=== PATIENT | female | born 1970 | race Caucasian/White ===

== ENCOUNTER 2021-09-11 01:28 | Inpatient (IN) | payer BC, SELFPAY ==
[2021-09-11] VITALS (13 sets, daily range): BP systolic 81–155; BP diastolic 52–118; PULSE 92–118; RESP 15–92; TEMP 36.7–37.7; O2SAT 90–98; BMI 16.1
--- NOTE | ~2021-09-11 | XR_ITS ---
EXAMINATION: XR chest 1V portable DATE: 09/21/2021 05:50 INDICATION: Respiratory failure TECHNIQUE: frontal view of the chest was obtained. COMPARISON: Chest radiograph and CT dated 09/20/21 FINDINGS: Endotracheal tube tip is 0.9 cm above the alisha. Nasogastric tube tip in proximal side port in the b declan of the stomach. Left upper extremity peripherally inserted central venous catheter (PICC) tip at the caudal superior vena cava. Slight interval improvement in the diffuse interstitial and groundglass and patchy more dense airspac e opacities seen throughout both lungs. Remain slightly more prominent in the left upper and lower ministerio ng zones. No pleural effusion or pneumothorax. The cardiomediastinal silhouette is normal. IMPRESSION: 1. Interval improvement in now left-sided predominant and minimal right-sided opacities which could r epresent improving pneumonia and/or pulmonary edema. 2. Underlying emphysema, better appreciated on prior CT. Reviewed, dictated and finalized at location A. IMPRESSION: 1. Interval improvement in now left-sided predominant and minimal right-sided o pacities which could represent improving pneumonia and/or pulmonary edema. 2. Underlying emphysema, better appreciated on prior CT.
--- NOTE | ~2021-09-11 | XR_ITS ---
EXAMINATION: XR chest 1V portable DATE: 09/13/2021 05:54 INDICATION: Respiratory failure. TECHNIQUE: A single frontal view of the chest was obtained. COMPARISON: Chest single view 09/12/2021, CT abdomen and pelvis 09/10/2021 FINDINGS: There are heterogeneous airspace opacities throughout the lungs bilaterally with relative s paring of the lung apices. No pleural effusion or pneumothorax. The heart size is normal. The endotra cheal tube tip is 3.5 cm above the alisha. The nasogastric tube tip is in the stomach. IMPRESSION: 1. Diffuse lung disease with improvement at the lung apices, consistent with pulmonary edema versus p neumonia. Reviewed, dictated and finalized at location A. IMPRESSION: 1. Diffuse lung disease with improvement at the lung apices, consistent with pu lmonary edema versus pneumonia.
--- NOTE | ~2021-09-11 | XR_ITS ---
EXAMINATION: XR chest 1V portable DATE: 09/25/2021 06:07 INDICATION: Pneumonia. Intubated. Respiratory failure. TECHNIQUE: frontal view of the chest was obtained. COMPARISON: Chest radiograph dated 09/24/21 FINDINGS: Nasogastric tube extends below the left hemidiaphragm with distal tip collimated off the study. Left upper extremity peripherally inserted central venous catheter (PICC) tip at the caudal superior chandler a cava. Mild streaky bibasilar atelectasis. No other airspace opacities, pulmonary edema, pleural effusion or pneumothorax. The cardiomediastinal silhouette is normal. Visualized bones and soft tissues are unre markable. IMPRESSION: 1. Mild bibasilar atelectasis. Reviewed, dictated and finalized at location A.
--- NOTE | ~2021-09-11 | XR_ITS ---
XR abdomen/kub 1V DATE: 09/16/2021 08:08 INDICATION: Ileus TECHNIQUE: Portable supine AP view on 09/16/2021 at 0746 hours COMPARISON: 09/12/2021 water-soluble upper gastrointestinal series 09/11/2021 KUB FINDINGS: Nasogastric tube in gastric fundus, the proximal side-port the proximal 8 cm distal to the diaphragmatic hiatus. Repeat contrast material is noted in the left colon. No bowel obstruction is evident. The psoas shado ws are intact. No visceromegaly is identified. Bilateral lower lung infiltrates are noted. IMPRESSION: Nonspecific abdomen Bilateral lower lung infiltrates NG tube in gastric fundus Reviewed, dictated and finalized at Location A. Reviewed, dictated and finalized at location A.
--- NOTE | ~2021-09-11 | CT_ITS ---
EXAMINATION: CTA chest PE abdomen pel DATE: 09/20/2021 14:03 INDICATION: Fever. Encephalopathy. TECHNIQUE: Computed tomography angiography (CTA) of the chest was performed with 100 mL Omnipaque-350 intravenous contrast timed to evaluate the pulmonary arteries. Coronal maximum intensity projection 3D-reconstructions were created by the technologist. Computed tomography (CT) of the abdomen and pelv is was performed with intravenous contrast. Automated exposure control and iterative reconstruction t echnique were employed. The dose-length product was 594.29 mGy-cm. COMPARISON: CT abdomen and pelvis 09/10/2021 FINDINGS: CTA chest: There is mild emphysema. There are patchy groundglass opacities in all lobes. There are pa tchy airspace opacities in the lower lobes and left upper lobe. There are small pleural effusions. Th e heart size is normal. No pericardial effusion. There is no pulmonary embolus. The endotracheal tube tip is in expected position in the trachea. A left upper extremity peripherally inserted central chandler ous catheter (PICC) is seen with tip at the superior cavoatrial junction. CT abdomen and pelvis: The nasogastric tube tip is in the stomach. The liver is normal. The gallbladd er is absent. The spleen, pancreas, adrenal glands, and kidneys are normal. There is a large volume o f liquid stool in colon. The appendix is normal. There are no dilated loops of bowel. There is a Fole y catheter in expected position. There are no pathologically enlarged lymph nodes. There is no free i ntraperitoneal fluid. IMPRESSION: 1. No pulmonary embolus. 2. Diffuse lung disease, new from 09/10/2021, consistent with pneumonia without or with superimposed p ulmonary edema. 3. Mild emphysema. 4. Small pleural effusions. Reviewed, dictated and finalized at location A. IMPRESSION: 1. No pulmonary embolus. 2. Diffuse lung disease, new from 09/10/2021, consistent with pneumonia without or with superimposed pulmonary edema. 3. Mild emphysema. 4. Small pleural effusions.
--- NOTE | ~2021-09-11 | US_ITS ---
EXAMINATION: US renal BI DATE: 09/11/2021 11:50 INDICATION: Acute renal insufficiency TECHNIQUE: Multiple ultrasound grayscale images of the kidneys were obtained. COMPARISON: None. FINDINGS: The right kidney measures 11.4 x 4.6 x 5.6 cm. The suboptimally visualized left kidney measures 9.1 x 4.6 x 4.6 cm. The kidneys demonstrate normal echogenicity. There is no hydronephrosis in either kidn ey. No stones identified. A Solorzano catheter is seen within the partially decompressed bladder which l imits evaluation. IMPRESSION: 1. Normal kidneys without hydronephrosis. Reviewed, dictated and finalized at location B.
--- NOTE | ~2021-09-11 | XR_ITS ---
EXAMINATION: XR UGI water soluble w sbs DATE: 09/12/2021 14:31 INDICATION: Dilated stomach and duodenum. TECHNIQUE: Water-soluble contrast was injected into the nasogastric tube. Fluoroscopy of the stomach and small bowel was performed. Fluoroscopy exposure time was 0.1 minutes. Radiographs of the abdomen were obtained. The total number of images was 14. COMPARISON: CT abdomen and pelvis 09/10/2021 FINDINGS: UPPER GASTROINTESTINAL SERIES: The nasogastric tube tip is in the stomach. The stomach demonstrates a normal folding pattern. The du odenum is normal. No obstruction. Specifically, there is no SMA syndrome. SMALL BOWEL SERIES: The small bowel shows a normal folding pattern. Transit time to the colon was 30 minutes. IMPRESSION: 1. Normal upper gastrointestinal series and small bowel series. Reviewed, dictated and finalized at location A.
--- NOTE | ~2021-09-11 | XR_ITS ---
XR chest 1V portable DATE: 09/15/2021 08:14 INDICATION: Respiratory failure TECHNIQUE: Portable AP chest on 09/15/2021 at 0803 hours COMPARISON: 09/14/2021 portable AP chest at 0514 hours FINDINGS: Persistent severe diffuse patchy consolidating infiltrates throughout both lungs, increased mildly in severity since 09/14/2021. Heart size appears within normal range. No pneumothorax. No apparent pleural effusion. ET tube in satisfactory position 2.3 cm above alisha. G-tube in gastric fundus. Left upper extremity PIC catheter tip overlying the lower aspect of superior vena cava. IMPRESSION: Severe bilateral pulmonary infiltrates, increased in severity since 09/14/2021 Reviewed, dictated and finalized at location A.
--- NOTE | ~2021-09-11 | XR_ITS ---
XR chest 1V portable 09/22/2021 05:50 Indication: Pneumonia. Respiratory failure. Procedure: AP portable chest Comparison: Comparison to multiple prior studies sequentially, with oldest reviewed study dated 09/19. Findings: Endotracheal tube tip 1.6 cm above the alisha. NG tube in the stomach. PICC line tip in the SVC. Hazy diffuse bilateral airspace disease. Left apical pleural thickening/scarring. No pneumothor ax identified. Impression: 1: Hazy diffuse bilateral airspace disease which may represent edema or pneumonia. Reviewed, dictated and finalized at location A. Impression: 1: Hazy diffuse bilateral airspace disease which may represent edema or pneumon ia.
--- NOTE | ~2021-09-11 | XR_ITS ---
EXAMINATION: XR chest PICC line DATE: 09/13/2021 10:31 INDICATION: PICC line placement TECHNIQUE: frontal view of the chest was obtained. COMPARISON: Chest radiograph dated 09/13/2021 FINDINGS: Left upper extremity peripherally inserted central venous catheter (PICC) tip at the superior cavoat rial junction. Endotracheal tube tip 2.7 cm above the alisha. Nasogastric tube extends below the lef t hemidiaphragm with distal tip collimated off the study. No significant change in diffuse patchy groundglass opacities throughout the bilateral mid and lower lung zones. More dense retrocardiac consolidation at the left lower lung zone. No pneumothorax or def initive pleural effusion. The cardiomediastinal silhouette is normal. IMPRESSION: 1. Left upper extremity PICC line tip at the superior cavoatrial junction. 2. Diffuse bilateral lung disease relatively sparing the apices consistent with pulmonary edema or pn eumonia. Reviewed, dictated and finalized at location B. IMPRESSION: 1. Left upper extremity PICC line tip at the superior cavoatrial junction. 2. Diffuse bilateral lung disease relatively sparing the apices consistent with pulmonary edema or pneumonia.
--- NOTE | ~2021-09-11 | XR_ITS ---
XR chest ET placement 09/12/2021 21:07 Indication: Respiratory distress Procedure: AP portable chest Comparison: 09/12/2021 Findings: Endotracheal tube tip 4.5 cm above the alisha. NG tube in the stomach. Stable bilateral air space disease without significant change. No pneumothorax. Impression: 1: Stable diffuse bilateral airspace disease which may represent edema or pneumonia. Reviewed, dictated and finalized at location A. Impression: 1: Stable diffuse bilateral airspace disease which may represent edema or pneum onia.
--- NOTE | ~2021-09-11 | XR_ITS ---
EXAMINATION: XR chest 1V portable DATE: 09/17/2021 05:42 INDICATION: Respiratory failure TECHNIQUE: frontal view of the chest was obtained. COMPARISON: Chest radiograph dated 09/16/21 FINDINGS: Endotracheal tube tip 1.9 cm above the alisha. Nasogastric tube tip in proximal side port in the body of the stomach. Left upper extremity peripherally inserted central venous catheter (PICC) tip at th e caudal superior vena cava. Slight interval improvement in diffuse bilateral interstitial and patchy groundglass opacities throug hout both lungs relatively sparing the apices. No pleural effusion or pneumothorax. Visualized bones and soft tissues are unremarkable. IMPRESSION: 1. Slight decrease in the diffuse bilateral interstitial and airspace opacities which could represent improvement of pulmonary edema and/or pneumonia. Reviewed, dictated and finalized at location A.
--- NOTE | ~2021-09-11 | CT_ITS ---
EXAMINATION: CT brain wo con DATE: 09/20/2021 14:03 INDICATION: Encephalopathy. TECHNIQUE: Computed tomography (CT) of the head was performed without intravenous contrast. The mA wa s adjusted according to patient size. Iterative reconstruction technique was employed. The dose-lengt h product was 529.67 mGy-cm. COMPARISON: Head CT 09/10/2021 FINDINGS: There is chronic encephalomalacia in right frontal lobe and anterior body of corpus callosu m. There is no intracranial hemorrhage, acute infarction, or abnormal intracranial mass lesion. There is ex vacuo dilatation of the lateral ventricles. There is mild mucosal thickening in the ethmoid si nuses. There is a right mastoid effusion. The orbits are normal. 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 IMPRESSION: 1. 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 Reviewed, dictated and finalized at location A. IMPRESSION: 1. Chronic encephalomalacia in right frontal lobe and anterior body of corpus c allosum.
--- NOTE | ~2021-09-11 | XR_ITS ---
EXAMINATION: XR chest 1V portable DATE: 09/24/2021 05:41 INDICATION: Pneumonia. Respiratory failure. TECHNIQUE: frontal view of the chest was obtained. COMPARISON: Chest radiograph dated 09/23/2021 FINDINGS: Nasogastric tube extends below the left hemidiaphragm with distal tip collimated off the study. Left upper extremity peripherally inserted central venous catheter (PICC) tip near the superior cavoatria l junction. Interval improvement in the bilateral increased interstitial pattern, still subtly present in the lef t midlung zone. No focal airspace opacities, pleural effusion or pneumothorax. Cardiomediastinal silh ouette is normal. IMPRESSION: 1. Decrease in now minimal interstitial opacities in the left midlung zone which could represent impr oving pulmonary edema or pneumonia. Reviewed, dictated and finalized at location A. IMPRESSION: 1. Decrease in now minimal interstitial opacities in the left midlung zone whic h could represent improving pulmonary edema or pneumonia.
--- NOTE | ~2021-09-11 | XR_ITS ---
XR chest 1V portable 09/23/2021 05:29 Indication: Pneumonia. Shortness of breath. Procedure: AP portable chest Comparison: Comparison to multiple prior studies sequentially, with oldest reviewed study dated 09/19. Findings: Central venous catheter tip in SVC. NG tube in the stomach. Heart size normal. Diffuse bila teral interstitial infiltrates which may represent edema or pneumonia. No significant effusion or pne umothorax. Impression: 1: Interval development of diffuse interstitial infiltrates which may represent edema or pneumonia. Reviewed, dictated and finalized at location A. Impression: 1: Interval development of diffuse interstitial infiltrates which may represent edema or pneumonia.
--- NOTE | ~2021-09-11 | US_ITS ---
EXAMINATION:US venous doppler LE BI INDICATION:Fever. TECHNIQUE: Multiple grayscale, color flow and Doppler images of the right and left lower extremity de ep venous systems were obtained and reviewed. COMPARISON:No prior studies for comparison. FINDINGS: The common femoral, superficial femoral and popliteal veins demonstrate normal respiratory variation, augmentation and compressibility. Color flow is also seen within the posterior tibial, pe roneal, greater saphenous and profunda veins. IMPRESSION: 1: No lower extremity deep venous thrombosis. Reviewed, dictated and finalized at location A.
--- NOTE | ~2021-09-11 | XR_ITS ---
EXAMINATION: XR abdomen NG/feed tube insert Exam Date/Time: 09/23/2021 14:40 CDT HISTORY: ng insertion Comparison: X-ray abdomen 09/16/2021. CTPA 09/20/2021. RESULT: Lines, tubes, and devices: Left upper extremity PICC terminating at the cavoatrial junction. NG tube traverses the images terminating out of the [id number].. Lungs and pleura: Ill-defined focal consolidative opacities and coarse reticular opacities, improvin g since the prior study.. Cardiothymic silhouette: Stable. Other: No acute osseous or upper abdominal finding. IMPRESSION: Improving pulmonary opacities. Reviewed, dictated and finalized at location K.
--- NOTE | ~2021-09-11 | XR_ITS ---
XR chest 1V portable DATE: 09/16/2021 05:30 INDICATION: Respiratory failure TECHNIQUE: Portable AP chest on 09/16/2021 at 0519 hours COMPARISON: 09/15/2021 portable AP chest at 0803 hours FINDINGS: ET tube in satisfactory position 3 x 3 cm above alisha. NG tube in gastric fundus. Left upp er extremity PIC catheter tip overlies superior vena cava. Extensive diffuse bilateral pulmonary infiltrates are again noted with little interval change since . IMPRESSION: No significant change of extensive bilateral pulmonary infiltrates since 09/15/2021 Reviewed, dictated and finalized at location A.
--- NOTE | ~2021-09-11 | XR_ITS ---
EXAMINATION: XR abdomen NG/feed tube insert DATE: 09/11/2021 11:32 INDICATION: Nasogastric tube placement TECHNIQUE: A supine view of the abdomen and lower chest was obtained for evaluation of feeding tube placement. COMPARISON: None. FINDINGS: Nasogastric tube tip in proximal side port in the body of the relatively decompressed stomach. Some g as is seen within the colon the upper abdomen. No dilated loops of gas-filled bowel. Streaky atelecta sis in the bilateral lung bases and more patchy airspace opacities in the left midlung zone which cou ld represent additional atelectasis or pneumonia. IMPRESSION: 1. Nasogastric tube in the stomach. 2. Mild patchy airspace opacity left midlung zone which could represent atelectasis or pneumonia. Reviewed, dictated and finalized at location B. IMPRESSION: 1. Nasogastric tube in the stomach. 2. Mild patchy airspace opacity left midlung zone which could represent atelect asis or pneumonia.
--- NOTE | ~2021-09-11 | XR_ITS ---
MODIFIED ESOPHAGRAM HISTORY: Recent prolonged intubation. TECHNIQUE: Modified barium esophagram was performed by speech pathologist under radiologist fluorosco pic guidance. This was recorded on tape. The exam was reviewed on 09/26/2021 13:26 CDT. The DAP for this procedure was 0.439 Gycm2. Fluoroscopy time is 0.7 minutes. FINDINGS: Lateral projection of the cervical spine demonstrates normal alignment. NG tube is presen t. Oral stage within normal limits. During pharyngeal stage there is reduced laryngeal elevation, lar yngeal adduction, tongue base retraction, pharyngeal squeeze with residue in the vallecula, paraform sinus. There is laryngeal penetration with silent aspiration.. IMPRESSION: 1: Pharyngeal dysphagia with multiple episodes of laryngeal penetration with silent aspiration. 2: Please refer to speech pathologist report for additional detail. Reviewed, dictated and finalized at location A. IMPRESSION: 1: Pharyngeal dysphagia with multiple episodes of laryngeal penetration with si lent aspiration. 2: Please refer to speech pathologist report for additional detail.
--- NOTE | ~2021-09-11 | XR_ITS ---
EXAMINATION: XR chest PICC line DATE: 09/19/2021 07:47 INDICATION: Power flush to adjust PICC line position TECHNIQUE: frontal view of the chest was obtained. COMPARISON: Chest radiograph dated 09/19/2021 at 5:22 AM FINDINGS: Left upper extremity peripherally inserted central venous catheter (PICC) tip has been repositioned, now in expected position near the Endotracheal tube tip 2.0 cm above the alisha. Nasogastric tube tip in the body of the stomach. No significant change in airspace opacities throughout both lungs. No pleural effusion or pneumothora x. The cardiomediastinal silhouette is normal. IMPRESSION: 1. Left PICC line tip has been repositioned now in expected position near the superior cavoatrial evelyn ction. 2. Persistent scattered bilateral lung disease which could represent pulmonary edema or pneumonia. Reviewed, dictated and finalized at location A. IMPRESSION: 1. Left PICC line tip has been repositioned now in expected position near the s uperior cavoatrial junction. 2. Persistent scattered bilateral lung disease which could represent pulmonary edema or pneumonia.
--- NOTE | ~2021-09-11 | XR_ITS ---
EXAMINATION: XR chest 1V portable DATE: 09/26/2021 05:31 INDICATION: Pneumonia. Respiratory failure. TECHNIQUE: frontal view of the chest was obtained. COMPARISON: Chest radiograph dated 09/25/2021 FINDINGS: Mild right apical pleural-parenchymal scarring and mild linear discoid atelectasis at the right lung base. No other airspace opacities, pulmonary edema, pleural effusion or pneumothorax. The cardiomedia stinal silhouette is normal. Nasogastric tube tip extends into the stomach with distal tip collimated beyond the inferior margin of the [id number]. Left upper extremity peripherally inserted central venous catheter (PICC) tip at the caudal superior vena cava. Visualized bones and soft tissues are unremarkable. IMPRESSION: 1. Mild right apical pleural-parenchymal scarring and mild discoid atelectasis at the right lung base . Reviewed, dictated and finalized at location A. IMPRESSION: 1. Mild right apical pleural-parenchymal scarring and mild discoid atelectasis at the right lung base.
--- NOTE | ~2021-09-11 | XR_ITS ---
EXAMINATION: XR chest 1V portable DATE: 09/19/2021 06:06 INDICATION: respiratory failure TECHNIQUE: frontal view of the chest was obtained. COMPARISON: Chest radiograph dated 09/18/2021 FINDINGS: Endotracheal tube tip 1.5 cm above the alisha. There is a gastric tube tip in the stomach. Left upper extremity peripherally inserted central venous catheter (PICC) tip has changed position now extendin g cephalad in the right brachiocephalic vein. Persistent interstitial and airspace opacities throughout both lungs with slight worsening at the med ial left lung base. No pneumothorax or evident pleural effusion on the left costophrenic angle is exc luded from the [id number] and cannot exclude a persistent very small left pleural effusion. No pne umothorax. The cardiomediastinal silhouette is normal. IMPRESSION: 1. Left PICC line now extends cephalad with tip in the right brachiocephalic vein. Considering attemp t at repositioning with rapid saline flush. 2. Persistent scattered bilateral lung disease which could represent pulmonary edema and/or pneumonia with some worsening aeration at the medial left lung base which could represent some focal progressi on of disease or atelectasis. Reviewed, dictated and finalized at location A. IMPRESSION: 1. Left PICC line now extends cephalad with tip in the right brachiocephalic ve in. Considering attempt at repositioning with rapid saline flush. 2. Persistent scattered bilateral lung disease which could represent pulmonary edema and/or pneumonia with some worsening aeration at the medial left lung bas e which could represent some focal progression of disease or atelectasis.
--- NOTE | ~2021-09-11 | XR_ITS ---
EXAMINATION: XR chest 1V portable DATE: 09/20/2021 05:59 INDICATION: Respiratory failure TECHNIQUE: frontal view of the chest was obtained. COMPARISON: Chest radiograph dated 09/19/2021 FINDINGS: Endotracheal tube tip 1.2 cm above the alisha. Nasogastric tube tip in proximal side port in the body of the stomach. Left upper extremity peripherally inserted central venous catheter (PICC) tip at th e inferior cavoatrial junction. Airspace opacities throughout both lungs with improvement in the bilateral lower lung zones. No pleur al effusion or pneumothorax. The cardiomediastinal silhouette is normal. IMPRESSION: 1. Scattered airspace opacities throughout both lungs which could represent pulmonary edema or pneumo [place] with some improvement in the lower lung zones. Reviewed, dictated and finalized at location A. IMPRESSION: 1. Scattered airspace opacities throughout both lungs which could represent pul monary edema or pneumonia with some improvement in the lower lung zones.
--- NOTE | ~2021-09-11 | XR_ITS ---
MODIFIED ESOPHAGRAM HISTORY: Recent intubation. Silent aspiration. TECHNIQUE: Modified barium esophagram was performed on 09/23/2021. I administered fluoroscopy and perf ormed the exam with speech pathologist. Patient was seated for lateral fluoroscopic imaging for matias stion of thin liquids, pudding, solids and quantified amounts, followed by thin liquids in uncontroll ed amounts. This was recorded on tape. A single fluoroscopic spot image was also recorded. The DAP fo r this procedure was 1.208 Gycm2. The amount of fluoroscopy time used during this procedure was 2.1 m inutes. FINDINGS: Oral stage: Reduced labial seal/retention. Pharyngeal stage: Prominent pharyngeal dysphagia with laryngeal penetration and silent aspiration. Cervical/esophageal stage: Adequate function. IMPRESSION: Significant pharyngeal dysphagia with laryngeal penetration and silent aspiration without effective clearance with prompted cough. Please correlate with speech pathologist findings and spec [facility] feeding recommendations. Reviewed, dictated and finalized at location A. IMPRESSION: Significant pharyngeal dysphagia with laryngeal penetration and john ent aspiration without effective clearance with prompted cough. Please correla te with speech pathologist findings and specific feeding recommendations.
--- NOTE | ~2021-09-11 | XR_ITS ---
EXAMINATION: XR chest 1V portable DATE: 09/14/2021 05:29 INDICATION: Respiratory failure. TECHNIQUE: A single frontal view of the chest was obtained. COMPARISON: Chest single view 09/13/2021 FINDINGS: There are interstitial and airspace opacities throughout the lungs bilaterally with relativ e sparing of the lung apices. No pleural effusion or pneumothorax. The heart size is normal. The endo tracheal tube tip is 2.4 cm above the alisha. The nasogastric tube tip is in the stomach. A left uppe r extremity peripherally inserted central venous catheter (PICC) is seen with tip at the superior cav oatrial junction. IMPRESSION: 1. Stable diffuse lung disease, consistent with pulmonary edema versus pneumonia. Reviewed, dictated and finalized at location A. IMPRESSION: 1. Stable diffuse lung disease, consistent with pulmonary edema versus pneumoni a.
--- NOTE | ~2021-09-11 | XR_ITS ---
XR chest 1V portable 09/12/2021 18:53 Indication: Respiratory distress Procedure: AP portable chest Comparison: No prior studies for comparison. Findings: NG tube in the stomach. Diffuse bilateral airspace disease which may represent pneumonia or edema. No pleural effusion or pneumothorax. Heart size normal. Impression: 1: Diffuse bilateral airspace disease which may represent pneumonia or edema. Reviewed, dictated and finalized at location A. Impression: 1: Diffuse bilateral airspace disease which may represent pneumonia or edema.
--- NOTE | ~2021-09-11 | XR_ITS ---
EXAMINATION: XR chest 1V portable DATE: 09/18/2021 05:50 INDICATION: Respiratory failure TECHNIQUE: frontal view of the chest was obtained. COMPARISON: Chest radiograph dated 09/17/2021 and 09/15/2021 FINDINGS: Endotracheal tube tip 2.2 cm above the alisha. A gastric tube tip in proximal side port in the body o f the stomach. Left upper extremity peripherally inserted central venous catheter (PICC) tip at the caudal superior vena cava. Gradual improvement since 09/15/2021 diffuse bilateral airspace and interstitial opacities. No pneumot horax. Very small left pleural effusion with blunting at the costophrenic angle. No pneumothorax. The cardiomediastinal silhouette is normal. IMPRESSION: 1. Gradual improvement since 01/16/2022 and diffuse bilateral lung disease which could represent pulm onary edema and/or pneumonia. 2. Very small left pleural effusion. Reviewed, dictated and finalized at location A. IMPRESSION: 1. Gradual improvement since 01/16/2022 and diffuse bilateral lung disease whic h could represent pulmonary edema and/or pneumonia. 2. Very small left pleural effusion.
--- NOTE | 2021-09-11 01:18 | PM.IMHP ---
H&P: HPI History of Present Illness Date/Time: 09/11/21 01:18 Chief Complaint: Nausea with vomiting Narrative: 51-year-old female from outside facility with past medical history significant for possible polysubstance abuse, drug screen positive for methadone and tricyclics, concern for meth use and alcohol abuse per chart from outside facility is presenting with a one-week history of nausea and vomiting and inability to keep p.o. intake down. History taken from paper chart from outside facility as patient is confused and there is no family at bedside. Home med list does include albuterol, folic acid and thiamine, gabapentin, Otis, propanolol and Spiriva. This medication list indicates that the patient does have alcohol abuse as well as COPD and possibly migraines? Of note, patient did have laparoscopic cholecystectomy in June of 2021. The outlying facility, patient was found to have a metabolic acidosis thought to be secondary to GI losses and poor p.o. intake. CT abdomen and pelvis was done and showed moderate fluid distention of the stomach and proximal duodenum with some concern for SMA syndrome, evaluation by fluoroscopic upper GI study be more helpful. The report also mentioned status post cholecystectomy with no evidence of complications, mild hepatic steatosis, moderate wall thickening of the distal esophagus increased from past images possibly secondary to reflux esophagitis. In the ER, patient was found to have an abnormal ABG showing a pH of 6.96, CO2 of 27.8, O2 of 45 and bicarb of 6.2. ICU physician Dr. Salgado recommended starting bicarb drip. ABG was rechecked after administration and pH is now 7.22 with a bicarb of 5.6. On CMP, patient was noted to be hyponatremic with a sodium of 126, creatinine 7.7, BUN 79. Hypokalemia noted with a potassium of 2.8. CBC showed a white count of 24.7, hemoglobin 13.6, platelets of 365 and a predominance of neutrophils. Urinalysis was essentially unremarkable. Troponin was negative. Ethanol level is negative. PT INR and PTT were essentially unremarkable. Review of Systems Review of Systems: ROS unobtainable: Yes unobtainable due to mental status PMFSH Family History Family History Mother Thyroid disease Diabetes mellitus Father Heart disease Father Diabetes mellitus Social History Social History Smoking packs per day: 0.5 Smoking cigarettes per day: 10.0 Smoking status: Current every day smoker Tobacco type: cigarettes Alcohol intake: unknown Substance use: unknown Spiritual care concerns: No Meds Home Medications and Allergies Home Medications Medication Instructions Recorded Confirmed Type albuterol sulfate 90 mcg/actuation 2 inh inhalation Q6H PRN Shortness 09/11/21 09/11/21 History aerosol inhaler Of Breath Or Wheezing gabapentin 300 mg capsule 300 mg PO TID 09/11/21 09/11/21 History pantoprazole 40 mg tablet,delayed 40 mg PO DAILY 09/11/21 09/11/21 History release propranolol 40 mg tablet 40 mg PO TID 09/11/21 09/11/21 History Allergies Allergy/AdvReac Type Severity Reaction Status Date / Time Unable to Assess Allergy Verified 09/11/21 02:43 Exam Narrative: General: Agitated in bed, appears to be hallucinating picking at things, non combative, cachectic looking female HEENT: Atraumatic, normocephalic, mucous membranes moist CV: Regular rate and rhythm, S1, S2 Lungs: Clear to auscultation bilaterally, no rales or crackles noted, no wheezes, good air entry Abdomen: Soft, nontender, nondistended Extremities: Normal to inspection Skin: No rashes noted, no lesions or wounds seen Psych: Euthymic, normal affect Assessment and Plan Assessment and plan (1) Metabolic acidosis: Code(s): E87.2 - Acidosis Status: Acute Assessment and Plan: Pre renal azotemia secondary to GI losses and dramat
--- NOTE | 2021-09-11 01:52 | ADMGEN ---
This patient, Elissa Mazariegos, was admitted to Intensive Care Unit-9. Patient/family oriented to hospital policies and general routines including ID bracelet, bed and alarms, visiting hours, pain management, procedures, bathroom and other care routines, personal items, smoking policy, room service/diet, and visiting hours. Information on how to activate the Rapid Response Team has been discussed. Patient/Family are encouraged to report perceived risks to care and to ask questions if they do not understand what they are told or what they should do.
[2021-09-11 02:09] LABS: Alveolar/Arterial O2 Gradient 21.2 mmHg; Base Excess ABG -19.7 mEq/l (+/-2.0); Carboxyhemoglobin 0.3 % THb (0-2.0); Fractional Inspired Oxygen 21 %; HCO3 ABG 5.6 mEq/l (22.0-26.0); Methemoglobin ABG 0.3 %THb (0-1.5); Oxygen Content ABG 16.7 %vol (16.0-22.0); Oxygen Saturation ABG 97.4 % (95.0-100.0); Oxyhemoglobin 96.5 % THb (90.0-100.0); PO2 ABG 111.8 mmHg (80.0-100.0); PO2 FiO2 Ratio Arterial Blood 5.32 %; Reduced Hemoglobin 2.9 %THb (0-5.0); Total Hemoglobin 12.2 g/dL (12.0-18.0)
[2021-09-11 02:12] LABS: Device ROOM AIR; Modified Allen's Test Pass; Site Drawn RIGHT RADIAL
--- NOTE | 2021-09-11 02:26 | PC.NURSE ---
Patient confused at this time, alert to self only. Patient is attempting to eat pulse ox cord stating to leave her alone.
[2021-09-11 04:40] LABS: Basophils Percent Auto 0.1 % (0.2-1.2); Hemoglobin 11.5 g/dL (12.0-15.0); Immature Granulocyte Absolute 0.08 K/mm3 (0.00-0.031); Immature Granulocyte Percent A 0.5 % (0-0.5); Lymphocytes Absolute Auto 1.07 K/mm3 (0.9-3.2); Lymphocytes Percent Auto 6.9 % (18.3-44.2); Mean Corpuscular HGB Conc 37.1 g/dl (32-36); Mean Corpuscular Hemoglobin 36.5 pg (26-34); Mean Corpuscular Volume 98.4 fl (80-100); Mean Platelet Volume 9.6 fl (7.4-10.4); Monocytes Percent Auto 6.7 % (2.6-8.5); Neutrophils Absolute Auto 13.3 K/mm3 (1.3-6.7); Neutrophils Percent Auto 85.8 % (45.5-73.1); Platelet Count Result 277 k/mm3 (150-375); Red Blood Count 3.15 M/mm3 (4.2-5.4); Red Cell Distribution Width 14.8 % (11.5-14.5); White Blood Count 15.5 K/mm3 (4.5-10.0)
[2021-09-11 04:59] LABS: Alanine Aminotransferase 6 U/L (6-35); Albumin Level 2.7 g/dL (3.5-5.1); Alkaline Phosphatase 119 U/L (38-126); Aspartate Amino Transferase 15 U/L (14-36); Bilirubin,Total 0.5 mg/dL (0.2-1.3); Blood Urea Nitrogen 79 mg/dL (7-17); Calcium 7.7 mg/dL (8.4-10.2); Carbon Dioxide < 5 mmol/L (22-30); Chloride 106 mmol/L (98-107); Estimated CRCL calculation 7 ml/min; Estimated Glomerular Filt Rate 7; Glucose 52 mg/dL (65-110); Magnesium 2.2 mg/dL (1.6-2.3); Potassium 2.2 mmol/L (3.4-5.0); Sodium 138 mmol/L (137-145)
[2021-09-11] MEDS: DEXTROSE 50% 25 GM/50 ML SYRINGE IV PUSH (05:10)
[2021-09-11] MEDS: POTASSIUM CHLORIDE INJ 40 MEQ in SODIUM CHLORIDE 0.9% IV 500 ML 130 MEQ IVPB ×3 (05:44→20:53)
[2021-09-11] MEDS: SODIUM BICARBONATE 8.4% 150 MEQ in DEXTROSE 5% 1,000 ML 950 ML 100 MEQ IV CONT ×2 (05:50→16:21)
[2021-09-11 05:52] LABS: Glucose Point of Care 189 mg/dl (65-105)
--- NOTE | 2021-09-11 08:28 | WPDCNINT ---
Assessment and Plan Assessment and plan (1) Acute kidney injury: Code(s): N17.9 - Acute kidney failure, unspecified Status: Acute Assessment and Plan: patient presented with creatinine of 7. This could be prerenal versus renal CT scan did not could show any hydronephrosis patient reported nausea vomiting abdominal pain and poor p.o. intake over last week or so she was given IV fluid bolus IV fluids with bicarb in continued check CK urine creatinine and sodium check renal ultrasound consult nephrology monitor urine output electrolytes and creatinine (2) Metabolic acidosis: Code(s): E87.2 - Acidosis Status: Acute Assessment and Plan: she is on IV fluids with bicarb I will add bicarb to feeding tube (3) Encephalopathy: Code(s): G93.40 - Encephalopathy, unspecified Status: Acute Assessment and Plan: patient's exam is nonfocal and appears to be toxic metabolic encephalopathy. Her urine drug screen was positive methadone and tricyclics she is also on Neurontin and [place] she is awake and follows commands with all 4 extremities but is confused check ammonia and TSH treat metabolic derangements head CT was done at outside hospital which apparently was unremarkable. Will request images to to be added to our PACS system if does not improve then will consider further imaging including MRI (4) Alcohol abuse: Code(s): F10.10 - Alcohol abuse, uncomplicated Status: Acute Assessment and Plan: details unknown at this time continue thiamine and folic acid monitor for signs of withdrawal (5) Esophagitis: Code(s): K20.90 - Esophagitis, unspecified without bleeding Status: Acute Assessment and Plan: start PPI (6) Hypoglycemia: Code(s): E16.2 - Hypoglycemia, unspecified Status: Acute Assessment and Plan: currently on IV fluids with dextrose Q 4 hour monitoring ordered (7) Electrolyte abnormality: Code(s): E87.8 - Other disorders of electrolyte and fluid balance, not elsewhere classified Status: Acute Assessment and Plan: potassium and calcium replacement ordered monitor and treat accordingly (8) COPD (chronic obstructive pulmonary disease): Code(s): J44.9 - Chronic obstructive pulmonary disease, unspecified Status: Acute (9) Nausea & vomiting: Code(s): R11.2 - Nausea with vomiting, unspecified Status: Acute Assessment and Plan: patient presented with nausea vomiting abdominal pain CT scan of the abdomen pelvis done in the outside hospital reviewed and suggest possible to now obstruction consult GI place NG tube to low intermittent suction lipase was only marginally elevated LFTs were unremarkable up slightly elevated alk-phos (10) SIRS (systemic inflammatory response syndrome): Code(s): R65.10 - Systemic inflammatory response syndrome (SIRS) of non-infectious origin without acute organ dysfunction Status: Acute Assessment and Plan: chest x-ray and UA was negative. CT also did not show any evidence of infection. Although patient had elevated WBC count. Cultures were done in the ER patient was not started on antibiotics will hold antibiotics at this time and monitor she is afebrile. her WBC is improving Additional Plan DVT prophylaxis - SCDs Stress ulcer prophylaxis - PPI Nutrition - insert NG tube Code Status - Full Code Total Critical Care Time - 45 minutes Due to a high probability of clinically significant, life threatening deterioration, the patient required my highest level of preparedness to intervene emergently and I personally spent this critical care time directly and personally managing the patient. This critical care time included obtaining a history; examining the patient; pulse oximetry; ordering and review of studies; arranging urgent treatment with development of a management plan; evaluat
[2021-09-11 08:33] LABS: Iron 101 ug/dL (37-170)
[2021-09-11 08:43] LABS: Percent Iron Saturation 67 % (20-50)
[2021-09-11 08:44] LABS: Ammonia < 9 umol/L (9-30)
[2021-09-11] MEDS: SODIUM BICARBONATE TAB 650 MG TABLET FEED TUBE ×3 (08:44→16:59)
[2021-09-11] MEDS: THIAMINE HCL 200 MG/2 ML VIAL 100 MG IV PUSH (08:44)
[2021-09-11] MEDS: FOLIC ACID 1 MG/0.2 ML INJ IV PUSH (08:44)
[2021-09-11] MEDS: PANTOPRAZOLE SODIUM IV 40 MG VIAL IV PUSH (08:45)
[2021-09-11 08:54] LABS: Creatine Kinase 56 U/L (30-135)
[2021-09-11 08:55] LABS: Folic Acid 5.2 ng/mL (2.76->20)
[2021-09-11 08:57] LABS: Glucose Point of Care 99 mg/dl (65-105)
[2021-09-11] MEDS: POTASSIUM CHLORIDE 20 MEQ PACKET (FOR LIQUID) 40 MEQ FEED TUBE ×2 (09:00→18:55)
--- NOTE | 2021-09-11 10:00 | P.CONNP_ITS ---
Assessment and Plan Assessment and plan (1) Acute kidney injury: Code(s): N17.9 - Acute kidney failure, unspecified Status: Acute Assessment and Plan: * unclear what baseline creatinine is but assume it was normal * etiology not clear but suspect prerenal factors (nausea/vomiting/poor oral intake) and perhaps relative hypotension playing a role * follow-up on urine electrolytes and CPK * renal ultrasound pending * follow repeat labs and UOP (2) Metabolic acidosis: Code(s): E87.2 - Acidosis Status: Acute Assessment and Plan: * presumably due to renal failure * on bicarb IVFs and oral bicarbonate (via feeding tube) (3) Electrolyte abnormality: Code(s): E87.8 - Other disorders of electrolyte and fluid balance, not elsewhere classified Status: Acute Assessment and Plan: * suspect due to GI loss and poor oral intake and possibly total body store depletion * replacement as needed * bicarb IVFs may be contribue to further hypokalemia and hypocalcemia * follow trend of K+ and Ca++ (4) Altered mental status: Code(s): R41.82 - Altered mental status, unspecified Status: Acute Assessment and Plan: * likely toxic metabolic encephalopathy * suspect multifactorial: * urine drug screen was positive methadone and tricyclics * also on gabapentin and [place] * alcohol abuse(?) * follow-up on ammonia and TSH * head CT at OSH negative * consider further imaging if mentation does not improve with supportive therapy (5) Nausea & vomiting: Code(s): R11.2 - Nausea with vomiting, unspecified Status: Acute Assessment and Plan: * as noted on presentation to OSH * CT of A/P suggest obstruction * NG tube in place * GI consulted * follow clinical exam (6) Alcohol abuse: Code(s): F10.10 - Alcohol abuse, uncomplicated Status: Acute Assessment and Plan: * details/specifics are unknown at this time * on thiamine and folic acid * follow for signs of withdrawal Will continue to follow. History of Present Illness Reason for Consult Consult date: 09/11/21 Reason for consult: acute renal failure Chief Complaint Chief complaint: acute renal failure, metabolic acidosis History of Present Illness Narrative: All the information I have obtained is from review of the electronic medical record as well as the accompanying paper chart and discussion with the physician/nurses involved in her care as the patient is unable to provide any meaningful history as to the events that led to her presentation and subsequent admission to the hospital. The patient is a 51-year-old female with a past medical history as outlined below who was transferred from an outside hospital emergency room for further evaluation and treatment of her acute kidney injury/ acute renal f ailure, altered mental status, and metabolic acidosis. The patient apparently presented to the outside hospital emergency room with a 1 week history of nausea and vomiting and inability to keep anything down orally. There was some concern for possible alcohol abuse on presentation to the outside hospital as well. Routine blood test demonstrated acute kidney injury with a creatinine of 7.0 in association with a severe metabolic acidosis with a CO2 level less than 5. Her ABG showed a pH of 6.96 and a serum bicarb of 6.2. Further electrolyte abnormalities were noted on her chemistry with a sodium of 126, hypokalemia with a p
--- NOTE | 2021-09-11 10:00 | PM.CNNEP ---
Assessment and Plan Assessment and plan (1) Acute kidney injury: Code(s): N17.9 - Acute kidney failure, unspecified Status: Acute Assessment and Plan: unclear what baseline creatinine is but assume it was normal etiology not clear but suspect prerenal factors (nausea/vomiting/poor oral intake) and perhaps relative hypotension playing a role follow-up on urine electrolytes and CPK renal ultrasound pending follow repeat labs and UOP (2) Metabolic acidosis: Code(s): E87.2 - Acidosis Status: Acute Assessment and Plan: presumably due to renal failure on bicarb IVFs and oral bicarbonate (via feeding tube) (3) Electrolyte abnormality: Code(s): E87.8 - Other disorders of electrolyte and fluid balance, not elsewhere classified Status: Acute Assessment and Plan: suspect due to GI loss and poor oral intake and possibly total body store depletion replacement as needed bicarb IVFs may be contribue to further hypokalemia and hypocalcemia follow trend of K+ and Ca++ (4) Altered mental status: Code(s): R41.82 - Altered mental status, unspecified Status: Acute Assessment and Plan: likely toxic metabolic encephalopathy suspect multifactorial: urine drug screen was positive methadone and tricyclics also on gabapentin and [place] alcohol abuse(?) follow-up on ammonia and TSH head CT at OSH negative consider further imaging if mentation does not improve with supportive therapy (5) Nausea & vomiting: Code(s): R11.2 - Nausea with vomiting, unspecified Status: Acute Assessment and Plan: as noted on presentation to OSH CT of A/P suggest obstruction NG tube in place GI consulted follow clinical exam (6) Alcohol abuse: Code(s): F10.10 - Alcohol abuse, uncomplicated Status: Acute Assessment and Plan: details/specifics are unknown at this time on thiamine and folic acid follow for signs of withdrawal Will continue to follow. History of Present Illness Reason for Consult Consult date: 09/11/21 Reason for consult: acute renal failure Chief Complaint Chief complaint: acute renal failure, metabolic acidosis History of Present Illness Narrative: All the information I have obtained is from review of the electronic medical record as well as the accompanying paper chart and discussion with the physician/nurses involved in her care as the patient is unable to provide any meaningful history as to the events that led to her presentation and subsequent admission to the hospital. The patient is a 51-year-old female with a past medical history as outlined below who was transferred from an outside hospital emergency room for further evaluation and treatment of her acute kidney injury/ acute renal failure, altered mental status, and metabolic acidosis. The patient apparently presented to the outside hospital emergency room with a 1 week history of nausea and vomiting and inability to keep anything down orally. There was some concern for possible alcohol abuse on presentation to the outside hospital as well. Routine blood test demonstrated acute kidney injury with a creatinine of 7.0 in association with a severe metabolic acidosis with a CO2 level less than 5. Her ABG showed a pH of 6.96 and a serum bicarb of 6.2. Further electrolyte abnormalities were noted on her chemistry with a sodium of 126, hypokalemia with a potassium of 2.8, and a CBC with a significantly elevated white blood cell count of 24.7 with Sineff Juni preponderance of neutrophils. Her urinalysis was unremarkable as well. However, she did undergo a CT scan of her abdomen pelvis which demonstrated moderate fluid distention of the stomach and proximal duodenum with a concern for possible obstruction. Her urine drug screen was positive for methamphetamines and tricyclic antidepressants. She was started on aggressive IV fluid resuscitation
[2021-09-11] MEDS: LIDOCAINE HCL 2% GEL UROJET 10 ML PKG MUCOUS MEM (11:42)
[2021-09-11 12:22] LABS: Creatinine Urine 48.6 mg/dL
--- NOTE | 2021-09-11 13:40 | WPDGICN ---
Assessment and Plan Assessment and plan (1) Abnormal CT scan: Code(s): R93.89 - Abnormal findings on diagnostic imaging of other specified body structures Status: Acute Assessment and Plan: Patient has an abnormal CT scan suggesting dilated stomach and proximal duodenum. On my review this appears to be more distal than what I would expect the endoscope to reach. Would suggest initial NG tube decompression followed by small-bowel Gastrografin study to assess for narrowing or obstruction. Potentially this could be SMA syndrome but other etiologies cannot be excluded. Patient has a history of apparent laparoscopic cholecystectomy within the last several months raising the question of could this be a complication of this surgery. We will follow with you in the interim period On physical exam patient has had no bowel sounds. No recent bowel movements suggesting she may have underlying ileus. No evidence of free air on recent x-ray exam is. She will need continue to be monitored closely. (2) Altered mental status: Code(s): R41.82 - Altered mental status, unspecified Status: Acute Assessment and Plan: Patient currently encephalopathic unable to give any useful history. It is uncertain what her baseline is. This could be related to her metabolic derangement and renal insufficiency. She has certainly has metabolic acidosis of present. Continue supportive care for. (3) SIRS (systemic inflammatory response syndrome): Code(s): R65.10 - Systemic inflammatory response syndrome (SIRS) of non-infectious origin without acute organ dysfunction Status: Acute Assessment and Plan: Evidence of inflammation with leukocytosis elevated ferritin tooth suggest significant inflammatory response of present period (4) Alcohol abuse: Code(s): F10.10 - Alcohol abuse, uncomplicated Status: Acute Assessment and Plan: patient with a history of polysubstance abuse knees B watch for signs of withdrawal. (5) COPD (chronic obstructive pulmonary disease): Code(s): J44.9 - Chronic obstructive pulmonary disease, unspecified Status: Acute (6) Encephalopathy: Code(s): G93.40 - Encephalopathy, unspecified Status: Acute GI Consult Note Consult date/time: 09/11/21 13:40 Reason for consult: abnormal CT scan with dilated stomach HPI: Elissa Mazariegos is a 51 year old female I am asked to see at the request of the [employer] service. Patient initially presented to [facility]. Patient presented with confusion and altered mental status. She was found to have acute kidney injury with renal failure and metabolic derangement. Patient is unable to give any useful history. History is obtained from the chart and talking with the physician and nursing staff. Patient has a past history of possible poly substance abuse in the past. Has been positive for several drugs. Apparently had a one-week history of nausea vomiting and poor oral intake prior to presentation. Upon presenting to refer the [facility] patient had a CT scan performed which revealed dilatation of the stomach and proximal duodenum. She also had dilated colon. Radiologist at that institution suggested possible SMA syndrome additionally there was a question of thickening of the distal esophagus suggesting esophagitis. patient's recent past history is significant that she is reported to have had laparoscopic cholecystectomy within the last several months raising the question of possible association of this with her current dilated loops of small bowel and stomach. Old records not immediately available for review. [facility] Past Medical History Medical History (Updated 09/11/21 @ 13:45 by Cristobal Darden MD) Alcohol abuse COPD (chronic obstructive pulmonary disease) Family History Family History Mother Thyroid disease Alice
[2021-09-11 14:05] LABS: Glucose Point of Care 91 mg/dl (65-105)
--- NOTE | 2021-09-11 17:01 | PM.IMPN ---
Progress Note: A&P Assessment and Plan (1) Acute kidney injury: Code(s): N17.9 - Acute kidney failure, unspecified Status: Acute Assessment and Plan: Patient presented with a creatinine of 7. Etiology is unclear. Probably pre renal related to her nausea and vomiting. She has a severe metabolic acidosis probably related to the acute kidney injury. She has been started IV fluids. Bicarb has been added to fluids. CT scan noted NG tube was placed. She is NPO. Total CK is 56. Good urine output with 900 mL just measured from her Solorzano bag. Nephrology consulted. Renal ultrasound here was read as normal. Continue IV fluids with bicarb. Continue to monitor renal function and electrolytes. Continue monitor urine output. (2) Metabolic acidosis: Code(s): E87.2 - Acidosis Status: Acute Assessment and Plan: Patient with severe metabolic acidosis with serum bicarb less than 6.2 is and pH 6.96. Probably related to acute kidney injury made worse by her history of alcoholism. Her nausea and vomiting with probable ketosis contributing to this as well. She was started IV bicarb. Continue IV hydration. NPO status. Continue to monitor. (3) Encephalopathy: Code(s): G93.40 - Encephalopathy, unspecified Status: Acute Assessment and Plan: Patient presents with altered mental status. CT of the brain at the outside hospital was apparently unremarkable. Her exam is more typical of toxic metabolic encephalopathy. Urine drug screen was positive for methadone and tricyclics. It is unclear if patient actually takes methadone normally. She may be altered because of alcohol withdrawal B12, folate and ammonia levels all within normal limits. Check TSH. Correct underlying electrolyte abnormalities. Follow clinically. Further imaging if she does not improve as expected. (4) Alcohol abuse: Code(s): F10.10 - Alcohol abuse, uncomplicated Status: Acute Assessment and Plan: Patient presumably has a history of alcohol abuse. She has been started on thiamine and folate. Continue to monitor. Watch for signs or symptoms of withdrawal. (5) Esophagitis: Code(s): K20.90 - Esophagitis, unspecified without bleeding Status: Acute Assessment and Plan: Patient had a laparoscopic cholecystectomy in June 2021. CT of the abdomen pelvis at the outside facility showed moderate fluid distention of the stomach and proximal duodenum with concern for SMA syndrome. NG tube was placed to suction. She was started on Protonix. Obstructive series shows no dilated loops of bowel. She does have streaky atelectasis in the bilateral lung bases. GI has been consulted. Continue Protonix. (6) Hypoglycemia: Code(s): E16.2 - Hypoglycemia, unspecified Status: Acute Assessment and Plan: Glucose dropped to 52 felt related to the acidosis and other medical problems. This was treated appropriately. IV fluids containing dextrose. Continue to monitor closely. Hypoglycemia protocol started. (7) Electrolyte abnormality: Code(s): E87.8 - Other disorders of electrolyte and fluid balance, not elsewhere classified Status: Acute Assessment and Plan: Potassium was 2.2 on presentation. Magnesium was also 2.2. Calcium low at 7.7 but albumin is 2.7 so calcium was normal when corrected. Continue monitor electrolytes and replace as necessary. (8) COPD (chronic obstructive pulmonary disease): Code(s): J44.9 - Chronic obstructive pulmonary disease, unspecified Status: Acute Assessment and Plan: No wheezing. She remains on room air. Continue to monitor. (9) Nausea & vomiting: Code(s): R11.2 - Nausea with vomiting, unspecified Status: Acute Assessment and Plan: Patient presents to the outside facility with nausea, vomiting abdominal pain. CT scan findings as mentioned above. She may have mild ileus r
[2021-09-11 17:02] LABS: Glucose Point of Care 105 mg/dl (65-105)
[2021-09-11 18:10] LABS: Anion Gap 16 mmol/L (8-16); Blood Urea Nitrogen 66 mg/dL (7-17); Calcium 6.4 mg/dL (8.4-10.2); Carbon Dioxide 9 mmol/L (22-30); Chloride 119 mmol/L (98-107); Estimated CRCL calculation 12 ml/min; Estimated Glomerular Filt Rate 13; Glucose 86 mg/dL (65-110); Potassium 2.3 mmol/L (3.4-5.0); Sodium 144 mmol/L (137-145)
[2021-09-11] MEDS: CALCIUM GLUC 2,000 MG/NS 100ML 2,000 MG/100 ML BAG 100 MG IVPB (20:53)
[2021-09-11 21:29] LABS: Glucose Point of Care 126 mg/dl (65-105)
[2021-09-12] VITALS (32 sets, daily range): BP systolic 84–137; BP diastolic 61–109; PULSE 113–163; RESP 18–51; TEMP 37.1–37.7; O2SAT 90–100
[2021-09-12 00:42] LABS: Glucose Point of Care 119 mg/dl (65-105)
[2021-09-12 04:14] LABS: Hematocrit 26.3 % (37.0-47.0); Hemoglobin 10.2 g/dL (12.0-15.0); Mean Corpuscular Hemoglobin 36.2 pg (26-34); Mean Corpuscular Volume 93.3 fl (80-100); Platelet Count Result 253 k/mm3 (150-375); Red Blood Count 2.82 M/mm3 (4.2-5.4); Red Cell Distribution Width 13.3 % (11.5-14.5); White Blood Count 16.2 K/mm3 (4.5-10.0)
[2021-09-12 04:17] LABS: Mean Corpuscular HGB Conc 38.8 g/dl (32-36)
[2021-09-12 04:25] LABS: Alanine Aminotransferase 11 U/L (6-35); Albumin Level 2.6 g/dL (3.5-5.1); Alkaline Phosphatase 96 U/L (38-126); Anion Gap 12 mmol/L (8-16); Aspartate Amino Transferase 28 U/L (14-36); Bilirubin,Total 0.6 mg/dL (0.2-1.3); Blood Urea Nitrogen 64 mg/dL (7-17); Calcium 7.8 mg/dL (8.4-10.2); Carbon Dioxide 19 mmol/L (22-30); Chloride 116 mmol/L (98-107); Estimated CRCL calculation 15 ml/min; Estimated Glomerular Filt Rate 17; Glucose 113 mg/dL (65-110); Magnesium 1.6 mg/dL (1.6-2.3); Phosphorus 1.4 mg/dL (2.5-4.5); Potassium 2.4 mmol/L (3.4-5.0); Sodium 147 mmol/L (137-145)
[2021-09-12 04:26] LABS: Lipase 93 U/L (23-300)
[2021-09-12] MEDS: SODIUM BICARBONATE 8.4% 150 MEQ in DEXTROSE 5% 1,000 ML 950 ML 100 MEQ IV CONT (04:32)
[2021-09-12 05:30] LABS: Glucose Point of Care 136 mg/dl (65-105)
[2021-09-12] MEDS: POTASSIUM CHLORIDE INJ 40 MEQ in SODIUM CHLORIDE 0.9% IV 500 ML 130 MEQ IVPB (05:30)
[2021-09-12 05:33] LABS: Thyroid Stimulating Hormone Reflex 0.714 uIU/mL (0.465-4.68)
[2021-09-12] MEDS: MAGNESIUM SULF 2 GM/WATER 50ML 2 GM/50 ML BAG IVPB (06:49)
[2021-09-12 07:27] LABS: Glucose Point of Care 101 mg/dl (65-105)
--- NOTE | 2021-09-12 07:31 | WPDGIPROGNO ---
Progress Note: A&P Assessment and Plan (1) Abnormal CT scan: Code(s): R93.89 - Abnormal findings on diagnostic imaging of other specified body structures Status: Acute Assessment and Plan: Dilated stomach and duodenum identified on initial CT scan. Clinically patient improving with NG tube decompression. Abdomen much softer today with bowel sounds present. Plan to proceed with Gastrografin small bowel series to exclude obstruction. Continue PPI therapy for now. Delay removal of NG tube until patient is more alert. Continue NG decompression until results of upper GI results available. (2) Altered mental status: Code(s): R41.82 - Altered mental status, unspecified Status: Acute Assessment and Plan: Patient remains confused with encephalopathy. Likely related to metabolic derangement other etiologies not excluded. She does have a history of substance abuse. (3) SIRS (systemic inflammatory response syndrome): Code(s): R65.10 - Systemic inflammatory response syndrome (SIRS) of non-infectious origin without acute organ dysfunction Status: Acute Assessment and Plan: Significant leukocytosis remains this morning. Evidence for inflammation. Elevated ferritin noted on presentation. (4) Alcohol abuse: Code(s): F10.10 - Alcohol abuse, uncomplicated Status: Acute Assessment and Plan: Patient has a history of substance abuse including alcohol use. Continue to watch for signs of withdrawal. (5) Acute kidney injury: Code(s): N17.9 - Acute kidney failure, unspecified Status: Acute Assessment and Plan: Patient's creatinine has decreased with IV rehydration suggesting azotemia secondary to volume depletion and nausea vomiting. Continue to monitor renal function at this point. (6) Encephalopathy: Code(s): G93.40 - Encephalopathy, unspecified Status: Acute Subjective Date/time seen: 09/12/21 07:31 Patient awake this morning. Still not oriented. Denies any significant abdominal pain. Review of Systems Review of Systems: Review of systems noncontributory. ROS unobtainable: Yes unobtainable due to mental status Exam Narrative: Physical exam reveals patient to be with stable vital signs. Lying in bed. NG tube with trace blood in return. HEENT exam reveals no icterus. Lungs are clear. Heart without murmur. Abdomen is much softer. Bowel sounds are present today. No localized tenderness. Objective Data Vital Signs Vital Signs: Vital Signs - 24 hr 09/11/21 08:00 09/11/21 08:00 09/11/21 08:00 Temperature 98.6 F Pulse Rate 93 93 92 Respiratory Rate 92 H 20 Blood Pressure Pulse Oximetry 96 96 Oxygen Delivery Room Air Oxygen Flow Rate 09/11/21 10:00 09/11/21 10:00 09/11/21 12:00 Temperature 99.1 F Pulse Rate 100 100 101 H Respiratory Rate 18 Blood Pressure 155/118 H Pulse Oximetry 96 Oxygen Delivery Oxygen Flow Rate 09/11/21 12:00 09/11/21 12:00 09/11/21 14:00 Temperature 99.1 F Pulse Rate 101 H 101 H 103 H Respiratory Rate 18 18 Blood Pressure 95/52 L Pulse Oximetry 96 96 Oxygen Delivery Room Air Oxygen Flow Rate 09/11/21 14:00 09/11/21 16:00 09/11/21 16:00 Temperature 99.4 F Pulse Rate 103 H 103 H 103 H Respiratory Rate 18 19 Blood Pressure 101/85 Pulse Oximetry 98 98 Oxygen Delivery Room Air Oxygen Flow Rate 09/11/21 16:00 09/11/21 18:00 09/11/21 18:00 Temperature 99.7 F H 99.8 F H Pulse Rate 103 H 108 H 108 H Respiratory Rate 19 24 H Blood Pressure 81/66 L 113/97 H Pulse Oximetry 98 96 Oxygen Delivery Oxygen Flow Rate 09/11/21 20:00 09/11/21 22:00 09/11/21 20:00 Temperature 99.8 F H 99.7 F H Pulse Rate 118 H 113 H Respiratory Rate 30 H 26 H Blood Pressure 105/91 H 115/98 H Pulse Oximetry 92 95 90 Oxygen Delivery Nasal Cannula Oxygen Flow Rate 2 09/12/21 00:00 09/12/21 02:00 09/12/21 00:
--- NOTE | 2021-09-12 08:44 | WPDINTPN ---
Progress Note: A&P Assessment and Plan (1) Acute kidney injury: Code(s): N17.9 - Acute kidney failure, unspecified Status: Acute Assessment and Plan: patient presented with creatinine of 7. This could be prerenal versus renal CT scan and renal ultrasound did not could show any hydronephrosis patient reported nausea vomiting abdominal pain and poor p.o. intake over last week or so she was given IV fluid bolus and Will is on IV fluids with bicarb which will be continued. Will decrease concentration of sodium bicarb due to patient's hypernatremia normal CK nephrology is following creatinine has improved to 3 today. She has good urine output monitor urine output electrolytes and creatinine (2) Metabolic acidosis: Code(s): E87.2 - Acidosis Status: Acute Assessment and Plan: acidosis improving and she is on she is on IV fluids with bicarb and by feeding tube continue (3) Encephalopathy: Code(s): G93.40 - Encephalopathy, unspecified Status: Acute Assessment and Plan: patient's exam is nonfocal and appears to be toxic metabolic encephalopathy. Her urine drug screen was positive methadone and tricyclics she is also on Neurontin and [place] at home she is lot more awake and responsive. She follows commands with all 4 extremities and answers questions but is but is confused normal ammonia and TSH treat metabolic derangements head CT was done at outside hospital which apparently was unremarkable. if does not improve and once patient is little bit more stable, I willl consider further imaging including MRI (4) Alcohol abuse: Code(s): F10.10 - Alcohol abuse, uncomplicated Status: Acute Assessment and Plan: details unknown at this time. Patient's denies any alcohol intake recently but she does have history of heavy alcohol intake in the past continue thiamine and folic acid monitor for signs of withdrawal (5) Esophagitis: Code(s): K20.90 - Esophagitis, unspecified without bleeding Status: Acute Assessment and Plan: continue PPI (6) Hypoglycemia: Code(s): E16.2 - Hypoglycemia, unspecified Status: Acute Assessment and Plan: currently on IV fluids with dextrose Q 4 hour monitoring ordered will start tube feeding depending on the upper GI series results (7) Electrolyte abnormality: Code(s): E87.8 - Other disorders of electrolyte and fluid balance, not elsewhere classified Status: Acute Assessment and Plan: potassium, phosphate and calcium replacement ordered. Will recheck levels later in the day monitor and treat accordingly (8) COPD (chronic obstructive pulmonary disease): Code(s): J44.9 - Chronic obstructive pulmonary disease, unspecified Status: Acute Assessment and Plan: bronchodilator (9) Nausea & vomiting: Code(s): R11.2 - Nausea with vomiting, unspecified Status: Acute Assessment and Plan: patient presented with nausea vomiting abdominal pain CT scan of the abdomen pelvis done in the outside hospital reviewed and suggest possible small-bowel obstruction I reviewed the CT scan images with the [facility]. consult GI and and will consult General surgery Gastrografin upper GI study has been ordered by Gastroenterology NG tube was placed with significant difficulty and will be kept at to low intermittent suction lipase was only marginally elevated on presentation LFTs were unremarkable up slightly elevated alk-phos (10) SIRS (systemic inflammatory response syndrome): Code(s): R65.10 - Systemic inflammatory response syndrome (SIRS) of non-infectious origin without acute organ dysfunction Status: Acute Assessment and Plan: chest x-ray and UA was negative. CT also did not show any evidence of infection and no evidence of colitis. Although patient had elevated WBC count. Cultures
[2021-09-12] MEDS: SODIUM BICARBONATE TAB 650 MG TABLET FEED TUBE ×2 (09:10→12:16)
[2021-09-12] MEDS: PANTOPRAZOLE SODIUM IV 40 MG VIAL IV PUSH (09:11)
[2021-09-12] MEDS: POTASSIUM CHLORIDE 20 MEQ PACKET (FOR LIQUID) 40 MEQ FEED TUBE ×2 (09:11→23:40)
[2021-09-12] MEDS: THIAMINE HCL 200 MG/2 ML VIAL 100 MG IV PUSH (09:11)
[2021-09-12] MEDS: FOLIC ACID 1 MG/0.2 ML INJ IV PUSH (09:17)
[2021-09-12] MEDS: POTASSIUM PHOS,M-BASIC-D-BASIC 40 MMOL in SODIUM CHLORIDE 0.9% IV 250 ML 43.89 MMOL IVPB (09:17)
[2021-09-12] MEDS: SODIUM BICARBONATE 8.4% 100 MEQ in DEXTROSE 5% 1,000 ML 1,000 ML IV CONT (09:17)
--- NOTE | 2021-09-12 09:25 | PM.IMPN ---
Progress Note: A&P Assessment and Plan (1) Acute kidney injury: Code(s): N17.9 - Acute kidney failure, unspecified Status: Acute Assessment and Plan: Patient presented with a creatinine of 7. Etiology is unclear. Probably pre renal related to her nausea and vomiting. She has a severe metabolic acidosis probably related to the acute kidney injury. She was started IV fluids with Bicarb. CT scan noted. Renal ultrasound here was read as normal. NG tube was placed. She is NPO. Total CK is 56. Good urine output with 1650mL yesterday (1750mL thus far today). Nephrology consulted. Cr down to 3.0. Metabolic acidosis better. Continue to monitor renal function and electrolytes. Continue monitor urine output. Continue IV fluids. (2) Metabolic acidosis: Code(s): E87.2 - Acidosis Status: Acute Assessment and Plan: Patient with severe metabolic acidosis with serum bicarb less than 5 is and pH 6.96. Probably related to acute kidney injury made worse by her history of alcoholism. Her nausea and vomiting with probable ketosis contributing to this as well. She was started IV fluids with bicarb. Serum bicarb better at 19. Continue IV hydration. NPO status. Continue to monitor. (3) Encephalopathy: Code(s): G93.40 - Encephalopathy, unspecified Status: Acute Assessment and Plan: Patient presents with altered mental status. CT of the brain at the outside hospital was apparently unremarkable. Urine drug screen was positive for methadone and tricyclics. It is unclear if patient actually takes methadone normally. She may be altered because of alcohol withdrawal. TSH, B12, folate and ammonia levels all within normal limits. Correct underlying electrolyte abnormalities. Follow clinically. Further imaging if she does not improve as expected. (4) Alcohol abuse: Code(s): F10.10 - Alcohol abuse, uncomplicated Status: Acute Assessment and Plan: Patient presumably has a history of alcohol abuse. She has been started on thiamine and folate. More agitated this morning. Continue to monitor for now. Hold off on anxiolytics at this time. Watch for signs or symptoms of withdrawal. (5) Abnormal CT scan: Code(s): R93.89 - Abnormal findings on diagnostic imaging of other specified body structures Status: Acute Assessment and Plan: Patient had a laparoscopic cholecystectomy in June 2021. CT of the abdomen pelvis at the outside facility showed moderate fluid distention of the stomach and proximal duodenum with concern for SMA syndrome. NG tube was placed to suction. She was started on Protonix. Obstructive series shows no dilated loops of bowel. She does have streaky atelectasis in the bilateral lung bases. GI has been consulted. Continue Protonix. UGI ordered. (6) Hypoglycemia: Code(s): E16.2 - Hypoglycemia, unspecified Status: Acute Assessment and Plan: Glucose dropped to 52 felt related to the acidosis and other medical problems. This was treated appropriately. IV fluids containing dextrose. Glucose remaining stable. Hypoglycemia protocol available as needed. Continue to monitor closely. (7) Electrolyte abnormality: Code(s): E87.8 - Other disorders of electrolyte and fluid balance, not elsewhere classified Status: Acute Assessment and Plan: Potassium 2.4 today with magnesium 1.6 and phosphorus 1.4. Calcium 7.8 that is normal when corrected for an albumin of 2.6. Replacement ordered. Continue monitor electrolytes and replace as necessary. (8) Nausea & vomiting: Code(s): R11.2 - Nausea with vomiting, unspecified Status: Acute Assessment and Plan: Patient presents to the outside facility with nausea, vomiting and abdominal pain. CT scan findings as mentioned above. She may have mild ileus related to viral etiology. Concern for SMA syndrome. NG tube has been placed. Obstructive s
[2021-09-12] MEDS: ENOXAPARIN 30 MG/0.3 ML SYRINGE SUB-Q (09:27)
[2021-09-12] MEDS: CALCIUM GLUC 2,000 MG/NS 100ML 2,000 MG/100 ML BAG 100 MG IVPB (09:54)
--- NOTE | 2021-09-12 10:31 | PCFNICU ---
ICU Rounding Note: Pt current nutrition is NPO. Nutrition recommendation: No nutritional intervention at this time Last recorded weight is 55.2 kg - up from 46.8kg Bowel Motility: no BM recorded at this time Labs Reviewed: Hgb:10.2, HCT:26.3, NA:147, BUN:64, Cr:3.0, glu:119 Meds Noted: lovenox, thiamin, folic acid, protonix, novolog Skin: WNL Additional Notes: pt remains NPO at this time. Upper GI series today. No nutrition intervention at this time. Following daily in ICU rounds. Will monitor every 3 days.
--- NOTE | 2021-09-12 11:11 | PM.CNGS ---
Assessment and Plan Assessment and plan (1) Duodenal obstruction: Code(s): K31.5 - Obstruction of duodenum Status: Acute Assessment and Plan: Patient with more than 6 month history of nausea, vomiting, and weight loss. CT [facility] and shows distention of the stomach and proximal duodenum, consistent with a duodenal obstruction. SMA syndrome is certainly a possibility. We agree with getting the Gastrografin upper GI/SBS now to further evaluate. If this is evident on the upper GI, then we would need to initiate TPN for nutritional support before surgery and could plan accordingly to proceed with a gastrojejunostomy. Continue NG tube decompression, NPO status, and IV fluids. Will await upper GI results. Thank you for allowing us to see the patient in consultation and we will continue to follow along with you. (2) Metabolic acidosis: Code(s): E87.2 - Acidosis Status: Acute Assessment and Plan: Severe metabolic acidosis with pH of 6.9 at the [facility] facility. Serum bicarb was <5 and is improving. Currently receiving IV fluids with bicarb. Continue to monitor. (3) Encephalopathy: Code(s): G93.40 - Encephalopathy, unspecified Status: Acute Assessment and Plan: Presented with altered mental status, CT brain negative. Still confused and agitated. Continue to monitor electrolytes/labs. She also has a history of alcohol abuse, which makes it possible that alcohol withdrawal could play a role in her mental status. (4) SIRS (systemic inflammatory response syndrome): Code(s): R65.10 - Systemic inflammatory response syndrome (SIRS) of non-infectious origin without acute organ dysfunction Status: Acute Assessment and Plan: Tachycardic in the ER with leukocytosis. WBC 24,700 initially and trending down. Source unclear. UA and urine culture negative. Blood cultures were collected at [facility] facility. Currently on IV Zosyn. No obvious source of infection. (5) COPD (chronic obstructive pulmonary disease): Code(s): J44.9 - Chronic obstructive pulmonary disease, unspecified Status: Acute (6) Alcohol abuse: Code(s): F10.10 - Alcohol abuse, uncomplicated Status: Acute (7) Electrolyte abnormality: Code(s): E87.8 - Other disorders of electrolyte and fluid balance, not elsewhere classified Status: Acute Assessment and Plan: KCL given orally and IV last night and this morning. Replace as needed, monitor labs. (8) Acute kidney injury: Code(s): N17.9 - Acute kidney failure, unspecified Status: Acute Assessment and Plan: Improving, creatinine was 7.7 initially and now down to 3.0. Continue IV fluids and monitor labs. (9) Malnourished: Code(s): E46 - Unspecified protein-calorie malnutrition Status: Acute Assessment and Plan: Would need to consider TPN for nutrition prior to proceeding with surgery if needed. Plan I have discussed the patient's case and plan of care with Dr. Keenan. History of Present Illness Consult details Consult date: 09/12/21 Reason for consult: other (Small bowel obstruction with posssible SMA syndrome) Requesting physician: Calixto Salgado MD Narrative: This is a 51-year-old female with a history of COPD, tobacco abuse, alcohol abuse, and possible drug abuse, who was a direct transfer from [facility]. She is confused and no family is at the bedside, therefore her history is obtained from review of her electronic medical records, paper chart, and staff. Her significant other reports her having a history of nausea, vomiting, and failure to thrive for over 6 months. They initially thought this was her gallbladder and she had a laparoscopic cholecystectomy in [facility] in late June. Her symptoms have not improved and according to her chart, her weight has dropped about 23% since her weight in June in their records. Her eveline
[2021-09-12 12:00] LABS: Glucose Point of Care 127 mg/dl (65-105)
--- NOTE | 2021-09-12 12:21 | P.PNNP_ITS ---
Progress Note: A&P Assessment and Plan (1) Acute kidney injury: Code(s): N17.9 - Acute kidney failure, unspecified Status: Acute Assessment and Plan: * unclear what baseline creatinine is but assume it was normal * etiology not clear but suspect prerenal factors (nausea/vomiting/poor oral intake) and perhaps relative hypotension playing a role * creatinine improving with current interventions * evaluation to date: * renal ultrasound normal * urine electrolytes pending * CPK pending * follow repeat labs and UOP (2) Metabolic acidosis: Code(s): E87.2 - Acidosis Status: Acute Assessment and Plan: * presumably due to renal failure * on bicarb IVFs and oral bicarbonate (via feeding tube) * follow trend of CO2 levels (3) Electrolyte abnormality: Code(s): E87.8 - Other disorders of electrolyte and fluid balance, not elsewhere classified Status: Acute Assessment and Plan: * suspect due to GI loss and poor oral intake and possibly total body store depletion * replacement as needed * bicarb IVFs may be contribute to further hypokalemia and hypocalcemia * follow trend of K+ and Ca++ (4) Altered mental status: Code(s): R41.82 - Altered mental status, unspecified Status: Acute Assessment and Plan: * likely toxic metabolic encephalopathy * suspect multifactorial: * urine drug screen was positive methadone and tricyclics * also on gabapentin and [place] * alcohol abuse(?) * follow-up on ammonia and TSH * head CT at OSH negative * consider further imaging if mentation does not improve with supportive therapy (5) Nausea & vomiting: Code(s): R11.2 - Nausea with vomiting, unspecified Status: Acute Assessment and Plan: * as noted on presentation to OSH * CT of A/P suggest obstruction * NG tube in place * GI following and seen by Surgery * follow clinical exam and supportive therapy (6) Alcohol abuse: Code(s): F10.10 - Alcohol abuse, uncomplicated Status: Acute Assessment and Plan: * details/specifics are unknown at this time * on thiamine and folic acid * follow for signs of withdrawal Will continue to follow. Subjective Date/time seen: 09/12/21 12:21 Fluctuating mentation limits assessment but she is a bit more awake today compared to when I saw her yesterday; required restraints overnight due to pulling at lines and trying to get out of bed; low grade fevers overnight as well; good urine output in the last 24 hours; no acute distress noted; seen by Surgery regarding concerns for abdominal obstruction. Exam Narrative: General: female in NAD but confused Heart: normal S1 and S2; no rub Lungs: clear to auscultation Abdomen: soft, mild TTP, nondistended, positive bowel sounds Extremities: no cyanosis or clubbing; no edema Skin: warm and dry Objective Data Vital Signs Vital Signs: Vital Signs Temp Pulse Resp BP Pulse Ox O2 Del Method O2 Flow Rate 09/12/21 12:00 136 H 09/12/21 10:00 130 H 09/12/21 12:00 90 Nasal Cannula 8 09/12/21 12:00 37.6 C 136 H 31 H 122/89 90 09/12/21 08:00 90 Nasal Cannula 5 09/12/21 10:00 37.3 C 131 H 28 H 84/72 L 90 09/12/21 08:00 37.6 C H
--- NOTE | 2021-09-12 12:21 | PM.PNNEP ---
Progress Note: A&P Assessment and Plan (1) Acute kidney injury: Code(s): N17.9 - Acute kidney failure, unspecified Status: Acute Assessment and Plan: unclear what baseline creatinine is but assume it was normal etiology not clear but suspect prerenal factors (nausea/vomiting/poor oral intake) and perhaps relative hypotension playing a role creatinine improving with current interventions evaluation to date: renal ultrasound normal urine electrolytes pending CPK pending follow repeat labs and UOP (2) Metabolic acidosis: Code(s): E87.2 - Acidosis Status: Acute Assessment and Plan: presumably due to renal failure on bicarb IVFs and oral bicarbonate (via feeding tube) follow trend of CO2 levels (3) Electrolyte abnormality: Code(s): E87.8 - Other disorders of electrolyte and fluid balance, not elsewhere classified Status: Acute Assessment and Plan: suspect due to GI loss and poor oral intake and possibly total body store depletion replacement as needed bicarb IVFs may be contribute to further hypokalemia and hypocalcemia follow trend of K+ and Ca++ (4) Altered mental status: Code(s): R41.82 - Altered mental status, unspecified Status: Acute Assessment and Plan: likely toxic metabolic encephalopathy suspect multifactorial: urine drug screen was positive methadone and tricyclics also on gabapentin and [place] alcohol abuse(?) follow-up on ammonia and TSH head CT at OSH negative consider further imaging if mentation does not improve with supportive therapy (5) Nausea & vomiting: Code(s): R11.2 - Nausea with vomiting, unspecified Status: Acute Assessment and Plan: as noted on presentation to OSH CT of A/P suggest obstruction NG tube in place GI following and seen by Surgery follow clinical exam and supportive therapy (6) Alcohol abuse: Code(s): F10.10 - Alcohol abuse, uncomplicated Status: Acute Assessment and Plan: details/specifics are unknown at this time on thiamine and folic acid follow for signs of withdrawal Will continue to follow. Subjective Date/time seen: 09/12/21 12:21 Fluctuating mentation limits assessment but she is a bit more awake today compared to when I saw her yesterday; required restraints overnight due to pulling at lines and trying to get out of bed; low grade fevers overnight as well; good urine output in the last 24 hours; no acute distress noted; seen by Surgery regarding concerns for abdominal obstruction. Exam Narrative: General: female in NAD but confused Heart: normal S1 and S2; no rub Lungs: clear to auscultation Abdomen: soft, mild TTP, nondistended, positive bowel sounds Extremities: no cyanosis or clubbing; no edema Skin: warm and dry Objective Data Vital Signs Vital Signs: Vital Signs Temp Pulse Resp BP Pulse Ox O2 Del Method O2 Flow Rate 09/12/21 12:00 136 H 09/12/21 10:00 130 H 09/12/21 12:00 90 Nasal Cannula 8 09/12/21 12:00 37.6 C 136 H 31 H 122/89 90 09/12/21 08:00 90 Nasal Cannula 5 09/12/21 10:00 37.3 C 131 H 28 H 84/72 L 90 09/12/21 08:00 37.6 C H 127 H 31 H 137/102 H 95 09/12/21 06:00 37.6 C H 121 H 23 H 112/61 94 09/12/21 04:00 92 Nasal Cannula 2 09/12/21 04:00 37.7 C H 118 H 20 134/80 94 09/12/21 00:00 92 Nasal Cannula 2 09/12/21 02:00 37.7 C H 124 H 28 H 114/80 92 09/12/21 00:00 37.7 C H 114 H 30 H 111/87 94 09/11/21 20:00 90 Nasal Cannula 2 09/11/21 22:00 37.6 C H 113 H 26 H 115/98 H 95 09/11/21 20:00 37.7 C H 118 H 30 H 105/91 H 92 09/11/21 18:00 37.7 C H 108 H 24 H 113/97 H 96 09/11/21 18:00 108 H Intake/Output Intake/Output: Intake & Output 09/09/21 09/10/21 09/11/21 09/12/21 23:59 23:59 23:59 23:59 Intake Total 1600 1920 Outp
[2021-09-12] MEDS: dexmedeTOMIDine 400 MCG/100 ML 400 MCG/100 ML BAG IV CONT (15:39)
[2021-09-12 16:08] LABS: Glucose Point of Care 130 mg/dl (65-105)
[2021-09-12 16:57] LABS: Anion Gap 14 mmol/L (8-16); Blood Urea Nitrogen 52 mg/dL (7-17); Calcium 8.3 mg/dL (8.4-10.2); Carbon Dioxide 21 mmol/L (22-30); Chloride 125 mmol/L (98-107); Estimated CRCL calculation 24 ml/min; Estimated Glomerular Filt Rate 23; Glucose 129 mg/dL (65-110); Magnesium 2.3 mg/dL (1.6-2.3); Phosphorus 4.9 mg/dL (2.5-4.5); Potassium 2.8 mmol/L (3.4-5.0); Sodium 160 mmol/L (137-145)
[2021-09-12] MEDS: DEXTROSE 5% IN WATER 500 ML 999 ML IV CONT (17:35)
[2021-09-12] MEDS: DEXTROSE 5% 1,000 ML 1,000 ML 100 ML IV CONT (17:36)
[2021-09-12] MEDS: POTASSIUM CHLORIDE 20 MEQ PACKET (FOR LIQUID) 40 MEQ PO (18:08)
[2021-09-12] MEDS: POTASSIUM CHLORIDE INJ 40 MEQ in DEXTROSE 5% IN WATER 500 ML 130 ML IV CONT (18:10)
[2021-09-12 18:47] LABS: Alveolar/Arterial O2 Gradient 350.5 mmHg; Base Excess ABG -1.9 mEq/l (+/-2.0); Fractional Inspired Oxygen 60 %; HCO3 ABG 21.3 mEq/l (22.0-26.0); PCO2 ABG 32.3 mmHg (35.0-45.0); Total Hemoglobin 10.8 g/dL (12.0-18.0); pH ABG 7.438 (7.350-7.450)
[2021-09-12 18:49] LABS: Modified Allen's Test Pass; Oxygen Saturation ABG 79.8 % (95.0-100.0); Oxyhemoglobin 77.7 % THb (90.0-100.0); PO2 ABG 41.8 mmHg (80.0-100.0); Site Drawn LEFT RADIAL
[2021-09-12 18:50] LABS: Device NASAL CANNULA
[2021-09-12] MEDS: LORazepam INJ (*CRX) 2 MG/ML VIAL 1 MG IV PUSH (18:52)
[2021-09-12] MEDS: FUROSEMIDE INJ 100 MG/10 ML VIAL 80 MG IV PUSH (19:20)
--- NOTE | 2021-09-12 19:44 | PC.NURSE ---
Spoke with Dr. Rich regarding Current ABGs and patient status. 80mg Lasix IV just given. Start breathing treatments at this time.
[2021-09-12] MEDS: ALBUTEROL SULFATE NEB 2.5 MG/3 ML INH 5 MG INHALATION (20:07)
[2021-09-12] MEDS: IPRATROPIUM BR 0.02% INH SOLN 0.5 MG/2.5 ML VIAL INHALATION (20:07)
[2021-09-12] MEDS: RAPID SEQUENCE INTUBATION KIT 1 EACH (20:45)
[2021-09-12] MEDS: MIDAZOLAM 100MG/NS 100ML(*CRX) 100 MG/100 ML BAG IV CONT (21:07)
[2021-09-12] MEDS: FENTANYL 2,500MCG/NS250ML(*CRX 2,500 MCG/250 ML BAG 7.5 MCG IV CONT (21:08)
[2021-09-12 21:14] LABS: Glucose Point of Care 221 mg/dl (65-105)
--- NOTE | 2021-09-12 21:30 | WPDPROCEDUR ---
Procedures Intubation Intubation Date: 09/12/21 Intubation Time: 20:50 Sedative: etomidate Mg given: 15 Paralytic: rocuronium Mg given: 60 Laryngoscope: fiber optic video scope Assist device used: fiber optic device ET tube size: 7.5 Tube secured depth (cm): 23 Tube secured location: lips Tube placement confirmation: visualized tube passing through cords, equal breath sounds bilaterally, no breath sounds over epigastrium and confirmation by capnometry Patient tolerated procedure: well Intubation complications: none
[2021-09-12] MEDS: MINERAL OIL/WHITE PETROLATUM OINTMENT 1 APPLIC EACH EYE (21:37)
[2021-09-12] MEDS: INSULIN ASPART (*BKC) 100 UNITS/ML SUB-Q (21:37)
[2021-09-12 22:19] LABS: Alveolar/Arterial O2 Gradient 339.5 mmHg; Base Excess ABG -4.4 mEq/l (+/-2.0); Carboxyhemoglobin 0.3 % THb (0-2.0); Fractional Inspired Oxygen 100 %; HCO3 ABG 21.2 mEq/l (22.0-26.0); Methemoglobin ABG 0.3 %THb (0-1.5); Oxygen Content ABG 18.7 %vol (16.0-22.0); Oxygen Saturation ABG 99.7 % (95.0-100.0); Oxyhemoglobin 98.2 % THb (90.0-100.0); PCO2 ABG 40.6 mmHg (35.0-45.0); PO2 ABG 332.9 mmHg (80.0-100.0); PO2 FiO2 Ratio Arterial Blood 3.33 %; Reduced Hemoglobin 1.2 %THb (0-5.0); Total Hemoglobin 12.9 g/dL (12.0-18.0); pH ABG 7.335 (7.350-7.450)
[2021-09-12 22:20] LABS: Arterial Blood Gas PEEP 5 cmH2O; Arterial Blood Gas Vent Mode CMV; Arterial Blood Gas Ventilator rate 18 /MIN; Device VENTILATOR; Modified Allen's Test Pass; Site Drawn LEFT RADIAL
[2021-09-12 22:21] LABS: Arterial Blood Gas Tidal Volume 400 ml
[2021-09-12 23:26] LABS: Anion Gap 12 mmol/L (8-16); Blood Urea Nitrogen 43 mg/dL (7-17); Calcium 7.8 mg/dL (8.4-10.2); Carbon Dioxide 21 mmol/L (22-30); Chloride 122 mmol/L (98-107); Estimated CRCL calculation 27 ml/min; Estimated Glomerular Filt Rate 26; Glucose 185 mg/dL (65-110); Potassium 2.4 mmol/L (3.4-5.0); Sodium 155 mmol/L (137-145)
--- NOTE | 2021-09-12 23:31 | PC.NURSE ---
Labs were not resulted at 2228 on 09/12/21, a redraw was needed. Labs resulted and released to myself at 2325 on 09/12/21. Dr. Salgado notified of current Labs. Orders received.
[2021-09-12 23:43] LABS: NT Pro B Type Natriuretic Pept 10400 pg/mL (5-100)
[2021-09-13] VITALS (59 sets, daily range): BP systolic 82–142; BP diastolic 49–112; PULSE 92–137; RESP 17–33; TEMP 36.4–37.7; O2SAT 91–100; BMI 21.4
--- NOTE | 2021-09-13 | ECHO_ITS ---
Patient Info Name: Elissa Mazariegos Age: 51 years : 1970 Gender: Female Ht: 67 in Wt: 136 lbs BSA: 1.71 m2 HR: 131 bpm BP: 109 / 49 mmHg Heart Rhythm: Sinus Rhythm, Tachycardia Exam Date: 09/13/2021 10:51 AM Exam Location: [facility] Pulmonary Patient Status: Inpatient Admit Date: 09/11/2021 Staff Ordering Physician: Calixto Salgado MD Podiatrist Orthopedic: J Luis Garza RDCS, RT Attending Provider: Meghan Valdovinos DO Exam Type: CA echo doppler color flow Study Info Indications I50.9 - Heart failure, unspecified Complete two-dimensional, color flow and Doppler transthoracic echocardiogram is performed. Summary 1. Complete two-dimensional, color flow and Doppler transthoracic echocardiogram is performed. 2. Left ventricular chamber dimension is normal. 3. Left ventricular systolic function is hyperdynamic, estimated at >70%. 4. There is no increased left ventricular wall thickness. 5. The left ventricular diastolic function is normal. 6. There is no aortic valve stenosis. 7. There is no mitral valve regurgitation. 8. There is mild tricuspid valve regurgitation. 9. Mild pulmonary hypertension, estimated pulmonary arterial systolic pressure is 37 mmHg. Left Ventricle Left ventricular chamber dimension is normal. Left ventricular systolic function is hyperdynamic, estimated at >70%. There is no increased left ventricular wall thickness. The left ventricular diastolic function is normal. Right Ventricle Right ventricular chamber dimension is normal. Right ventricular systolic function is normal. Left Atria Left atrial chamber dimension is normal. Right Atria Right atrial chamber dimension is normal. Aortic Valve The aortic valve is not well visualized. There is no aortic valve stenosis. There is no aortic valve regurgitation. Pulmonic Valve The pulmonic valve is not well visualized. There is trace pulmonic regurgitation. Mitral Valve The mitral valve has normal leaflets. There is no mitral valve regurgitation. Tricuspid Valve The tricuspid valve leaflets are normal. There is mild tricuspid valve regurgitation. Mild pulmonary hypertension, estimated pulmonary arterial systolic pressure is 37 mmHg. Pericardium/Pleural The pericardium appears normal. There is no pericardial effusion. Inferior Vena Cava Normal inferior vena cava with >50% collapse upon inspiration consistent with normal right atrial pressure, 5 mmHg. Aorta The aortic root size at the sinus of Valsalva is normal. Left Ventricular Outflow Tract Name Value Normal LVOT 2D LVOT Diameter 1.9 cm LVOT Doppler LVOT Peak Gradient 6 mmHg LVOT Mean Gradient 2 mmHg LVOT VTI 19 cm LVOT VTI/AV VTI Ratio 1.0 LVOT Stroke Volume 55 ml LVOT CO 6.8 l/min LVOT CI 4.0 l/min/m2 Mitral Valve Name Value
[2021-09-13 00:13] LABS: Glucose Point of Care 152 mg/dl (65-105)
[2021-09-13] MEDS: POTASSIUM CHLORIDE INJ 40 MEQ in DEXTROSE 5% IN WATER 500 ML 130 MEQ IVPB (00:20)
[2021-09-13 00:59] LABS: Phosphorus 4.4 mg/dL (2.5-4.5)
[2021-09-13] MEDS: ALBUTEROL SULFATE NEB 2.5 MG/3 ML INH 5 MG INHALATION ×4 (02:31→20:18)
[2021-09-13] MEDS: IPRATROPIUM BR 0.02% INH SOLN 0.5 MG/2.5 ML VIAL INHALATION ×4 (02:31→20:18)
[2021-09-13] MEDS: DEXTROSE 5% 1,000 ML 1,000 ML 100 ML IV CONT (03:18)
[2021-09-13] MEDS: POTASSIUM CHLORIDE 20 MEQ PACKET (FOR LIQUID) 40 MEQ FEED TUBE ×3 (03:39→23:23)
[2021-09-13 05:07] LABS: Alveolar/Arterial O2 Gradient 166.4 mmHg; Arterial Blood Gas PEEP 5 cmH2O; Arterial Blood Gas Tidal Volume 400 ml; Arterial Blood Gas Vent Mode CMV; Arterial Blood Gas Ventilator rate 18 /MIN; Base Excess ABG -3.8 mEq/l (+/-2.0); Carboxyhemoglobin 0.8 % THb (0-2.0); Device VENTILATOR; Fractional Inspired Oxygen 40 %; HCO3 ABG 19.7 mEq/l (22.0-26.0); Methemoglobin ABG 0.3 %THb (0-1.5); Modified Allen's Test Pass; Oxygen Content ABG 20.8 %vol (16.0-22.0); Oxygen Saturation ABG 96.3 % (95.0-100.0); Oxyhemoglobin 94.8 % THb (90.0-100.0); PCO2 ABG 31.9 mmHg (35.0-45.0); PO2 ABG 82.1 mmHg (80.0-100.0); PO2 FiO2 Ratio Arterial Blood 2.05 %; Reduced Hemoglobin 4.1 %THb (0-5.0); Site Drawn LEFT RADIAL; Total Hemoglobin 15.6 g/dL (12.0-18.0); pH ABG 7.409 (7.350-7.450)
[2021-09-13 05:45] LABS: Alanine Aminotransferase 10 U/L (6-35); Albumin Level 2.4 g/dL (3.5-5.1); Alkaline Phosphatase 109 U/L (38-126); Anion Gap 6 mmol/L (8-16); Aspartate Amino Transferase 28 U/L (14-36); Bilirubin,Total 0.5 mg/dL (0.2-1.3); Blood Urea Nitrogen 37 mg/dL (7-17); Carbon Dioxide 24 mmol/L (22-30); Chloride 120 mmol/L (98-107); Estimated CRCL calculation 33 ml/min; Estimated Glomerular Filt Rate 34; Glucose 165 mg/dL (65-110); Magnesium 1.6 mg/dL (1.6-2.3); Phosphorus 3.3 mg/dL (2.5-4.5); Potassium 3.2 mmol/L (3.4-5.0); Sodium 150 mmol/L (137-145)
[2021-09-13 05:49] LABS: Hematocrit 27.6 % (37.0-47.0); Hemoglobin 10.2 g/dL (12.0-15.0); Mean Corpuscular Hemoglobin 35.8 pg (26-34); Mean Corpuscular Volume 96.8 fl (80-100); Mean Platelet Volume 10.9 fl (7.4-10.4); Platelet Count Result 224 k/mm3 (150-375); Red Blood Count 2.85 M/mm3 (4.2-5.4); Red Cell Distribution Width 13.8 % (11.5-14.5); White Blood Count 22.8 K/mm3 (4.5-10.0)
[2021-09-13] MEDS: MAGNESIUM SULF 2 GM/WATER 50ML 2 GM/50 ML BAG IVPB (06:40)
--- NOTE | 2021-09-13 07:29 | WPDINTPN ---
Progress Note: A&P Assessment and Plan (1) Acute respiratory failure: Code(s): J96.00 - Acute respiratory failure, unspecified whether with hypoxia or hypercapnia Status: Acute Assessment and Plan: 09/12 Through the day patient had increased oxygen requirement and became more hypoxic. Chest x-ray obtained and showed diffuse bilateral airspace disease. Patient had been on IV fluids until then for acute renal failure although her urine output had been adequate ABG was checked and reviewed BNP came back [id number] Patient was intubated yesterday evening and placed on invasive mechanical ventilation Patient was given a dose of Lasix Possible etiologies are congestive heart failure and pulmonary edema, ARDS, aspiration pneumonia Continue Zosyn ABG reviewed Chest x-ray reviewed today and shows improvement Vent settings reviewed (2) Sepsis: Code(s): A41.9 - Sepsis, unspecified organism Status: Acute Assessment and Plan: Chest x-ray and UA were negative. CT abdomen also did not show any evidence of infection and no evidence of colitis. Although patient had elevated WBC count. Cultures were done in the ER and are pending till now. Initially patient was not started on antibiotics in the ER or at admission 09/11 KUB showed airspace opacity in left lung which could be an aspiration pneumonia and she did had low-grade fever Patient was started on empiric Zosyn which will be continued (3) Electrolyte abnormality: Code(s): E87.8 - Other disorders of electrolyte and fluid balance, not elsewhere classified Status: Acute Assessment and Plan: Patient has had several severe metabolic and electrolyte abnormalities since presentation Hypokalemia-she has been requiring potassium replacement since admission. Most recent potassium is 3.2 I ordered another 40 mEq per tube and 20 mEq IV Calcium is 7.0 and replacement has been ordered Phosphate level has improved and is in normal range now after replacement yesterday Magnesium replacement has been ordered Yesterday morning patient's sodium level was elevated at 147. I changed the IV fluids and decrease the bicarbonate concentration to 100 mEq to provide hypotonic fluid to the patient. Despite that the repeat BMP around 4:00 p.m. showed sodium had acutely risen to 160. I am not 100% sure with the exact etiology of that sharp rise as patient was on very small amount of sodium bicarbonate per tube. Her GI NG output was also minimal. I entertained nephrogenic DI but her urine output was also not very high to explain. She did had diarrhea post upper GI series which could lead to free water losses. Due to acute increase I gave patient D5 water bolus and started on D5 water. Per tube Sodium bicarbonate was discontinued. Although sodium was improving on next check, I continued D5 water as I had to give Lasix to the patient for overall volume overload respiratory failure. This morning has decreased to 150. Although it is higher than normal I will try to stabilize that at this level and not further further correct at this time. She is off D5 water now and I will decrease free water flushes to 100 mL Q6H hours BMP monitoring Patient has been started on tube feeds which will be advanced today to goal (4) Acute kidney injury: Code(s): N17.9 - Acute kidney failure, unspecified Status: Acute Assessment and Plan: Patient presented with creatinine of 7. This could be prerenal versus renal CT scan and renal ultrasound did not could show any hydronephrosis Patient reported nausea vomiting abdominal pain and poor p.o. intake over last week or so She was given IV fluid bolus and and was started on on IV fluids with bicarb Normal CK Nephrology is following 09/12 she was given a dose of Lasix due to pulmonary edema Creatinine has improved to 1.6 today. She has good urine output Hold further IV fluids at this time Monitor urine output electrolytes and creatinine (5)
[2021-09-13] MEDS: ALBUMIN HUMAN 5% 25 GM/500 ML BTL IV CONT (08:16)
[2021-09-13] MEDS: CALCIUM GLUC 2,000 MG/NS 100ML 2,000 MG/100 ML BAG 100 MG IVPB (08:17)
[2021-09-13] MEDS: ENOXAPARIN 30 MG/0.3 ML SYRINGE SUB-Q (08:20)
[2021-09-13] MEDS: MINERAL OIL/WHITE PETROLATUM OINTMENT 1 APPLIC EACH EYE ×2 (08:20→20:14)
[2021-09-13] MEDS: THIAMINE HCL 200 MG/2 ML VIAL 100 MG IV PUSH (08:20)
[2021-09-13] MEDS: PANTOPRAZOLE SODIUM IV 40 MG VIAL IV PUSH (08:22)
[2021-09-13] MEDS: FOLIC ACID 1 MG/0.2 ML INJ IV PUSH (08:35)
[2021-09-13] MEDS: SODIUM CHLORIDE 0.9% IV 500 ML IV CONT (08:36)
[2021-09-13 08:42] LABS: Glucose Point of Care 138 mg/dl (65-105)
[2021-09-13] MEDS: NOREPINEPHRINE 8 MG/D5W 250 ML 8 MG/250 ML BAG 9.38 MG IV CONT (08:48)
[2021-09-13] MEDS: LIDOCAINE HCL 1% PF INJ 5 ML VIAL INFILTRATE (09:30)
[2021-09-13] MEDS: MIDAZOLAM HCL (*CRX) 2 MG/2 ML VIAL 4 MG (09:37)
--- NOTE | 2021-09-13 09:40 | WPDGIPROGNO ---
Progress Note: A&P Assessment and Plan (1) Acute respiratory failure: Code(s): J96.00 - Acute respiratory failure, unspecified whether with hypoxia or hypercapnia Status: Acute Assessment and Plan: Patient now with respiratory failure. Potentially had aspiration pneumonia. Because of this continued NG tube placement is advised. This suction can be discontinued however has no obstruction on recent small-bowel series. NG tube may be required from medication. (2) Abnormal CT scan: Code(s): R93.89 - Abnormal findings on diagnostic imaging of other specified body structures Status: Acute Assessment and Plan: CT scan on presentation showed dilated stomach and duodenum. Small bowel series reveals no obstruction. This may have been spurious etiology remains undetermined but appears resolved at present. No additional GI recommendations at present. NG tube suction could be discontinued use NG tube for medications if necessary. (3) Altered mental status: Code(s): R41.82 - Altered mental status, unspecified Status: Acute (4) SIRS (systemic inflammatory response syndrome): Code(s): R65.10 - Systemic inflammatory response syndrome (SIRS) of non-infectious origin without acute organ dysfunction Status: Acute (5) Alcohol abuse: Code(s): F10.10 - Alcohol abuse, uncomplicated Status: Acute Assessment and Plan: Patient with history of substance abuse history of significant alcohol intake. Continued alcohol avoidance strongly encouraged. (6) COPD (chronic obstructive pulmonary disease): Code(s): J44.9 - Chronic obstructive pulmonary disease, unspecified Status: Acute Subjective Date/time seen: 09/13/21 09:40 Patient intubated overnight. For respiratory failure. May have had aspiration. Unable to give any history today. Review of Systems Review of Systems: ROS unobtainable: Yes unobtainable due to endotracheal tube Exam Narrative: Physical exam reveals abdomen to be soft and flat. Bowel sounds are present. Passing stools. Remains on ventilator. NG tube in place at present. Objective Data Vital Signs Vital Signs: Vital Signs - 24 hr 09/12/21 10:00 09/12/21 12:00 09/12/21 12:00 Temperature 99.1 F 99.6 F Pulse Rate 131 H 136 H Respiratory Rate 28 H 31 H Blood Pressure 84/72 L 122/89 Pulse Oximetry 90 90 90 Oxygen Delivery Nasal Cannula Oxygen Flow Rate 8 Fraction of Inspired Oxygen 09/12/21 10:00 09/12/21 12:00 09/12/21 15:39 Temperature Pulse Rate 130 H 136 H 136 H Respiratory Rate 34 H Blood Pressure Pulse Oximetry Oxygen Delivery Oxygen Flow Rate Fraction of Inspired Oxygen 09/12/21 15:50 09/12/21 14:00 09/12/21 14:00 Temperature 99.8 F H Pulse Rate 163 H 132 H 132 H Respiratory Rate 30 H 24 H Blood Pressure 131/73 Pulse Oximetry 92 Oxygen Delivery Oxygen Flow Rate Fraction of Inspired Oxygen 09/12/21 16:00 09/12/21 16:00 09/12/21 16:00 Temperature 99.8 F H Pulse Rate 126 H 129 H Respiratory Rate 29 H Blood Pressure 111/66 Pulse Oximetry 90 94 Oxygen Delivery Nasal Cannula Oxygen Flow Rate 8 Fraction of Inspired Oxygen 09/12/21 18:04 09/12/21 18:15 09/12/21 18:00 Temperature Pulse Rate 131 H 133 H 131 H Respiratory Rate 32 H 36 H Blood Pressure Pulse Oximetry Oxygen Delivery Oxygen Flow Rate Fraction of Inspired Oxygen 09/12/21 18:00 09/12/21 19:00 09/12/21 19:54 Temperature 99.0 F Pulse Rate 130 H 120 H 126 H Respiratory Rate 30 H 37 H 40 H Blood Pressure 137/109 H Pulse Oximetry 90 95 Oxygen Delivery Non-Rebreather Mask Oxygen Flow Rate 15 Fraction of Inspired Oxygen 09/12/21 20:00 09/12/21 20:08 09/12/21 20:09 Temperature 99.2 F Pulse Rate 125 H 120 H Respiratory Rate 42 H 45 H Blood Pressure 108/67 Pulse Oximetry 97 100 Oxygen Delivery Non-Rebreather Mask
[2021-09-13 11:47] LABS: Anion Gap 5 mmol/L (8-16); Blood Urea Nitrogen 27 mg/dL (7-17); Calcium 7.4 mg/dL (8.4-10.2); Carbon Dioxide 22 mmol/L (22-30); Chloride 120 mmol/L (98-107); Estimated CRCL calculation 46 ml/min; Estimated Glomerular Filt Rate 44; Glucose 154 mg/dL (65-110); Potassium 4.1 mmol/L (3.4-5.0); Sodium 147 mmol/L (137-145)
[2021-09-13] MEDS: MORPHINE SULFATE (*CRX) 2 MG/ML INJ IV PUSH (11:58)
[2021-09-13 12:13] LABS: Glucose Point of Care 107 mg/dl (65-105)
[2021-09-13] MEDS: ALBUMIN HUMAN 25% 25 GM/100 ML 100 ML IVPB ×3 (12:25→23:26)
[2021-09-13 12:26] LABS: Toxigenic C. Diff NEGATIVE (NEGATIVE)
--- NOTE | 2021-09-13 12:33 | PCFNICU ---
ICU Rounding Note: Pt current nutrition is Nepro at 45 ml/hr . Last recorded weight is 59.3 kg, up from 48.8 kg on admit. Bowel Motility:FMS Labs Reviewed:Glu 165, BUN 37, Cr 1.6,Na 150, Alb 2.4,Hct 27.6,Hgb 10.2 Meds Noted:Fentanyl, Versed, Bicarb, Levophed, Thiamine, Folic Acid, Atrovent, Protonix, Zosyn. Skin: WNL Additional Notes: Patient Intubated on 09/12. Tube feedings of Nepro started, currently at 20 ml/hr over 22 hours, goal rate at 45 ml/hr providing 1782 kcals/80 gms protein/720 ml water. Meeting 100% of kcal/protein needs. Free water flush 100 ml q 4 hours. Agree with diet orders. Following daily in ICU rounds. Will monitor every Friday and Friday.
--- NOTE | 2021-09-13 12:43 | PM.IMPN ---
Progress Note: A&P Assessment and Plan (1) Acute respiratory failure: Code(s): J96.00 - Acute respiratory failure, unspecified whether with hypoxia or hypercapnia Status: Acute Assessment and Plan: Patient developed acute respiratory failure. X-ray showing diffuse disease consider pulmonary edema versus pneumonia. Consider pulmonary edema given the IV fluids that she received and her renal function may not have been able to process the fluids appropriately. Renal function better. Consider Lasix. Appreciate rotary adjuster input. (2) Sepsis: Code(s): A41.9 - Sepsis, unspecified organism Status: Acute Assessment and Plan: Chest x-ray was clear but abdominal x-ray today shows bibasilar airspace disease. UA was negative. White count was 25K. She had cultures collected at the outside hospital Zosyn started. Consider pneumonia. (3) Electrolyte abnormality: Code(s): E87.8 - Other disorders of electrolyte and fluid balance, not elsewhere classified Status: Acute Assessment and Plan: Na 150 with potassium 3.2. Phos and Mag level normal but Mag replaced since level not >2.0 and she has hypokalemia. TSH normal. Will check cortisol. Fluids adjusted. Sodium trending downward. (4) Acute kidney injury: Code(s): N17.9 - Acute kidney failure, unspecified Status: Acute Assessment and Plan: Patient presented with a creatinine of 7 with severe metabolic acidosis. Probably pre renal related to her nausea and vomiting. Started on IV fluids with Bicarb. Renal ultrasound here was read as normal. NG tube was placed. She was NPO. Total CK is 56. Good urine output with 2900mL yesterday (2700mL thus far today). Nephrology consulted. Cr down to 1.6 and Metabolic acidosis resolved. Fluids adjusted. Continue to monitor renal function and electrolytes. (5) Metabolic acidosis: Code(s): E87.2 - Acidosis Status: Acute Assessment and Plan: Patient with severe metabolic acidosis with serum bicarb less than 5 is and pH 6.96. Probably related to acute kidney injury made worse by her history of alcoholism. Her nausea and vomiting with probable ketosis contributing to this as well. She was started IV fluids with bicarb. Serum bicarb normal now. Fluids adjusted. Continue to monitor (6) Encephalopathy: Code(s): G93.40 - Encephalopathy, unspecified Status: Acute Assessment and Plan: Patient presents with altered mental status. CT of the brain at the outside hospital was apparently unremarkable. Urine drug screen was positive for methadone and tricyclics. It is unclear if patient actually takes methadone normally. She may be altered because of alcohol withdrawal. TSH, B12, folate and ammonia levels all within normal limits. Patient intubated and sedated now. (7) Alcohol abuse: Code(s): F10.10 - Alcohol abuse, uncomplicated Status: Acute Assessment and Plan: Patient presumably has a history of alcohol abuse. She was started on thiamine and folate. Continue to monitor for now. (8) Abnormal CT scan: Code(s): R93.89 - Abnormal findings on diagnostic imaging of other specified body structures Status: Acute Assessment and Plan: Patient had a laparoscopic cholecystectomy in June 2021. CT of the abdomen pelvis at the outside facility showed moderate fluid distention of the stomach and proximal duodenum with concern for SMA syndrome. NG tube was placed to suction. She was started on Protonix. Obstructive series shows no dilated loops of bowel. Upper GI small bowel series showing no acute findings. She probably had mild ileus that has resolved. (9) Hypoglycemia: Code(s): E16.2 - Hypoglycemia, unspecified Status: Acute Assessment and Plan: Glucose dropped to 52 felt related to the acidosis and other medical problems. This was treated appropriately. Hypoglycemia pro
[2021-09-13] MEDS: SODIUM CHLORIDE 0.9% IV 1,000 ML 999 ML IV CONT (13:05)
--- NOTE | 2021-09-13 13:18 | P.PNNP_ITS ---
Progress Note: A&P Assessment and Plan (1) Acute kidney injury: Code(s): N17.9 - Acute kidney failure, unspecified Status: Acute Assessment and Plan: * unclear what baseline creatinine is but assume it was normal * etiology not clear but suspect prerenal factors (nausea/vomiting/poor oral intake) and perhaps relative hypotension playing a role * creatinine improving with current interventions * evaluation to date: * renal ultrasound normal * urine electrolytes not done (only urine creatinine was collected) * CPK normal * follow repeat labs and UOP (2) Acute respiratory failure: Code(s): J96.00 - Acute respiratory failure, unspecified whether with hypoxia or hypercapnia Status: Acute Assessment and Plan: * on mechanical ventilation * suspect secondary to CHF/pulmonary edema versus possible aspiration pneumonia * follow culture data * on antibiotics * ventilator weaning as tolerated (3) Metabolic acidosis: Code(s): E87.2 - Acidosis Status: Acute Assessment and Plan: * resolving * presumably due to renal failure * was on bicarb IVFs and oral bicarbonate (via feeding tube) * follow trend of CO2 levels (4) Electrolyte abnormality: Code(s): E87.8 - Other disorders of electrolyte and fluid balance, not elsewhere classified Status: Acute Assessment and Plan: * low K+ and Ca++ noted along with elevated sodium * suspect due to GI loss and poor oral intake and possibly total body store depletion along with free water deficit * replacement as needed * bicarb IVFs may be contribute to further hypokalemia and hypocalcemia * free water administration as tolerated * follow trend of K+, Ca++, and sodium (5) Altered mental status: Code(s): R41.82 - Altered mental status, unspecified Status: Acute Assessment and Plan: * likely toxic metabolic encephalopathy * suspect multifactorial: * urine drug screen was positive methadone and tricyclics * also on gabapentin and [place] * alcohol abuse(?) * ammonia and TSH okay * head CT at OSH negative * consider further imaging if mentation does not improve with supportive therapy (6) Nausea & vomiting: Code(s): R11.2 - Nausea with vomiting, unspecified Status: Acute Assessment and Plan: * as noted on presentation to OSH * CT of A/P suggest obstruction * NG tube in place * GI following and seen by Surgery * plan TPN for nutritional support * continue supportive therapy (7) Alcohol abuse: Code(s): F10.10 - Alcohol abuse, uncomplicated Status: Acute Assessment and Plan: * details/specifics are unknown at this time * on thiamine and folic acid * follow for signs of withdrawal Will continue to follow. Subjective Date/time seen: 09/13/21 13:18 Events in the last 24 hours noted -- adjustments in IVFs and electrolytes noted; ongoing agitation and confusion associated with worsening hypoxia and increasing oxygen requirements eventually led to intubation and mechanical ventilation; IV diuretics given for volume overload; now on low dose levophed as well. Exam Narrative: General: female in NAD but intubated/sedated Heart: normal S1 and S2; no rub Lungs: coarse breath souds Abdomen: soft, , nondistended, positive bowel sounds Extremities: no cyanosis or clubbing; no edema Skin: warm and intact
--- NOTE | 2021-09-13 13:18 | PM.PNNEP ---
Progress Note: A&P Assessment and Plan (1) Acute kidney injury: Code(s): N17.9 - Acute kidney failure, unspecified Status: Acute Assessment and Plan: unclear what baseline creatinine is but assume it was normal etiology not clear but suspect prerenal factors (nausea/vomiting/poor oral intake) and perhaps relative hypotension playing a role creatinine improving with current interventions evaluation to date: renal ultrasound normal urine electrolytes not done (only urine creatinine was collected) CPK normal follow repeat labs and UOP (2) Acute respiratory failure: Code(s): J96.00 - Acute respiratory failure, unspecified whether with hypoxia or hypercapnia Status: Acute Assessment and Plan: on mechanical ventilation suspect secondary to CHF/pulmonary edema versus possible aspiration pneumonia follow culture data on antibiotics ventilator weaning as tolerated (3) Metabolic acidosis: Code(s): E87.2 - Acidosis Status: Acute Assessment and Plan: resolving presumably due to renal failure was on bicarb IVFs and oral bicarbonate (via feeding tube) follow trend of CO2 levels (4) Electrolyte abnormality: Code(s): E87.8 - Other disorders of electrolyte and fluid balance, not elsewhere classified Status: Acute Assessment and Plan: low K+ and Ca++ noted along with elevated sodium suspect due to GI loss and poor oral intake and possibly total body store depletion along with free water deficit replacement as needed bicarb IVFs may be contribute to further hypokalemia and hypocalcemia free water administration as tolerated follow trend of K+, Ca++, and sodium (5) Altered mental status: Code(s): R41.82 - Altered mental status, unspecified Status: Acute Assessment and Plan: likely toxic metabolic encephalopathy suspect multifactorial: urine drug screen was positive methadone and tricyclics also on gabapentin and [place] alcohol abuse(?) ammonia and TSH okay head CT at OSH negative consider further imaging if mentation does not improve with supportive therapy (6) Nausea & vomiting: Code(s): R11.2 - Nausea with vomiting, unspecified Status: Acute Assessment and Plan: as noted on presentation to OSH CT of A/P suggest obstruction NG tube in place GI following and seen by Surgery plan TPN for nutritional support continue supportive therapy (7) Alcohol abuse: Code(s): F10.10 - Alcohol abuse, uncomplicated Status: Acute Assessment and Plan: details/specifics are unknown at this time on thiamine and folic acid follow for signs of withdrawal Will continue to follow. Subjective Date/time seen: 09/13/21 13:18 Events in the last 24 hours noted -- adjustments in IVFs and electrolytes noted; ongoing agitation and confusion associated with worsening hypoxia and increasing oxygen requirements eventually led to intubation and mechanical ventilation; IV diuretics given for volume overload; now on low dose levophed as well. Exam Narrative: General: female in NAD but intubated/sedated Heart: normal S1 and S2; no rub Lungs: coarse breath souds Abdomen: soft, , nondistended, positive bowel sounds Extremities: no cyanosis or clubbing; no edema Skin: warm and intact Objective Data Vital Signs Vital Signs: Vital Signs Temp Pulse Resp BP Pulse Ox O2 Del Method O2 Flow Rate 09/13/21 12:19 133 H 33 H 09/13/21 12:00 97 Mechanical Ventilation 09/13/21 12:00 09/13/21 12:00 37.1 C 133 H 24 H 117/72 93 09/13/21 12:00 132 H 09/13/21 11:30 137 H 112/67 09/13/21 11:07 132 H 96 Mechanical Ventilation 09/13/21 10:35 133 H 23 H 09/13/21 10:34 135 H 17 09/13/21 10:00 37.2 C 130 H 19 142/112 H 98 09/13/21 10:00 130 H 09/13/21 09:32 135 H 30 H 09/13/21
[2021-09-13] MEDS: CENTRAL LINE FLUSH 10 ML IV PUSH ×2 (14:06→20:14)
[2021-09-13] MEDS: dexmedeTOMIDine 400 MCG/100 ML 400 MCG/100 ML BAG IV CONT (14:29)
--- NOTE | 2021-09-13 15:01 | PM.PNGS ---
Progress Note: A&P Assessment and Plan (1) Duodenal obstruction: Code(s): K31.5 - Obstruction of duodenum Status: Acute Assessment and Plan: Gastrografin upper GI showed normal transit with no small bowel obstruction and no abnormalities of the duodenum. Since she is intubated, her NG tube will remain in place and okay to start tube feedings from our standpoint. May advance feedings as tolerated per dietitian's recommendations. No indication for surgery at this time. Will continue to follow peripherally. (2) Sepsis: Code(s): A41.9 - Sepsis, unspecified organism Status: Acute (3) Acute respiratory failure: Code(s): J96.00 - Acute respiratory failure, unspecified whether with hypoxia or hypercapnia Status: Acute Assessment and Plan: Patient with respiratory failure s/p intubation last night. Chest x-ray suggesting pulmonary edema vs pneumonia. Continue management per primary team and Home Service Demonstrator. (4) Metabolic acidosis: Code(s): E87.2 - Acidosis Status: Acute Assessment and Plan: Improving, serum bicarb now normal and IV fluids adjusted with no sodium bicarb. Continue to monitor. (5) Encephalopathy: Code(s): G93.40 - Encephalopathy, unspecified Status: Acute (6) COPD (chronic obstructive pulmonary disease): Code(s): J44.9 - Chronic obstructive pulmonary disease, unspecified Status: Acute (7) Acute kidney injury: Code(s): N17.9 - Acute kidney failure, unspecified Status: Acute Assessment and Plan: Creatinine continues to improve, now down to 1.3. Continue medical management and monitoring labs. (8) Malnourished: Code(s): E46 - Unspecified protein-calorie malnutrition Status: Acute Assessment and Plan: Tube feedings started for nutrition. (9) Alcohol abuse: Code(s): F10.10 - Alcohol abuse, uncomplicated Status: Acute Plan I have discussed the patient's case and plan of care with Dr. Keenan. Subjective Subjective Date/Time Seen: 09/13/21 15:01 Patient reports: bowel movement and afebrile Interval history: Patient remains in the ICU and went into respiratory distress requiring intubation last night. She also became more hypotensive and had to be started on a Levophed drip. PICC line was placed today. She is sedated and on the mechanical ventilator, therefore unable to answer any of my questions. Review of Systems Review of Systems: ROS unobtainable: Yes unobtainable due to endotracheal tube Exam Const: General: no acute distress and ill appearing Nutritional Appearance: malnourished Limitations: other limitations (sedated and intubated) Resp: Effort & Inspection: other (mechanical ventilator) Cardio: Rate: tachycardic Rhythm: regular rhythm GI: Inspection: non-distended GI Palp: Yes Soft to palpation, No Guarding due to palpation present (GI) and Yes Other GI palpation findings present (HUMA tenderness d/t sedation, no grimacing with palpation of abdomen) Auscultation: normal bowel sounds Urinary Catheter: Urinary Catheter: patent and draining Neuro: General: patient obtunded (sedated and intubated, exam limited) Extrem: General: normal to inspection Psych: Insight: Limited insight present (Psych) Judgement: Limited judgement present (Psych) Objective Data Vital Signs Vital Signs: Vital Signs - 24 hr 09/12/21 15:39 09/12/21 15:50 09/12/21 16:00 Temperature Pulse Rate 136 H 163 H Respiratory Rate 34 H 30 H Blood Pressure Pulse Oximetry 90 Oxygen Delivery Nasal Cannula Oxygen Flow Rate 8 Fraction of Inspired Oxygen 09/12/21 16:00 09/12/21 16:00 09/12/21 18:04 Temperature 99.8 F H Pulse Rate 126 H 129 H 131 H Respiratory Rate 29 H 32 H Blood Pressure 111/66 Pulse Oximetry 94 Oxygen Delivery Oxygen Flow Rate Fraction of Inspired Oxygen 09/12/21 18:15 09/12/21 18:00 09/12/21 18:00 Temperature 99.
[2021-09-13 17:24] LABS: Glucose Point of Care 121 mg/dl (65-105)
[2021-09-13 17:35] LABS: Anion Gap 6 mmol/L (8-16); Blood Urea Nitrogen 21 mg/dL (7-17); Calcium 7.1 mg/dL (8.4-10.2); Carbon Dioxide 22 mmol/L (22-30); Chloride 122 mmol/L (98-107); Estimated CRCL calculation 51 ml/min; Estimated Glomerular Filt Rate 53; Glucose 169 mg/dL (65-110); Potassium 3.5 mmol/L (3.4-5.0); Sodium 150 mmol/L (137-145)
[2021-09-13 20:18] LABS: Glucose Point of Care 122 mg/dl (65-105)
[2021-09-13 22:50] LABS: Anion Gap 9 mmol/L (8-16); Blood Urea Nitrogen 19 mg/dL (7-17); Calcium 7.6 mg/dL (8.4-10.2); Carbon Dioxide 22 mmol/L (22-30); Chloride 124 mmol/L (98-107); Estimated CRCL calculation 47 ml/min; Estimated Glomerular Filt Rate 48; Glucose 137 mg/dL (65-110); Potassium 3.3 mmol/L (3.4-5.0); Sodium 155 mmol/L (137-145)
[2021-09-13 22:54] LABS: Magnesium 1.9 mg/dL (1.6-2.3); Phosphorus 4.1 mg/dL (2.5-4.5)
--- NOTE | 2021-09-13 23:02 | PC.NURSE ---
Addendum entered by Arthur Castro RN 09/13/21 23:12: Start 100ml Free water flushes per NG tube Q4hr. Original Note: Updated Dr. Salgado regarding lab results and 300 residual tube feed. Hold Tube feed for 4 hours. Start Reglan 10mg Per tube Q6h. Give 40meq of Potassium per NG tube. Give 40meq of potassium per IVPB. Bolus 500ml of D5W over 1 hr. Start D5W at 50ml/hr. Call with AM labs.
[2021-09-13] MEDS: KCL 40 MEQ/WATER 100 ML 100 ML 25 ML IVPB (23:23)
[2021-09-13] MEDS: METOCLOPRAMIDE HCL 10 MG/10 ML SOLN UDC PO (23:26)
[2021-09-13] MEDS: DEXTROSE 5% IN WATER 500 ML IV CONT (23:36)
[2021-09-13] MEDS: FENTANYL 2,500MCG/NS250ML(*CRX 2,500 MCG/250 ML BAG 12.5 MCG IV CONT (23:46)
[2021-09-14] VITALS (55 sets, daily range): BP systolic 76–129; BP diastolic 47–81; PULSE 91–140; RESP 18–38; TEMP 36.1–37.7; O2SAT 88–100
[2021-09-14] MEDS: dexmedeTOMIDine 400 MCG/100 ML 400 MCG/100 ML BAG 13.34 MCG IV CONT ×2 (00:37→08:09)
[2021-09-14] MEDS: DEXTROSE 5% 1,000 ML 1,000 ML 50 ML IV CONT (00:53)
[2021-09-14] MEDS: INSULIN ASPART (*BKC) 100 UNITS/ML SUB-Q (00:57)
[2021-09-14 00:58] LABS: Glucose Point of Care 239 mg/dl (65-105)
[2021-09-14] MEDS: IPRATROPIUM BR 0.02% INH SOLN 0.5 MG/2.5 ML VIAL INHALATION ×4 (02:26→21:28)
[2021-09-14] MEDS: ALBUTEROL SULFATE NEB 2.5 MG/3 ML INH 5 MG INHALATION ×4 (02:27→21:28)
[2021-09-14] MEDS: ALBUMIN HUMAN 25% 25 GM/100 ML 100 ML IVPB ×3 (05:00→17:15)
[2021-09-14 05:02] LABS: Alveolar/Arterial O2 Gradient 246.2 mmHg; Base Excess ABG -5.6 mEq/l (+/-2.0); Carboxyhemoglobin 0.2 % THb (0-2.0); Fractional Inspired Oxygen 50 %; HCO3 ABG 20.2 mEq/l (22.0-26.0); Methemoglobin ABG 0.3 %THb (0-1.5); Oxygen Content ABG 16.3 %vol (16.0-22.0); Oxyhemoglobin 90.3 % THb (90.0-100.0); PCO2 ABG 40.5 mmHg (35.0-45.0); PO2 ABG 64.7 mmHg (80.0-100.0); PO2 FiO2 Ratio Arterial Blood 1.29 %; Reduced Hemoglobin 9.2 %THb (0-5.0); Total Hemoglobin 12.8 g/dL (12.0-18.0); pH ABG 7.315 (7.350-7.450)
[2021-09-14 05:03] LABS: Arterial Blood Gas PEEP 8 cmH2O; Arterial Blood Gas Tidal Volume 400 ml; Arterial Blood Gas Vent Mode CMV; Arterial Blood Gas Ventilator rate 18 /MIN; Device VENTILATOR; Modified Allen's Test Pass; Site Drawn RIGHT RADIAL
[2021-09-14 05:08] LABS: Hematocrit 21.9 % (37.0-47.0); Hemoglobin 7.6 g/dL (12.0-15.0); Mean Corpuscular HGB Conc 34.7 g/dl (32-36); Mean Corpuscular Hemoglobin 35.8 pg (26-34); Mean Corpuscular Volume 103.3 fl (80-100); Mean Platelet Volume 10.7 fl (7.4-10.4); Platelet Count Result 165 k/mm3 (150-375); Red Blood Count 2.12 M/mm3 (4.2-5.4); Red Cell Distribution Width 15.2 % (11.5-14.5); White Blood Count 20.3 K/mm3 (4.5-10.0)
[2021-09-14 05:25] LABS: Alanine Aminotransferase 7 U/L (6-35); Albumin Level 3.3 g/dL (3.5-5.1); Alkaline Phosphatase 80 U/L (38-126); Anion Gap 9 mmol/L (8-16); Aspartate Amino Transferase 18 U/L (14-36); Bilirubin,Total 0.4 mg/dL (0.2-1.3); Blood Urea Nitrogen 16 mg/dL (7-17); Calcium 7.8 mg/dL (8.4-10.2); Carbon Dioxide 21 mmol/L (22-30); Chloride 124 mmol/L (98-107); Estimated CRCL calculation 57 ml/min; Estimated Glomerular Filt Rate 59; Glucose 131 mg/dL (65-110); Magnesium 1.9 mg/dL (1.6-2.3); Phosphorus 3.1 mg/dL (2.5-4.5); Potassium 4.2 mmol/L (3.4-5.0); Sodium 154 mmol/L (137-145)
[2021-09-14] MEDS: CENTRAL LINE FLUSH 10 ML IV PUSH ×2 (05:42→15:10)
[2021-09-14] MEDS: METOCLOPRAMIDE HCL 10 MG/10 ML SOLN UDC PO ×3 (05:43→17:16)
--- NOTE | 2021-09-14 07:47 | WPDGIPROGNO ---
Progress Note: A&P Assessment and Plan (1) Abnormal CT scan: Code(s): R93.89 - Abnormal findings on diagnostic imaging of other specified body structures Status: Acute Assessment and Plan: Distention of stomach and proximal small bowel as well as colon noted on initial CT scanning. This appears to have resolved. Small-bowel series reveals no obstruction. I suspect she likely had a ileus during that interval. At the present time would agree with proceeding with NG tube for medications as needed while intubated. I will sign off the case unless requested to return for additional care in the future. (2) Acute respiratory failure: Code(s): J96.00 - Acute respiratory failure, unspecified whether with hypoxia or hypercapnia Status: Acute (3) Altered mental status: Code(s): R41.82 - Altered mental status, unspecified Status: Acute (4) SIRS (systemic inflammatory response syndrome): Code(s): R65.10 - Systemic inflammatory response syndrome (SIRS) of non-infectious origin without acute organ dysfunction Status: Acute (5) Alcohol abuse: Code(s): F10.10 - Alcohol abuse, uncomplicated Status: Acute (6) COPD (chronic obstructive pulmonary disease): Code(s): J44.9 - Chronic obstructive pulmonary disease, unspecified Status: Acute Subjective Date/time seen: 09/14/21 07:47 Patient remains on ventilator. Unable to add any useful history. Review of Systems Review of Systems: ROS unobtainable: Yes unobtainable due to endotracheal tube Exam Narrative: On physical exam patient is intubated on the ventilator. Now on pressors. Lungs are clear few rhonchi are noted. Abdomen bowel sounds present soft nontender. NG tube remains in place. Objective Data Vital Signs Vital Signs: Vital Signs - 24 hr 09/13/21 08:15 09/13/21 08:05 09/13/21 08:17 Temperature Pulse Rate 126 H 124 H 126 H Respiratory Rate 22 H 21 H Blood Pressure Pulse Oximetry 99 Oxygen Delivery Mechanical Ventilation Fraction of Inspired Oxygen 40 09/13/21 08:48 09/13/21 08:00 09/13/21 08:00 Temperature Pulse Rate 131 H 124 H Respiratory Rate Blood Pressure 82/56 L Pulse Oximetry 97 Oxygen Delivery Mechanical Ventilation Fraction of Inspired Oxygen 40 09/13/21 08:00 09/13/21 08:00 09/13/21 09:32 Temperature 98.3 F Pulse Rate 123 H 135 H Respiratory Rate 22 H 30 H Blood Pressure 84/52 L Pulse Oximetry 100 Oxygen Delivery Fraction of Inspired Oxygen 40 09/13/21 10:00 09/13/21 10:00 09/13/21 10:34 Temperature 98.9 F Pulse Rate 130 H 130 H 135 H Respiratory Rate 19 17 Blood Pressure 142/112 H Pulse Oximetry 98 Oxygen Delivery Fraction of Inspired Oxygen 09/13/21 10:35 09/13/21 11:07 09/13/21 11:30 Temperature Pulse Rate 133 H 132 H 137 H Respiratory Rate 23 H Blood Pressure 112/67 Pulse Oximetry 96 Oxygen Delivery Mechanical Ventilation Fraction of Inspired Oxygen 40 09/13/21 12:00 09/13/21 12:00 09/13/21 12:00 Temperature 98.8 F Pulse Rate 132 H 133 H Respiratory Rate 24 H Blood Pressure 117/72 Pulse Oximetry 93 Oxygen Delivery Fraction of Inspired Oxygen 40 09/13/21 12:00 09/13/21 12:19 09/13/21 13:37 Temperature Pulse Rate 133 H 131 H Respiratory Rate 33 H Blood Pressure Pulse Oximetry 97 93 Oxygen Delivery Mechanical Ventilation Mechanical Ventilation Fraction of Inspired Oxygen 40 40 09/13/21 13:35 09/13/21 13:46 09/13/21 14:00 Temperature Pulse Rate 131 H 128 H 135 H Respiratory Rate 26 H 26 H Blood Pressure Pulse Oximetry Oxygen Delivery Fraction of Inspired Oxygen 09/13/21 14:00 09/13/21 14:29 09/13/21 17:15 Temperature 98.6 F Pulse Rate 135 H 132 H 124 H Respiratory Rate 24 H 28 H Blood Pressure 130/104 H Pulse Oximetry 92 97 Oxygen Delivery Mechanical Ventilation Fraction of Inspired Oxy
[2021-09-14] MEDS: MINERAL OIL/WHITE PETROLATUM OINTMENT 1 APPLIC EACH EYE ×2 (08:05→21:07)
[2021-09-14] MEDS: FOLIC ACID 1 MG/0.2 ML INJ IV PUSH (08:07)
[2021-09-14] MEDS: PANTOPRAZOLE SODIUM IV 40 MG VIAL IV PUSH (08:07)
[2021-09-14] MEDS: THIAMINE HCL 200 MG/2 ML VIAL 100 MG IV PUSH (08:08)
[2021-09-14 08:18] LABS: Glucose Point of Care 142 mg/dl (65-105)
--- NOTE | 2021-09-14 08:33 | WPDINTPN ---
Progress Note: A&P Assessment and Plan (1) Acute respiratory failure: Code(s): J96.00 - Acute respiratory failure, unspecified whether with hypoxia or hypercapnia Status: Acute Assessment and Plan: 09/12 Through the day patient had increased oxygen requirement and became more hypoxic. Chest x-ray obtained and showed diffuse bilateral airspace disease. Patient had been on IV fluids until then for acute renal failure although her urine output had been adequate ABG was checked and reviewed BNP came back [id number] Patient was intubated in the evening and placed on invasive mechanical ventilation Patient was given a dose of Lasix Possible etiologies are congestive heart failure and pulmonary edema, ARDS, aspiration pneumonia 09/13 on 60% FiO2 and 8 PEEP Chest x-ray reviewed ABG reviewed Continue Zosyn Vent settings reviewed Not ready for weaning at this time (2) Sepsis: Code(s): A41.9 - Sepsis, unspecified organism Status: Acute Assessment and Plan: Chest x-ray and UA were negative. CT abdomen also did not show any evidence of infection and no evidence of colitis. Although patient had elevated WBC count. Cultures were done in the ER and are pending till now. Initially patient was not started on antibiotics in the ER or at admission 09/11 KUB showed airspace opacity in left lung which could be an aspiration pneumonia and she did had low-grade fever Patient was started on empiric Zosyn which will be continued Urine and blood cultures have been negative now (3) Electrolyte abnormality: Code(s): E87.8 - Other disorders of electrolyte and fluid balance, not elsewhere classified Status: Acute Assessment and Plan: Patient has had several severe metabolic and electrolyte abnormalities since presentation Hypokalemia-she h require significant potassium replacement in first few days after admission. Now in normal range and will continue to monitor Calcium is 7.8 and replacement has been ordered Phosphate level has improved and is in normal range now after replacement yesterday Magnesium has improved after placement 09/13 Yesterday morning patient's sodium level was elevated at 147. I changed the IV fluids and decrease the bicarbonate concentration to 100 mEq to provide hypotonic fluid to the patient. Despite that the repeat BMP around 4:00 p.m. showed sodium had acutely risen to 160. I am not 100% sure with the exact etiology of that sharp rise as patient was on very small amount of sodium bicarbonate per tube. Her GI NG output was also minimal. I entertained nephrogenic DI but her urine output was also not very high to explain. She did had diarrhea post upper GI series which could lead to free water losses. Due to acute increase I gave patient D5 water bolus and started on D5 water. Per tube Sodium bicarbonate was discontinued. Although sodium was improving on next check, I continued D5 water as I had to give Lasix to the patient for overall volume overload respiratory failure. This morning has decreased to 150. Although it is higher than normal I will try to stabilize that at this level and not further further correct at this time. 09/14 a sodium increased back to 155 overnight and patient was given additional D5 water and started on D5 water infusion. Free water flushes increased. Sodium is now at 1:54 a.m. Increase D5 water to 100 mL/hour, increase free floor of flush to 200 ml q.4 hours Continue Q6H hours BMP monitoring (4) Acute kidney injury: Code(s): N17.9 - Acute kidney failure, unspecified Status: Acute Assessment and Plan: Patient presented with creatinine of 7. This could be prerenal versus renal CT scan and renal ultrasound did not could show any hydronephrosis Patient reported nausea vomiting abdominal pain and poor p.o. intake over last week or so She was given IV fluid bolus and and was started on on IV fluids with bicarb Normal CK Nephrology is following 09/12 she
--- NOTE | 2021-09-14 10:35 | PCNFU ---
Nutrition Follow-Up Complete: Altered GI function as related to Nausea/Vomiting as evidenced by NPO. Goal: Meet estimated nutritional needs. Pt is progressing towards goal. Continue with current plan of care. Pt current nutrition is Nepo tube feeding - currently on hold. Nutrition recommendation: Resume tube feeds Last recorded weight is 60.3 kg - up from 48.8kg on admit. Bowel Motility: +BM 09/13 Labs Reviewed: Hgb:7.6, HCT:21.9, Alb:3.3, NA:154 Meds Noted: Fentanyl, Versed, Bicarb, Levophed, Thiamine, Folic Acid, Atrovent, Protonix, Zosyn, started on Reglan Skin: WNL Additional Notes: Pt remains on mechanical ventilation. Tube feeds started, Nepro with a goal rate of 45ml/hr to meet estimated needs. Feedings currently on hold due to residuals of 300. Reglan started today for motility. Will resume tube feeds this afternoon. Noted flushes increased to 200 q 4 hrs due to elevated sodium. Agree with diet orders and plan. Following daily in ICU rounds. Will monitor every Friday and Friday.
[2021-09-14 10:42] LABS: Hematocrit 21.2 % (37.0-47.0); Hemoglobin 7.4 g/dL (12.0-15.0)
[2021-09-14 10:53] LABS: Anion Gap 5 mmol/L (8-16); Blood Urea Nitrogen 14 mg/dL (7-17); Carbon Dioxide 25 mmol/L (22-30); Chloride 123 mmol/L (98-107); Estimated CRCL calculation 63 ml/min; Estimated Glomerular Filt Rate > 60; Glucose 125 mg/dL (65-110); Sodium 153 mmol/L (137-145)
--- NOTE | 2021-09-14 12:15 | PM.PNNEP ---
Progress Note: A&P Assessment and Plan (1) Acute kidney injury: Code(s): N17.9 - Acute kidney failure, unspecified Status: Acute Assessment and Plan: resolved/resolving etiology not clear but suspect prerenal factors (nausea/vomiting/poor oral intake) and perhaps relative hypotension playing a role creatinine improving with current interventions evaluation to date: renal ultrasound normal urine electrolytes not done (only urine creatinine was collected) CPK normal follow repeat labs and UOP (2) Acute respiratory failure: Code(s): J96.00 - Acute respiratory failure, unspecified whether with hypoxia or hypercapnia Status: Acute Assessment and Plan: on mechanical ventilation suspect secondary to CHF/pulmonary edema versus possible aspiration pneumonia follow culture data on antibiotics ventilator weaning as tolerated (3) Metabolic acidosis: Code(s): E87.2 - Acidosis Status: Acute Assessment and Plan: resolved presumably due to renal failure off bicarbonate fluids and oral sodium bicarbonate due to hypernatremia (4) Electrolyte abnormality: Code(s): E87.8 - Other disorders of electrolyte and fluid balance, not elsewhere classified Status: Acute Assessment and Plan: low K+ and Ca++ noted along with elevated sodium suspect due to GI loss and poor oral intake and possibly total body store depletion along with free water deficit replacement as needed (K+, Ca++, Phos, and magnesium have stabilized free water tube flushes and D5W IVFs to treat hypernatremia follow trend electrolytes (5) Altered mental status: Code(s): R41.82 - Altered mental status, unspecified Status: Acute Assessment and Plan: likely toxic metabolic encephalopathy suspect multifactorial: urine drug screen was positive methadone and tricyclics also on gabapentin and [place] alcohol abuse(?) ammonia and TSH okay head CT at OSH negative consider further imaging if mentation does not improve with supportive therapy (6) Nausea & vomiting: Code(s): R11.2 - Nausea with vomiting, unspecified Status: Acute Assessment and Plan: as noted on presentation to OSH CT of A/P suggest obstruction appears to have resolved small-bowel series reveals no obstruction suspect ileus at the time of CT scan continue tube feeds as tolerated via NGT continue supportive therapy (7) Alcohol abuse: Code(s): F10.10 - Alcohol abuse, uncomplicated Status: Acute Assessment and Plan: details/specifics are unknown at this time on thiamine and folic acid follow for signs of withdrawal Will continue to follow. Subjective Date/time seen: 09/14/21 12:15 Remains intubated/sedated and on mechanical ventilation; stable hemodynamics on low dose levophed as well; continues to make good urine output with improvement in creatinine/renal function; no other acute issues/events overnight or earlier his AM. Exam Narrative: General: female in NAD but intubated/sedated Heart: normal S1 and S2; no rub Lungs: coarse breath sounds Abdomen: soft, nondistended, positive bowel sounds Extremities: no cyanosis or clubbing; no edema Skin: no rash Objective Data Vital Signs Vital Signs: Vital Signs Temp Pulse Resp BP Pulse Ox O2 Del Method FiO2 09/14/21 12:00 107 H 29 H 100 Mechanical Ventilation 60 09/14/21 12:00 60 09/14/21 12:00 37.7 C H 107 H 29 H 105/56 L 100 09/14/21 12:00 107 H 09/14/21 10:50 116 H 94 Mechanical Ventilation 60 09/14/21 10:00 105 H 97/64 L 09/14/21 08:00 106 H 95/63 L 09/14/21 10:00 36.4 C 105 H 18 97/64 L 94 09/14/21 10:00 105 H 09/14/21 08:45 98 20 09/14/21 08:00 106 H 25 H 93 Mechanical Ventilation 60 09/14/21 08:00 60 09/14/21 08:00 36.1 C L 106 H 25 H 95/63 L 93
--- NOTE | 2021-09-14 12:15 | P.PNNP_ITS ---
Progress Note: A&P Assessment and Plan (1) Acute kidney injury: Code(s): N17.9 - Acute kidney failure, unspecified Status: Acute Assessment and Plan: * resolved/resolving * etiology not clear but suspect prerenal factors (nausea/vomiting/poor oral intake) and perhaps relative hypotension playing a role * creatinine improving with current interventions * evaluation to date: * renal ultrasound normal * urine electrolytes not done (only urine creatinine was collected) * CPK normal * follow repeat labs and UOP (2) Acute respiratory failure: Code(s): J96.00 - Acute respiratory failure, unspecified whether with hypoxia or hypercapnia Status: Acute Assessment and Plan: * on mechanical ventilation * suspect secondary to CHF/pulmonary edema versus possible aspiration pneumonia * follow culture data * on antibiotics * ventilator weaning as tolerated (3) Metabolic acidosis: Code(s): E87.2 - Acidosis Status: Acute Assessment and Plan: * resolved * presumably due to renal failure * off bicarbonate fluids and oral sodium bicarbonate due to hypernatremia (4) Electrolyte abnormality: Code(s): E87.8 - Other disorders of electrolyte and fluid balance, not elsewhere classified Status: Acute Assessment and Plan: * low K+ and Ca++ noted along with elevated sodium * suspect due to GI loss and poor oral intake and possibly total body store depletion along with free water deficit * replacement as needed (K+, Ca++, Phos, and magnesium have stabilized * free water tube flushes and D5W IVFs to treat hypernatremia * follow trend electrolytes (5) Altered mental status: Code(s): R41.82 - Altered mental status, unspecified Status: Acute Assessment and Plan: * likely toxic metabolic encephalopathy * suspect multifactorial: * urine drug screen was positive methadone and tricyclics * also on gabapentin and [place] * alcohol abuse(?) * ammonia and TSH okay * head CT at OSH negative * consider further imaging if mentation does not improve with supportive therapy (6) Nausea & vomiting: Code(s): R11.2 - Nausea with vomiting, unspecified Status: Acute Assessment and Plan: * as noted on presentation to OSH * CT of A/P suggest obstruction * appears to have resolved * small-bowel series reveals no obstruction * suspect ileus at the time of CT scan * continue tube feeds as tolerated via NGT * continue supportive therapy (7) Alcohol abuse: Code(s): F10.10 - Alcohol abuse, uncomplicated Status: Acute Assessment and Plan: * details/specifics are unknown at this time * on thiamine and folic acid * follow for signs of withdrawal Will continue to follow. Subjective Date/time seen: 09/14/21 12:15 Remains intubated/sedated and on mechanical ventilation; stable hemodynamics on low dose levophed as well; continues to make good urine output with improvement in creatinine/renal function; no other acute issues/events overnight or earlier his AM. Exam Narrative: General: female in NAD but intubated/sedated Heart: normal S1 and S2; no rub Lungs: coarse breath sounds Abdomen: soft, nondistended, positive bowel sounds Extremities: no cyanosis or clubbing; no edema Skin: no rash Objective Data Vital Signs Vital Signs:
[2021-09-14] MEDS: MIDAZOLAM HCL (*CRX) 2 MG/2 ML VIAL 4 MG IV PUSH (12:36)
--- NOTE | 2021-09-14 13:41 | PM.IMPN ---
Progress Note: A&P Assessment and Plan (1) Acute respiratory failure: Code(s): J96.00 - Acute respiratory failure, unspecified whether with hypoxia or hypercapnia Status: Acute Assessment and Plan: 09/12 Through the day patient had increased oxygen requirement and became more hypoxic. Chest x-ray obtained and showed diffuse bilateral airspace disease. Patient had been on IV fluids until then for acute renal failure although her urine output had been adequate ABG was checked and reviewed BNP came back [id number] Patient was intubated in the evening and placed on invasive mechanical ventilation Patient was given a dose of Lasix Possible etiologies are congestive heart failure and pulmonary edema, ARDS, aspiration pneumonia 09/13 on 60% FiO2 and 8 PEEP Chest x-ray reviewed ABG reviewed Continue Zosyn Vent settings reviewed Not ready for weaning at this time -Management per ICU (2) Sepsis: Code(s): A41.9 - Sepsis, unspecified organism Status: Acute Assessment and Plan: Chest x-ray and UA were negative. CT abdomen also did not show any evidence of infection and no evidence of colitis. Although patient had elevated WBC count. Cultures were done in the ER and are pending till now. Initially patient was not started on antibiotics in the ER or at admission 09/11 KUB showed airspace opacity in left lung which could be an aspiration pneumonia and she did had low-grade fever Patient was started on empiric Zosyn which will be continued Urine and blood cultures have been negative now. -Continue antibiotics. (3) Electrolyte abnormality: Code(s): E87.8 - Other disorders of electrolyte and fluid balance, not elsewhere classified Status: Acute Assessment and Plan: Patient has had several severe metabolic and electrolyte abnormalities since presentation Hypokalemia-she h require significant potassium replacement in first few days after admission. Now in normal range and will continue to monitor Calcium is 7.8 and replacement has been ordered Phosphate level has improved and is in normal range now after replacement yesterday Magnesium has improved after placement 09/13 Yesterday morning patient's sodium level was elevated at 147. I changed the IV fluids and decrease the bicarbonate concentration to 100 mEq to provide hypotonic fluid to the patient. Despite that the repeat BMP around 4:00 p.m. showed sodium had acutely risen to 160. I am not 100% sure with the exact etiology of that sharp rise as patient was on very small amount of sodium bicarbonate per tube. Her GI NG output was also minimal. I entertained nephrogenic DI but her urine output was also not very high to explain. Patient had diarrhea post upper GI series which could lead to free water losses. Due to acute increase I gave patient D5 water bolus and started on D5 water. Per tube Sodium bicarbonate was discontinued. Although sodium was improving on next check, I continued D5 water as I had to give Lasix to the patient for overall volume overload respiratory failure. This morning has decreased to 150. Although it is higher than normal I will try to stabilize that at this level and not further further correct at this time. 09/14 a sodium increased back to 155 overnight and patient was given additional D5 water and started on D5 water infusion. Free water flushes increased. Sodium is now at 1:54 a.m. Increase D5 water to 100 mL/hour, increase free floor of flush to 200 ml q.4 hours Continue Q6H hours BMP monitoring -Hypernatremia largely unchanged. Persistent hypokalemia. Replete as needed. Will continue to monitor. (4) Acute kidney injury: Code(s): N17.9 - Acute kidney failure, unspecified Status: Acute Assessment and Plan: Patient presented with creatinine of 7. This could be prerenal versus renal CT scan and renal ultrasound did not could show any hydronephrosis Patient reported nausea vomiting abdominal pain and poo
[2021-09-14] MEDS: DEXTROSE 5% 1,000 ML 1,000 ML 100 ML IV CONT (15:09)
[2021-09-14] MEDS: dexmedeTOMIDine 400 MCG/100 ML 400 MCG/100 ML BAG 14.83 MCG IV CONT (16:06)
[2021-09-14 16:11] LABS: Glucose Point of Care 114 mg/dl (65-105)
[2021-09-14 16:21] LABS: Hematocrit 21.3 % (37.0-47.0); Hemoglobin 7.4 g/dL (12.0-15.0)
[2021-09-14 16:31] LABS: Anion Gap 8 mmol/L (8-16); Blood Urea Nitrogen 11 mg/dL (7-17); Calcium 8.2 mg/dL (8.4-10.2); Carbon Dioxide 23 mmol/L (22-30); Chloride 122 mmol/L (98-107); Estimated CRCL calculation 57 ml/min; Estimated Glomerular Filt Rate 59; Glucose 117 mg/dL (65-110); Potassium 3.8 mmol/L (3.4-5.0); Sodium 153 mmol/L (137-145)
[2021-09-14] MEDS: FENTANYL 2,500MCG/NS250ML(*CRX 2,500 MCG/250 ML BAG 12.5 MCG IV CONT (17:53)
[2021-09-14 20:05] LABS: Glucose Point of Care 127 mg/dl (65-105)
[2021-09-14] MEDS: NOREPINEPHRINE 8 MG/D5W 250 ML 8 MG/250 ML BAG 1.88 MG IV CONT (20:40)
[2021-09-14] MEDS: dexmedeTOMIDine 400 MCG/100 ML 400 MCG/100 ML BAG 20.76 MCG IV CONT (21:04)
[2021-09-15] VITALS (104 sets, daily range): BP systolic 74–145; BP diastolic 41–88; PULSE 71–135; RESP 11–37; TEMP 35.7–36.8; O2SAT 90–100
[2021-09-15 00:14] LABS: Hematocrit 34.4 % (37.0-47.0); Hemoglobin 11.7 g/dL (12.0-15.0)
[2021-09-15 00:21] LABS: Anion Gap 8 mmol/L (8-16); Blood Urea Nitrogen 8 mg/dL (7-17); Calcium 7.1 mg/dL (8.4-10.2); Carbon Dioxide 21 mmol/L (22-30); Chloride 109 mmol/L (98-107); Estimated CRCL calculation 70 ml/min; Estimated Glomerular Filt Rate > 60; Glucose 475 mg/dL (65-110); Potassium 3.1 mmol/L (3.4-5.0); Sodium 138 mmol/L (137-145)
[2021-09-15] MEDS: MIDAZOLAM HCL (*CRX) 2 MG/2 ML VIAL IV PUSH ×5 (00:21→17:52)
[2021-09-15] MEDS: CENTRAL LINE FLUSH 10 ML IV PUSH ×4 (00:22→20:04)
[2021-09-15 00:41] LABS: Glucose Point of Care 136 mg/dl (65-105)
[2021-09-15] MEDS: METOCLOPRAMIDE HCL 10 MG/10 ML SOLN UDC PO ×5 (00:47→23:57)
[2021-09-15] MEDS: DEXTROSE 5% 1,000 ML 1,000 ML 100 ML IV CONT (00:59)
[2021-09-15 01:08] LABS: Basophils Absolute Auto 0.1 K/mm3 (0.0-0.1); Basophils Percent Auto 0.4 % (0.2-1.2); Eosinophils Absolute Auto 0.9 K/mm3 (0-0.3); Eosinophils Percent Auto 4.6 % (0-4.4); Hematocrit 22.7 % (37.0-47.0); Hemoglobin 7.6 g/dL (12.0-15.0); Immature Granulocyte Absolute 0.21 K/mm3 (0.00-0.031); Lymphocytes Percent Auto 10.9 % (18.3-44.2); Mean Corpuscular HGB Conc 33.5 g/dl (32-36); Mean Corpuscular Hemoglobin 34.9 pg (26-34); Mean Corpuscular Volume 104.1 fl (80-100); Mean Platelet Volume 10.3 fl (7.4-10.4); Monocytes Absolute Auto 1.3 K/mm3 (0.1-0.6); Monocytes Percent Auto 6.5 % (2.6-8.5); Neutrophils Absolute Auto 15.5 K/mm3 (1.3-6.7); Neutrophils Percent Auto 76.6 % (45.5-73.1); Nucleated Red Blood Cells Perc 0.1 % (0.0-0.2); Platelet Count Result 166 k/mm3 (150-375); Red Blood Count 2.18 M/mm3 (4.2-5.4); Red Cell Distribution Width 15.5 % (11.5-14.5); White Blood Count 20.2 K/mm3 (4.5-10.0)
[2021-09-15 01:19] LABS: Anion Gap 10 mmol/L (8-16); Blood Urea Nitrogen 9 mg/dL (7-17); Calcium 8.2 mg/dL (8.4-10.2); Carbon Dioxide 22 mmol/L (22-30); Chloride 121 mmol/L (98-107); Estimated CRCL calculation 57 ml/min; Estimated Glomerular Filt Rate 59; Glucose 145 mg/dL (65-110); Potassium 3.1 mmol/L (3.4-5.0); Sodium 153 mmol/L (137-145)
[2021-09-15] MEDS: dexmedeTOMIDine 400 MCG/100 ML 400 MCG/100 ML BAG 22.24 MCG IV CONT ×6 (01:27→23:30)
[2021-09-15 01:51] LABS: Anisocytosis 1+ (NORMAL); Platelet Estimate Adequate (Adequate); Smudge Cells PRESENT; Target Cells 1+ (NORMAL)
[2021-09-15] MEDS: ALBUTEROL SULFATE NEB 2.5 MG/3 ML INH 5 MG INHALATION ×4 (02:30→20:49)
[2021-09-15] MEDS: IPRATROPIUM BR 0.02% INH SOLN 0.5 MG/2.5 ML VIAL INHALATION ×4 (02:30→20:49)
[2021-09-15 04:16] LABS: Hematocrit 22.7 % (37.0-47.0); Hemoglobin 8.2 g/dL (12.0-15.0); Mean Corpuscular HGB Conc 36.1 g/dl (32-36); Mean Corpuscular Hemoglobin 36.9 pg (26-34); Mean Corpuscular Volume 102.3 fl (80-100); Mean Platelet Volume 10.4 fl (7.4-10.4); Platelet Count Result 168 k/mm3 (150-375); Red Blood Count 2.22 M/mm3 (4.2-5.4); Red Cell Distribution Width 15.5 % (11.5-14.5); White Blood Count 22.2 K/mm3 (4.5-10.0)
[2021-09-15 04:29] LABS: Alanine Aminotransferase 7 U/L (6-35); Albumin Level 3.7 g/dL (3.5-5.1); Alkaline Phosphatase 80 U/L (38-126); Anion Gap 7 mmol/L (8-16); Aspartate Amino Transferase 22 U/L (14-36); Bilirubin,Total 0.4 mg/dL (0.2-1.3); Blood Urea Nitrogen 9 mg/dL (7-17); Calcium 8.3 mg/dL (8.4-10.2); Carbon Dioxide 25 mmol/L (22-30); Chloride 121 mmol/L (98-107); Estimated CRCL calculation 63 ml/min; Estimated Glomerular Filt Rate > 60; Glucose 160 mg/dL (65-110); Magnesium 1.6 mg/dL (1.6-2.3); Phosphorus 2.4 mg/dL (2.5-4.5); Potassium 2.9 mmol/L (3.4-5.0); Sodium 153 mmol/L (137-145)
[2021-09-15] MEDS: POTASSIUM CHLORIDE INJ 40 MEQ in SODIUM CHLORIDE 0.9% IV 500 ML 130 MEQ IVPB (05:36)
[2021-09-15] MEDS: DESMOPRESSIN ACETATE 4 MCG/ML AMP 1 MCG IV PUSH (05:36)
[2021-09-15] MEDS: POTASSIUM CHLORIDE 20 MEQ PACKET (FOR LIQUID) 40 MEQ PO (05:36)
[2021-09-15 05:52] LABS: Alveolar/Arterial O2 Gradient 344.7 mmHg; Base Excess ABG -1.7 mEq/l (+/-2.0); Carboxyhemoglobin 0.3 % THb (0-2.0); Device VENTILATOR; Fractional Inspired Oxygen 65 %; HCO3 ABG 24.4 mEq/l (22.0-26.0); Methemoglobin ABG 0.3 %THb (0-1.5); Modified Allen's Test Unable to perform; Oxygen Content ABG 11.1 %vol (16.0-22.0); Oxygen Saturation ABG 91.8 % (95.0-100.0); PCO2 ABG 47.8 mmHg (35.0-45.0); PO2 ABG 66.8 mmHg (80.0-100.0); PO2 FiO2 Ratio Arterial Blood 1.03 %; Reduced Hemoglobin 9.4 %THb (0-5.0); Site Drawn RIGHT RADIAL; Total Hemoglobin 8.7 g/dL (12.0-18.0); pH ABG 7.326 (7.350-7.450)
[2021-09-15 05:53] LABS: Arterial Blood Gas PEEP 8 cmH2O; Arterial Blood Gas Tidal Volume 400 ml; Arterial Blood Gas Vent Mode CMV; Arterial Blood Gas Ventilator rate 18 /MIN
[2021-09-15] MEDS: DEXTROSE 5% IN WATER 500 ML 250 ML IV CONT (06:03)
[2021-09-15 06:47] LABS: Creatinine Urine 15.9 mg/dL; Sodium Urine Random 34 meq/L
[2021-09-15] MEDS: DEXTROSE 5% 1,000 ML 1,000 ML 150 ML IV CONT (08:16)
[2021-09-15] MEDS: POTASSIUM PHOS,M-BASIC-D-BASIC 15 MMOL in SODIUM CHLORIDE 0.9% IV 250 ML 63.75 MMOL IVPB (08:20)
[2021-09-15] MEDS: PROPOFOL IV EMULSION 100 ML 1.78 MG IV CONT (08:25)
[2021-09-15] MEDS: MAGNESIUM SULF 2 GM/WATER 50ML 2 GM/50 ML BAG IVPB (08:31)
--- NOTE | 2021-09-15 08:43 | WPDINTPN ---
Progress Note: A&P Assessment and Plan (1) Acute respiratory failure: Code(s): J96.00 - Acute respiratory failure, unspecified whether with hypoxia or hypercapnia Status: Acute Assessment and Plan: 09/12 Through the day patient had increased oxygen requirement and became more hypoxic. Intubated later in the evening Chest x-ray obtained and showed persistent diffuse bilateral airspace disease. Possible etiologies are congestive heart failure and pulmonary edema, ARDS, aspiration pneumonia Chest x-ray reviewed ABG reviewed -increase PEEP to 10 BNP came back [id number] but her echocardiogram was normal Continue Zosyn Not ready for weaning at this time Patient has had good urine output and has not required Lasix. We have been giving her IV fluids due to BRENNA, hypernatremia and correct metabolic derangements Check COVID PCR (2) Sepsis: Code(s): A41.9 - Sepsis, unspecified organism Status: Acute Assessment and Plan: Chest x-ray and UA were negative. CT abdomen also did not show any evidence of infection and no evidence of colitis. Although patient had elevated WBC count. Cultures were done in the ER and are pending till now. Initially patient was not started on antibiotics in the ER or at admission 09/11 KUB showed airspace opacity in left lung which could be an aspiration pneumonia and she did had low-grade fever Patient was started on empiric Zosyn which will be continued Urine and blood cultures have been negative till now C diff came back negative (3) Hypernatremia: Code(s): E87.0 - Hyperosmolality and hypernatremia Status: Acute Assessment and Plan: 09/13 Yesterday morning patient's sodium level was elevated at 147. I changed the IV fluids and decrease the bicarbonate concentration to 100 mEq to provide hypotonic fluid to the patient. Despite that the repeat BMP around 4:00 p.m. showed sodium had acutely risen to 160. I am not 100% sure with the exact etiology of that sharp rise as patient was on very small amount of sodium bicarbonate per tube. Her GI NG output was also minimal. I entertained nephrogenic DI but her urine output was also not very high to explain. She did had diarrhea post upper GI series which could lead to free water losses. Due to acute increase I gave patient D5 water bolus and started on D5 water. Per tube Sodium bicarbonate was discontinued. Although sodium was improving on next check, I continued D5 water as I had to give Lasix to the patient for overall volume overload respiratory failure. This morning has decreased to 150. Although it is higher than normal I will try to stabilize that at this level and not further further correct at this time. 09/14 a sodium increased back to 155 overnight and patient was given additional D5 water and started on D5 water infusion. Free water flushes increased. Sodium is now at 154 a.m 09/15 despite increasing D5 water and increasing free water flushes patient's sodium remained high. She had a high urine output through the day yesterday and through last night This could be post ATN diuretic phase versus diabetes insipidus. I ordered urine and serum osmolarity but does a send out test and will not be back in time. I have given patient DDAVP this morning 1 mcg. She is on D5 water at 150 mL per hour. Currently free floor of flush is at 200 ml q.4 hours Case discussed with Dr. Sofia from Nephrology. No new recommendation at this time but he will review patient's labs and call me back. I will repeat BMP at 10:00 a.m. and continue Q6H hours BMP monitoring (4) Electrolyte abnormality: Code(s): E87.8 - Other disorders of electrolyte and fluid balance, not elsewhere classified Status: Acute Assessment and Plan: Patient has had several severe metabolic and electrolyte abnormalities since presentation Hypokalemia-she h require significant potassium replacement in first few days after admission. Level 2.9 this morning and I hav
--- NOTE | 2021-09-15 08:53 | PM.IMPN ---
Progress Note: A&P Assessment and Plan (1) Acute respiratory failure: Code(s): J96.00 - Acute respiratory failure, unspecified whether with hypoxia or hypercapnia Status: Acute Assessment and Plan: 09/12 Through the day patient had increased oxygen requirement and became more hypoxic. Intubated later in the evening Chest x-ray obtained and showed persistent diffuse bilateral airspace disease. Possible etiologies are congestive heart failure and pulmonary edema, ARDS, aspiration pneumonia Chest x-ray reviewed ABG reviewed -increase PEEP to 10 BNP came [place] 97000 but her echocardiogram was normal Continue Zosyn Not ready for weaning at this time Patient has had good urine output and has not required Lasix. We have been giving her IV fluids due to BRENNA, hypernatremia and correct metabolic derangements Check COVID PCR - Negative -Propofol added this morning. Management per ICU. (2) Sepsis: Code(s): A41.9 - Sepsis, unspecified organism Status: Acute Assessment and Plan: Chest x-ray and UA were negative. CT abdomen also did not show any evidence of infection and no evidence of colitis. Although patient had elevated WBC count. Cultures were done in the ER and are pending till now. Initially patient was not started on antibiotics in the ER or at admission 09/11 KUB showed airspace opacity in left lung which could be an aspiration pneumonia and she did had low-grade fever Patient was started on empiric Zosyn which will be continued Urine and blood cultures have been negative till now C diff came back negative -Leukocytosis largely unchanged - still in 20s on Zosyn. (3) Hypernatremia: Code(s): E87.0 - Hyperosmolality and hypernatremia Status: Acute Assessment and Plan: 09/13 Yesterday morning patient's sodium level was elevated at 147. I changed the IV fluids and decrease the bicarbonate concentration to 100 mEq to provide hypotonic fluid to the patient. Despite that the repeat BMP around 4:00 p.m. showed sodium had acutely risen to 160. I am not 100% sure with the exact etiology of that sharp rise as patient was on very small amount of sodium bicarbonate per tube. Her GI NG output was also minimal. I entertained nephrogenic DI but her urine output was also not very high to explain. She did had diarrhea post upper GI series which could lead to free water losses. Due to acute increase I gave patient D5 water bolus and started on D5 water. Per tube Sodium bicarbonate was discontinued. Although sodium was improving on next check, I continued D5 water as I had to give Lasix to the patient for overall volume overload respiratory failure. This morning has decreased to 150. Although it is higher than normal I will try to stabilize that at this level and not further further correct at this time. 09/14 a sodium increased back to 155 overnight and patient was given additional D5 water and started on D5 water infusion. Free water flushes increased. Sodium is now at 154 a.m 09/15 despite increasing D5 water and increasing free water flushes patient's sodium remained high. She had a high urine output through the day yesterday and through last night This could be post ATN diuretic phase versus diabetes insipidus. I ordered urine and serum osmolarity but does a send out test and will not be back in time. I have given patient DDAVP this morning 1 mcg. She is on D5 water at 150 mL per hour. Currently free floor of flush is at 200 ml q.4 hours -Sodium in 150s this morning and now w/ d5 at 150 cc/hr. Will monitor. (4) Electrolyte abnormality: Code(s): E87.8 - Other disorders of electrolyte and fluid balance, not elsewhere classified Status: Acute Assessment and Plan: Patient has had several severe metabolic and electrolyte abnormalities since presentation Hypokalemia-she h require significant potassium replacement in first few days after admission. Level 2.9 this morning and I have ordered
[2021-09-15 10:09] LABS: Anion Gap 7 mmol/L (8-16); Blood Urea Nitrogen 6 mg/dL (7-17); Calcium 5.9 mg/dL (8.4-10.2); Carbon Dioxide 16 mmol/L (22-30); Chloride 101 mmol/L (98-107); Estimated CRCL calculation 90 ml/min; Estimated Glomerular Filt Rate > 60; Glucose 379 mg/dL (65-110); Potassium 3.3 mmol/L (3.4-5.0); Sodium 124 mmol/L (137-145)
--- NOTE | 2021-09-15 10:18 | P.PNCROSS_ITS ---
Event Note Event Note Event Note: Repeat BMP shows the sodium is acutely dropped to 124. It was drawn through PI CC line. Patient also was on D5 water to PICC line I will discontinue D5 water, cut down free water flush and repeat BMP at this time with a peripheral stick. If confirmed will give 3% saline bolus.. Change BMP monitoring to q.4 hours.
[2021-09-15 10:34] LABS: SARS-CoV-2 RNA PCR Negative
[2021-09-15] MEDS: CALCIUM GLUC 2,000 MG/NS 100ML 2,000 MG/100 ML BAG 100 MG IVPB (10:44)
[2021-09-15] MEDS: THIAMINE HCL 200 MG/2 ML VIAL 100 MG IV PUSH (10:49)
[2021-09-15] MEDS: PANTOPRAZOLE SODIUM IV 40 MG VIAL IV PUSH (10:49)
[2021-09-15] MEDS: MINERAL OIL/WHITE PETROLATUM OINTMENT 1 APPLIC EACH EYE ×2 (10:49→20:04)
[2021-09-15 10:52] LABS: Anion Gap 3 mmol/L (8-16); Blood Urea Nitrogen 8 mg/dL (7-17); Calcium 7.8 mg/dL (8.4-10.2); Carbon Dioxide 25 mmol/L (22-30); Chloride 121 mmol/L (98-107); Estimated CRCL calculation 69 ml/min; Estimated Glomerular Filt Rate > 60; Glucose 110 mg/dL (65-110); Potassium 3.9 mmol/L (3.4-5.0); Sodium 149 mmol/L (137-145)
[2021-09-15] MEDS: FOLIC ACID 1 MG/0.2 ML INJ IV PUSH (10:58)
[2021-09-15] MEDS: FENTANYL 2,500MCG/NS250ML(*CRX 2,500 MCG/250 ML BAG 15 MCG IV CONT (11:10)
--- NOTE | 2021-09-15 12:17 | P.PNNP_ITS ---
Progress Note: A&P Assessment and Plan (1) Acute kidney injury: Code(s): N17.9 - Acute kidney failure, unspecified Status: Acute Assessment and Plan: * resolved/resolving * etiology not clear but suspect prerenal factors (nausea/vomiting/poor oral intake) and perhaps relative hypotension playing a role * creatinine improving with current interventions * evaluation to date: * renal ultrasound normal * urine electrolytes not done (only urine creatinine was collected) * CPK normal * follow repeat labs and UOP (2) Acute respiratory failure: Code(s): J96.00 - Acute respiratory failure, unspecified whether with hypoxia or hypercapnia Status: Acute Assessment and Plan: * on mechanical ventilation * suspect secondary to CHF/pulmonary edema versus possible aspiration pneumonia * follow culture data * on antibiotics * ventilator weaning as tolerated (3) Hypernatremia: Code(s): E87.0 - Hyperosmolality and hypernatremia Status: Acute Assessment and Plan: * persistent in the last several days * has been receiving aggressive free water (D5W IVFs and flushes per tube) to compensate * presumably due to free water deficit complicated by post-ATN diuresis * concern for possible diabetes insipidus... * no specific history to suggest this * sodium normal on admission -- was her normal sodium on admission really relative hyponatremia given her severe renal failure??? * determining DI from post-ATN diuresis maybe a bit difficult in general * for now, would continue free water flushes and PRN use of D5W iv fluids * follow trend of sodium (4) Electrolyte abnormality: Code(s): E87.8 - Other disorders of electrolyte and fluid balance, not elsewhere classified Status: Acute Assessment and Plan: * low K+ and Ca++ noted on admission * suspect due to GI loss and poor oral intake * replacement as needed (K+, Ca++, Phos, and magnesium have stabilized) * follow trend electrolytes (5) Altered mental status: Code(s): R41.82 - Altered mental status, unspecified Status: Acute Assessment and Plan: * likely toxic metabolic encephalopathy * suspect multifactorial: * urine drug screen was positive methadone and tricyclics * also on gabapentin and [place] * alcohol abuse(?) * ammonia and TSH okay * head CT at OSH negative * consider further imaging if mentation does not improve with supportive therapy (after extubation) (6) Nausea & vomiting: Code(s): R11.2 - Nausea with vomiting, unspecified Status: Acute Assessment and Plan: * as noted on presentation to OSH * CT of A/P suggest obstruction * appears to have resolved * small-bowel series reveals no obstruction * suspect ileus at the time of CT scan * continue tube feeds as tolerated via NGT * continue supportive therapy (7) Alcohol abuse: Code(s): F10.10 - Alcohol abuse, uncomplicated Status: Acute Assessment and Plan: * details/specifics are unknown at this time * on thiamine and folic acid * follow for signs of withdrawal Discussed with Dr. Salgado. Will continue to follow. Subjective Date/time seen: 09/15/21 12:17 Remains intubated/sedated and on mechanical ventilation; still requiring low dose levophed but afebrile overnight; significant urine output noted overnight/last 24 hours; no other acute issues/events overnight or ear
--- NOTE | 2021-09-15 12:17 | PM.PNNEP ---
Progress Note: A&P Assessment and Plan (1) Acute kidney injury: Code(s): N17.9 - Acute kidney failure, unspecified Status: Acute Assessment and Plan: resolved/resolving etiology not clear but suspect prerenal factors (nausea/vomiting/poor oral intake) and perhaps relative hypotension playing a role creatinine improving with current interventions evaluation to date: renal ultrasound normal urine electrolytes not done (only urine creatinine was collected) CPK normal follow repeat labs and UOP (2) Acute respiratory failure: Code(s): J96.00 - Acute respiratory failure, unspecified whether with hypoxia or hypercapnia Status: Acute Assessment and Plan: on mechanical ventilation suspect secondary to CHF/pulmonary edema versus possible aspiration pneumonia follow culture data on antibiotics ventilator weaning as tolerated (3) Hypernatremia: Code(s): E87.0 - Hyperosmolality and hypernatremia Status: Acute Assessment and Plan: persistent in the last several days has been receiving aggressive free water (D5W IVFs and flushes per tube) to compensate presumably due to free water deficit complicated by post-ATN diuresis concern for possible diabetes insipidus... no specific history to suggest this sodium normal on admission -- was her normal sodium on admission really relative hyponatremia given her severe renal failure??? determining DI from post-ATN diuresis maybe a bit difficult in general for now, would continue free water flushes and PRN use of D5W iv fluids follow trend of sodium (4) Electrolyte abnormality: Code(s): E87.8 - Other disorders of electrolyte and fluid balance, not elsewhere classified Status: Acute Assessment and Plan: low K+ and Ca++ noted on admission suspect due to GI loss and poor oral intake replacement as needed (K+, Ca++, Phos, and magnesium have stabilized) follow trend electrolytes (5) Altered mental status: Code(s): R41.82 - Altered mental status, unspecified Status: Acute Assessment and Plan: likely toxic metabolic encephalopathy suspect multifactorial: urine drug screen was positive methadone and tricyclics also on gabapentin and [place] alcohol abuse(?) ammonia and TSH okay head CT at OSH negative consider further imaging if mentation does not improve with supportive therapy (after extubation) (6) Nausea & vomiting: Code(s): R11.2 - Nausea with vomiting, unspecified Status: Acute Assessment and Plan: as noted on presentation to OSH CT of A/P suggest obstruction appears to have resolved small-bowel series reveals no obstruction suspect ileus at the time of CT scan continue tube feeds as tolerated via NGT continue supportive therapy (7) Alcohol abuse: Code(s): F10.10 - Alcohol abuse, uncomplicated Status: Acute Assessment and Plan: details/specifics are unknown at this time on thiamine and folic acid follow for signs of withdrawal Discussed with Dr. Salgado. Will continue to follow. Subjective Date/time seen: 09/15/21 12:17 Remains intubated/sedated and on mechanical ventilation; still requiring low dose levophed but afebrile overnight; significant urine output noted overnight/last 24 hours; no other acute issues/events overnight or earlier this AM; still with persistently elevated sodium despite D5W IVFs and free water flushes. Exam Narrative: General: female in NAD but intubated/sedated Heart: normal S1 and S2; no rub Lungs: coarse breath sounds Abdomen: soft, nondistended, positive bowel sounds Extremities: no cyanosis or clubbing; no edema Skin: no nodules Objective Data Vital Signs Vital Signs: Vital Signs Temp Pulse Resp BP Pulse Ox O2 Del Method FiO2 09/15/21 12:08 118 H 34 H 09/15/21 11:41 36.4 C L 108 H 23 H 119/69 94 09/15/21 11:20 1
[2021-09-15 13:02] LABS: Glucose Point of Care 111 mg/dl (65-105)
[2021-09-15 14:46] LABS: Anion Gap 9 mmol/L (8-16); Blood Urea Nitrogen 8 mg/dL (7-17); Calcium 7.5 mg/dL (8.4-10.2); Carbon Dioxide 18 mmol/L (22-30); Chloride 110 mmol/L (98-107); Estimated CRCL calculation 79 ml/min; Estimated Glomerular Filt Rate > 60; Glucose 312 mg/dL (65-110); Potassium 3.4 mmol/L (3.4-5.0); Sodium 137 mmol/L (137-145)
[2021-09-15 15:15] LABS: Anion Gap 8 mmol/L (8-16); Blood Urea Nitrogen 8 mg/dL (7-17); Calcium 8.8 mg/dL (8.4-10.2); Carbon Dioxide 23 mmol/L (22-30); Chloride 120 mmol/L (98-107); Estimated CRCL calculation 69 ml/min; Estimated Glomerular Filt Rate > 60; Glucose 113 mg/dL (65-110); Potassium 3.7 mmol/L (3.4-5.0); Sodium 151 mmol/L (137-145)
--- NOTE | 2021-09-15 15:26 | PC.NURSE ---
Sodium [address] Salgado. orders to increase free water flushes to 200 q4hr and schedule BMP for 2100 and for 0500 on 09/16/21.
[2021-09-15 17:53] LABS: Glucose Point of Care 108 mg/dl (65-105)
[2021-09-15 20:02] LABS: Glucose Point of Care 113 mg/dl (65-105)
[2021-09-15 21:12] LABS: Anion Gap 8 mmol/L (8-16); Blood Urea Nitrogen 9 mg/dL (7-17); Calcium 8.6 mg/dL (8.4-10.2); Carbon Dioxide 23 mmol/L (22-30); Chloride 119 mmol/L (98-107); Estimated CRCL calculation 69 ml/min; Estimated Glomerular Filt Rate > 60; Glucose 110 mg/dL (65-110); Potassium 3.7 mmol/L (3.4-5.0); Sodium 150 mmol/L (137-145)
[2021-09-15] MEDS: PROPOFOL IV EMULSION 100 ML 7.13 MG IV CONT (21:57)
[2021-09-16] VITALS (70 sets, daily range): BP systolic 81–124; BP diastolic 47–77; PULSE 61–135; RESP 13–36; TEMP 36–37.8; O2SAT 87–100
[2021-09-16 00:07] LABS: Glucose Point of Care 117 mg/dl (65-105)
[2021-09-16] MEDS: ALBUTEROL SULFATE NEB 2.5 MG/3 ML INH 5 MG INHALATION ×3 (02:29→14:18)
[2021-09-16] MEDS: IPRATROPIUM BR 0.02% INH SOLN 0.5 MG/2.5 ML VIAL INHALATION ×3 (02:29→14:17)
[2021-09-16] MEDS: dexmedeTOMIDine 400 MCG/100 ML 400 MCG/100 ML BAG 22.24 MCG IV CONT ×4 (05:00→20:39)
[2021-09-16] MEDS: NOREPINEPHRINE 8 MG/D5W 250 ML 8 MG/250 ML BAG 3.75 MG IV CONT (05:10)
[2021-09-16] MEDS: FENTANYL 2,500MCG/NS250ML(*CRX 2,500 MCG/250 ML BAG 10 MCG IV CONT (05:11)
[2021-09-16 05:41] LABS: Base Excess ABG -2.7 mEq/l (+/-2.0); Carboxyhemoglobin 0.3 % THb (0-2.0); HCO3 ABG 22.9 mEq/l (22.0-26.0); Methemoglobin ABG 0.1 %THb (0-1.5); Oxygen Content ABG 11.8 %vol (16.0-22.0); Oxygen Saturation ABG 98.7 % (95.0-100.0); Oxyhemoglobin 97.5 % THb (90.0-100.0); PCO2 ABG 43.7 mmHg (35.0-45.0); PO2 ABG 145.1 mmHg (80.0-100.0); PO2 FiO2 Ratio Arterial Blood 6.91 %; Reduced Hemoglobin 2.1 %THb (0-5.0); Total Hemoglobin 8.4 g/dL (12.0-18.0); pH ABG 7.338 (7.350-7.450)
[2021-09-16 05:42] LABS: Device VENTILATOR; Modified Allen's Test Pass; Site Drawn LEFT RADIAL
[2021-09-16 05:43] LABS: Arterial Blood Gas PEEP 10 cmH2O; Arterial Blood Gas Vent Mode CMV; Arterial Blood Gas Ventilator rate 18 /MIN
[2021-09-16 05:44] LABS: Arterial Blood Gas Tidal Volume 450 ml
[2021-09-16 05:51] LABS: Fractional Inspired Oxygen 60 %
[2021-09-16 06:10] LABS: Hematocrit 24.2 % (37.0-47.0); Hemoglobin 7.6 g/dL (12.0-15.0); Mean Corpuscular HGB Conc 31.4 g/dl (32-36); Mean Corpuscular Hemoglobin 34.9 pg (26-34); Mean Platelet Volume 10.7 fl (7.4-10.4); Platelet Count Result 165 k/mm3 (150-375); Red Blood Count 2.18 M/mm3 (4.2-5.4); Red Cell Distribution Width 16.2 % (11.5-14.5); White Blood Count 13.7 K/mm3 (4.5-10.0)
[2021-09-16 06:27] LABS: Alanine Aminotransferase 6 U/L (6-35); Albumin Level 2.9 g/dL (3.5-5.1); Alkaline Phosphatase 100 U/L (38-126); Anion Gap 9 mmol/L (8-16); Aspartate Amino Transferase 20 U/L (14-36); Bilirubin,Total 0.4 mg/dL (0.2-1.3); Blood Urea Nitrogen 10 mg/dL (7-17); Calcium 8.4 mg/dL (8.4-10.2); Carbon Dioxide 23 mmol/L (22-30); Chloride 117 mmol/L (98-107); Estimated CRCL calculation 68 ml/min; Estimated Glomerular Filt Rate > 60; Glucose 113 mg/dL (65-110); Magnesium 1.8 mg/dL (1.6-2.3); Phosphorus 3.7 mg/dL (2.5-4.5); Potassium 3.5 mmol/L (3.4-5.0); Sodium 149 mmol/L (137-145); Triglycerides 117 mg/dL (<150)
[2021-09-16] MEDS: CENTRAL LINE FLUSH 10 ML IV PUSH ×3 (06:42→19:58)
[2021-09-16] MEDS: METOCLOPRAMIDE HCL 10 MG/10 ML SOLN UDC PO ×4 (06:42→23:21)
[2021-09-16] MEDS: POTASSIUM CHLORIDE 20 MEQ PACKET (FOR LIQUID) 40 MEQ FEED TUBE (08:00)
[2021-09-16] MEDS: dexmedeTOMIDine 400 MCG/100 ML 400 MCG/100 ML BAG 17.79 MCG IV CONT (08:01)
[2021-09-16 08:15] LABS: Glucose Point of Care 117 mg/dl (65-105)
--- NOTE | 2021-09-16 08:18 | WPDINTPN ---
Progress Note: A&P Assessment and Plan (1) Acute respiratory failure: Code(s): J96.00 - Acute respiratory failure, unspecified whether with hypoxia or hypercapnia Status: Acute Assessment and Plan: 09/12 Through the day patient had increased oxygen requirement and became more hypoxic. Intubated later in the evening Chest x-ray obtained and showed persistent diffuse bilateral airspace disease. Possible etiologies are congestive heart failure and pulmonary edema, ARDS, aspiration pneumonia Chest x-ray reviewed and shows ET tube in acceptable position and bilateral airspace disease ABG reviewed -wean FiO2 to 50% BNP came back [id number] but her echocardiogram was normal Continue Zosyn Not ready for weaning at this time Off IV fluids at this time Negative COVID PCR (2) Sepsis: Code(s): A41.9 - Sepsis, unspecified organism Status: Acute Assessment and Plan: Chest x-ray and UA were negative. CT abdomen also did not show any evidence of infection and no evidence of colitis. Although patient had elevated WBC count. Cultures were done in the ER and are pending till now. Initially patient was not started on antibiotics in the ER or at admission 09/11 KUB showed airspace opacity in left lung which could be an aspiration pneumonia and she did had low-grade fever Patient was started on empiric Zosyn which will be continued Urine and blood cultures have been negative till now C diff came back negative (3) Hypernatremia: Code(s): E87.0 - Hyperosmolality and hypernatremia Status: Acute Assessment and Plan: 09/13 Yesterday morning patient's sodium level was elevated at 147. I changed the IV fluids and decrease the bicarbonate concentration to 100 mEq to provide hypotonic fluid to the patient. Despite that the repeat BMP around 4:00 p.m. showed sodium had acutely risen to 160. I am not 100% sure with the exact etiology of that sharp rise as patient was on very small amount of sodium bicarbonate per tube. Her GI NG output was also minimal. I entertained nephrogenic DI but her urine output was also not very high to explain. She did had diarrhea post upper GI series which could lead to free water losses. Due to acute increase I gave patient D5 water bolus and started on D5 water. Per tube Sodium bicarbonate was discontinued. Although sodium was improving on next check, I continued D5 water as I had to give Lasix to the patient for overall volume overload respiratory failure. This morning has decreased to 150. Although it is higher than normal I will try to stabilize that at this level and not further further correct at this time. 09/14 a sodium increased back to 155 overnight and patient was given additional D5 water and started on D5 water infusion. Free water flushes increased. Sodium is now at 154 a.m 09/15 despite increasing D5 water and increasing free water flushes patient's sodium remained high. She had a high urine output through the day yesterday and through last night This could be post ATN diuretic phase versus diabetes insipidus. I ordered urine and serum osmolarity but those are send out test and will not be back in time. I have given patient DDAVP this morning 1 mcg. She is on D5 water at 150 mL per hour. Currently free floor of flush is at 200 ml q.4 hours Case discussed with Dr. Sofia from Nephrology. No new recommendation at this time but he will review patient's labs and call me back. 09/16 sodium has remained stable in high normal range. I will continue free water flushes and monitor sodium and try to lowered slowly. I would want to avoid giving additional IV fluids due to concerns with pulmonary edema. Monitor BMP (4) Electrolyte abnormality: Code(s): E87.8 - Other disorders of electrolyte and fluid balance, not elsewhere classified Status: Acute Assessment and Plan: Patient has had several severe metabolic and electrolyte abnormalities since presentation Hypokalemia-she
[2021-09-16] MEDS: MIDAZOLAM HCL (*CRX) 2 MG/2 ML VIAL IV PUSH ×5 (08:40→18:41)
[2021-09-16] MEDS: polyethylene glycoL 3350 17 GM POWD.PACK PO (08:53)
[2021-09-16] MEDS: THIAMINE HCL 200 MG/2 ML VIAL 100 MG IV PUSH (08:53)
[2021-09-16] MEDS: PANTOPRAZOLE SODIUM IV 40 MG VIAL IV PUSH (08:53)
--- NOTE | 2021-09-16 08:59 | PM.IMPN ---
Progress Note: A&P Assessment and Plan (1) Acute respiratory failure: Code(s): J96.00 - Acute respiratory failure, unspecified whether with hypoxia or hypercapnia Status: Acute Assessment and Plan: 09/12 Through the day patient had increased oxygen requirement and became more hypoxic. Intubated later in the evening Chest x-ray obtained and showed persistent diffuse bilateral airspace disease. Possible etiologies are congestive heart failure and pulmonary edema, ARDS, aspiration pneumonia Chest x-ray reviewed ABG reviewed -increase PEEP to 10 [place] [id number] but her echocardiogram was normal Continue Zosyn Not ready for weaning at this time Patient has had good urine output and has not required Lasix. We have been giving her IV fluids due to BRENNA, hypernatremia and correct metabolic derangements Check COVID PCR - Negative -Propofol added 09/15/21 -09/16/21 patient appears to be clinically improving with decreasing leukocytosis and improving sodium. (2) Sepsis: Code(s): A41.9 - Sepsis, unspecified organism Status: Acute Assessment and Plan: Chest x-ray and UA were negative. CT abdomen also did not show any evidence of infection and no evidence of colitis. Although patient had elevated WBC count. Cultures were done in the ER and are pending till now. Initially patient was not started on antibiotics in the ER or at admission 09/11 KUB showed airspace opacity in left lung which could be an aspiration pneumonia and she did had low-grade fever Patient was started on empiric Zosyn which will be continued Urine and blood cultures have been negative till now C diff came back negative -Leukocytosis improved this morning. Will monitor. Continue antibiotics. (3) Hypernatremia: Code(s): E87.0 - Hyperosmolality and hypernatremia Status: Acute Assessment and Plan: 09/13 Yesterday morning patient's sodium level was elevated at 147. I changed the IV fluids and decrease the bicarbonate concentration to 100 mEq to provide hypotonic fluid to the patient. Despite that the repeat BMP around 4:00 p.m. showed sodium had acutely risen to 160. I am not 100% sure with the exact etiology of that sharp rise as patient was on very small amount of sodium bicarbonate per tube. Her GI NG output was also minimal. I entertained nephrogenic DI but her urine output was also not very high to explain. She did had diarrhea post upper GI series which could lead to free water losses. Due to acute increase I gave patient D5 water bolus and started on D5 water. Per tube Sodium bicarbonate was discontinued. Although sodium was improving on next check, I continued D5 water as I had to give Lasix to the patient for overall volume overload respiratory failure. This morning has decreased to 150. Although it is higher than normal I will try to stabilize that at this level and not further further correct at this time. 09/14 a sodium increased back to 155 overnight and patient was given additional D5 water and started on D5 water infusion. Free water flushes increased. Sodium is now at 154 a.m 09/15 despite increasing D5 water and increasing free water flushes patient's sodium remained high. She had a high urine output through the day yesterday and through last night This could be post ATN diuretic phase versus diabetes insipidus. I ordered urine and serum osmolarity but does a send out test and will not be back in time. I have given patient DDAVP this morning 1 mcg. She is on D5 water at 150 mL per hour. Currently free floor of flush is at 200 ml q.4 hours -Sodium improved this morning. D5 stopped but water flushes will continue. (4) Electrolyte abnormality: Code(s): E87.8 - Other disorders of electrolyte and fluid balance, not elsewhere classified Status: Acute Assessment and Plan: Patient has had several severe metabolic and electrolyte abnormalities since presentation Hypokalemia-she h require signifi
[2021-09-16] MEDS: FOLIC ACID 1 MG/0.2 ML INJ IV PUSH (09:06)
[2021-09-16] MEDS: MINERAL OIL/WHITE PETROLATUM OINTMENT 1 APPLIC EACH EYE ×2 (09:19→19:58)
[2021-09-16] MEDS: PROPOFOL IV EMULSION 100 ML 8.91 MG IV CONT ×2 (10:04→19:16)
[2021-09-16] MEDS: BISACODYL 10 MG SUPPOSITORY RECTAL (10:54)
--- NOTE | 2021-09-16 11:50 | PC.NURSE ---
Update to Dr. Salgado: total of 1600 cc urine output so far today. Oxygen saturation consistently 90% to 91% on 50% FiO2. ok to titrate oxygen for oxygen saturation less than 90%.
[2021-09-16 11:57] LABS: Glucose Point of Care 116 mg/dl (65-105)
--- NOTE | 2021-09-16 12:19 | PM.PNNEP ---
Progress Note: A&P Assessment and Plan (1) Acute kidney injury: Code(s): N17.9 - Acute kidney failure, unspecified Status: Acute Assessment and Plan: resolved etiology not clear but suspect prerenal factors (nausea/vomiting/poor oral intake) and perhaps relative hypotension playing a role creatinine improving with current interventions evaluation to date: renal ultrasound normal urine electrolytes were not all collected CPK normal follow repeat labs and UOP (2) Hypernatremia: Code(s): E87.0 - Hyperosmolality and hypernatremia Status: Acute Assessment and Plan: persistent for the last several days has been receiving aggressive free water (D5W IVFs and flushes per tube) to compensate presumably due to free water deficit complicated by post-ATN diuresis concern for possible diabetes insipidus... no specific history to suggest this determining DI from post-ATN diuresis maybe a bit difficult in general for now, would continue/titrate free water flushes -- attempting to minimize use of D5W iv fluids follow trend of sodium (3) Acute respiratory failure: Code(s): J96.00 - Acute respiratory failure, unspecified whether with hypoxia or hypercapnia Status: Acute Assessment and Plan: on mechanical ventilation suspect secondary to CHF/pulmonary edema versus possible aspiration pneumonia follow culture data on antibiotics ventilator weaning as tolerated (4) Electrolyte abnormality: Code(s): E87.8 - Other disorders of electrolyte and fluid balance, not elsewhere classified Status: Acute Assessment and Plan: low K+ and Ca++ noted on admission suspect due to GI loss and poor oral intake replacement as needed (K+, Ca++, Phos, and magnesium have stabilized) follow trend electrolytes (5) Altered mental status: Code(s): R41.82 - Altered mental status, unspecified Status: Acute Assessment and Plan: likely toxic metabolic encephalopathy suspect multifactorial: urine drug screen was positive methadone and tricyclics also on gabapentin and [place] alcohol abuse(?) ammonia and TSH okay head CT at OSH negative consider further imaging if mentation does not improve with supportive therapy (after extubation) (6) Nausea & vomiting: Code(s): R11.2 - Nausea with vomiting, unspecified Status: Acute Assessment and Plan: as noted on presentation to OSH CT of A/P suggest obstruction appears to have resolved small-bowel series reveals no obstruction suspect ileus at the time of CT scan continue tube feeds as tolerated via NGT continue supportive therapy (7) Alcohol abuse: Code(s): F10.10 - Alcohol abuse, uncomplicated Status: Acute Assessment and Plan: details/specifics are unknown at this time on thiamine and folic acid follow for signs of withdrawal Will continue to follow. Subjective Date/time seen: 09/16/21 12:19 Appears about the same since I last saw her -- intubated/sedated and on mechanical ventilation; still requiring low dose levophed to maintain MAP/blood pressure; continues to make reasonable urine output and renal function has normalized; sodium still elevated but improving with current interventions. Exam Narrative: General: female in NAD but intubated/sedated Heart: normal S1 and S2; no rub Lungs: coarse breath sounds Abdomen: soft, nondistended, positive bowel sounds Extremities: no cyanosis or clubbing; no edema Skin: warm and dry Objective Data Vital Signs Vital Signs: Vital Signs Temp Pulse Resp BP Pulse Ox O2 Del Method FiO2 09/16/21 12:19 91 17 09/16/21 12:00 37.4 C 94 18 103/66 92 Mechanical Ventilation 09/16/21 11:15 37.3 C 100 19 103/65 91 09/16/21 11:04 37.3 C 105 H 31 H 106/61 87 L 09/16/21 11:00 37.3 C 108 H 36 H 100 09/16/21 10:45 37.2 C 95 26 H 109
--- NOTE | 2021-09-16 12:19 | P.PNNP_ITS ---
Progress Note: A&P Assessment and Plan (1) Acute kidney injury: Code(s): N17.9 - Acute kidney failure, unspecified Status: Acute Assessment and Plan: * resolved * etiology not clear but suspect prerenal factors (nausea/vomiting/poor oral intake) and perhaps relative hypotension playing a role * creatinine improving with current interventions * evaluation to date: * renal ultrasound normal * urine electrolytes were not all collected * CPK normal * follow repeat labs and UOP (2) Hypernatremia: Code(s): E87.0 - Hyperosmolality and hypernatremia Status: Acute Assessment and Plan: * persistent for the last several days * has been receiving aggressive free water (D5W IVFs and flushes per tube) to compensate * presumably due to free water deficit complicated by post-ATN diuresis * concern for possible diabetes insipidus... * no specific history to suggest this * determining DI from post-ATN diuresis maybe a bit difficult in general * for now, would continue/titrate free water flushes -- attempting to minimize use of D5W iv fluids * follow trend of sodium (3) Acute respiratory failure: Code(s): J96.00 - Acute respiratory failure, unspecified whether with hypoxia or hypercapnia Status: Acute Assessment and Plan: * on mechanical ventilation * suspect secondary to CHF/pulmonary edema versus possible aspiration pneumonia * follow culture data * on antibiotics * ventilator weaning as tolerated (4) Electrolyte abnormality: Code(s): E87.8 - Other disorders of electrolyte and fluid balance, not elsewhere classified Status: Acute Assessment and Plan: * low K+ and Ca++ noted on admission * suspect due to GI loss and poor oral intake * replacement as needed (K+, Ca++, Phos, and magnesium have stabilized) * follow trend electrolytes (5) Altered mental status: Code(s): R41.82 - Altered mental status, unspecified Status: Acute Assessment and Plan: * likely toxic metabolic encephalopathy * suspect multifactorial: * urine drug screen was positive methadone and tricyclics * also on gabapentin and [place] * alcohol abuse(?) * ammonia and TSH okay * head CT at OSH negative * consider further imaging if mentation does not improve with supportive therapy (after extubation) (6) Nausea & vomiting: Code(s): R11.2 - Nausea with vomiting, unspecified Status: Acute Assessment and Plan: * as noted on presentation to OSH * CT of A/P suggest obstruction * appears to have resolved * small-bowel series reveals no obstruction * suspect ileus at the time of CT scan * continue tube feeds as tolerated via NGT * continue supportive therapy (7) Alcohol abuse: Code(s): F10.10 - Alcohol abuse, uncomplicated Status: Acute Assessment and Plan: * details/specifics are unknown at this time * on thiamine and folic acid * follow for signs of withdrawal Will continue to follow. Subjective Date/time seen: 09/16/21 12:19 Appears about the same since I last saw her -- intubated/sedated and on mechanical ventilation; still requiring low dose levophed to maintain MAP/blood pressure; continues to make reasonable urine output and renal function has n ormalized; sodium still elevated but improving with current interventions. Exam Narrative: General: female in NAD but in
[2021-09-16 16:54] LABS: Anion Gap 7 mmol/L (8-16); Blood Urea Nitrogen 10 mg/dL (7-17); Calcium 8.8 mg/dL (8.4-10.2); Carbon Dioxide 25 mmol/L (22-30); Chloride 122 mmol/L (98-107); Estimated CRCL calculation 68 ml/min; Estimated Glomerular Filt Rate > 60; Glucose 111 mg/dL (65-110); Potassium 3.8 mmol/L (3.4-5.0); Sodium 154 mmol/L (137-145)
--- NOTE | 2021-09-16 17:32 | PC.NURSE ---
Notified Dr. Salgado of sodium result -154. Orders to start D5 in water at 75 mL/hr, repeat BMP at 2300 09/16/21, and call provider if sodium is less than 150 or greater than 155.
[2021-09-16] MEDS: DEXTROSE 5% 1,000 ML 1,000 ML 75 ML IV CONT (18:02)
[2021-09-16 23:28] LABS: Glucose Point of Care 120 mg/dl (65-105)
[2021-09-16 23:59] LABS: Anion Gap 6 mmol/L (8-16); Blood Urea Nitrogen 10 mg/dL (7-17); Calcium 8.7 mg/dL (8.4-10.2); Carbon Dioxide 27 mmol/L (22-30); Chloride 122 mmol/L (98-107); Estimated CRCL calculation 68 ml/min; Estimated Glomerular Filt Rate > 60; Glucose 118 mg/dL (65-110); Potassium 3.6 mmol/L (3.4-5.0); Sodium 155 mmol/L (137-145)
[2021-09-17] VITALS (39 sets, daily range): BP systolic 84–138; BP diastolic 51–80; PULSE 85–129; RESP 13–34; TEMP 36.1–37.9; O2SAT 95–99
[2021-09-17] MEDS: IPRATROPIUM BR 0.02% INH SOLN 0.5 MG/2.5 ML VIAL INHALATION ×4 (01:42→19:56)
[2021-09-17] MEDS: ALBUTEROL SULFATE NEB 2.5 MG/3 ML INH 5 MG INHALATION ×4 (01:42→19:56)
[2021-09-17] MEDS: dexmedeTOMIDine 400 MCG/100 ML 400 MCG/100 ML BAG 22.24 MCG IV CONT ×6 (02:37→23:00)
[2021-09-17] MEDS: CENTRAL LINE FLUSH 10 ML IV PUSH ×3 (03:14→21:41)
[2021-09-17 04:16] LABS: Hematocrit 26.2 % (37.0-47.0); Hemoglobin 8.2 g/dL (12.0-15.0); Mean Corpuscular HGB Conc 31.3 g/dl (32-36); Mean Corpuscular Hemoglobin 35.5 pg (26-34); Mean Corpuscular Volume 113.4 fl (80-100); Mean Platelet Volume 10.1 fl (7.4-10.4); Platelet Count Result 156 k/mm3 (150-375); Red Blood Count 2.31 M/mm3 (4.2-5.4); Red Cell Distribution Width 16.1 % (11.5-14.5); White Blood Count 13.1 K/mm3 (4.5-10.0)
[2021-09-17 04:27] LABS: Alanine Aminotransferase 22 U/L (6-35); Albumin Level 3.1 g/dL (3.5-5.1); Alkaline Phosphatase 222 U/L (38-126); Anion Gap 7 mmol/L (8-16); Aspartate Amino Transferase 68 U/L (14-36); Bilirubin,Total 0.9 mg/dL (0.2-1.3); Blood Urea Nitrogen 10 mg/dL (7-17); Calcium 8.7 mg/dL (8.4-10.2); Carbon Dioxide 27 mmol/L (22-30); Chloride 122 mmol/L (98-107); Estimated CRCL calculation 77 ml/min; Estimated Glomerular Filt Rate > 60; Glucose 136 mg/dL (65-110); Magnesium 1.8 mg/dL (1.6-2.3); Phosphorus 3.4 mg/dL (2.5-4.5); Potassium 3.4 mmol/L (3.4-5.0); Sodium 156 mmol/L (137-145)
[2021-09-17] MEDS: FENTANYL 2,500MCG/NS250ML(*CRX 2,500 MCG/250 ML BAG 10 MCG IV CONT (05:33)
[2021-09-17] MEDS: PROPOFOL IV EMULSION 100 ML 8.91 MG IV CONT ×2 (05:35→17:05)
[2021-09-17 05:53] LABS: Alveolar/Arterial O2 Gradient 202.6 mmHg; Base Excess ABG 1.4 mEq/l (+/-2.0); Carboxyhemoglobin 0.3 % THb (0-2.0); Fractional Inspired Oxygen 50 %; HCO3 ABG 27.1 mEq/l (22.0-26.0); Oxygen Saturation ABG 97.4 % (95.0-100.0); Oxyhemoglobin 96.3 % THb (90.0-100.0); PCO2 ABG 47.7 mmHg (35.0-45.0); PO2 ABG 100.2 mmHg (80.0-100.0); Reduced Hemoglobin 3.4 %THb (0-5.0); Total Hemoglobin 10.2 g/dL (12.0-18.0); pH ABG 7.372 (7.350-7.450)
[2021-09-17 05:59] LABS: Device VENTILATOR; Modified Allen's Test Unable to perform; Site Drawn RIGHT RADIAL
[2021-09-17 06:00] LABS: Arterial Blood Gas PEEP 10 cmH2O; Arterial Blood Gas Tidal Volume 450 ml; Arterial Blood Gas Vent Mode CMV; Arterial Blood Gas Ventilator rate 18 /MIN
[2021-09-17] MEDS: DEXTROSE 5% IN WATER 500 ML 250 ML IV CONT (07:13)
[2021-09-17 07:42] LABS: Appearance Urine Clear (Clear); Bilirubin Urine Negative (Negative); Blood Urine 1+ (Negative); Color Urine Yellow (Yellow); Glucose Urine UA Negative (Negative); Ketones Urine Negative (Negative); Leukocyte Esterase Ur Trace LEU/UL (NEGATIVE); Nitrate Urine Negative (Negative); Protein Urine 1+ mg/dL (Negative); Urobilinogen Urine 0.2 mg/dL (<2.0)
[2021-09-17 07:49] LABS: Mucus Urine Rare /lpf; RBC Urine 0-2 /hpf (0-2); Squamous Epithelial Cell Urine Rare /hpf (Few); WBC Urine 0-3 /hpf (0-3)
[2021-09-17] MEDS: POTASSIUM CHLORIDE 20 MEQ PACKET (FOR LIQUID) 40 MEQ FEED TUBE (07:58)
[2021-09-17] MEDS: DEXTROSE 5% 1,000 ML 1,000 ML 75 ML IV CONT (07:58)
[2021-09-17 07:59] LABS: Add Urine Microscopic? YES
[2021-09-17] MEDS: DESMOPRESSIN ACETATE 4 MCG/ML AMP 1 MCG IV PUSH ×2 (08:09→21:46)
[2021-09-17] MEDS: PANTOPRAZOLE SODIUM IV 40 MG VIAL IV PUSH (08:22)
[2021-09-17] MEDS: MINERAL OIL/WHITE PETROLATUM OINTMENT 1 APPLIC EACH EYE ×2 (08:22→20:27)
[2021-09-17] MEDS: polyethylene glycoL 3350 17 GM POWD.PACK PO (08:22)
[2021-09-17] MEDS: FOLIC ACID 1 MG/0.2 ML INJ IV PUSH (08:22)
[2021-09-17] MEDS: THIAMINE HCL 200 MG/2 ML VIAL 100 MG IV PUSH (08:23)
--- NOTE | 2021-09-17 08:30 | PM.IMPN ---
Progress Note: A&P Assessment and Plan (1) Acute respiratory failure: Code(s): J96.00 - Acute respiratory failure, unspecified whether with hypoxia or hypercapnia Status: Acute Assessment and Plan: 09/12 Through the day patient had increased oxygen requirement and became more hypoxic. -09/12: Intubated later in the evening Chest x-ray obtained and showed persistent diffuse bilateral airspace disease. Possible etiologies are congestive heart failure and pulmonary edema, ARDS, aspiration pneumonia -09/18: Chest x-ray : Gradual improvement since 01/16/2022 and diffuse bilateral lung disease which could represent pulmonary edema and/or pneumonia. Very small left pleural effusion -currently on CMV mode of ventilation, peep of 8 and 35% FiO2, ABGs reviewed B[place] came back [id number] but her echocardiogram was normal Continue Zosyn (started on 09/11/2021), continue for total of 10 days -Sedated with propofol, Precedex and fentanyl. Management per ICU. (2) Sepsis: Code(s): A41.9 - Sepsis, unspecified organism Status: Acute Assessment and Plan: Chest x-ray and UA were negative. CT abdomen also did not show any evidence of infection and no evidence of colitis. Although patient had elevated WBC count. -09/11/2021 urine culture negative -09/11 KUB showed airspace opacity in left lung which could be an aspiration pneumonia and she did had low-grade fever -09/11/2021 Patient was started on empiric Zosyn which will be continued -C diff came back negative (3) Hypernatremia: Code(s): E87.0 - Hyperosmolality and hypernatremia Status: Acute Assessment and Plan: 09/13 Yesterday morning patient's sodium level was elevated at 147. I changed the IV fluids and decrease the bicarbonate concentration to 10: -0: : mEq to provide hypotonic fluid to the patient. Despite that the repeat BMP around 4:00 p.m. showed sodium had acutely risen to 160. I am not 100% sure with the exact etiology of that sharp rise as patient was on very small amount of sodium bicarbonate per tube. Her NG output was also minimal. I entertained nephrogenic DI but her urine output was also not very high to explain. She did have diarrhea post upper GI series which could lead to free water losses. Due to acute increase I gave patient D5 water bolus and started on D5 water. Per tube Sodium bicarbonate was discontinued. Although sodium was improving on next check, I continued D5 water as I had to give Lasix to the patient for overall volume overload respiratory failure. This morning has decreased to 150. Although it is higher than normal I will try to stabilize that at this level and not further further correct at this time. 09/14 a sodium increased back to 155 overnight and patient was given additional D5 water and started on D5 water infusion. Free water flushes increased. Sodium is now at 154 a.m 09/15 despite increasing D5 water and increasing free water flushes patient's sodium remained high. She had a high urine output through the day yesterday and through last night This could be post ATN diuretic phase versus diabetes insipidus. I ordered urine and serum osmolarity but those are send out test and will not be back in time. I have given patient DDAVP this morning 1 mcg. She is on D5 water at 150 mL per hour. Currently free floor of flush is at 200 ml q.4 hours Case discussed with Dr. Sofia from Nephrology. No new recommendation at this time but he will review patient's labs and call me back. 09/16 sodium has remained stable in high normal range. I will continue free water flushes and monitor sodium and try to lowered slowly. I would want to avoid giving additional IV fluids due to concerns with pulmonary edema. 09/17 -continues to have high urine output through the night. Sodium remains high despite treatment with D5 water and free water flushes. Differential remains to be post ATN diuretic phase versus diabetes insipidus. Although serum osmolarity
--- NOTE | 2021-09-17 08:34 | WPDINTPN ---
Progress Note: A&P Assessment and Plan (1) Acute respiratory failure: Code(s): J96.00 - Acute respiratory failure, unspecified whether with hypoxia or hypercapnia Status: Acute Assessment and Plan: 09/12 Through the day patient had increased oxygen requirement and became more hypoxic. Intubated later in the evening Chest x-ray obtained and showed persistent diffuse bilateral airspace disease. Possible etiologies are congestive heart failure and pulmonary edema, ARDS, aspiration pneumonia Chest x-ray reviewed and shows ET tube in acceptable position and bilateral airspace disease ABG reviewed -wean FiO2 to 50% [place] [id number] but her echocardiogram was normal Continue Zosyn Not ready for weaning at this time She is on D5 water because of hypernatremia Negative COVID PCR (2) Sepsis: Code(s): A41.9 - Sepsis, unspecified organism Status: Acute Assessment and Plan: Chest x-ray and UA were negative. CT abdomen also did not show any evidence of infection and no evidence of colitis. Although patient had elevated WBC count. Cultures were done in the ER and are pending till now. Initially patient was not started on antibiotics in the ER or at admission 09/11 KUB showed airspace opacity in left lung which could be an aspiration pneumonia and she did had low-grade fever Patient was started on empiric Zosyn which will be continued Urine and blood cultures have been negative till now C diff came back negative (3) Hypernatremia: Code(s): E87.0 - Hyperosmolality and hypernatremia Status: Acute Assessment and Plan: 09/13 Yesterday morning patient's sodium level was elevated at 147. I changed the IV fluids and decrease the bicarbonate concentration to 100 mEq to provide hypotonic fluid to the patient. Despite that the repeat BMP around 4:00 p.m. showed sodium had acutely risen to 160. I am not 100% sure with the exact etiology of that sharp rise as patient was on very small amount of sodium bicarbonate per tube. Her GI NG output was also minimal. I entertained nephrogenic DI but her urine output was also not very high to explain. She did had diarrhea post upper GI series which could lead to free water losses. Due to acute increase I gave patient D5 water bolus and started on D5 water. Per tube Sodium bicarbonate was discontinued. Although sodium was improving on next check, I continued D5 water as I had to give Lasix to the patient for overall volume overload respiratory failure. This morning has decreased to 150. Although it is higher than normal I will try to stabilize that at this level and not further further correct at this time. 09/14 a sodium increased back to 155 overnight and patient was given additional D5 water and started on D5 water infusion. Free water flushes increased. Sodium is now at 154 a.m 09/15 despite increasing D5 water and increasing free water flushes patient's sodium remained high. She had a high urine output through the day yesterday and through last night This could be post ATN diuretic phase versus diabetes insipidus. I ordered urine and serum osmolarity but those are send out test and will not be back in time. I have given patient DDAVP this morning 1 mcg. She is on D5 water at 150 mL per hour. Currently free floor of flush is at 200 ml q.4 hours Case discussed with Dr. Sofia from Nephrology. No new recommendation at this time but he will review patient's labs and call me back. 09/16 sodium has remained stable in high normal range. I will continue free water flushes and monitor sodium and try to lowered slowly. I would want to avoid giving additional IV fluids due to concerns with pulmonary edema. 09/17 -continues to have high urine output through the night. Sodium remains high despite treatment with D5 water and free water flushes. Differential remains to be post ATN diuretic phase versus diabetes insipidus. Although serum osmolarity and urine osmolarity has been ordered,
--- NOTE | 2021-09-17 09:57 | P.PNNP_ITS ---
Progress Note: A&P Assessment and Plan (1) Acute kidney injury: Code(s): N17.9 - Acute kidney failure, unspecified Status: Acute Assessment and Plan: * resolved (2) Hypernatremia: Code(s): E87.0 - Hyperosmolality and hypernatremia Status: Acute Assessment and Plan: * persistent for the last several days * she has had polyuria. Urine output between 4 and 5L per day. She is not on diuretics. She is not on mannitol or TPN. Sugar is not high. BUN is not high. ATN finished 4 days ago and so he would be usual for this to be a post ATN diuresis. * Considerations would be diabetes insipidus. This would obviously not be congenital. Acquired is possible but then I would think she would have other hormonal issues. Her cortisol level is borderline low. We can check a Cortrosyn stim test. Her TSH is also borderline low. Will check an ADH level, acth level, and FSH level as well. CT brain did not show any major issues. I doubt if this is nephrogenic DI but I suppose it is possible from the ATN this would be unusual. And is clearly not genetic nephrogenic DI either. * has been receiving aggressive free water (D5W IVFs and flushes per tube) to compensate * Long discussion with Dr Salgado. I agree with trying DDAVP. We can check a urine osmolality tomorrow 2 hours after the DDAVP is given and see if this changes. he has urine osmolality pending from 2 days ago but this will take a while since it is a send out. I will order urinalysis as specific gravity is a quick surrogate for the urine osmolality but obviously not a very precise test. * Dr. Salgado has ordered the DDAVP. Discussed at length. (3) Acute respiratory failure: Code(s): J96.00 - Acute respiratory failure, unspecified whether with hypoxia or hypercapnia Status: Acute Assessment and Plan: * on mechanical ventilation * suspect secondary to CHF/pulmonary edema versus possible aspiration pneumonia * follow culture data * on antibiotics * ventilator weaning as tolerated (4) Electrolyte abnormality: Code(s): E87.8 - Other disorders of electrolyte and fluid balance, not elsewhere classified Status: Acute Assessment and Plan: * low K+ and Ca++ noted on admission * suspect due to GI loss and poor oral intake * replacement as needed (K+, Ca++, Phos, and magnesium have stabilized) * follow trend electrolytes (5) Altered mental status: Code(s): R41.82 - Altered mental status, unspecified Status: Acute Assessment and Plan: * likely toxic metabolic encephalopathy * suspect multifactorial: * urine drug screen was positive methadone and tricyclics * also on gabapentin and [place] * alcohol abuse(?) * ammonia and TSH okay * head CT at OSH negative * consider further imaging if mentation does not improve with supportive therapy (after extubation) (6) Nausea & vomiting: Code(s): R11.2 - Nausea with vomiting, unspecified Status: Acute Assessment and Plan: * as noted on presentation to OSH * CT of A/P suggest obstruction * appears to have resolved * small-bowel series reveals no obstruction * suspect ileus at the time of CT scan * continue tube feeds as tolerated via NGT * continue supportive therapy (7) Alcohol abuse: Code(s): F10.10 - Alcohol abuse, uncomplicated Status: Acute Assessment and Plan: * details/specifics are unknown at this time * on thiamine and folic acid
--- NOTE | 2021-09-17 09:57 | PM.PNNEP ---
Progress Note: A&P Assessment and Plan (1) Acute kidney injury: Code(s): N17.9 - Acute kidney failure, unspecified Status: Acute Assessment and Plan: resolved (2) Hypernatremia: Code(s): E87.0 - Hyperosmolality and hypernatremia Status: Acute Assessment and Plan: persistent for the last several days she has had polyuria. Urine output between 4 and 5L per day. She is not on diuretics. She is not on mannitol or TPN. Sugar is not high. BUN is not high. ATN finished 4 days ago and so he would be usual for this to be a post ATN diuresis. Considerations would be diabetes insipidus. This would obviously not be congenital. Acquired is possible but then I would think she would have other hormonal issues. Her cortisol level is borderline low. We can check a Cortrosyn stim test. Her TSH is also borderline low. Will check an ADH level, acth level, and FSH level as well. CT brain did not show any major issues. I doubt if this is nephrogenic DI but I suppose it is possible from the ATN this would be unusual. And is clearly not genetic nephrogenic DI either. has been receiving aggressive free water (D5W IVFs and flushes per tube) to compensate Long discussion with Dr Salgado. I agree with trying DDAVP. We can check a urine osmolality tomorrow 2 hours after the DDAVP is given and see if this changes. he has urine osmolality pending from 2 days ago but this will take a while since it is a send out. I will order urinalysis as specific gravity is a quick surrogate for the urine osmolality but obviously not a very precise test. Dr. Salgado has ordered the DDAVP. Discussed at length. (3) Acute respiratory failure: Code(s): J96.00 - Acute respiratory failure, unspecified whether with hypoxia or hypercapnia Status: Acute Assessment and Plan: on mechanical ventilation suspect secondary to CHF/pulmonary edema versus possible aspiration pneumonia follow culture data on antibiotics ventilator weaning as tolerated (4) Electrolyte abnormality: Code(s): E87.8 - Other disorders of electrolyte and fluid balance, not elsewhere classified Status: Acute Assessment and Plan: low K+ and Ca++ noted on admission suspect due to GI loss and poor oral intake replacement as needed (K+, Ca++, Phos, and magnesium have stabilized) follow trend electrolytes (5) Altered mental status: Code(s): R41.82 - Altered mental status, unspecified Status: Acute Assessment and Plan: likely toxic metabolic encephalopathy suspect multifactorial: urine drug screen was positive methadone and tricyclics also on gabapentin and [place] alcohol abuse(?) ammonia and TSH okay head CT at OSH negative consider further imaging if mentation does not improve with supportive therapy (after extubation) (6) Nausea & vomiting: Code(s): R11.2 - Nausea with vomiting, unspecified Status: Acute Assessment and Plan: as noted on presentation to OSH CT of A/P suggest obstruction appears to have resolved small-bowel series reveals no obstruction suspect ileus at the time of CT scan continue tube feeds as tolerated via NGT continue supportive therapy (7) Alcohol abuse: Code(s): F10.10 - Alcohol abuse, uncomplicated Status: Acute Assessment and Plan: details/specifics are unknown at this time on thiamine and folic acid Subjective Date/time seen: 09/17/21 09:57 Interval history: Gerard is on the ventilator and sedated. Respiratory appearance is comfortable. Exam Narrative: General: female in NAD but intubated/sedated Heart: normal S1 and S2; no rub or gallop Lungs: coarse breath sounds Abdomen: soft, nondistended, positive bowel sounds Extremities: no cyanosis or clubbing; no edema Skin: No rash Objective Data Vital Signs Vital Signs: Vital Signs - 24 hr 09/16/21 10:04
[2021-09-17] MEDS: METOCLOPRAMIDE HCL 10 MG/10 ML SOLN UDC PO ×2 (11:04→17:06)
--- NOTE | 2021-09-17 11:22 | PCFNICU ---
ICU Rounding Note: Pt current nutrition is Vital AF 1.2 at 55 ml/hr over 22 hours. Last recorded weight is 61.2 kg up from 58.3 kg yesterday. Bowel Motility: +Bm reported 09/17 Labs Reviewed:Glu 136, Na 156, Alb 3.1,Hct 26.2,Hgb 8.2 Meds Noted:Precedex, Propofol 25 mics 9 ml/ob=065 kcals, Reglan, Zosyn, Protonix, Miralax, Thiamine, Folic Acid Skin: Maceration-perianal Additional Notes: Patient remains on mechanical vent. 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 Rate change increase from 45 ml/hr to 55 ml/hr over 22 hours. Total nutrition with 9 ml/hr Propofol infusion providing 1584 kcals/99 gms protein. Free water flush 200 ml q 4 hours. Na 156. Agree with diet orders at this time. Following daily in ICU rounds, will reassess every Friday and Friday.
[2021-09-17 11:44] LABS: Anion Gap 4 mmol/L (8-16); Blood Urea Nitrogen 9 mg/dL (7-17); Calcium 8.3 mg/dL (8.4-10.2); Carbon Dioxide 29 mmol/L (22-30); Chloride 116 mmol/L (98-107); Estimated CRCL calculation 93 ml/min; Estimated Glomerular Filt Rate > 60; Glucose 114 mg/dL (65-110); Potassium 3.6 mmol/L (3.4-5.0); Sodium 149 mmol/L (137-145)
[2021-09-17 18:43] LABS: Anion Gap 4 mmol/L (8-16); Blood Urea Nitrogen 11 mg/dL (7-17); Calcium 8.4 mg/dL (8.4-10.2); Carbon Dioxide 30 mmol/L (22-30); Chloride 115 mmol/L (98-107); Estimated CRCL calculation 81 ml/min; Estimated Glomerular Filt Rate > 60; Glucose 105 mg/dL (65-110); Potassium 3.6 mmol/L (3.4-5.0); Sodium 149 mmol/L (137-145)
[2021-09-17] MEDS: DEXTROSE 5% 1,000 ML 1,000 ML 50 ML IV CONT (21:40)
[2021-09-18] VITALS (44 sets, daily range): BP systolic 96–141; BP diastolic 57–85; PULSE 82–137; RESP 14–222; TEMP 36.9–38.5; O2SAT 94–100
[2021-09-18 01:05] LABS: Anion Gap 7 mmol/L (8-16); Blood Urea Nitrogen 11 mg/dL (7-17); Calcium 8.5 mg/dL (8.4-10.2); Carbon Dioxide 28 mmol/L (22-30); Chloride 112 mmol/L (98-107); Estimated CRCL calculation 93 ml/min; Estimated Glomerular Filt Rate > 60; Glucose 120 mg/dL (65-110); Potassium 3.2 mmol/L (3.4-5.0); Sodium 147 mmol/L (137-145)
[2021-09-18] MEDS: METOCLOPRAMIDE HCL 10 MG/10 ML SOLN UDC PO ×4 (01:11→17:04)
[2021-09-18 01:18] LABS: Glucose Point of Care 93 mg/dl (65-105)
[2021-09-18] MEDS: IPRATROPIUM BR 0.02% INH SOLN 0.5 MG/2.5 ML VIAL INHALATION ×4 (01:18→20:15)
[2021-09-18] MEDS: ALBUTEROL SULFATE NEB 2.5 MG/3 ML INH 5 MG INHALATION ×4 (01:19→20:15)
[2021-09-18] MEDS: PROPOFOL IV EMULSION 100 ML 8.91 MG IV CONT (02:27)
[2021-09-18] MEDS: dexmedeTOMIDine 400 MCG/100 ML 400 MCG/100 ML BAG 22.24 MCG IV CONT ×5 (03:28→21:03)
[2021-09-18 04:09] LABS: Alveolar/Arterial O2 Gradient 127.1 mmHg; Base Excess ABG 4.7 mEq/l (+/-2.0); Carboxyhemoglobin 0.1 % THb (0-2.0); Fractional Inspired Oxygen 35 %; HCO3 ABG 29.7 mEq/l (22.0-26.0); Oxygen Content ABG 12.8 %vol (16.0-22.0); Oxygen Saturation ABG 93.8 % (95.0-100.0); Oxyhemoglobin 92.2 % THb (90.0-100.0); PCO2 ABG 46.7 mmHg (35.0-45.0); PO2 ABG 68.2 mmHg (80.0-100.0); PO2 FiO2 Ratio Arterial Blood 1.95 %; Reduced Hemoglobin 7.7 %THb (0-5.0); Total Hemoglobin 9.8 g/dL (12.0-18.0); pH ABG 7.422 (7.350-7.450)
[2021-09-18 04:14] LABS: Site Drawn RIGHT RADIAL
[2021-09-18 04:15] LABS: Arterial Blood Gas PEEP 8 cmH2O; Arterial Blood Gas Tidal Volume 450 ml; Arterial Blood Gas Vent Mode CMV; Arterial Blood Gas Ventilator rate 18 /MIN; Device VENTILATOR; Modified Allen's Test Unable to perform
[2021-09-18] MEDS: CENTRAL LINE FLUSH 10 ML IV PUSH ×3 (05:06→21:30)
[2021-09-18 05:13] LABS: Glucose Point of Care 99 mg/dl (65-105)
[2021-09-18 06:01] LABS: Hematocrit 24.4 % (37.0-47.0); Hemoglobin 7.7 g/dL (12.0-15.0); Mean Corpuscular HGB Conc 31.6 g/dl (32-36); Mean Corpuscular Hemoglobin 34.5 pg (26-34); Mean Corpuscular Volume 109.4 fl (80-100); Mean Platelet Volume 10.2 fl (7.4-10.4); Platelet Count Result 135 k/mm3 (150-375); Red Blood Count 2.23 M/mm3 (4.2-5.4); White Blood Count 9.4 K/mm3 (4.5-10.0)
[2021-09-18] MEDS: FENTANYL 2,500MCG/NS250ML(*CRX 2,500 MCG/250 ML BAG 10 MCG IV CONT (06:03)
[2021-09-18 06:10] LABS: Alanine Aminotransferase 48 U/L (6-35); Albumin Level 2.9 g/dL (3.5-5.1); Alkaline Phosphatase 304 U/L (38-126); Anion Gap 4 mmol/L (8-16); Aspartate Amino Transferase 96 U/L (14-36); Bilirubin,Total 1.3 mg/dL (0.2-1.3); Blood Urea Nitrogen 11 mg/dL (7-17); Calcium 8.3 mg/dL (8.4-10.2); Carbon Dioxide 31 mmol/L (22-30); Chloride 110 mmol/L (98-107); Estimated CRCL calculation 77 ml/min; Estimated Glomerular Filt Rate > 60; Glucose 133 mg/dL (65-110); Magnesium 1.5 mg/dL (1.6-2.3); Phosphorus 3.6 mg/dL (2.5-4.5); Potassium 2.9 mmol/L (3.4-5.0); Sodium 145 mmol/L (137-145); Triglycerides 177 mg/dL (<150)
[2021-09-18] MEDS: POTASSIUM CHLORIDE 20 MEQ PACKET (FOR LIQUID) 40 MEQ FEED TUBE (06:52)
[2021-09-18] MEDS: DESMOPRESSIN ACETATE 4 MCG/ML AMP 2 MCG IV PUSH (06:56)
--- NOTE | 2021-09-18 07:42 | P.PNNP_ITS ---
Progress Note: A&P Assessment and Plan (1) Acute kidney injury: Code(s): N17.9 - Acute kidney failure, unspecified Status: Acute Assessment and Plan: * resolved (2) Hypernatremia: Code(s): E87.0 - Hyperosmolality and hypernatremia Status: Acute Assessment and Plan: * persistent for the last several days * she had a urine osmolality yesterday morning and this is pending. * She had DDAVP 1mcg last evening. Her urine output still was 2200 overnight. Her sodium level is a little bit better today. * She continues on D5W * will give another 2mcg of DDAVP today and check a urine osmolality 2hours later to see how low the urine osmolality goes. * if the sodium continues to improve we can switch to DDAVP per tube. (3) Acute respiratory failure: Code(s): J96.00 - Acute respiratory failure, unspecified whether with hypoxia or hypercapnia Status: Acute Assessment and Plan: * on mechanical ventilation * suspect secondary to CHF/pulmonary edema versus possible aspiration pneumonia * Chest x-ray is gradually improving. * follow culture data * on Zosyn * ventilator weaning as tolerated (4) Electrolyte abnormality: Code(s): E87.8 - Other disorders of electrolyte and fluid balance, not elsewhere classified Status: Acute Assessment and Plan: * low K+ and Ca++ noted on admission * suspect due to GI loss and poor oral intake * potassium low again. This was supplemented. * follow trend electrolytes (5) Altered mental status: Code(s): R41.82 - Altered mental status, unspecified Status: Acute Assessment and Plan: * likely toxic metabolic encephalopathy * suspect multifactorial: * urine drug screen was positive methadone and tricyclics * also on gabapentin and [place] * alcohol abuse(?) Currently sedated. (6) Nausea & vomiting: Code(s): R11.2 - Nausea with vomiting, unspecified Status: Acute Assessment and Plan: * as noted on presentation to OSH * CT of A/P suggest obstruction * appears to have resolved * small-bowel series reveals no obstruction * suspect ileus at the time of CT scan * continue tube feeds as tolerated via NGT * continue supportive therapy (7) Alcohol abuse: Code(s): F10.10 - Alcohol abuse, uncomplicated Status: Acute Assessment and Plan: * details/specifics are unknown at this time * on thiamine and folic acid Subjective Date/time seen: 09/18/21 07:42 Interval history: Gerard is on the ventilator and sedated. Blood pressure dropped mildly and intermittently overnight but did not need pressors. Exam Narrative: General: female in NAD but intubated/sedated Heart: normal S1 and S2; no rub or gallop Lungs: coarse breath sounds bilaterally Abdomen: soft, nondistended, positive bowel sounds Extremities: no cyanosis or clubbing; no edema Skin: no rash or subQ nodules Objective Data Vital Signs Vital Signs: Vital Signs - 24 hr 09/17/21 08:02 09/17/21 08:35 09/17/21 08:41 Temperature Pulse Rate 112 H 129 H 128 H Respiratory Rate 28 H Blood Pressure 129/73 Pulse Oximetry 97 Oxygen Delivery Mechanical Ventilation Fraction of Inspired Oxygen 50
--- NOTE | 2021-09-18 07:42 | PM.PNNEP ---
Progress Note: A&P Assessment and Plan (1) Acute kidney injury: Code(s): N17.9 - Acute kidney failure, unspecified Status: Acute Assessment and Plan: resolved (2) Hypernatremia: Code(s): E87.0 - Hyperosmolality and hypernatremia Status: Acute Assessment and Plan: persistent for the last several days she had a urine osmolality yesterday morning and this is pending. She had DDAVP 1mcg last evening. Her urine output still was 2200 overnight. Her sodium level is a little bit better today. She continues on D5W will give another 2mcg of DDAVP today and check a urine osmolality 2hours later to see how low the urine osmolality goes. if the sodium continues to improve we can switch to DDAVP per tube. (3) Acute respiratory failure: Code(s): J96.00 - Acute respiratory failure, unspecified whether with hypoxia or hypercapnia Status: Acute Assessment and Plan: on mechanical ventilation suspect secondary to CHF/pulmonary edema versus possible aspiration pneumonia Chest x-ray is gradually improving. follow culture data on Zosyn ventilator weaning as tolerated (4) Electrolyte abnormality: Code(s): E87.8 - Other disorders of electrolyte and fluid balance, not elsewhere classified Status: Acute Assessment and Plan: low K+ and Ca++ noted on admission suspect due to GI loss and poor oral intake potassium low again. This was supplemented. follow trend electrolytes (5) Altered mental status: Code(s): R41.82 - Altered mental status, unspecified Status: Acute Assessment and Plan: likely toxic metabolic encephalopathy suspect multifactorial: urine drug screen was positive methadone and tricyclics also on gabapentin and [place] alcohol abuse(?) Currently sedated. (6) Nausea & vomiting: Code(s): R11.2 - Nausea with vomiting, unspecified Status: Acute Assessment and Plan: as noted on presentation to OSH CT of A/P suggest obstruction appears to have resolved small-bowel series reveals no obstruction suspect ileus at the time of CT scan continue tube feeds as tolerated via NGT continue supportive therapy (7) Alcohol abuse: Code(s): F10.10 - Alcohol abuse, uncomplicated Status: Acute Assessment and Plan: details/specifics are unknown at this time on thiamine and folic acid Subjective Date/time seen: 09/18/21 07:42 Interval history: Gerard is on the ventilator and sedated. Blood pressure dropped mildly and intermittently overnight but did not need pressors. Exam Narrative: General: female in NAD but intubated/sedated Heart: normal S1 and S2; no rub or gallop Lungs: coarse breath sounds bilaterally Abdomen: soft, nondistended, positive bowel sounds Extremities: no cyanosis or clubbing; no edema Skin: no rash or subQ nodules Objective Data Vital Signs Vital Signs: Vital Signs - 24 hr 09/17/21 08:02 09/17/21 08:35 09/17/21 08:41 Temperature Pulse Rate 112 H 129 H 128 H Respiratory Rate 28 H Blood Pressure 129/73 Pulse Oximetry 97 Oxygen Delivery Mechanical Ventilation Fraction of Inspired Oxygen 50 09/17/21 08:43 09/17/21 08:00 09/17/21 08:00 Temperature 36.1 C L Pulse Rate 127 H 112 H 112 H Respiratory Rate 19 19 Blood Pressure 129/73 Pulse Oximetry 97 Oxygen Delivery Fraction of Inspired Oxygen 09/17/21 08:00 09/17/21 08:00 09/17/21 09:38 Temperature Pulse Rate 112 H 118 H Respiratory Rate 19 17 Blood Pressure Pulse Oximetry 97 Oxygen Delivery Mechanical Ventilation Fraction of Inspired Oxygen 50 50 09/17/21 10:00 09/17/21 10:00 09/17/21 10:57 Temperature 36.4 C Pulse Rate 115 H 115 H 113 H Respiratory Rate 26 H Blood Pressure 118/69 Pulse Oximetry 99 97 Oxygen Delivery Mechanical Ventilation Fraction of Inspired Oxygen 45 09/17
--- NOTE | 2021-09-18 08:30 | PM.IMPN ---
Progress Note: A&P Assessment and Plan (1) Acute respiratory failure: Code(s): J96.00 - Acute respiratory failure, unspecified whether with hypoxia or hypercapnia Status: Acute Assessment and Plan: 09/12 Through the day patient had increased oxygen requirement and became more hypoxic. -09/12: Intubated later in the evening Chest x-ray obtained and showed persistent diffuse bilateral airspace disease. Possible etiologies are congestive heart failure and pulmonary edema, ARDS, aspiration pneumonia -09/18: Chest x-ray : Gradual improvement since 01/16/2022 and diffuse bilateral lung disease which could represent pulmonary edema and/or pneumonia. Very small left pleural effusion -currently on CMV mode of ventilation, peep of 8 and 35% FiO2, ABGs [place] [address] but her echocardiogram was normal Continue Zosyn (started on 09/11/2021), continue for total of 10 days -Sedated with propofol, Precedex and fentanyl. Management per ICU. (2) Sepsis: Code(s): A41.9 - Sepsis, unspecified organism Status: Acute Assessment and Plan: Chest x-ray and UA were negative. CT abdomen also did not show any evidence of infection and no evidence of colitis. Although patient had elevated WBC count. -09/11/2021 urine culture negative -09/11 KUB showed airspace opacity in left lung which could be an aspiration pneumonia and she did had low-grade fever -09/11/2021 Patient was started on empiric Zosyn which will be continued -C diff came back negative -09/18 leukocytosis resolved. Off antibiotics. (3) Hypernatremia: Code(s): E87.0 - Hyperosmolality and hypernatremia Status: Acute Assessment and Plan: 09/13 Yesterday morning patient's sodium level was elevated at 147. I changed the IV fluids and decrease the bicarbonate concentration to 10: -0: : mEq to provide hypotonic fluid to the patient. Despite that the repeat BMP around 4:00 p.m. showed sodium had acutely risen to 160. I am not 100% sure with the exact etiology of that sharp rise as patient was on very small amount of sodium bicarbonate per tube. Her NG output was also minimal. I entertained nephrogenic DI but her urine output was also not very high to explain. She did have diarrhea post upper GI series which could lead to free water losses. Due to acute increase I gave patient D5 water bolus and started on D5 water. Per tube Sodium bicarbonate was discontinued. Although sodium was improving on next check, I continued D5 water as I had to give Lasix to the patient for overall volume overload respiratory failure. This morning has decreased to 150. Although it is higher than normal I will try to stabilize that at this level and not further further correct at this time. 09/14 a sodium increased back to 155 overnight and patient was given additional D5 water and started on D5 water infusion. Free water flushes increased. Sodium is now at 154 a.m 09/15 despite increasing D5 water and increasing free water flushes patient's sodium remained high. She had a high urine output through the day yesterday and through last night This could be post ATN diuretic phase versus diabetes insipidus. I ordered urine and serum osmolarity but those are send out test and will not be back in time. I have given patient DDAVP this morning 1 mcg. She is on D5 water at 150 mL per hour. Currently free floor of flush is at 200 ml q.4 hours Case discussed with Dr. Sofia from Nephrology. No new recommendation at this time but he will review patient's labs and call me back. 09/18 Sodium normal. Off D5W. Appreciate Nephrology recommendation. (4) Electrolyte abnormality: Code(s): E87.8 - Other disorders of electrolyte and fluid balance, not elsewhere classified Status: Acute Assessment and Plan: Resolved. Replete as needed. (5) Acute kidney injury: Code(s): N17.9 - Acute kidney failure, unspecified Status: Acute Assessment and Pl
--- NOTE | 2021-09-18 08:47 | WPDINTPN ---
Progress Note: A&P Assessment and Plan (1) Acute respiratory failure: Code(s): J96.00 - Acute respiratory failure, unspecified whether with hypoxia or hypercapnia Status: Acute Assessment and Plan: 09/12 Through the day patient had increased oxygen requirement and became more hypoxic. -09/12: Intubated later in the evening Chest x-ray obtained and showed persistent diffuse bilateral airspace disease. Possible etiologies are congestive heart failure and pulmonary edema, ARDS, aspiration pneumonia -09/18: Chest x-ray : Gradual improvement since 01/16/2022 and diffuse bilateral lung disease which could represent pulmonary edema and/or pneumonia. Very small left pleural effusion -currently on CMV mode of ventilation, peep of 8 and 35% FiO2, ABGs [place] [address]20 but her echocardiogram was normal Continue Zosyn (started on 09/11/2021), continue for total of 10 days Sedated with propofol, Precedex and fentanyl, will wean propofol and fentanyl in place patient on breathing trial -She is on D5 water because of hypernatremia -Negative COVID PCR (2) Sepsis: Code(s): A41.9 - Sepsis, unspecified organism Status: Acute Assessment and Plan: Chest x-ray and UA were negative. CT abdomen also did not show any evidence of infection and no evidence of colitis. Although patient had elevated WBC count. -09/11/2021 urine culture negative -09/11 KUB showed airspace opacity in left lung which could be an aspiration pneumonia and she did had low-grade fever -09/11/2021 Patient was started on empiric Zosyn which will be continued -C diff came back negative (3) Hypernatremia: Code(s): E87.0 - Hyperosmolality and hypernatremia Status: Acute Assessment and Plan: 09/13 Yesterday morning patient's sodium level was elevated at 147. I changed the IV fluids and decrease the bicarbonate concentration to 10: -0: : mEq to provide hypotonic fluid to the patient. Despite that the repeat BMP around 4:00 p.m. showed sodium had acutely risen to 160. I am not 100% sure with the exact etiology of that sharp rise as patient was on very small amount of sodium bicarbonate per tube. Her NG output was also minimal. I entertained nephrogenic DI but her urine output was also not very high to explain. She did have diarrhea post upper GI series which could lead to free water losses. Due to acute increase I gave patient D5 water bolus and started on D5 water. Per tube Sodium bicarbonate was discontinued. Although sodium was improving on next check, I continued D5 water as I had to give Lasix to the patient for overall volume overload respiratory failure. This morning has decreased to 150. Although it is higher than normal I will try to stabilize that at this level and not further further correct at this time. 09/14 a sodium increased back to 155 overnight and patient was given additional D5 water and started on D5 water infusion. Free water flushes increased. Sodium is now at 154 a.m 09/15 despite increasing D5 water and increasing free water flushes patient's sodium remained high. She had a high urine output through the day yesterday and through last night This could be post ATN diuretic phase versus diabetes insipidus. I ordered urine and serum osmolarity but those are send out test and will not be back in time. I have given patient DDAVP this morning 1 mcg. She is on D5 water at 150 mL per hour. Currently free floor of flush is at 200 ml q.4 hours Case discussed with Dr. Sofia from Nephrology. No new recommendation at this time but he will review patient's labs and call me back. 09/16 sodium has remained stable in high normal range. I will continue free water flushes and monitor sodium and try to lowered slowly. I would want to avoid giving additional IV fluids due to concerns with pulmonary edema. 09/17 -continues to have high urine output through the night. Sodium remains high despite treatment with D5 water and free water flushe
[2021-09-18] MEDS: MAGNESIUM SULF 2 GM/WATER 50ML 2 GM/50 ML BAG IVPB (09:23)
[2021-09-18] MEDS: MINERAL OIL/WHITE PETROLATUM OINTMENT 1 APPLIC EACH EYE ×2 (09:25→21:29)
[2021-09-18] MEDS: PANTOPRAZOLE SODIUM IV 40 MG VIAL IV PUSH (09:25)
[2021-09-18] MEDS: ENOXAPARIN 30 MG/0.3 ML SYRINGE SUB-Q (09:25)
[2021-09-18] MEDS: polyethylene glycoL 3350 17 GM POWD.PACK PO (09:25)
[2021-09-18] MEDS: THIAMINE HCL 200 MG/2 ML VIAL 100 MG IV PUSH (09:25)
[2021-09-18] MEDS: FOLIC ACID 1 MG/0.2 ML INJ IV PUSH (09:25)
--- NOTE | 2021-09-18 10:42 | PCNFU ---
Nutrition Follow-Up Complete: Altered GI function as related to Nausea/Vomiting as evidenced by NPO. Goal: Meet estimated nutritional needs Patient is progressing towards goal. We will continue current goal. Pt current nutrition is Vital AF 1.2 at 55 ml/hr over 22 hours. Last recorded weight is 58.5 kg, up from 46.8 kg on admit. Bowel Motility:+Bm reported 09/18 Labs Reviewed:Glu 133, K 2.9,Alb 2.9,Hgb 24.4,Hct 7.7 Meds Noted:Propofol 9.0 ml/jp=058 kcals, Precedex, Folic Acid, Levophed, Zosyn, Thiamine, Miralax, Atrovent, Protonix Skin: WNL Additional Notes: Patient remains on mechanical vent and tube feedings of Vital AF 1.2 at 55 ml/hr over 22 hours. Patient is tolerating tube feedings per nursing. Total nutrition: 1640 kcals/99 gms protein/981 ml water. Free water flush 200 ml q 4 hours. Na 145 today. Patient is meeting 100% of kcal and protein needs. Agree with diet orders at this time. Monitoring: Will monitor in ICU rounds and reassessing every Friday and Friday.
[2021-09-18 12:17] LABS: Anion Gap 7 mmol/L (8-16); Blood Urea Nitrogen 10 mg/dL (7-17); Calcium 7.9 mg/dL (8.4-10.2); Carbon Dioxide 30 mmol/L (22-30); Chloride 105 mmol/L (98-107); Estimated CRCL calculation 89 ml/min; Estimated Glomerular Filt Rate > 60; Glucose 113 mg/dL (65-110); Potassium 3.5 mmol/L (3.4-5.0); Sodium 142 mmol/L (137-145)
[2021-09-18] MEDS: PROPOFOL IV EMULSION 100 ML 7.13 MG IV CONT (12:47)
[2021-09-18] MEDS: ACETAMINOPHEN ELIXIR 325 MG/10.15 ML UDC 650 MG PO (14:30)
[2021-09-18 17:17] LABS: Glucose Point of Care 113 mg/dl (65-105)
[2021-09-18 17:42] LABS: Anion Gap 6 mmol/L (8-16); Blood Urea Nitrogen 10 mg/dL (7-17); Calcium 7.7 mg/dL (8.4-10.2); Carbon Dioxide 29 mmol/L (22-30); Chloride 103 mmol/L (98-107); Estimated CRCL calculation 89 ml/min; Estimated Glomerular Filt Rate > 60; Glucose 118 mg/dL (65-110); Sodium 138 mmol/L (137-145)
[2021-09-18] MEDS: POTASSIUM CHLORIDE 20 MEQ PACKET (FOR LIQUID) 40 MEQ PO (18:30)
[2021-09-18] MEDS: KCL 40 MEQ/WATER 100 ML 100 ML 25 ML IVPB (18:30)
[2021-09-18] MEDS: MIDAZOLAM HCL (*CRX) 2 MG/2 ML VIAL IV PUSH (21:39)
[2021-09-19] VITALS (53 sets, daily range): BP systolic 100–1206; BP diastolic 56–91; PULSE 84–134; RESP 15–29; TEMP 37.5–38.8; O2SAT 94–99
[2021-09-19] MEDS: PROPOFOL IV EMULSION 100 ML 8.91 MG IV CONT (00:03)
[2021-09-19] MEDS: METOCLOPRAMIDE HCL 10 MG/10 ML SOLN UDC PO ×2 (00:05→05:27)
[2021-09-19 01:11] LABS: Anion Gap 3 mmol/L (8-16); Blood Urea Nitrogen 9 mg/dL (7-17); Calcium 8.2 mg/dL (8.4-10.2); Carbon Dioxide 30 mmol/L (22-30); Chloride 107 mmol/L (98-107); Estimated CRCL calculation 89 ml/min; Estimated Glomerular Filt Rate > 60; Glucose 113 mg/dL (65-110); Potassium 4.1 mmol/L (3.4-5.0); Sodium 140 mmol/L (137-145)
[2021-09-19] MEDS: dexmedeTOMIDine 400 MCG/100 ML 400 MCG/100 ML BAG 22.24 MCG IV CONT ×6 (01:30→23:58)
[2021-09-19] MEDS: IPRATROPIUM BR 0.02% INH SOLN 0.5 MG/2.5 ML VIAL INHALATION ×4 (02:19→20:19)
[2021-09-19] MEDS: ALBUTEROL SULFATE NEB 2.5 MG/3 ML INH 5 MG INHALATION ×5 (02:19→20:45)
[2021-09-19] MEDS: FENTANYL 2,500MCG/NS250ML(*CRX 2,500 MCG/250 ML BAG 10 MCG IV CONT (04:01)
[2021-09-19 05:21] LABS: Glucose Point of Care 122 mg/dl (65-105)
[2021-09-19 05:21] LABS: Glucose Point of Care 107 mg/dl (65-105)
[2021-09-19] MEDS: CENTRAL LINE FLUSH 10 ML IV PUSH ×3 (05:27→21:26)
[2021-09-19 05:44] LABS: Base Excess ABG 3.3 mEq/l (+/-2.0); Carboxyhemoglobin 0.4 % THb (0-2.0); Fractional Inspired Oxygen 35 %; HCO3 ABG 27.5 mEq/l (22.0-26.0); Methemoglobin ABG 0.3 %THb (0-1.5); Oxygen Content ABG 11.7 %vol (16.0-22.0); Oxygen Saturation ABG 95.4 % (95.0-100.0); Oxyhemoglobin 93.1 % THb (90.0-100.0); PCO2 ABG 40.5 mmHg (35.0-45.0); PO2 ABG 73.5 mmHg (80.0-100.0); Reduced Hemoglobin 6.2 %THb (0-5.0); Total Hemoglobin 8.9 g/dL (12.0-18.0)
[2021-09-19 05:49] LABS: Arterial Blood Gas PEEP 8 cmH2O; Arterial Blood Gas Tidal Volume 450 ml; Arterial Blood Gas Vent Mode CMV; Arterial Blood Gas Ventilator rate 18 /MIN; Device VENTILATOR; Modified Allen's Test Unable to perform; Site Drawn RIGHT RADIAL
[2021-09-19] MEDS: ACETAMINOPHEN ELIXIR 325 MG/10.15 ML UDC 650 MG PO ×3 (06:26→18:26)
[2021-09-19 06:27] LABS: Hematocrit 25.4 % (37.0-47.0); Hemoglobin 8.1 g/dL (12.0-15.0); Mean Corpuscular HGB Conc 31.9 g/dl (32-36); Mean Corpuscular Hemoglobin 35.1 pg (26-34); Mean Platelet Volume 10.3 fl (7.4-10.4); Platelet Count Result 184 k/mm3 (150-375); Red Blood Count 2.31 M/mm3 (4.2-5.4); Red Cell Distribution Width 14.3 % (11.5-14.5)
[2021-09-19 06:37] LABS: Alanine Aminotransferase 40 U/L (6-35); Albumin Level 3.2 g/dL (3.5-5.1); Alkaline Phosphatase 320 U/L (38-126); Anion Gap 5 mmol/L (8-16); Aspartate Amino Transferase 49 U/L (14-36); Bilirubin,Total 0.7 mg/dL (0.2-1.3); Blood Urea Nitrogen 10 mg/dL (7-17); Calcium 8.6 mg/dL (8.4-10.2); Carbon Dioxide 28 mmol/L (22-30); Chloride 110 mmol/L (98-107); Estimated CRCL calculation 108 ml/min; Estimated Glomerular Filt Rate > 60; Glucose 102 mg/dL (65-110); Phosphorus 3.2 mg/dL (2.5-4.5); Potassium 3.6 mmol/L (3.4-5.0); Sodium 143 mmol/L (137-145)
[2021-09-19] MEDS: PROPOFOL IV EMULSION 100 ML 10.69 MG IV CONT (08:05)
[2021-09-19] MEDS: MINERAL OIL/WHITE PETROLATUM OINTMENT 1 APPLIC EACH EYE ×2 (08:07→21:24)
[2021-09-19] MEDS: THIAMINE HCL 200 MG/2 ML VIAL 100 MG IV PUSH (08:08)
[2021-09-19] MEDS: PANTOPRAZOLE SODIUM IV 40 MG VIAL IV PUSH (08:08)
[2021-09-19] MEDS: FOLIC ACID 1 MG/0.2 ML INJ IV PUSH (08:08)
[2021-09-19] MEDS: ENOXAPARIN 30 MG/0.3 ML SYRINGE SUB-Q (08:09)
[2021-09-19] MEDS: KCL 40 MEQ/WATER 100 ML 100 ML 25 ML IVPB (08:12)
--- NOTE | 2021-09-19 08:13 | P.PNNP_ITS ---
Progress Note: A&P Assessment and Plan (1) Acute kidney injury: Code(s): N17.9 - Acute kidney failure, unspecified Status: Acute Assessment and Plan: * resolved (2) Hypernatremia: Code(s): E87.0 - Hyperosmolality and hypernatremia Status: Acute Assessment and Plan: * persistent for the last several days * she had a urine osmolality yesterday morning and this is pending. * Still unclear if this is DI verses some sort of osmolar issue. The only reason to hesitate is at her urine specific gravity was 1.010, less than dilute. * She had DDAVP 2mcg yesterday, and sodium level has normalized. She is still making a lot of urine. Perhaps the characteristic of urine has changed. She had a urine osmolality before getting any DDAVP and also had a urine osmolality 2hours after the 2mcg dose of DDAVP. Both were present during hypernatremia. * She continues on D5W. Because the sodium level was dropping fairly quickly the D5W was stopped. Then the sodium corrected even more so tube feeding flushes were cut [id number] Q 4. Now sodium level is up a little bit still normal. * will give oral desmopressin now. Check another sodium this afternoon. (3) Acute respiratory failure: Code(s): J96.00 - Acute respiratory failure, unspecified whether with hypoxia or hypercapnia Status: Acute Assessment and Plan: * on mechanical ventilation * suspect secondary to CHF/pulmonary edema versus possible aspiration pneumonia * Chest x-ray is gradually improving. * follow culture data * on Zosyn * ventilator weaning as tolerated (4) Electrolyte abnormality: Code(s): E87.8 - Other disorders of electrolyte and fluid balance, not elsewhere classified Status: Acute Assessment and Plan: * Electrolytes okay now. * Will continue to monitor. (5) Altered mental status: Code(s): R41.82 - Altered mental status, unspecified Status: Acute Assessment and Plan: * Still sedated. * Seems a little more awake today. (6) Nausea & vomiting: Code(s): R11.2 - Nausea with vomiting, unspecified Status: Acute Assessment and Plan: * as noted on presentation to OSH * CT of A/P suggest obstruction * Latest KUB shows nonspecific abdomen. (7) Alcohol abuse: Code(s): F10.10 - Alcohol abuse, uncomplicated Status: Acute Assessment and Plan: * details/specifics are unknown at this time * on thiamine and folic acid Subjective Date/time seen: 09/19/21 08:13 Interval history: Gerard is on the ventilator and sedated. No pressors needed overnight. She is a little more awake today. She opens her eyes in regards examiner but does not interact. Exam Narrative: General: female in NAD but intubated/sedated Heart: normal S1 and S2; no rub Lungs: coarse breath sounds bilaterally Abdomen: soft, nondistended, positive bowel sounds Extremities: no edema Skin: no rash or subQ nodules Objective Data Vital Signs Vital Signs: Vital Signs - 24 hr 09/18/21 08:59 09/18/21 09:09 09/18/21 09:10 Temperature Pulse Rate 83 88 90 Respiratory Rate 24 H 25 H Blood Pressure Pulse Oximetry 97 Oxygen Delivery Mechanical Ventilation Fraction of Inspired Oxygen 35
--- NOTE | 2021-09-19 08:13 | PM.PNNEP ---
Progress Note: A&P Assessment and Plan (1) Acute kidney injury: Code(s): N17.9 - Acute kidney failure, unspecified Status: Acute Assessment and Plan: resolved (2) Hypernatremia: Code(s): E87.0 - Hyperosmolality and hypernatremia Status: Acute Assessment and Plan: persistent for the last several days she had a urine osmolality yesterday morning and this is pending. Still unclear if this is DI verses some sort of osmolar issue. The only reason to hesitate is at her urine specific gravity was 1.010, less than dilute. She had DDAVP 2mcg yesterday, and sodium level has normalized. She is still making a lot of urine. Perhaps the characteristic of urine has changed. She had a urine osmolality before getting any DDAVP and also had a urine osmolality 2hours after the 2mcg dose of DDAVP. Both were present during hypernatremia. She continues on D5W. Because the sodium level was dropping fairly quickly the D5W was stopped. Then the sodium corrected even more so tube feeding flushes were cut [id number] Q 4. Now sodium level is up a little bit still normal. will give oral desmopressin now. Check another sodium this afternoon. (3) Acute respiratory failure: Code(s): J96.00 - Acute respiratory failure, unspecified whether with hypoxia or hypercapnia Status: Acute Assessment and Plan: on mechanical ventilation suspect secondary to CHF/pulmonary edema versus possible aspiration pneumonia Chest x-ray is gradually improving. follow culture data on Zosyn ventilator weaning as tolerated (4) Electrolyte abnormality: Code(s): E87.8 - Other disorders of electrolyte and fluid balance, not elsewhere classified Status: Acute Assessment and Plan: Electrolytes okay now. Will continue to monitor. (5) Altered mental status: Code(s): R41.82 - Altered mental status, unspecified Status: Acute Assessment and Plan: Still sedated. Seems a little more awake today. (6) Nausea & vomiting: Code(s): R11.2 - Nausea with vomiting, unspecified Status: Acute Assessment and Plan: as noted on presentation to OSH CT of A/P suggest obstruction Latest KUB shows nonspecific abdomen. (7) Alcohol abuse: Code(s): F10.10 - Alcohol abuse, uncomplicated Status: Acute Assessment and Plan: details/specifics are unknown at this time on thiamine and folic acid Subjective Date/time seen: 09/19/21 08:13 Interval history: Gerard is on the ventilator and sedated. No pressors needed overnight. She is a little more awake today. She opens her eyes in regards examiner but does not interact. Exam Narrative: General: female in NAD but intubated/sedated Heart: normal S1 and S2; no rub Lungs: coarse breath sounds bilaterally Abdomen: soft, nondistended, positive bowel sounds Extremities: no edema Skin: no rash or subQ nodules Objective Data Vital Signs Vital Signs: Vital Signs - 24 hr 09/18/21 08:59 09/18/21 09:09 09/18/21 09:10 Temperature Pulse Rate 83 88 90 Respiratory Rate 24 H 25 H Blood Pressure Pulse Oximetry 97 Oxygen Delivery Mechanical Ventilation Fraction of Inspired Oxygen 35 09/18/21 10:00 09/18/21 10:00 09/18/21 10:00 Temperature 37.2 C Pulse Rate 117 H 117 H 117 H Respiratory Rate 19 18 Blood Pressure 110/85 Pulse Oximetry 99 Oxygen Delivery Fraction of Inspired Oxygen 09/18/21 10:00 09/18/21 10:00 09/18/21 11:20 Temperature Pulse Rate 117 H 117 H 120 H Respiratory Rate 19 19 Blood Pressure Pulse Oximetry 98 Oxygen Delivery Mechanical Ventilation Fraction of Inspired Oxygen 35 09/18/21 11:30 09/18/21 12:00 09/18/21 12:00 Temperature 37.7 C H Pulse Rate 121 H 121 H Respiratory Rate 18 19 Blood Pressure 127/74 Pulse Oximetry 100 Oxygen Delivery Fraction of Inspired Oxygen 08/31
--- NOTE | 2021-09-19 08:58 | WPDINTPN ---
Progress Note: A&P Assessment and Plan (1) Acute respiratory failure: Code(s): J96.00 - Acute respiratory failure, unspecified whether with hypoxia or hypercapnia Status: Acute Assessment and Plan: 09/12 all through the day had increased oxygen requirement and became more hypoxic. -09/12: Intubated later in the evening, Chest x-ray at that time showed persistent diffuse bilateral airspace disease. Possible etiologies are congestive heart failure and pulmonary edema, ARDS, aspiration pneumonia -09/19: Chest x-ray : Left PICC line tip has been repositioned now in expected position near the superior cavoatrial junction.. Persistent scattered bilateral lung disease which could represent pulmonary edema or pneumonia. -currently on CMV mode of ventilation, peep of 8 and 35% FiO2, ABGs reviewed B[place] [id number] but her echocardiogram was normal -completed 7 days of Zosyn on 09/18/2021 Sedated with propofol, Precedex and fentanyl, will wean propofol and fentanyl in place patient on breathing trial -Negative COVID PCR (2) Sepsis: Code(s): A41.9 - Sepsis, unspecified organism Status: Acute Assessment and Plan: Chest x-ray and UA were negative. CT abdomen also did not show any evidence of infection and no evidence of colitis. Although patient had elevated WBC count. -09/11/2021 urine culture negative -09/11 KUB showed airspace opacity in left lung which could be an aspiration pneumonia and she did had low-grade fever -09/11/2021 Patient was started on empiric Zosyn which will be continued -C diff came back negative (3) Hypernatremia: Code(s): E87.0 - Hyperosmolality and hypernatremia Status: Acute Assessment and Plan: 09/13 Yesterday morning patient's sodium level was elevated at 147. I changed the IV fluids and decrease the bicarbonate concentration to 10: -0: : mEq to provide hypotonic fluid to the patient. Despite that the repeat BMP around 4:00 p.m. showed sodium had acutely risen to 160. I am not 100% sure with the exact etiology of that sharp rise as patient was on very small amount of sodium bicarbonate per tube. Her NG output was also minimal. I entertained nephrogenic DI but her urine output was also not very high to explain. She did have diarrhea post upper GI series which could lead to free water losses. Due to acute increase I gave patient D5 water bolus and started on D5 water. Per tube Sodium bicarbonate was discontinued. Although sodium was improving on next check, I continued D5 water as I had to give Lasix to the patient for overall volume overload respiratory failure. This morning has decreased to 150. Although it is higher than normal I will try to stabilize that at this level and not further further correct at this time. 09/14 a sodium increased back to 155 overnight and patient was given additional D5 water and started on D5 water infusion. Free water flushes increased. Sodium is now at 154 a.m 09/15 despite increasing D5 water and increasing free water flushes patient's sodium remained high. She had a high urine output through the day yesterday and through last night This could be post ATN diuretic phase versus diabetes insipidus. I ordered urine and serum osmolarity but those are send out test and will not be back in time. I have given patient DDAVP this morning 1 mcg. She is on D5 water at 150 mL per hour. Currently free floor of flush is at 200 ml q.4 hours Case discussed with Dr. Sofia from Nephrology. No new recommendation at this time but he will review patient's labs and call me back. 09/16 sodium has remained stable in high normal range. I will continue free water flushes and monitor sodium and try to lowered slowly. I would want to avoid giving additional IV fluids due to concerns with pulmonary edema. 09/17 -continues to have high urine output through the night. Sodium remains high despite treatment with D5 water and free water flushes. Differential remains to be post ATN
[2021-09-19] MEDS: QUEtiapine FUMARATE 25 MG TABLET PO ×2 (10:46→21:25)
--- NOTE | 2021-09-19 11:10 | PCFNICU ---
ICU Rounding Note: Pt current nutrition is Vital AF 1.2 at 55 ml /hr over 22 hours. Last recorded weight is 60.2 kg, up from 46.8 kg on admit. Bowel Motility:+Bm reported 09/18 Labs Reviewed:Cr 0.5, Alb 3.2,Hgb 8.1, Hct 25.4 Meds Noted:Propofol 10.7 ml/bl=052 kcals, Precedex, Reglan, Seroquel,Fentanyl, Versed, Protonix, Potassium Chloride, Thiamine, Folic Acid Skin: WNL Additional Notes: Patient remains on mechanical vent and tube feedings of Vital AF 1.2 at 55 ml/hr over 22 hours and tolerating. Propofol infusion at 10.7 ml/hr providing an additional 282 kcals. Total nutrition: 1734 kcals/91 gms protein/1012 ml water. Meeting 100% of kcal and protein needs. Patient free water flush decreased from 200 ml to 100 ml q 4 hours. Na 143 today. Agree with diet orders at this time. Following daily in ICU rounds and reassessing every Friday and Friday.
[2021-09-19 12:20] LABS: Anion Gap 5 mmol/L (8-16); Blood Urea Nitrogen 8 mg/dL (7-17); Calcium 8.3 mg/dL (8.4-10.2); Carbon Dioxide 30 mmol/L (22-30); Chloride 111 mmol/L (98-107); Estimated CRCL calculation 108 ml/min; Estimated Glomerular Filt Rate > 60; Glucose 110 mg/dL (65-110); Sodium 146 mmol/L (137-145)
--- NOTE | 2021-09-19 12:46 | PM.IMPN ---
Progress Note: A&P Assessment and Plan (1) Acute respiratory failure: Code(s): J96.00 - Acute respiratory failure, unspecified whether with hypoxia or hypercapnia Status: Acute Assessment and Plan: 09/12 Through the day patient had increased oxygen requirement and became more hypoxic. -09/12: Intubated later in the evening Chest x-ray obtained and showed persistent diffuse bilateral airspace disease. Possible etiologies are congestive heart failure and pulmonary edema, ARDS, aspiration pneumonia -09/18: Chest x-ray : Gradual improvement since 01/16/2022 and diffuse bilateral lung disease which could represent pulmonary edema and/or pneumonia. Very small left pleural effusion -currently on CMV mode of ventilation, peep of 8 and 35% FiO2, ABGs reviewed B[place] came [place] [id number] but her echocardiogram was normal Continue Zosyn (started on 09/11/2021), continue for total of 10 days -Sedated with propofol, Precedex and fentanyl. Management per ICU. (2) Sepsis: Code(s): A41.9 - Sepsis, unspecified organism Status: Acute Assessment and Plan: Chest x-ray and UA were negative. CT abdomen also did not show any evidence of infection and no evidence of colitis. Although patient had elevated WBC count. -09/11/2021 urine culture negative -09/11 KUB showed airspace opacity in left lung which could be an aspiration pneumonia and she did had low-grade fever -09/11/2021 Patient was started on empiric Zosyn which will be continued -C diff came back negative -09/18 leukocytosis resolved. Off antibiotics. -09/19 leukocytosis and febrile this morning. (3) Hypernatremia: Code(s): E87.0 - Hyperosmolality and hypernatremia Status: Acute Assessment and Plan: 09/13 Yesterday morning patient's sodium level was elevated at 147. I changed the IV fluids and decrease the bicarbonate concentration to 10: -0: : mEq to provide hypotonic fluid to the patient. Despite that the repeat BMP around 4:00 p.m. showed sodium had acutely risen to 160. I am not 100% sure with the exact etiology of that sharp rise as patient was on very small amount of sodium bicarbonate per tube. Her NG output was also minimal. I entertained nephrogenic DI but her urine output was also not very high to explain. She did have diarrhea post upper GI series which could lead to free water losses. Due to acute increase I gave patient D5 water bolus and started on D5 water. Per tube Sodium bicarbonate was discontinued. Although sodium was improving on next check, I continued D5 water as I had to give Lasix to the patient for overall volume overload respiratory failure. This morning has decreased to 150. Although it is higher than normal I will try to stabilize that at this level and not further further correct at this time. 09/14 a sodium increased back to 155 overnight and patient was given additional D5 water and started on D5 water infusion. Free water flushes increased. Sodium is now at 154 a.m 09/15 despite increasing D5 water and increasing free water flushes patient's sodium remained high. She had a high urine output through the day yesterday and through last night This could be post ATN diuretic phase versus diabetes insipidus. I ordered urine and serum osmolarity but those are send out test and will not be back in time. I have given patient DDAVP this morning 1 mcg. She is on D5 water at 150 mL per hour. Currently free floor of flush is at 200 ml q.4 hours Case discussed with Dr. Sofia from Nephrology. No new recommendation at this time but he will review patient's labs and call me back. 09/18 Sodium normal. Off D5W. Appreciate Nephrology recommendation. 09/19 Resolved. Appreciate Nephrology recommendations. (4) Electrolyte abnormality: Code(s): E87.8 - Other disorders of electrolyte and fluid balance, not elsewhere classified Status: Acute Assessment and Plan: Resolved. Replete as needed. (5) Acute kidney injury:
[2021-09-19] MEDS: PROPOFOL IV EMULSION 100 ML 12.47 MG IV CONT (16:22)
[2021-09-19 16:26] LABS: Sodium 146 mmol/L (137-145)
[2021-09-19 16:35] LABS: Glucose Point of Care 103 mg/dl (65-105)
[2021-09-19] MEDS: MICONAZOLE NITRATE 2% CREAM 30 GM TUBE 1 APPLIC TOPICAL (21:21)
[2021-09-19 23:58] LABS: Glucose Point of Care 118 mg/dl (65-105)
[2021-09-20] VITALS (75 sets, daily range): BP systolic 69–117; BP diastolic 37–72; PULSE 80–128; RESP 10–23; TEMP 36.4–38.6; O2SAT 94–100
[2021-09-20] MEDS: ALBUTEROL SULFATE NEB 2.5 MG/3 ML INH 5 MG INHALATION ×4 (01:49→20:28)
[2021-09-20] MEDS: IPRATROPIUM BR 0.02% INH SOLN 0.5 MG/2.5 ML VIAL INHALATION ×4 (01:49→20:28)
[2021-09-20] MEDS: FENTANYL 2,500MCG/NS250ML(*CRX 2,500 MCG/250 ML BAG 12.5 MCG IV CONT ×2 (02:17→17:21)
[2021-09-20] MEDS: PROPOFOL IV EMULSION 100 ML 10.69 MG IV CONT (02:20)
[2021-09-20] MEDS: dexmedeTOMIDine 400 MCG/100 ML 400 MCG/100 ML BAG 22.24 MCG IV CONT ×5 (04:01→21:25)
[2021-09-20 04:23] LABS: FSH 6.5 mIU/mL (***)
[2021-09-20 04:42] LABS: Hematocrit 22.4 % (37.0-47.0); Mean Corpuscular HGB Conc 31.3 g/dl (32-36); Mean Corpuscular Hemoglobin 35.2 pg (26-34); Mean Corpuscular Volume 112.6 fl (80-100); Mean Platelet Volume 10.1 fl (7.4-10.4); Platelet Count Result 198 k/mm3 (150-375); Red Blood Count 1.99 M/mm3 (4.2-5.4); Red Cell Distribution Width 14.5 % (11.5-14.5); White Blood Count 12.1 K/mm3 (4.5-10.0)
[2021-09-20 05:04] LABS: Alanine Aminotransferase 23 U/L (6-35); Alkaline Phosphatase 226 U/L (38-126); Anion Gap 4 mmol/L (8-16); Aspartate Amino Transferase 25 U/L (14-36); Bilirubin,Total 0.5 mg/dL (0.2-1.3); Blood Urea Nitrogen 8 mg/dL (7-17); Calcium 8.1 mg/dL (8.4-10.2); Carbon Dioxide 30 mmol/L (22-30); Chloride 110 mmol/L (98-107); Estimated CRCL calculation 108 ml/min; Estimated Glomerular Filt Rate > 60; Glucose 122 mg/dL (65-110); Phosphorus 5.1 mg/dL (2.5-4.5); Sodium 144 mmol/L (137-145)
[2021-09-20 05:31] LABS: Alveolar/Arterial O2 Gradient 96.1 mmHg; Base Excess ABG 3.9 mEq/l (+/-2.0); Carboxyhemoglobin 0.1 % THb (0-2.0); Fractional Inspired Oxygen 30 %; HCO3 ABG 28.3 mEq/l (22.0-26.0); Methemoglobin ABG 0.3 %THb (0-1.5); Oxygen Content ABG 12.6 %vol (16.0-22.0); Oxygen Saturation ABG 94.5 % (95.0-100.0); Oxyhemoglobin 92.9 % THb (90.0-100.0); PCO2 ABG 41.5 mmHg (35.0-45.0); Reduced Hemoglobin 6.7 %THb (0-5.0); Total Hemoglobin 9.6 g/dL (12.0-18.0); pH ABG 7.451 (7.350-7.450)
[2021-09-20 05:32] LABS: Arterial Blood Gas PEEP 8 cmH2O; Arterial Blood Gas Tidal Volume 450 ml; Arterial Blood Gas Vent Mode CMV; Arterial Blood Gas Ventilator rate 18 /MIN; Device VENTILATOR; Modified Allen's Test Pass; Site Drawn RIGHT RADIAL
[2021-09-20] MEDS: CENTRAL LINE FLUSH 10 ML IV PUSH ×3 (05:37→21:30)
[2021-09-20] MEDS: QUEtiapine FUMARATE 25 MG TABLET PO ×2 (08:06→20:42)
[2021-09-20] MEDS: POTASSIUM CHLORIDE 20 MEQ PACKET (FOR LIQUID) 40 MEQ FEED TUBE (08:10)
[2021-09-20] MEDS: PANTOPRAZOLE SODIUM IV 40 MG VIAL IV PUSH ×2 (08:10→20:42)
[2021-09-20] MEDS: FOLIC ACID 1 MG/0.2 ML INJ IV PUSH (08:10)
[2021-09-20] MEDS: ENOXAPARIN 30 MG/0.3 ML SYRINGE SUB-Q (08:10)
[2021-09-20] MEDS: THIAMINE HCL 200 MG/2 ML VIAL 100 MG IV PUSH (08:10)
[2021-09-20] MEDS: MICONAZOLE NITRATE 2% CREAM 30 GM TUBE 1 APPLIC TOPICAL ×2 (08:11→20:41)
[2021-09-20 08:13] LABS: Appearance Urine Clear (Clear); Bilirubin Urine Negative (Negative); Blood Urine Negative (Negative); Color Urine Yellow (Yellow); Glucose Urine UA Negative (Negative); Ketones Urine Negative (Negative); Leukocyte Esterase Ur Negative LEU/UL (NEGATIVE); Nitrate Urine Negative (Negative); Protein Urine Trace mg/dL (Negative); Urobilinogen Urine 0.2 mg/dL (<2.0); pH Urine 6.5 (5.0-9.0)
[2021-09-20] MEDS: ACETAMINOPHEN ELIXIR 325 MG/10.15 ML UDC 650 MG PO ×2 (08:13→19:36)
[2021-09-20 08:23] LABS: Bacteria Urine Trace /hpf; Mucus Urine Rare /lpf; Transitional Epi Cells Urine Rare /hpf (None Seen); WBC Urine 0-3 /hpf (0-3)
[2021-09-20 08:26] LABS: Add Urine Microscopic? YES
--- NOTE | 2021-09-20 08:49 | WPDINTPN ---
Progress Note: A&P Assessment and Plan (1) Fever: Code(s): R50.9 - Fever, unspecified Status: Acute Assessment and Plan: Patient has been febrile since stopping the Zosyn 09/18/2021 -09/19 blood culture: Negative x2 -09/19 urine culture: Pending -09/19 sputum culture: Negative so far -patient has perineal/vulvar rash which is erythematous, flaky skin, possible fungal. Patient on miconazole topical cream. Will start Diflucan x3 days -will obtain CT scan of the chest abdomen and pelvis to rule out source of fever -check lower extremity venous Doppler -CT brain secondary encephalopathy -hold antibiotics for now (2) Acute respiratory failure: Code(s): J96.00 - Acute respiratory failure, unspecified whether with hypoxia or hypercapnia Status: Acute Assessment and Plan: 09/12 all through the day had increased oxygen requirement and became more hypoxic. -09/12: Intubated later in the evening, Chest x-ray at that time showed persistent diffuse bilateral airspace disease. Possible etiologies are congestive heart failure and pulmonary edema, ARDS, aspiration pneumonia -09/19: Chest x-ray : Left PICC line tip has been repositioned now in expected position near the superior cavoatrial junction.. Persistent scattered bilateral lung disease which could represent pulmonary edema or pneumonia. -currently on CMV mode of ventilation, peep of 8 and 35% FiO2, ABGs reviewed B[place] came [place] [id number] but her echocardiogram was normal -completed 7 days of Zosyn on 09/18/2021 Sedated with propofol, Precedex and fentanyl, will wean propofol and fentanyl in place patient on breathing trial -Negative COVID PCR (3) Sepsis: Code(s): A41.9 - Sepsis, unspecified organism Status: Acute Assessment and Plan: Chest x-ray and UA were negative. CT abdomen also did not show any evidence of infection and no evidence of colitis. Although patient had elevated WBC count. -09/11/2021 urine culture negative -09/11 KUB showed airspace opacity in left lung which could be an aspiration pneumonia and she did had low-grade fever -09/11/2021 Patient was started on empiric Zosyn which will be continued -C diff came back negative (4) Hypernatremia: Code(s): E87.0 - Hyperosmolality and hypernatremia Status: Acute Assessment and Plan: 09/13 Yesterday morning patient's sodium level was elevated at 147. I changed the IV fluids and decrease the bicarbonate concentration to 10: -0: : mEq to provide hypotonic fluid to the patient. Despite that the repeat BMP around 4:00 p.m. showed sodium had acutely risen to 160. I am not 100% sure with the exact etiology of that sharp rise as patient was on very small amount of sodium bicarbonate per tube. Her NG output was also minimal. I entertained nephrogenic DI but her urine output was also not very high to explain. She did have diarrhea post upper GI series which could lead to free water losses. Due to acute increase I gave patient D5 water bolus and started on D5 water. Per tube Sodium bicarbonate was discontinued. Although sodium was improving on next check, I continued D5 water as I had to give Lasix to the patient for overall volume overload respiratory failure. This morning has decreased to 150. Although it is higher than normal I will try to stabilize that at this level and not further further correct at this time. 09/14 a sodium increased back to 155 overnight and patient was given additional D5 water and started on D5 water infusion. Free water flushes increased. Sodium is now at 154 a.m 09/15 despite increasing D5 water and increasing free water flushes patient's sodium remained high. She had a high urine output through the day yesterday and through last night This could be post ATN diuretic phase versus diabetes insipidus. I ordered urine and serum osmolarity but those are send out test and will not be back in time. I have given patient DDAVP this morning 1 mcg. She is on D5 water at 150
[2021-09-20] MEDS: GABAPENTIN 300 MG CAPSULE PO ×3 (08:59→16:38)
[2021-09-20] MEDS: KCL 40 MEQ/WATER 100 ML 100 ML 25 ML IVPB (09:04)
[2021-09-20] MEDS: FLUCONAZOLE 100 MG/NACL 50 ML 100 MG/50 ML BTL 50 MG IVPB (09:39)
--- NOTE | 2021-09-20 09:50 | PM.IMPN ---
Progress Note: A&P Assessment and Plan (1) Fever: Code(s): R50.9 - Fever, unspecified Status: Acute Assessment and Plan: BCX & sputum cx sent. Continues to be febrile. Leukocytosis stable from yesterday. Broad spectrum antibiotics. (2) Acute respiratory failure: Code(s): J96.00 - Acute respiratory failure, unspecified whether with hypoxia or hypercapnia Status: Acute Assessment and Plan: Completed 7 days of zosyn 09/18/21. Echo shows EF 70% with normal LV, no increased LV wall thickness, mild tr, mild pHTN. COVID19 Negative. Precedex and fentanyl, will wean propofol and fentanyl in place patient on breathing trial. (3) Sepsis: Code(s): A41.9 - Sepsis, unspecified organism Status: Acute Assessment and Plan: Chest x-ray and UA were negative. CT abdomen also did not show any evidence of infection and no evidence of colitis. Although patient had elevated WBC count. -09/11/2021 urine culture negative -09/11 KUB showed airspace opacity in left lung which could be an aspiration pneumonia and she did had low-grade fever -09/11/2021 Patient was started on empiric Zosyn which will be continued -C diff came back negative (4) Hypernatremia: Code(s): E87.0 - Hyperosmolality and hypernatremia Status: Acute Assessment and Plan: -Monitor urine output -Monitor BMP q.6 hours -09/20 Sodium 144 this morning. Patient will continue with DDAVP as needed. Appreciate Nephrology recommendations. (5) Electrolyte abnormality: Code(s): E87.8 - Other disorders of electrolyte and fluid balance, not elsewhere classified Status: Acute Assessment and Plan: Resolved. Replete as needed. (6) Acute kidney injury: Code(s): N17.9 - Acute kidney failure, unspecified Status: Acute Assessment and Plan: Elevated creatinine on initial presentation. Imaging unremarkable. This has resolved. (7) Nausea & vomiting: Code(s): R11.2 - Nausea with vomiting, unspecified Status: Acute Assessment and Plan: Tolerating tube feeds. Resolved. (8) Metabolic acidosis: Code(s): E87.2 - Acidosis Status: Acute Assessment and Plan: S/p bicarbonate. Resolved. (9) Encephalopathy: Code(s): G93.40 - Encephalopathy, unspecified Status: Acute Assessment and Plan: Will follow up CT head. (10) Alcohol abuse: Code(s): F10.10 - Alcohol abuse, uncomplicated Status: Acute Assessment and Plan: Details unknown at this time. Patient's denies any alcohol intake recently but she does have history of heavy alcohol intake in the past Continue thiamine and folic acid Currently sedated with Precedex and propofol infusion (11) Esophagitis: Code(s): K20.90 - Esophagitis, unspecified without bleeding Status: Acute Assessment and Plan: continue PPI (12) Hypoglycemia: Code(s): E16.2 - Hypoglycemia, unspecified Status: Acute Assessment and Plan: Resolved. (13) COPD (chronic obstructive pulmonary disease): Code(s): J44.9 - Chronic obstructive pulmonary disease, unspecified Status: Acute Assessment and Plan: Continue bronchodilators (14) Vulvar rash: Code(s): R21 - Rash and other nonspecific skin eruption Status: Acute Assessment and Plan: On fluconazole oral and miconazole cream. Will monitor. (15) Anemia: Code(s): D64.9 - Anemia, unspecified Status: Acute Assessment and Plan: Getting 1 unit PRBCs this morning. Will monitor. Subjective Date/time seen: 09/20/21 19:50 Patient intubated and sedated. Review of Systems Review of Systems: ROS unobtainable: Yes unobtainable due to endotracheal tube Exam Narrative: GENERAL: NAD, cooperative HEENT: Normocephalic, atraumatic, anicteric NECK: Supple CV: Normal S1, S2, RRR, No MRG RESP: coarse
[2021-09-20 09:51] LABS: Iron 34 ug/dL (37-170)
[2021-09-20 09:52] LABS: Lactate Dehydrogenase 730 U/L (313-618)
[2021-09-20 10:00] LABS: Percent Iron Saturation 18 % (20-50)
[2021-09-20] MEDS: LACTATED RINGERS 1,000 ML 999 ML IV CONT (10:02)
[2021-09-20 10:03] LABS: Basophils Absolute Auto 0.1 K/mm3 (0.0-0.1); Basophils Percent Auto 0.4 % (0.2-1.2); Eosinophils Absolute Auto 0.4 K/mm3 (0-0.3); Eosinophils Percent Auto 3.6 % (0-4.4); Hematocrit 22.3 % (37.0-47.0); Immature Granulocyte Absolute 0.17 K/mm3 (0.00-0.031); Immature Granulocyte Percent A 1.5 % (0-0.5); Immature Reticulocyte Fraction 55.9 % (3.0-15.9); Lymphocytes Absolute Auto 2.49 K/mm3 (0.9-3.2); Lymphocytes Percent Auto 22.2 % (18.3-44.2); Mean Corpuscular HGB Conc 30.5 g/dl (32-36); Mean Corpuscular Hemoglobin 35.1 pg (26-34); Mean Corpuscular Volume 114.9 fl (80-100); Monocytes Absolute Auto 1.2 K/mm3 (0.1-0.6); Monocytes Percent Auto 10.7 % (2.6-8.5); Neutrophils Absolute Auto 6.9 K/mm3 (1.3-6.7); Neutrophils Percent Auto 61.6 % (45.5-73.1); Nucleated Red Blood Cells Absolute Auto 0.1 K/mm3 (0.0-0.012); Nucleated Red Blood Cells Perc 0.5 % (0.0-0.2); Platelet Count Result 197 k/mm3 (150-375); Red Blood Count 1.94 M/mm3 (4.2-5.4); Red Cell Distribution Width 14.6 % (11.5-14.5); Reticulocyte Hemoglobin Conten 28.3 pg (28.2-35.7); Reticulocyte Percent 3.49 % (0.7-4.3); Reticulocytes Absolute 0.07 B/L (32.2-175.7); White Blood Count 11.2 K/mm3 (4.5-10.0)
[2021-09-20 10:18] LABS: Hemoglobin 6.8 g/dL (12.0-15.0)
[2021-09-20 10:33] LABS: Hypochromasia 1+ (NORMAL); Microcytosis 3+ (NORMAL)
[2021-09-20 10:34] LABS: Anisocytosis 1+ (NORMAL); Platelet Estimate Adequate (Adequate); Poikilocytosis 2+ (NORMAL)
[2021-09-20 10:56] LABS: Folic Acid 12.6 ng/mL (2.76->20)
[2021-09-20] MEDS: PROPOFOL IV EMULSION 100 ML 5.35 MG IV CONT (11:25)
[2021-09-20 11:31] LABS: Glucose Point of Care 114 mg/dl (65-105)
[2021-09-20 12:36] LABS: Osmolality, Urine 180 mOsm/kg (50-1200)
[2021-09-20 12:52] LABS: Lactic Acid Reflex 1.3 mmol/L (0.7-2.0)
--- NOTE | 2021-09-20 13:18 | PCFNICU ---
ICU Rounding Note: Pt current nutrition is Vital AF 1.2 at 55 ml/hr over 22 hours. Last recorded weight is 60.7 kg, up from 46.7 kg on admit. Bowel Motility:+BM reported 09/19 Labs Reviewed:Cr 0.5, K 3.0,Alb 3.0, Hct 22.4,Hgb 7.0 Meds Noted:Folic Acid, Fentanyl, Versed, Protonix, Zosyn,Thiamine, Propofol 25 ml/sc=317 kcals Skin: WNL Additional Notes: Patient remains on mechanical vent and tube feedings of Vital AF 1.2 at 55 ml/hr over 22 hours. Total nutrition with propofol infusion at 1690 kcals and 91 gms protein, meeting 100% of kcals and protein needs. Free water flush 100 ml q 4 hours. Agree with diet orders. Following daily in ICU rounds and reassessing every Friday and Friday.
[2021-09-20] MEDS: NOREPINEPHRINE 8 MG/D5W 250 ML 8 MG/250 ML BAG 9.38 MG IV CONT (13:30)
[2021-09-20] MEDS: polyethylene glycoL 3350 17 GM POWD.PACK PO (16:38)
[2021-09-20 16:40] LABS: Hematocrit 27.7 % (37.0-47.0); Hemoglobin 8.7 g/dL (12.0-15.0); Mean Corpuscular HGB Conc 31.4 g/dl (32-36); Mean Corpuscular Volume 104.9 fl (80-100); Mean Platelet Volume 10.2 fl (7.4-10.4); Platelet Count Result 224 k/mm3 (150-375); Red Blood Count 2.64 M/mm3 (4.2-5.4); Red Cell Distribution Width 18.9 % (11.5-14.5); White Blood Count 10.5 K/mm3 (4.5-10.0)
[2021-09-20 16:49] LABS: Anion Gap 4 mmol/L (8-16); Blood Urea Nitrogen 7 mg/dL (7-17); Calcium 8.2 mg/dL (8.4-10.2); Carbon Dioxide 28 mmol/L (22-30); Chloride 111 mmol/L (98-107); Estimated CRCL calculation 132 ml/min; Estimated Glomerular Filt Rate > 60; Glucose 131 mg/dL (65-110); Potassium 3.8 mmol/L (3.4-5.0); Sodium 143 mmol/L (137-145)
[2021-09-20 16:56] LABS: Glucose Point of Care 142 mg/dl (65-105)
[2021-09-20] MEDS: MINERAL OIL/WHITE PETROLATUM OINTMENT 1 APPLIC EACH EYE (20:41)
[2021-09-20] MEDS: MIDAZOLAM HCL (*CRX) 2 MG/2 ML VIAL IV PUSH (22:30)
[2021-09-20 23:39] LABS: Glucose Point of Care 116 mg/dl (65-105)
[2021-09-21] VITALS (54 sets, daily range): BP systolic 85–136; BP diastolic 46–77; PULSE 78–136; RESP 10–26; TEMP 37.3–39.1; O2SAT 96–99; BMI 20.2
[2021-09-21] MEDS: dexmedeTOMIDine 400 MCG/100 ML 400 MCG/100 ML BAG 22.24 MCG IV CONT ×5 (02:03→21:47)
[2021-09-21] MEDS: IPRATROPIUM BR 0.02% INH SOLN 0.5 MG/2.5 ML VIAL INHALATION ×4 (02:52→20:00)
[2021-09-21] MEDS: ALBUTEROL SULFATE NEB 2.5 MG/3 ML INH 5 MG INHALATION ×4 (02:52→20:00)
[2021-09-21] MEDS: MIDAZOLAM HCL (*CRX) 2 MG/2 ML VIAL IV PUSH ×2 (04:15→06:40)
[2021-09-21 04:20] LABS: Hematocrit 30.8 % (37.0-47.0); Hemoglobin 9.3 g/dL (12.0-15.0); Mean Corpuscular HGB Conc 30.2 g/dl (32-36); Mean Corpuscular Hemoglobin 33.2 pg (26-34); Mean Platelet Volume 10.7 fl (7.4-10.4); Platelet Count Result 208 k/mm3 (150-375); Red Cell Distribution Width 19.5 % (11.5-14.5); White Blood Count 11.9 K/mm3 (4.5-10.0)
[2021-09-21 04:30] LABS: Alanine Aminotransferase 21 U/L (6-35); Albumin Level 3.2 g/dL (3.5-5.1); Alkaline Phosphatase 211 U/L (38-126); Anion Gap 7 mmol/L (8-16); Aspartate Amino Transferase 21 U/L (14-36); Bilirubin,Total 0.5 mg/dL (0.2-1.3); Blood Urea Nitrogen 7 mg/dL (7-17); Calcium 8.9 mg/dL (8.4-10.2); Carbon Dioxide 27 mmol/L (22-30); Chloride 110 mmol/L (98-107); Estimated CRCL calculation 132 ml/min; Estimated Glomerular Filt Rate > 60; Glucose 153 mg/dL (65-110); Magnesium 2.1 mg/dL (1.6-2.3); Phosphorus 3.8 mg/dL (2.5-4.5); Sodium 144 mmol/L (137-145)
[2021-09-21] MEDS: PROPOFOL IV EMULSION 100 ML 7.13 MG IV CONT (05:05)
[2021-09-21] MEDS: CENTRAL LINE FLUSH 10 ML IV PUSH ×3 (05:15→21:47)
[2021-09-21] MEDS: ACETAMINOPHEN ELIXIR 325 MG/10.15 ML UDC 650 MG PO ×2 (05:46→12:23)
[2021-09-21 06:02] LABS: Alveolar/Arterial O2 Gradient 90.3 mmHg; Base Excess ABG 0.7 mEq/l (+/-2.0); Carboxyhemoglobin 0.2 % THb (0-2.0); Fractional Inspired Oxygen 30 %; HCO3 ABG 25.8 mEq/l (22.0-26.0); Methemoglobin ABG 0.3 %THb (0-1.5); Oxygen Content ABG 9.3 %vol (16.0-22.0); Oxygen Saturation ABG 94.2 % (95.0-100.0); Oxyhemoglobin 93.2 % THb (90.0-100.0); PCO2 ABG 44.1 mmHg (35.0-45.0); PO2 ABG 71.8 mmHg (80.0-100.0); PO2 FiO2 Ratio Arterial Blood 2.39 %; Reduced Hemoglobin 6.3 %THb (0-5.0); pH ABG 7.385 (7.350-7.450)
[2021-09-21 06:03] LABS: Device VENTILATOR; Modified Allen's Test Pass; Site Drawn RIGHT RADIAL
[2021-09-21 06:05] LABS: Arterial Blood Gas PEEP 8 cmH2O; Arterial Blood Gas Vent Mode ASV
[2021-09-21] MEDS: GABAPENTIN 300 MG CAPSULE PO ×3 (07:47→21:47)
[2021-09-21] MEDS: QUEtiapine FUMARATE 25 MG TABLET PO ×2 (07:49→21:46)
--- NOTE | 2021-09-21 08:20 | P.PNNP_ITS ---
Progress Note: A&P Assessment and Plan (1) Acute kidney injury: Code(s): N17.9 - Acute kidney failure, unspecified Status: Acute Assessment and Plan: * resolved (2) Hypernatremia: Code(s): E87.0 - Hyperosmolality and hypernatremia Status: Acute Assessment and Plan: * persistent for the last several days * she had a urine osmolality yesterday morning and this is pending. * Still unclear if this is DI verses some sort of osmolar issue. The only reason to hesitate is at her urine specific gravity was 1.010, less than dilute. await urine osmo. * on ddavp 0.05 bid. sodium 144. will increase to 0.1 bid. * on TF flushes. (3) Acute respiratory failure: Code(s): J96.00 - Acute respiratory failure, unspecified whether with hypoxia or hypercapnia Status: Acute Assessment and Plan: * on mechanical ventilation * suspect secondary to CHF/pulmonary edema versus possible aspiration pneumonia * Chest x-ray is gradually improving. * follow culture data * on cefipime * ventilator weaning as tolerated (4) Electrolyte abnormality: Code(s): E87.8 - Other disorders of electrolyte and fluid balance, not elsewhere classified Status: Acute Assessment and Plan: * Electrolytes okay now. * Will continue to monitor. (5) Altered mental status: Code(s): R41.82 - Altered mental status, unspecified Status: Acute Assessment and Plan: * Still sedated. * Seems a little more awake today. (6) Nausea & vomiting: Code(s): R11.2 - Nausea with vomiting, unspecified Status: Acute Assessment and Plan: * as noted on presentation to OSH * CT of A/P suggest obstruction * Latest KUB shows nonspecific abdomen. (7) Alcohol abuse: Code(s): F10.10 - Alcohol abuse, uncomplicated Status: Acute Assessment and Plan: * details/specifics are unknown at this time * on thiamine and folic acid Subjective Date/time seen: 09/21/21 08:20 Interval history: Gerard is on the ventilator and sedated. No pressors needed overnight. eyes open but doens't really regard examiner or follow instructions. Exam Narrative: General: female in NAD but intubated/sedated Heart: normal S1 and S2; no rub or gallop Lungs: coarse breath sounds bilaterally Abdomen: soft, nondistended, positive bowel sounds Extremities: no edema or cyanosis. Skin: no rash or subQ nodules Objective Data Vital Signs Vital Signs: Vital Signs - 24 hr 09/21/21 10:26 09/21/21 11:00 09/21/21 11:04 Temperature Pulse Rate 136 H 131 H 130 H Respiratory Rate 26 H Blood Pressure Pulse Oximetry 99 Oxygen Delivery Mechanical Ventilation Fraction of Inspired Oxygen 30 09/21/21 10:00 09/21/21 10:15 09/21/21 10:00 Temperature Pulse Rate 134 H 122 H 122 H Respiratory Rate 22 H 10 L Blood Pressure Pulse Oximetry Oxygen Delivery Fraction of Inspired Oxygen 09/21/21 10:00 09/21/21 11:21 09/21/21 11:25 Temperature 38.4 C H Pulse Rate 134 H 125 H Respiratory Rate 22 H Blood Pressure 127/67 Pulse Ox
--- NOTE | 2021-09-21 08:20 | PM.PNNEP ---
Progress Note: A&P Assessment and Plan (1) Acute kidney injury: Code(s): N17.9 - Acute kidney failure, unspecified Status: Acute Assessment and Plan: resolved (2) Hypernatremia: Code(s): E87.0 - Hyperosmolality and hypernatremia Status: Acute Assessment and Plan: persistent for the last several days she had a urine osmolality yesterday morning and this is pending. Still unclear if this is DI verses some sort of osmolar issue. The only reason to hesitate is at her urine specific gravity was 1.010, less than dilute. await urine osmo. on ddavp 0.05 bid. sodium 144. will increase to 0.1 bid. on TF flushes. (3) Acute respiratory failure: Code(s): J96.00 - Acute respiratory failure, unspecified whether with hypoxia or hypercapnia Status: Acute Assessment and Plan: on mechanical ventilation suspect secondary to CHF/pulmonary edema versus possible aspiration pneumonia Chest x-ray is gradually improving. follow culture data on cefipime ventilator weaning as tolerated (4) Electrolyte abnormality: Code(s): E87.8 - Other disorders of electrolyte and fluid balance, not elsewhere classified Status: Acute Assessment and Plan: Electrolytes okay now. Will continue to monitor. (5) Altered mental status: Code(s): R41.82 - Altered mental status, unspecified Status: Acute Assessment and Plan: Still sedated. Seems a little more awake today. (6) Nausea & vomiting: Code(s): R11.2 - Nausea with vomiting, unspecified Status: Acute Assessment and Plan: as noted on presentation to OSH CT of A/P suggest obstruction Latest KUB shows nonspecific abdomen. (7) Alcohol abuse: Code(s): F10.10 - Alcohol abuse, uncomplicated Status: Acute Assessment and Plan: details/specifics are unknown at this time on thiamine and folic acid Subjective Date/time seen: 09/21/21 08:20 Interval history: Gerard is on the ventilator and sedated. No pressors needed overnight. eyes open but doens't really regard examiner or follow instructions. Exam Narrative: General: female in NAD but intubated/sedated Heart: normal S1 and S2; no rub or gallop Lungs: coarse breath sounds bilaterally Abdomen: soft, nondistended, positive bowel sounds Extremities: no edema or cyanosis. Skin: no rash or subQ nodules Objective Data Vital Signs Vital Signs: Vital Signs - 24 hr 09/21/21 10:26 09/21/21 11:00 09/21/21 11:04 Temperature Pulse Rate 136 H 131 H 130 H Respiratory Rate 26 H Blood Pressure Pulse Oximetry 99 Oxygen Delivery Mechanical Ventilation Fraction of Inspired Oxygen 30 09/21/21 10:00 09/21/21 10:15 09/21/21 10:00 Temperature Pulse Rate 134 H 122 H 122 H Respiratory Rate 22 H 10 L Blood Pressure Pulse Oximetry Oxygen Delivery Fraction of Inspired Oxygen 09/21/21 10:00 09/21/21 11:21 09/21/21 11:25 Temperature 38.4 C H Pulse Rate 134 H 125 H Respiratory Rate 22 H Blood Pressure 127/67 Pulse Oximetry 98 98 Oxygen Delivery Mechanical Ventilation Fraction of Inspired Oxygen 30 30 09/21/21 12:23 09/21/21 12:00 09/21/21 12:00 Temperature 38.5 C H Pulse Rate Respiratory Rate Blood Pressure Pulse Oximetry 97 Oxygen Delivery CPAP Fraction of Inspired Oxygen 30 30 09/21/21 12:00 09/21/21 12:00 09/21/21 14:00 Temperature 39.1 C H Pulse Rate 126 H 126 H 102 H Respiratory Rate 23 H Blood Pressure 135/55 L Pulse Oximetry 97 Oxygen Delivery Fraction of Inspired Oxygen 09/21/21 14:00 09/21/21 14:15 09/21/21 13:23 Temperature 38.7 C H 38.2 C H Pulse Rate 102 H Respiratory Rate 15 Blood Pressure 90/46 L 135/65 Pulse Oximetry 96 Oxygen Delivery Fraction of Inspired Oxygen 09/21/21 13:25 09/21/21 15:04 09/21/21 15:08 Temperature Pulse Rate 122 H
[2021-09-21] MEDS: PANTOPRAZOLE SODIUM IV 40 MG VIAL IV PUSH ×2 (08:22→21:46)
[2021-09-21] MEDS: THIAMINE HCL 200 MG/2 ML VIAL 100 MG IV PUSH (08:22)
[2021-09-21] MEDS: MINERAL OIL/WHITE PETROLATUM OINTMENT 1 APPLIC EACH EYE ×2 (08:22→21:42)
[2021-09-21] MEDS: MICONAZOLE NITRATE 2% CREAM 30 GM TUBE 1 APPLIC TOPICAL ×2 (08:23→21:42)
[2021-09-21] MEDS: FOLIC ACID 1 MG/0.2 ML INJ IV PUSH (08:33)
--- NOTE | 2021-09-21 09:56 | WPDINTPN ---
Progress Note: A&P Assessment and Plan (1) Fever: Code(s): R50.9 - Fever, unspecified Status: Acute Assessment and Plan: Patient has been febrile since stopping the Zosyn 09/18/2021 -09/19 blood culture: No growth x2 -09/19 urine culture: No growth -09/19 sputum culture: Yeast -patient has perineal/vulvar rash which is erythematous, flaky skin, possible fungal. Patient on miconazole topical cream. 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 -start patient on vancomycin, cefepime and Levaquin on 09/20/2021 (2) Acute respiratory failure: Code(s): J96.00 - Acute respiratory failure, unspecified whether with hypoxia or hypercapnia Status: Acute Assessment and Plan: 09/12 all through the day had increased oxygen requirement and became more hypoxic. -09/12: Intubated later in the evening, Chest x-ray at that time showed persistent diffuse bilateral airspace disease. Possible etiologies are congestive heart failure and pulmonary edema, ARDS, aspiration pneumonia -09/19: Chest x-ray : Left PICC line tip has been repositioned now in expected position near the superior cavoatrial junction.. Persistent scattered bilateral lung disease which could represent pulmonary edema or pneumonia. -currently on ASV mode of ventilation, peep of 8 in 30% FiO2, patient was placed on pressure support ventilation 10/5, place patient on 8/5 and evaluate for extubation. -have asked the bedside RN to wean sedation -completed 7 days of Zosyn on 09/18/2021l -Negative COVID PCR (3) Sepsis: Code(s): A41.9 - Sepsis, unspecified organism Status: Acute Assessment and Plan: Chest x-ray and UA were negative. CT abdomen also did not show any evidence of infection and no evidence of colitis. Although patient had elevated WBC count. -09/11/2021 urine culture negative -09/11 KUB showed airspace opacity in left lung which could be an aspiration pneumonia and she did had low-grade fever -status post Zosyn x7 days -C diff came back negative -patient continues to be febrile, started on antibiotics as above (4) Hypernatremia: Code(s): E87.0 - Hyperosmolality and hypernatremia Status: Acute Assessment and Plan: 09/13 Yesterday morning patient's sodium level was elevated at 147. I changed the IV fluids and decrease the bicarbonate concentration to 10: -0: : mEq to provide hypotonic fluid to the patient. Despite that the repeat BMP around 4:00 p.m. showed sodium had acutely risen to 160. I am not 100% sure with the exact etiology of that sharp rise as patient was on very small amount of sodium bicarbonate per tube. Her NG output was also minimal. I entertained nephrogenic DI but her urine output was also not very high to explain. She did have diarrhea post upper GI series which could lead to free water losses. Due to acute increase I gave patient D5 water bolus and started on D5 water. Per tube Sodium bicarbonate was discontinued. Although sodium was improving on next check, I continued D5 water as I had to give Lasix to the patient for overall volume overload respiratory failure. This morning has decreased to 150. Although it is higher than normal I will try to stabilize that at this level and not further further correct at this time. 09/14 a sodium increased back to 155 overnight and patient was given additional D5 water and started on D5 water infusion. Free water flushes increased. Sodium is now at 154 a.m 09/15 despite increasing D5 water and increasing free water flushes patient's sodium remained high. She had a high urine
[2021-09-21] MEDS: FLUCONAZOLE 100 MG/NACL 50 ML 100 MG/50 ML BTL 50 MG IVPB (10:40)
[2021-09-21] MEDS: METOPROLOL TARTRATE 6.25 MG TABLET PO (11:00)
--- NOTE | 2021-09-21 11:46 | PCNFU ---
Nutrition Follow-Up Complete: Altered GI function as related to Nausea/Vomitting as evidenced by NPO. Goal: Meet estimated nutritional needs Patient is progressing towards goal. We will continue current goal. Pt current nutrition is Vital AF 1.2 at 55 ml/hr Last recorded weight is 58.8 kg, up from 46.8 kg on admit. Bowel Motility:+BM reported 09/21 Labs Reviewed:Glu 153, Alb 3.2,Hct 30.8,Hgb 9.3, Cr 0.4 Meds Noted:Seroquel, Precedex,Folic Acid, Fentanyl, Protonix,Thiamine, Diflucan, Maxipime, Neurontin, Vancomycin,Lopressor. Skin: WNL Additional Notes: Patient remains on mechanical vent. Tolerating tube feedings of Vital AF 1.2 at 55 ml/hr over 22 hours. Providing 1452 kcals and 91 gms protein. Propofol has been turned off at this time. Spoke with MD regarding propofol infusion, if patient remains off Propofol recommend increasing tube feeding rate to 60 ml/hr. Providing 1584 kcals and 91 gms protein, meeting 90% of caloric needs and 100% protein needs. Free water flush 100 ml q 4 hours. Agree with diet orders. Will follow in ICU rounds and reassess every Friday and Friday.
[2021-09-21 12:29] LABS: Glucose Point of Care 96 mg/dl (65-105)
[2021-09-21] MEDS: rOPINIRole HCL 1 MG TABLET PO ×2 (12:57→21:47)
[2021-09-21 13:02] LABS: Osmolality, Urine 417 mOsm/kg (50-1200)
[2021-09-21] MEDS: FENTANYL 2,500MCG/NS250ML(*CRX 2,500 MCG/250 ML BAG 10 MCG IV CONT (13:25)
[2021-09-21 15:44] LABS: Adrenocorticotropic Hormone <5 pg/mL (6-50)
[2021-09-21 17:21] LABS: Glucose Point of Care 101 mg/dl (65-105)
[2021-09-21] MEDS: DESMOPRESSIN ACETATE 0.1 MG TABLET PO (21:46)
[2021-09-21 23:56] LABS: Glucose Point of Care 126 mg/dl (65-105)
[2021-09-22] VITALS (43 sets, daily range): BP systolic 80–165; BP diastolic 46–89; PULSE 79–145; RESP 10–32; TEMP 36.9–37.8; O2SAT 98–100
[2021-09-22] MEDS: dexmedeTOMIDine 400 MCG/100 ML 400 MCG/100 ML BAG 22.24 MCG IV CONT ×5 (00:41→21:00)
[2021-09-22] MEDS: IPRATROPIUM BR 0.02% INH SOLN 0.5 MG/2.5 ML VIAL INHALATION ×4 (02:09→19:54)
[2021-09-22] MEDS: ALBUTEROL SULFATE NEB 2.5 MG/3 ML INH 5 MG INHALATION ×3 (02:09→19:54)
[2021-09-22 05:32] LABS: Basophils Absolute Auto 0.1 K/mm3 (0.0-0.1); Basophils Percent Auto 0.5 % (0.2-1.2); Eosinophils Absolute Auto 0.2 K/mm3 (0-0.3); Eosinophils Percent Auto 2.1 % (0-4.4); Hemoglobin 8.4 g/dL (12.0-15.0); Immature Granulocyte Absolute 0.06 K/mm3 (0.00-0.031); Immature Granulocyte Percent A 0.5 % (0-0.5); Lymphocytes Absolute Auto 1.85 K/mm3 (0.9-3.2); Lymphocytes Percent Auto 16.1 % (18.3-44.2); Mean Corpuscular HGB Conc 31.1 g/dl (32-36); Mean Corpuscular Hemoglobin 33.1 pg (26-34); Mean Corpuscular Volume 106.3 fl (80-100); Mean Platelet Volume 10.5 fl (7.4-10.4); Monocytes Percent Auto 8.6 % (2.6-8.5); Neutrophils Absolute Auto 8.3 K/mm3 (1.3-6.7); Neutrophils Percent Auto 72.2 % (45.5-73.1); Platelet Count Result 251 k/mm3 (150-375); Red Blood Count 2.54 M/mm3 (4.2-5.4); Red Cell Distribution Width 17.5 % (11.5-14.5); White Blood Count 11.5 K/mm3 (4.5-10.0)
[2021-09-22 05:37] LABS: Alveolar/Arterial O2 Gradient 77.7 mmHg; Base Excess ABG 2.8 mEq/l (+/-2.0); Fractional Inspired Oxygen 30 %; HCO3 ABG 26.9 mEq/l (22.0-26.0); Methemoglobin ABG 0.3 %THb (0-1.5); Oxygen Content ABG 11.6 %vol (16.0-22.0); Oxygen Saturation ABG 97.2 % (95.0-100.0); Oxyhemoglobin 95.9 % THb (90.0-100.0); PCO2 ABG 39.4 mmHg (35.0-45.0); PO2 ABG 89.9 mmHg (80.0-100.0); Reduced Hemoglobin 3.8 %THb (0-5.0); Total Hemoglobin 8.5 g/dL (12.0-18.0); pH ABG 7.452 (7.350-7.450)
[2021-09-22 05:39] LABS: Device VENTILATOR; Modified Allen's Test Pass; Site Drawn RIGHT RADIAL
[2021-09-22 05:40] LABS: Arterial Blood Gas PEEP 8 cmH2O; Arterial Blood Gas Vent Mode ASV
[2021-09-22 05:40] LABS: Lactic Acid Reflex 1.1 mmol/L (0.7-2.0)
[2021-09-22] MEDS: CENTRAL LINE FLUSH 10 ML IV PUSH ×3 (05:51→21:04)
[2021-09-22] MEDS: GABAPENTIN 300 MG CAPSULE PO ×3 (05:54→21:04)
[2021-09-22 06:06] LABS: Alanine Aminotransferase 16 U/L (6-35); Albumin Level 3.1 g/dL (3.5-5.1); Alkaline Phosphatase 172 U/L (38-126); Anion Gap 7 mmol/L (8-16); Aspartate Amino Transferase 22 U/L (14-36); Bilirubin,Total 0.5 mg/dL (0.2-1.3); Blood Urea Nitrogen 15 mg/dL (7-17); Calcium 8.6 mg/dL (8.4-10.2); Carbon Dioxide 28 mmol/L (22-30); Chloride 103 mmol/L (98-107); Estimated CRCL calculation 104 ml/min; Estimated Glomerular Filt Rate > 60; Glucose 108 mg/dL (65-110); Lipase 132 U/L (23-300); Phosphorus 4.3 mg/dL (2.5-4.5); Potassium 3.2 mmol/L (3.4-5.0); Sodium 138 mmol/L (137-145)
[2021-09-22 06:23] LABS: Vancomycin Trough 24.7 ug/mL (10.0-20.0)
[2021-09-22] MEDS: LORazepam INJ (*CRX) 2 MG/ML VIAL IV PUSH (08:20)
[2021-09-22 09:17] LABS: IFOB Positive Control Positive; Immunochemical Fecal Occult Bl Negative (N)
[2021-09-22] MEDS: POTASSIUM CHLORIDE 20 MEQ PACKET (FOR LIQUID) 40 MEQ FEED TUBE (09:57)
[2021-09-22] MEDS: KCL 40 MEQ/WATER 100 ML 100 ML 25 ML IVPB (09:58)
[2021-09-22] MEDS: FLUCONAZOLE 100 MG/NACL 50 ML 100 MG/50 ML BTL 50 MG IVPB (09:58)
[2021-09-22] MEDS: PANTOPRAZOLE SODIUM IV 40 MG VIAL IV PUSH ×2 (10:00→21:04)
[2021-09-22] MEDS: THIAMINE HCL 200 MG/2 ML VIAL 100 MG IV PUSH (10:00)
[2021-09-22] MEDS: DESMOPRESSIN ACETATE 0.1 MG TABLET PO ×2 (10:00→21:05)
[2021-09-22] MEDS: METOPROLOL TARTRATE 6.25 MG TABLET PO ×2 (10:00→11:01)
[2021-09-22] MEDS: MINERAL OIL/WHITE PETROLATUM OINTMENT 1 APPLIC EACH EYE (10:01)
[2021-09-22] MEDS: QUEtiapine FUMARATE 25 MG TABLET PO (10:01)
[2021-09-22] MEDS: MICONAZOLE NITRATE 2% CREAM 30 GM TUBE 1 APPLIC TOPICAL ×2 (10:02→21:04)
[2021-09-22] MEDS: FOLIC ACID 1 MG/0.2 ML INJ IV PUSH (10:08)
[2021-09-22] MEDS: METOPROLOL TARTRATE INJ 5 MG/5 ML VIAL 2.5 MG IV PUSH (10:30)
--- NOTE | 2021-09-22 11:46 | P.PNNP_ITS ---
Progress Note: A&P Assessment and Plan (1) Acute kidney injury: Code(s): N17.9 - Acute kidney failure, unspecified Status: Acute Assessment and Plan: * resolved (2) Hypernatremia: Code(s): E87.0 - Hyperosmolality and hypernatremia Status: Acute Assessment and Plan: * persistent for the last several days * she had a urine osmolality yesterday morning and this is pending. * Still unclear if this is DI verses some sort of osmolar issue. Her urine osmolality before the DDAVP was 180. This is low considering her hypernatremia. So she probably does have at least some diabetes insipidus. Her urine osmolality after the DDAVP did rise significantly but not to maximum levels so this may be partial central DI? Interestingly, her ACTH is low, FSH is probably inappropriately low as well considering her post mental menopausal state, and her cortisol level is not above 15. When she gets better we can check her her sella turcica for a pituitary tumor. I will check a Cortrosyn stim test as well , just because the cortisol level is low in her stressed c ondition but I do not think it will help us as to whether this is primary or secondary adrenal insufficiency if present. * on ddavp 0.1 bid. * Sodium level now 138. * Will keep the same medicines going. (3) Acute respiratory failure: Code(s): J96.00 - Acute respiratory failure, unspecified whether with hypoxia or hypercapnia Status: Acute Assessment and Plan: * on mechanical ventilation * suspect secondary to CHF/pulmonary edema versus possible aspiration pneumonia * Chest x-ray is gradually improving. * follow culture data * on cefipime * ventilator weaning as tolerated (4) Electrolyte abnormality: Code(s): E87.8 - Other disorders of electrolyte and fluid balance, not elsewhere classified Status: Acute Assessment and Plan: * Electrolytes okay now. * Will continue to monitor. (5) Altered mental status: Code(s): R41.82 - Altered mental status, unspecified Status: Acute Assessment and Plan: * Still sedated. * Seems a little more awake today. (6) Nausea & vomiting: Code(s): R11.2 - Nausea with vomiting, unspecified Status: Acute Assessment and Plan: * as noted on presentation to OSH * CT of A/P suggest obstruction * Latest KUB shows nonspecific abdomen. (7) Alcohol abuse: Code(s): F10.10 - Alcohol abuse, uncomplicated Status: Acute Assessment and Plan: * details/specifics are unknown at this time * on thiamine and folic acid Subjective Date/time seen: 09/22/21 11:46 Interval history: Gerard is on the ventilator and sedated. eyes are open and she regards examiner. She does follow some instructions. Exam Narrative: General: female in NAD but intubated/sedated Heart: normal S1 and S2; no rub or gallop Lungs: coarse breath sounds Abdomen: soft, nondistended, positive bowel sounds Extremities: no edema Skin: no rash Objective Data Vital Signs Vital Signs: Vital Signs - 24 hr 09/21/21 12:23 09/21/21 12:00 09/21/21 12:00 Temperature 38.5 C H Pulse Rate Respiratory Rate Blood Pressure Pulse Oximetry 97 Oxygen Delivery CPAP Fraction of Inspired Oxyge
--- NOTE | 2021-09-22 11:46 | PM.PNNEP ---
Progress Note: A&P Assessment and Plan (1) Acute kidney injury: Code(s): N17.9 - Acute kidney failure, unspecified Status: Acute Assessment and Plan: resolved (2) Hypernatremia: Code(s): E87.0 - Hyperosmolality and hypernatremia Status: Acute Assessment and Plan: persistent for the last several days she had a urine osmolality yesterday morning and this is pending. Still unclear if this is DI verses some sort of osmolar issue. Her urine osmolality before the DDAVP was 180. This is low considering her hypernatremia. So she probably does have at least some diabetes insipidus. Her urine osmolality after the DDAVP did rise significantly but not to maximum levels so this may be partial central DI? Interestingly, her ACTH is low, FSH is probably inappropriately low as well considering her post mental menopausal state, and her cortisol level is not above 15. When she gets better we can check her her sella turcica for a pituitary tumor. I will check a Cortrosyn stim test as well , just because the cortisol level is low in her stressed condition but I do not think it will help us as to whether this is primary or secondary adrenal insufficiency if present. on ddavp 0.1 bid. Sodium level now 138. Will keep the same medicines going. (3) Acute respiratory failure: Code(s): J96.00 - Acute respiratory failure, unspecified whether with hypoxia or hypercapnia Status: Acute Assessment and Plan: on mechanical ventilation suspect secondary to CHF/pulmonary edema versus possible aspiration pneumonia Chest x-ray is gradually improving. follow culture data on cefipime ventilator weaning as tolerated (4) Electrolyte abnormality: Code(s): E87.8 - Other disorders of electrolyte and fluid balance, not elsewhere classified Status: Acute Assessment and Plan: Electrolytes okay now. Will continue to monitor. (5) Altered mental status: Code(s): R41.82 - Altered mental status, unspecified Status: Acute Assessment and Plan: Still sedated. Seems a little more awake today. (6) Nausea & vomiting: Code(s): R11.2 - Nausea with vomiting, unspecified Status: Acute Assessment and Plan: as noted on presentation to OSH CT of A/P suggest obstruction Latest KUB shows nonspecific abdomen. (7) Alcohol abuse: Code(s): F10.10 - Alcohol abuse, uncomplicated Status: Acute Assessment and Plan: details/specifics are unknown at this time on thiamine and folic acid Subjective Date/time seen: 09/22/21 11:46 Interval history: Gerard is on the ventilator and sedated. eyes are open and she regards examiner. She does follow some instructions. Exam Narrative: General: female in NAD but intubated/sedated Heart: normal S1 and S2; no rub or gallop Lungs: coarse breath sounds Abdomen: soft, nondistended, positive bowel sounds Extremities: no edema Skin: no rash Objective Data Vital Signs Vital Signs: Vital Signs - 24 hr 09/21/21 12:23 09/21/21 12:00 09/21/21 12:00 Temperature 38.5 C H Pulse Rate Respiratory Rate Blood Pressure Pulse Oximetry 97 Oxygen Delivery CPAP Fraction of Inspired Oxygen 30 30 09/21/21 12:00 09/21/21 12:00 09/21/21 14:00 Temperature 39.1 C H Pulse Rate 126 H 126 H 102 H Respiratory Rate 23 H Blood Pressure 135/55 L Pulse Oximetry 97 Oxygen Delivery Fraction of Inspired Oxygen 09/21/21 14:00 09/21/21 14:15 09/21/21 13:23 Temperature 38.7 C H 38.2 C H Pulse Rate 102 H Respiratory Rate 15 Blood Pressure 90/46 L 135/65 Pulse Oximetry 96 Oxygen Delivery Fraction of Inspired Oxygen 09/21/21 13:25 09/21/21 15:04 09/21/21 15:08 Temperature Pulse Rate 122 H 102 H 114 H Respiratory Rate 13 15 Blood Pressure Pulse Oximetry 97 Oxygen Delivery Mechanical Ventilation Fr
--- NOTE | 2021-09-22 12:45 | WPDINTPN ---
Progress Note: A&P Assessment and Plan (1) Fever: Code(s): R50.9 - Fever, unspecified Status: Acute Assessment and Plan: Patient has been febrile since stopping the Zosyn 09/18/2021 -09/19 blood culture: No growth x2 -09/19 urine culture: No growth -09/19 sputum culture: Yeast -patient has perineal/vulvar rash which is erythematous, flaky skin, possible fungal. Patient on miconazole topical cream. 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 -continue vancomycin, cefepime and Levaquin (started on 09/20/2021) (2) Acute respiratory failure: Code(s): J96.00 - Acute respiratory failure, unspecified whether with hypoxia or hypercapnia Status: Acute Assessment and Plan: 09/12 all through the day had increased oxygen requirement and became more hypoxic. -09/12: Intubated later in the evening, Chest x-ray at that time showed persistent diffuse bilateral airspace disease. Possible etiologies are congestive heart failure and pulmonary edema, ARDS, aspiration pneumonia -09/19: Chest x-ray : Left PICC line tip has been repositioned now in expected position near the superior cavoatrial junction.. Persistent scattered bilateral lung disease which could represent pulmonary edema or pneumonia. -currently on ASV mode of ventilation, peep of 8 in 30% FiO2, place patient on SBT, PSV of 8/5 and will evaluate for extubation. -have asked the bedside RN to wean sedation -completed 7 days of Zosyn on 09/18/2021l -Negative COVID PCR (3) Sepsis: Code(s): A41.9 - Sepsis, unspecified organism Status: Acute Assessment and Plan: Chest x-ray and UA were negative. CT abdomen also did not show any evidence of infection and no evidence of colitis. Although patient had elevated WBC count. -09/11/2021 urine culture negative -09/11 KUB showed airspace opacity in left lung which could be an aspiration pneumonia and she did had low-grade fever -status post Zosyn x7 days -C diff came back negative -fever cough better overnight, started on antibiotics as above (4) Hypernatremia: Code(s): E87.0 - Hyperosmolality and hypernatremia Status: Acute Assessment and Plan: 09/13 Yesterday morning patient's sodium level was elevated at 147. I changed the IV fluids and decrease the bicarbonate concentration to 10: -0: : mEq to provide hypotonic fluid to the patient. Despite that the repeat BMP around 4:00 p.m. showed sodium had acutely risen to 160. I am not 100% sure with the exact etiology of that sharp rise as patient was on very small amount of sodium bicarbonate per tube. Her NG output was also minimal. I entertained nephrogenic DI but her urine output was also not very high to explain. She did have diarrhea post upper GI series which could lead to free water losses. Due to acute increase I gave patient D5 water bolus and started on D5 water. Per tube Sodium bicarbonate was discontinued. Although sodium was improving on next check, I continued D5 water as I had to give Lasix to the patient for overall volume overload respiratory failure. This morning has decreased to 150. Although it is higher than normal I will try to stabilize that at this level and not further further correct at this time. 09/14 a sodium increased back to 155 overnight and patient was given additional D5 water and started on D5 water infusion. Free water flushes increased. Sodium is now at 154 a.m 09/15 despite increasing D5 water and increasing free water flushes patient's sodium remained high. She had a high urine output through the day yesterday and thro
[2021-09-22 13:00] LABS: Glucose Point of Care 104 mg/dl (65-105)
[2021-09-22 13:10] LABS: Alveolar/Arterial O2 Gradient 77.8 mmHg; Base Excess ABG 3.3 mEq/l (+/-2.0); Fractional Inspired Oxygen 30 %; HCO3 ABG 28.7 mEq/l (22.0-26.0); Oxygen Content ABG 14.6 %vol (16.0-22.0); Oxygen Saturation ABG 95.8 % (95.0-100.0); Oxyhemoglobin 94.4 % THb (90.0-100.0); PCO2 ABG 47.5 mmHg (35.0-45.0); PO2 ABG 80.3 mmHg (80.0-100.0); PO2 FiO2 Ratio Arterial Blood 2.68 %; Total Hemoglobin 10.9 g/dL (12.0-18.0); pH ABG 7.399 (7.350-7.450)
--- NOTE | 2021-09-22 13:10 | PM.IMPN ---
Progress Note: A&P Assessment and Plan (1) Fever: Code(s): R50.9 - Fever, unspecified Status: Acute Assessment and Plan: Patient has been febrile since stopping the Zosyn 09/18/2021 -09/19 blood culture: No growth x2 -09/19 urine culture: No growth -09/19 sputum culture: Yeast -patient has perineal/vulvar rash which is erythematous, flaky skin, possible fungal. Patient on miconazole topical cream. 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 -continue vancomycin, cefepime and Levaquin (started on 09/20/2021) (2) Acute respiratory failure: Code(s): J96.00 - Acute respiratory failure, unspecified whether with hypoxia or hypercapnia Status: Acute Assessment and Plan: 09/12 all through the day had increased oxygen requirement and became more hypoxic. -09/12: Intubated later in the evening, Chest x-ray at that time showed persistent diffuse bilateral airspace disease. Possible etiologies are congestive heart failure and pulmonary edema, ARDS, aspiration pneumonia -09/19: Chest x-ray : Left PICC line tip has been repositioned now in expected position near the superior cavoatrial junction.. Persistent scattered bilateral lung disease which could represent pulmonary edema or pneumonia. -currently on ASV mode of ventilation, peep of 8 in 30% FiO2, place patient on SBT, PSV of 8/5 and will evaluate for extubation. -have asked the bedside RN to wean sedation -completed 7 days of Zosyn on 09/18/2021l -Negative COVID PCR (3) Sepsis: Code(s): A41.9 - Sepsis, unspecified organism Status: Acute Assessment and Plan: Chest x-ray and UA were negative. CT abdomen also did not show any evidence of infection and no evidence of colitis. Although patient had elevated WBC count. -09/11/2021 urine culture negative -09/11 KUB showed airspace opacity in left lung which could be an aspiration pneumonia and she did had low-grade fever -status post Zosyn x7 days -C diff came back negative -fever cough better overnight, started on antibiotics as above (4) Hypernatremia: Code(s): E87.0 - Hyperosmolality and hypernatremia Status: Acute Assessment and Plan: -Monitor BMP q.6 hours -09/20: Sodium levels 144, desmopressin dose increased to 0.1 mg b.i.d. per Nephrology Continue free water flushes at 100 mL q.4 hours -urine osmolalities pre and post DDAVP reflective diabetes insipidus (5) Electrolyte abnormality: Code(s): E87.8 - Other disorders of electrolyte and fluid balance, not elsewhere classified Status: Acute Assessment and Plan: Will replace potassium Magnesium, Phosphorus and calcium have normalized after replacement (6) Acute kidney injury: Code(s): N17.9 - Acute kidney failure, unspecified Status: Acute Assessment and Plan: Patient presented with creatinine of 7. Presented with nausea vomiting. could be prerenal versus renal Peter and equally fluid-resuscitated admission and was on bicarb infusion was is currently off -CT scan and renal ultrasound did not show any hydronephrosis -Normal CK on admission -appreciate Nephrology is following the patient -09/12 she was given a dose of Lasix due to pulmonary edema -Creatinine has normalized. She continues to have high urine output. This could be a diuretic phase of post ATN versus diabetes insipidus( most likely) -OFF D5 water since 09/18 Monitor urine output electrolytes and creatinine (7) Nausea & vomiting: Code(s): R11.2 - Nausea with vomiting, unspecified Status: Acute Assessment
[2021-09-22 13:11] LABS: Arterial Blood Gas Vent Mode SPONTANEOUS; Device VENTILATOR; Modified Allen's Test Pass; Site Drawn RIGHT RADIAL
[2021-09-22 13:12] LABS: Arterial Blood Gas PEEP 5 cmH2O; Arterial Blood Gas Pressure Support 8 cmH2O
[2021-09-22] MEDS: COSYNTROPIN 0.25 MG/ML VIAL IV PUSH (13:39)
[2021-09-22] MEDS: ALBUTEROL SULFATE NEB 2.5 MG/3 ML INH INHALATION (14:07)
[2021-09-22] MEDS: racEPINEPHrine 2.25% NEBU SOLN 0.5 ML VIAL.NEB INHALATION ×2 (15:08→17:59)
[2021-09-22] MEDS: dexmedeTOMIDine 400 MCG/100 ML 400 MCG/100 ML BAG 20.76 MCG IV CONT (17:08)
[2021-09-22] MEDS: DEXAMETHASONE SOD PHOS INJ 4 MG/ML VIAL IV PUSH (17:27)
[2021-09-22] MEDS: ALPRAZolam (*CRX) 0.25 MG TABLET PO (17:36)
[2021-09-22 18:06] LABS: Glucose Point of Care 121 mg/dl (65-105)
[2021-09-22] MEDS: METOPROLOL TARTRATE 12.5 MG TABLET PO (21:03)
[2021-09-22] MEDS: rOPINIRole HCL 1 MG TABLET PO (21:04)
[2021-09-23] VITALS (26 sets, daily range): BP systolic 89–118; BP diastolic 50–77; PULSE 102–138; RESP 13–27; TEMP 36.1–37.5; O2SAT 94–100
[2021-09-23 00:44] LABS: Glucose Point of Care 136 mg/dl (65-105)
[2021-09-23] MEDS: DEXAMETHASONE SOD PHOS INJ 4 MG/ML VIAL IV PUSH ×3 (00:47→12:07)
[2021-09-23] MEDS: dexmedeTOMIDine 400 MCG/100 ML 400 MCG/100 ML BAG 22.24 MCG IV CONT ×2 (00:48→05:19)
[2021-09-23] MEDS: IPRATROPIUM BR 0.02% INH SOLN 0.5 MG/2.5 ML VIAL INHALATION ×4 (02:54→20:19)
[2021-09-23] MEDS: ALBUTEROL SULFATE NEB 2.5 MG/3 ML INH 5 MG INHALATION ×5 (02:54→20:21)
[2021-09-23] MEDS: CENTRAL LINE FLUSH 10 ML IV PUSH ×2 (05:25→20:53)
[2021-09-23] MEDS: GABAPENTIN 300 MG CAPSULE PO ×3 (05:25→20:53)
[2021-09-23 05:38] LABS: Alveolar/Arterial O2 Gradient 114.2 mmHg; Base Excess ABG 2.2 mEq/l (+/-2.0); Carboxyhemoglobin 0.3 % THb (0-2.0); Fractional Inspired Oxygen 32 %; HCO3 ABG 25.7 mEq/l (22.0-26.0); Methemoglobin ABG 0.3 %THb (0-1.5); Oxygen Content ABG 13.2 %vol (16.0-22.0); Oxygen Saturation ABG 95.6 % (95.0-100.0); Oxyhemoglobin 93.4 % THb (90.0-100.0); PCO2 ABG 35.5 mmHg (35.0-45.0); PO2 ABG 72.4 mmHg (80.0-100.0); PO2 FiO2 Ratio Arterial Blood 2.26 %; pH ABG 7.477 (7.350-7.450)
[2021-09-23 05:39] LABS: Basophils Percent Auto 0.3 % (0.2-1.2); Hematocrit 30.8 % (37.0-47.0); Hemoglobin 9.3 g/dL (12.0-15.0); Immature Granulocyte Absolute 0.04 K/mm3 (0.00-0.031); Immature Granulocyte Percent A 0.4 % (0-0.5); Lymphocytes Absolute Auto 1.27 K/mm3 (0.9-3.2); Lymphocytes Percent Auto 11.2 % (18.3-44.2); Mean Corpuscular HGB Conc 30.2 g/dl (32-36); Mean Corpuscular Hemoglobin 32.7 pg (26-34); Mean Corpuscular Volume 108.5 fl (80-100); Mean Platelet Volume 9.8 fl (7.4-10.4); Monocytes Absolute Auto 0.2 K/mm3 (0.1-0.6); Monocytes Percent Auto 1.9 % (2.6-8.5); Neutrophils Absolute Auto 9.8 K/mm3 (1.3-6.7); Neutrophils Percent Auto 86.2 % (45.5-73.1); Platelet Count Result 364 k/mm3 (150-375); Red Blood Count 2.84 M/mm3 (4.2-5.4); Red Cell Distribution Width 16.6 % (11.5-14.5); White Blood Count 11.3 K/mm3 (4.5-10.0)
[2021-09-23 05:39] LABS: Device NASAL CANNULA; Modified Allen's Test Pass; Site Drawn RIGHT RADIAL
[2021-09-23 05:49] LABS: Alanine Aminotransferase 25 U/L (6-35); Albumin Level 3.8 g/dL (3.5-5.1); Alkaline Phosphatase 184 U/L (38-126); Anion Gap 8 mmol/L (8-16); Aspartate Amino Transferase 33 U/L (14-36); Bilirubin,Total 0.8 mg/dL (0.2-1.3); Blood Urea Nitrogen 18 mg/dL (7-17); Calcium 9.1 mg/dL (8.4-10.2); Carbon Dioxide 29 mmol/L (22-30); Chloride 102 mmol/L (98-107); Estimated CRCL calculation 104 ml/min; Estimated Glomerular Filt Rate > 60; Glucose 125 mg/dL (65-110); Magnesium 2.3 mg/dL (1.6-2.3); Phosphorus 4.2 mg/dL (2.5-4.5); Sodium 139 mmol/L (137-145)
[2021-09-23 06:19] LABS: Vancomycin Trough 13.2 ug/mL (10.0-20.0)
[2021-09-23] MEDS: THIAMINE HCL 200 MG/2 ML VIAL 100 MG IV PUSH (08:34)
[2021-09-23] MEDS: MICONAZOLE NITRATE 2% CREAM 30 GM TUBE 1 APPLIC TOPICAL (08:34)
[2021-09-23] MEDS: PANTOPRAZOLE SODIUM IV 40 MG VIAL IV PUSH ×2 (08:34→20:51)
[2021-09-23] MEDS: METOPROLOL TARTRATE 12.5 MG TABLET PO ×2 (08:35→20:52)
[2021-09-23] MEDS: FOLIC ACID 1 MG/0.2 ML INJ IV PUSH (08:35)
[2021-09-23] MEDS: DESMOPRESSIN ACETATE 0.1 MG TABLET PO ×2 (08:36→20:53)
--- NOTE | 2021-09-23 08:56 | PM.IMPN ---
Progress Note: A&P Assessment and Plan (1) Fever: Code(s): R50.9 - Fever, unspecified Status: Acute Assessment and Plan: Patient has been febrile since stopping the Zosyn 09/18/2021 -09/19 blood culture: No growth x2 -09/19 urine culture: No growth -09/19 sputum culture: Yeast -patient has perineal/vulvar rash which is erythematous, flaky skin, possible fungal. Patient on miconazole topical cream. 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 -continue vancomycin, cefepime and Levaquin (started on 09/20/2021) (2) Acute respiratory failure: Code(s): J96.00 - Acute respiratory failure, unspecified whether with hypoxia or hypercapnia Status: Acute Assessment and Plan: 09/12 all through the day had increased oxygen requirement and became more hypoxic. -09/12: Intubated later in the evening, Chest x-ray at that time showed persistent diffuse bilateral airspace disease. Possible etiologies are congestive heart failure and pulmonary edema, ARDS, aspiration pneumonia -09/19: Chest x-ray : Left PICC line tip has been repositioned now in expected position near the superior cavoatrial junction.. Persistent scattered bilateral lung disease which could represent pulmonary edema or pneumonia. - patient was extubated yesterday 09/22/21 -completed 7 days of Zosyn on 09/18/2021l -Negative COVID PCR (3) Sepsis: Code(s): A41.9 - Sepsis, unspecified organism Status: Acute Assessment and Plan: Chest x-ray and UA were negative. CT abdomen also did not show any evidence of infection and no evidence of colitis. Although patient had elevated WBC count. -09/11/2021 urine culture negative -09/11 KUB showed airspace opacity in left lung which could be an aspiration pneumonia and she did had low-grade fever -status post Zosyn x7 days -C diff came back negative (4) Hypernatremia: Code(s): E87.0 - Hyperosmolality and hypernatremia Status: Acute Assessment and Plan: -Monitor BMP q.6 hours -09/20: Sodium levels 144, desmopressin dose increased to 0.1 mg b.i.d. per Nephrology Continue free water flushes at 100 mL q.4 hours -urine osmolalities pre and post DDAVP reflective diabetes insipidus (5) Electrolyte abnormality: Code(s): E87.8 - Other disorders of electrolyte and fluid balance, not elsewhere classified Status: Acute Assessment and Plan: Will replace potassium Magnesium, Phosphorus and calcium have normalized after replacement (6) Acute kidney injury: Code(s): N17.9 - Acute kidney failure, unspecified Status: Acute Assessment and Plan: Patient presented with creatinine of 7. Presented with nausea vomiting. could be prerenal versus renal Peter and equally fluid-resuscitated admission and was on bicarb infusion was is currently off -CT scan and renal ultrasound did not show any hydronephrosis -Normal CK on admission -appreciate Nephrology is following the patient -09/12 she was given a dose of Lasix due to pulmonary edema -Creatinine has normalized. She continues to have high urine output. This could be a diuretic phase of post ATN versus diabetes insipidus( most likely) -OFF D5 water since 09/18 Monitor urine output electrolytes and creatinine (7) Nausea & vomiting: Code(s): R11.2 - Nausea with vomiting, unspecified Status: Acute Assessment and Plan: RESOLVED Patient presented with nausea vomiting abdominal pain -CT scan of the abdomen pelvis done in the outside hospital reviewed and suggest possible small-bowel obstruction GI
--- NOTE | 2021-09-23 10:01 | PM.PNNEP ---
Progress Note: A&P Assessment and Plan (1) Acute kidney injury: Code(s): N17.9 - Acute kidney failure, unspecified Status: Acute Assessment and Plan: resolved (2) Hypernatremia: Code(s): E87.0 - Hyperosmolality and hypernatremia Status: Acute Assessment and Plan: persistent for the last several days urine osmolality before DDAVP and with a high sodium was low but not maximally dilute. Urine osmolality after the DDAVP was higher but not maximally concentrated. Sometimes maximal concentration can take a little while. Because she responded to the DDAVP that rules out nephrogenic DI. 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 This makes sense because this could be a chronic issue which is not diagnosed until patient is under stress and not drinking. Will continue the DDAVP orally. This seems to be doing well keeping her sodium level normal. The patient needs imaging of her sella turcica. She is a bit too agitated for this right now. (3) Acute respiratory failure: Code(s): J96.00 - Acute respiratory failure, unspecified whether with hypoxia or hypercapnia Status: Acute Assessment and Plan: Improved. Now patient is extubated. (4) Electrolyte abnormality: Code(s): E87.8 - Other disorders of electrolyte and fluid balance, not elsewhere classified Status: Acute Assessment and Plan: Electrolytes okay now. Will continue to monitor. (5) Altered mental status: Code(s): R41.82 - Altered mental status, unspecified Status: Acute Assessment and Plan: Seems to be improving. (6) Nausea & vomiting: Code(s): R11.2 - Nausea with vomiting, unspecified Status: Acute Assessment and Plan: Resolved (7) Alcohol abuse: Code(s): F10.10 - Alcohol abuse, uncomplicated Status: Acute Assessment and Plan: details/specifics are unknown at this time on thiamine and folic acid Subjective Date/time seen: 09/23/21 10:01 Interval history: Elissa is now off the ventilator. She is still somewhat restless. Family told Dr. Santoyo that she has restless legs. Patient is eager for discharge. We discussed. She is not ready. Exam Narrative: General: female in NAD but intubated/sedated Heart: normal S1 and S2; no rub or gallop Lungs: coarse breath sounds bilaterally Abdomen: soft, nondistended, positive bowel sounds Extremities: no edema Skin: no rash or subcu nodules Objective Data Vital Signs Vital Signs: Vital Signs - 24 hr 09/22/21 10:30 09/22/21 11:01 09/22/21 10:45 Temperature Pulse Rate 145 H 122 H 111 H Respiratory Rate Blood Pressure Pulse Oximetry 100 Oxygen Delivery Mechanical Ventilation Oxygen Flow Rate Fraction of Inspired Oxygen 30 09/22/21 11:15 09/22/21 11:16 09/22/21 11:48 Temperature Pulse Rate 127 H 122 H 111 H Respiratory Rate 22 H 18 Blood Pressure Pulse Oximetry 100 Oxygen Delivery Mechanical Ventilation Oxygen Flow Rate Fraction of Inspired Oxygen 30 09/22/21 12:42 09/22/21 12:42 09/22/21 12:00 Temperature Pulse Rate 120 H 120 H Respiratory Rate 17 17 Blood Pressure Pulse Oximetry 99 Oxygen Delivery Mechanical Ventilation Oxygen Flow Rate Fraction of Inspired Oxygen 30 09/22/21 12:00 09/22/21 12:00 09/22/21 12:00 Temperature 37.6 C Pulse Rate 119 H 101 H Respiratory Rate 21 H Blood Pressure 121/70 Pulse Oximetry 98 Oxygen Delivery Oxygen Flow Rate Fraction of Inspired Oxygen 30 09/22/21 14:10 09/22/21 14:21 09/22/21 13:30 Temperature Pulse Rate 118 H 119 H 101 H Respiratory Rate 16 20 20 Blood Pressure Pulse Oximetry Oxygen Delivery Oxygen Flow Rate Fraction of Inspired Oxygen 09/22/21 14:32 09/22/21 14:00 09/22/21 14:00 Temperature Pulse Rate 101 H 123 H 118 H Respiratory Rate 20 17
--- NOTE | 2021-09-23 11:05 | WPDINTPN ---
Progress Note: A&P Assessment and Plan (1) Fever: Code(s): R50.9 - Fever, unspecified Status: Acute Assessment and Plan: Fevers have resolved Patient has been febrile since stopping the Zosyn 09/18/2021 -09/19 blood culture: No growth x2 -09/19 urine culture: No growth -09/19 sputum culture: Yeast -patient has perineal/vulvar rash which is erythematous, flaky skin, possible fungal. Patient on miconazole topical cream. 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 -continue vancomycin, cefepime and Levaquin (started on 09/20/2021) continue antibiotics (2) Acute respiratory failure: Code(s): J96.00 - Acute respiratory failure, unspecified whether with hypoxia or hypercapnia Status: Acute Assessment and Plan: 09/12 all through the day had increased oxygen requirement and became more hypoxic. -09/12: Intubated later in the evening, Chest x-ray at that time showed persistent diffuse bilateral airspace disease. Possible etiologies are congestive heart failure and pulmonary edema, ARDS, aspiration pneumonia -09/19: Chest x-ray : Left PICC line tip has been repositioned now in expected position near the superior cavoatrial junction.. Persistent scattered bilateral lung disease which could represent pulmonary edema or pneumonia. -extubated on 09/22 -will encourage incentive spirometry -continue bronchodilators -PT/OT to evaluate -speech to evaluate for bedside swallow -completed 7 days of Zosyn on 09/18/2021l -Negative COVID PCR (3) Sepsis: Code(s): A41.9 - Sepsis, unspecified organism Status: Acute Assessment and Plan: Chest x-ray and UA were negative. CT abdomen also did not show any evidence of infection and no evidence of colitis. Although patient had elevated WBC count. 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 per Nephrology -urine osmolalities pre and post DDAVP reflective of diabetes insipidus (5) Electrolyte abnormality: Code(s): E87.8 - Other disorders of electrolyte and fluid balance, not elsewhere classified Status: Acute Assessment and Plan: Potassium improved after placement Magnesium, Phosphorus and calcium have normalized after replacement (6) Acute kidney injury: Code(s): N17.9 - Acute kidney failure, unspecified Status: Acute Assessment and Plan: Resolved Patient presented with creatinine of 7. Presented with nausea vomiting. could be prerenal versus renal Peter and equally fluid-resuscitated admission and was on bicarb infusion was is currently off -CT scan and renal ultrasound did not show any hydronephrosis -Normal CK on admission -appreciate Nephrology is following the patient -Creatinine has normalized. Monitor urine output electrolytes and creatinine (7) Nausea & vomiting: Code(s): R11.2 - Nausea with vomiting, unspecified Status: Acute Assessment and Plan: RESOLVED Patient presented with nausea vomiting abdominal pain -CT scan of the abdomen pelvis done in the outside hos
[2021-09-23 14:18] LABS: Glucose Point of Care 106 mg/dl (65-105)
--- NOTE | 2021-09-23 15:19 | PCSTNOTE ---
Please refer to the Bedside Swallow Evaluation in the EMR. Please note, silent aspiration cannot be ruled out at bedside.
[2021-09-23 17:30] LABS: Glucose Point of Care 100 mg/dl (65-105)
[2021-09-23] MEDS: rOPINIRole HCL 1 MG TABLET PO (20:52)
[2021-09-23 23:15] LABS: Glucose Point of Care 100 mg/dl (65-105)
[2021-09-24] VITALS (21 sets, daily range): BP systolic 99–119; BP diastolic 54–87; PULSE 105–126; RESP 16–27; TEMP 36.7–36.9; O2SAT 92–99
[2021-09-24] MEDS: IPRATROPIUM BR 0.02% INH SOLN 0.5 MG/2.5 ML VIAL INHALATION ×4 (02:26→19:59)
[2021-09-24] MEDS: ALBUTEROL SULFATE NEB 2.5 MG/3 ML INH 5 MG INHALATION ×4 (02:26→19:59)
[2021-09-24 04:43] LABS: Basophils Absolute Auto 0.1 K/mm3 (0.0-0.1); Basophils Percent Auto 0.9 % (0.2-1.2); Eosinophils Percent Auto 0.3 % (0-4.4); Hematocrit 30.2 % (37.0-47.0); Hemoglobin 9.7 g/dL (12.0-15.0); Immature Granulocyte Absolute 0.04 K/mm3 (0.00-0.031); Immature Granulocyte Percent A 0.3 % (0-0.5); Lymphocytes Absolute Auto 2.22 K/mm3 (0.9-3.2); Lymphocytes Percent Auto 19.1 % (18.3-44.2); Mean Corpuscular HGB Conc 32.1 g/dl (32-36); Mean Corpuscular Volume 102.7 fl (80-100); Mean Platelet Volume 9.3 fl (7.4-10.4); Monocytes Percent Auto 8.3 % (2.6-8.5); Neutrophils Absolute Auto 8.3 K/mm3 (1.3-6.7); Neutrophils Percent Auto 71.1 % (45.5-73.1); Platelet Count Result 530 k/mm3 (150-375); Red Blood Count 2.94 M/mm3 (4.2-5.4); Red Cell Distribution Width 15.9 % (11.5-14.5); White Blood Count 11.6 K/mm3 (4.5-10.0)
[2021-09-24 04:57] LABS: Alanine Aminotransferase 65 U/L (6-35); Albumin Level 3.8 g/dL (3.5-5.1); Alkaline Phosphatase 174 U/L (38-126); Anion Gap 9 mmol/L (8-16); Aspartate Amino Transferase 92 U/L (14-36); Bilirubin,Total 0.6 mg/dL (0.2-1.3); Blood Urea Nitrogen 16 mg/dL (7-17); Calcium 8.8 mg/dL (8.4-10.2); Carbon Dioxide 28 mmol/L (22-30); Chloride 100 mmol/L (98-107); Estimated CRCL calculation 103 ml/min; Estimated Glomerular Filt Rate > 60; Glucose 114 mg/dL (65-110); Magnesium 2.2 mg/dL (1.6-2.3); Phosphorus 3.9 mg/dL (2.5-4.5); Sodium 137 mmol/L (137-145)
[2021-09-24] MEDS: CENTRAL LINE FLUSH 10 ML IV PUSH ×3 (05:34→21:01)
[2021-09-24] MEDS: GABAPENTIN 300 MG CAPSULE PO ×3 (05:34→21:01)
--- NOTE | 2021-09-24 09:08 | WPDINTPN ---
Progress Note: A&P Assessment and Plan (1) Fever: Code(s): R50.9 - Fever, unspecified Status: Acute Assessment and Plan: Fevers have resolved Patient has been febrile since stopping the Zosyn 09/18/2021 -09/19 blood culture: No growth x2 -09/19 urine culture: No growth -09/19 sputum culture: Yeast -patient has perineal/vulvar rash which is erythematous, flaky skin, possible fungal. Patient on miconazole topical cream. 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 -continue vancomycin, cefepime and Levaquin (started on 09/20/2021) continue antibiotics (2) Acute respiratory failure: Code(s): J96.00 - Acute respiratory failure, unspecified whether with hypoxia or hypercapnia Status: Acute Assessment and Plan: 09/12 all through the day had increased oxygen requirement and became more hypoxic. -09/12: Intubated later in the evening, Chest x-ray at that time showed persistent diffuse bilateral airspace disease. Possible etiologies are congestive heart failure and pulmonary edema, ARDS, aspiration pneumonia -09/19: Chest x-ray : Left PICC line tip has been repositioned now in expected position near the superior cavoatrial junction.. Persistent scattered bilateral lung disease which could represent pulmonary edema or pneumonia. -extubated on 09/22 -will encourage incentive spirometry -continue bronchodilators -patient working with PT/OT -09/23: Failed her modified barium swallow, speech therapy to continue to follow -currently NPO, on tube feeds -had completed completed 7 days of Zosyn on 09/18/2021 spike fevers again so she has no one vanc, cefepime and Levaquin -Negative COVID PCR (3) Sepsis: Code(s): A41.9 - Sepsis, unspecified organism Status: Acute Assessment and Plan: Chest x-ray and UA were negative. CT abdomen also did not show any evidence of infection and no evidence of colitis. Although patient had elevated WBC count. 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 per Nephrology -urine osmolalities pre and post DDAVP reflective of diabetes insipidus -sodium levels have normalized (5) Electrolyte abnormality: Code(s): E87.8 - Other disorders of electrolyte and fluid balance, not elsewhere classified Status: Acute Assessment and Plan: Replace potassium Magnesium, Phosphorus and calcium have normalized after replacement (6) Acute kidney injury: Code(s): N17.9 - Acute kidney failure, unspecified Status: Acute Assessment and Plan: Resolved Patient presented with creatinine of 7. Presented with nausea vomiting. could be prerenal versus renal Peter and equally fluid-resuscitated admission and was on bicarb infusion was is currently off -CT scan and renal ultrasound did not show any hydronephrosis -Normal CK on admission -appreciate Nephrology is following the patient -Creatinine has normalized. Monitor urine output electrolytes and creatinine (7) Nausea & vomiting: Code(s): R11.2 - Nausea with vomiting, unspecif
[2021-09-24] MEDS: POTASSIUM CHLORIDE 20 MEQ PACKET (FOR LIQUID) 40 MEQ PO (09:13)
[2021-09-24] MEDS: KCL 40 MEQ/WATER 100 ML 100 ML 25 ML IVPB (09:13)
[2021-09-24] MEDS: THIAMINE HCL 200 MG/2 ML VIAL 100 MG IV PUSH (09:13)
[2021-09-24] MEDS: PANTOPRAZOLE SODIUM IV 40 MG VIAL IV PUSH ×2 (09:14→20:55)
[2021-09-24] MEDS: MICONAZOLE NITRATE 2% CREAM 30 GM TUBE 1 APPLIC TOPICAL ×2 (09:14→20:55)
[2021-09-24] MEDS: METOPROLOL TARTRATE 12.5 MG TABLET PO ×2 (09:15→20:55)
[2021-09-24] MEDS: FOLIC ACID 1 MG/0.2 ML INJ IV PUSH (09:15)
[2021-09-24] MEDS: DESMOPRESSIN ACETATE 0.1 MG TABLET PO ×2 (09:15→20:55)
[2021-09-24 11:58] LABS: Glucose Point of Care 120 mg/dl (65-105)
--- NOTE | 2021-09-24 12:14 | PCFNICU ---
ICU Rounding Note: Pt current nutrition is Vital AF 1.2 at 40 ml/hr. Last recorded weight is 47.9 kg, up from 46.8 kg on admit. Bowel Motility:+BM reported 09/21 Labs Reviewed:Glu 114, Cr 0.5,K 3.0, Hct 30.2, Hgb 9.7 Meds Noted:Thiamine, Folic Acid, Protonix, Lopressor, Atrovent, Neurontin. Skin: WNL Additional Notes: Patient extubated on 09/23. Failed MBS on 09/23. Tube feeding remain with Vital AF 1.2 at 55 ml/hr and tolerating per nursing. Speech is continuing with treatments. Agree with diet orders at this time. Following daily in ICU rounds. Will monitor every Friday and Friday.
--- NOTE | 2021-09-24 12:56 | P.PNIM_ITS ---
Progress Note: A&P Assessment and Plan (1) Fever: Code(s): R50.9 - Fever, unspecified Status: Acute Assessment and Plan: Fevers have resolved Patient has been febrile since stopping the Zosyn 09/18/2021 -09/19 blood culture: No growth x2 -09/19 urine culture: No growth -09/19 sputum culture: Yeast -patient has perineal/vulvar rash which is erythematous, flaky skin, possible fungal. Patient on miconazole topical cream. 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 -continue vancomycin, cefepime and Levaquin (started on 09/20/2021) continue antibiotics -Patient will likely transfer out of ICU today (2) Acute respiratory failure: Code(s): J96.00 - Acute respiratory failure, unspecified whether with hypoxia or hypercapnia Status: Acute Assessment and Plan: 09/12 all through the day had increased oxygen requirement and became more hypoxic. -09/12: Intubated later in the evening, Chest x-ray at that time showed persistent diffuse bilateral airspace disease. Possible etiologies are congestive heart failure and pulmonary edema, ARDS, aspiration pneumonia -09/19: Chest x-ray : Left PICC line tip has been repositioned now in expected position near the superior cavoatrial junction.. Persistent scattered bilateral lung disease which could represent pulmonary edema or pneumonia. -extubated on 09/22 -will encourage incentive spirometry -continue bronchodilators -patient working with PT/OT -09/23: Failed her modified barium swallow, speech therapy to continue to follow -currently NPO, on tube feeds -had completed completed 7 days of Zosyn on 09/18/2021 spike fevers again so she has no one vanc, cefepime and Levaquin -Negative COVID PCR (3) Sepsis: Code(s): A41.9 - Sepsis, unspecified organism Status: Acute Assessment and Plan: Chest x-ray and UA were negative. CT abdomen also did not show any evidence of infection and no evidence of colitis. Although patient had elevated WBC count. 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 per Nephrology -urine osmolalities pre and post DDAVP reflective of diabetes insipidus -sodium levels have normalized (5) Electrolyte abnormality: Code(s): E87.8 - Other disorders of electrolyte and fluid balance, not elsewhere classified Status: Acute Assessment and Plan: Replace potassium Magnesium, Phosphorus and calcium have normalized after replacement (6) Acute kidney injury: Code(s): N17.9 - Acute kidney failure, unspecified Status: Acute Assessment and Plan: Resolved Patient presented with creatinine of 7. Presented with nausea vomiting. could
--- NOTE | 2021-09-24 14:00 | PCSTNOTE ---
Patient seen bedside for swallowing evaluation. Alert, tired and weak, present. Performed oral care on patient, and presented individual partial teaspoonfuls of cold water. Patient coughed following swallows. Coughing reduced/eliminated with chin tuck. No other food or liquid consistencies presented due to signs and symptoms of aspiration. Patient will be reassessed tomorrow and MBS is recommended when patient is stronger, possibly tomorrow.
[2021-09-24] MEDS: ALPRAZolam (*CRX) 0.25 MG TABLET PO (14:30)
[2021-09-24 15:48] LABS: Haptoglobin 407 mg/dL (43-212)
[2021-09-24 17:34] LABS: Glucose Point of Care 101 mg/dl (65-105)
[2021-09-24] MEDS: rOPINIRole HCL 1 MG TABLET PO (20:55)
[2021-09-24 23:29] LABS: Glucose Point of Care 121 mg/dl (65-105)
[2021-09-25] VITALS (20 sets, daily range): BP systolic 95–121; BP diastolic 61–73; PULSE 82–122; RESP 11–22; TEMP 36.4–37.1; O2SAT 94–100
[2021-09-25] MEDS: IPRATROPIUM BR 0.02% INH SOLN 0.5 MG/2.5 ML VIAL INHALATION ×4 (02:00→20:30)
[2021-09-25] MEDS: ALBUTEROL SULFATE NEB 2.5 MG/3 ML INH 5 MG INHALATION ×4 (02:00→20:30)
[2021-09-25 04:12] LABS: Basophils Absolute Auto 0.1 K/mm3 (0.0-0.1); Basophils Percent Auto 1.2 % (0.2-1.2); Eosinophils Absolute Auto 0.2 K/mm3 (0-0.3); Eosinophils Percent Auto 2.5 % (0-4.4); Hematocrit 32.1 % (37.0-47.0); Hemoglobin 9.6 g/dL (12.0-15.0); Immature Granulocyte Absolute 0.03 K/mm3 (0.00-0.031); Immature Granulocyte Percent A 0.3 % (0-0.5); Lymphocytes Absolute Auto 2.52 K/mm3 (0.9-3.2); Mean Corpuscular HGB Conc 29.9 g/dl (32-36); Mean Corpuscular Hemoglobin 32.1 pg (26-34); Mean Corpuscular Volume 107.4 fl (80-100); Mean Platelet Volume 9.5 fl (7.4-10.4); Monocytes Percent Auto 10.3 % (2.6-8.5); Neutrophils Absolute Auto 5.5 K/mm3 (1.3-6.7); Neutrophils Percent Auto 58.7 % (45.5-73.1); Platelet Count Result 536 k/mm3 (150-375); Red Blood Count 2.99 M/mm3 (4.2-5.4); Red Cell Distribution Width 15.8 % (11.5-14.5); White Blood Count 9.3 K/mm3 (4.5-10.0)
[2021-09-25 04:24] LABS: Alanine Aminotransferase 55 U/L (6-35); Albumin Level 3.6 g/dL (3.5-5.1); Alkaline Phosphatase 151 U/L (38-126); Anion Gap 11 mmol/L (8-16); Aspartate Amino Transferase 49 U/L (14-36); Bilirubin,Total 0.5 mg/dL (0.2-1.3); Blood Urea Nitrogen 13 mg/dL (7-17); Calcium 8.5 mg/dL (8.4-10.2); Carbon Dioxide 30 mmol/L (22-30); Chloride 99 mmol/L (98-107); Estimated CRCL calculation 104 ml/min; Estimated Glomerular Filt Rate > 60; Glucose 127 mg/dL (65-110); Magnesium 2.1 mg/dL (1.6-2.3); Phosphorus 3.8 mg/dL (2.5-4.5); Potassium 3.4 mmol/L (3.4-5.0); Sodium 140 mmol/L (137-145)
[2021-09-25] MEDS: CENTRAL LINE FLUSH 10 ML IV PUSH ×3 (05:40→21:11)
[2021-09-25] MEDS: GABAPENTIN 300 MG CAPSULE PO ×3 (05:40→21:11)
--- NOTE | 2021-09-25 08:50 | PM.IMPN ---
Progress Note: A&P Assessment and Plan (1) Fever: Code(s): R50.9 - Fever, unspecified Status: Acute Assessment and Plan: Fevers have resolved Patient has been febrile since stopping the Zosyn 09/18/2021 -09/19 blood culture: No growth x2 -09/19 urine culture: No growth -09/19 sputum culture: Yeast -patient has perineal/vulvar rash which is erythematous, flaky skin, possible fungal. Patient on miconazole topical cream. 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 -continue vancomycin, cefepime and Levaquin (started on 09/20/2021) continue antibiotics -09/25/21 Continue levofloxacin and cefepime for pneumonia treatment (2) Acute respiratory failure: Code(s): J96.00 - Acute respiratory failure, unspecified whether with hypoxia or hypercapnia Status: Acute Assessment and Plan: 09/12 all through the day had increased oxygen requirement and became more hypoxic. -09/12: Intubated later in the evening, Chest x-ray at that time showed persistent diffuse bilateral airspace disease. Possible etiologies are congestive heart failure and pulmonary edema, ARDS, aspiration pneumonia -09/19: Chest x-ray : Left PICC line tip has been repositioned now in expected position near the superior cavoatrial junction.. Persistent scattered bilateral lung disease which could represent pulmonary edema or pneumonia. -extubated on 09/22 -will encourage incentive spirometry -continue bronchodilators -patient working with PT/OT -09/23: Failed her modified barium swallow, speech therapy to continue to follow -currently NPO, on tube feeds -had completed completed 7 days of Zosyn on 09/18/2021 spike fevers again so she has no one vanc, cefepime and Levaquin -Negative COVID PCR -Exutbated but would benefit from pulmonary toilet. Will order PEP therapy. Also need PT/OT. (3) Sepsis: Code(s): A41.9 - Sepsis, unspecified organism Status: Acute Assessment and Plan: Chest x-ray and UA were negative. CT abdomen also did not show any evidence of infection and no evidence of colitis. Although patient had elevated WBC count. 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 per Nephrology -urine osmolalities pre and post DDAVP reflective of diabetes insipidus -sodium levels have normalized (5) Electrolyte abnormality: Code(s): E87.8 - Other disorders of electrolyte and fluid balance, not elsewhere classified Status: Acute Assessment and Plan: Replace potassium Magnesium, Phosphorus and calcium have normalized after replacement (6) Acute kidney injury: Code(s): N17.9 - Acute kidney failure, unspecified Status: Acute Assessment and Plan: Resolved Patient presented with creatinine of 7. Presented with nausea vomiting. could be prerenal versus renal Peter and equally fluid-resuscitated admission and was on bicarb infusion was is currently off -CT scan and renal ultrasound did not show any hydronephr
[2021-09-25] MEDS: FOLIC ACID 1 MG/0.2 ML INJ IV PUSH (09:03)
[2021-09-25] MEDS: DESMOPRESSIN ACETATE 0.1 MG TABLET PO ×2 (09:03→21:11)
[2021-09-25] MEDS: METOPROLOL TARTRATE 12.5 MG TABLET PO ×2 (09:03→21:10)
[2021-09-25] MEDS: PANTOPRAZOLE SODIUM IV 40 MG VIAL IV PUSH ×2 (09:04→21:10)
[2021-09-25] MEDS: THIAMINE HCL 200 MG/2 ML VIAL 100 MG IV PUSH (09:04)
[2021-09-25] MEDS: MICONAZOLE NITRATE 2% CREAM 30 GM TUBE 1 APPLIC TOPICAL ×2 (09:06→21:12)
[2021-09-25] MEDS: POTASSIUM CHLORIDE 20 MEQ PACKET (FOR LIQUID) 40 MEQ PO (10:48)
--- NOTE | 2021-09-25 12:13 | PCNFU ---
Nutrition Follow-Up Complete: Altered GI function as related to Nausea/Vomiting as evidenced by NPO. Goal: Meet estimated nutritional needs Patient is progressing towards goal. We will continue current goal. Pt current nutrition is Vital AF at 55 ml/hr over 22 hours. Last recorded weight is 49.1 kg, up from 46.8 kg on admit. Bowel Motility: +BM reported 09/24 Labs Reviewed:Glu 127, Cr 0.4,Hct 32.1,Hgb 9.6 Meds Noted:Thiamine, Folic Acid, Protonix, Lopressor, Atrovent, Neurontin Skin: WNL Additional Notes: Patient remains on tube feedings of Vital AF 1.2 at 55 ml/hr over 22 hours which is providing 1452 kcals/91 gms protein. Meeting 97% caloric needs, 100% protein needs. Free water flush 30 ml q 4 hours. Patient is more alert today, speech continues treatments with plans for MBS when patient is appropriate for eval. Agree with diet orders. Monitoring: Will monitor every Friday and Friday.
[2021-09-25 12:26] LABS: Glucose Point of Care 122 mg/dl (65-105)
[2021-09-25 13:29] LABS: Copeptin 33.3 pmol/L (< OR = 14)
--- NOTE | 2021-09-25 16:10 | PM.PNNEP ---
Progress Note: A&P Assessment and Plan (1) Acute kidney injury: Code(s): N17.9 - Acute kidney failure, unspecified Status: Acute Assessment and Plan: resolved (2) Hypernatremia: Code(s): E87.0 - Hyperosmolality and hypernatremia Status: Acute Assessment and Plan: persistent for the last several days Probably incomplete central DI. She says that she has a lifetime history of being very thirsty and high urine output. The patient needs imaging of her sella turcica. She is a bit too agitated for this right now. Consider tomorrow. (3) Acute respiratory failure: Code(s): J96.00 - Acute respiratory failure, unspecified whether with hypoxia or hypercapnia Status: Acute Assessment and Plan: Improved. Now patient is extubated. (4) Electrolyte abnormality: Code(s): E87.8 - Other disorders of electrolyte and fluid balance, not elsewhere classified Status: Acute Assessment and Plan: Electrolytes okay now. Sodium is normal. Will continue to monitor. (5) Altered mental status: Code(s): R41.82 - Altered mental status, unspecified Status: Acute Assessment and Plan: Seems to be improving. (6) Nausea & vomiting: Code(s): R11.2 - Nausea with vomiting, unspecified Status: Acute Assessment and Plan: Resolved (7) Alcohol abuse: Code(s): F10.10 - Alcohol abuse, uncomplicated Status: Acute Assessment and Plan: details/specifics are unknown at this time on thiamine and folic acid Subjective Date/time seen: 09/25/21 16:10 Interval history: Elissa is now off the ventilator. She looks pretty good today. She seems a little calmer. Exam Narrative: General: female in NAD but intubated/sedated Heart: normal S1 and S2; no rub or gallop Lungs: breath sounds more clear. Abdomen: soft, nondistended, positive bowel sounds Extremities: no edema or cyanosis Skin: no rash Objective Data Vital Signs Vital Signs: Vital Signs - 24 hr 09/24/21 18:00 09/24/21 20:00 09/24/21 20:07 Temperature Pulse Rate 117 H 111 H 106 H Respiratory Rate 18 20 Blood Pressure Pulse Oximetry Oxygen Delivery Oxygen Flow Rate 09/24/21 20:00 09/24/21 20:00 09/24/21 20:00 Temperature 36.9 C Pulse Rate 120 H 120 H Respiratory Rate 20 Blood Pressure 117/74 Pulse Oximetry 95 95 Oxygen Delivery Nasal Cannula Oxygen Flow Rate 2 09/24/21 20:55 09/24/21 22:00 09/25/21 00:00 Temperature Pulse Rate 119 H 112 H 104 H Respiratory Rate Blood Pressure Pulse Oximetry Oxygen Delivery Oxygen Flow Rate 09/25/21 00:00 09/25/21 00:00 09/25/21 02:00 Temperature 37.0 C Pulse Rate 104 H 114 H Respiratory Rate 20 Blood Pressure 100/66 Pulse Oximetry 98 100 Oxygen Delivery Nasal Cannula Oxygen Flow Rate 2 09/25/21 02:00 09/25/21 02:12 09/25/21 04:00 Temperature Pulse Rate 112 H 109 H 118 H Respiratory Rate 22 H 21 H Blood Pressure Pulse Oximetry Oxygen Delivery Oxygen Flow Rate 09/25/21 04:00 09/25/21 04:00 09/25/21 05:45 Temperature 37.0 C Pulse Rate 118 H 106 H Respiratory Rate 20 Blood Pressure 115/73 Pulse Oximetry 100 100 Oxygen Delivery Nasal Cannula Oxygen Flow Rate 2 09/25/21 08:11 09/25/21 08:21 09/25/21 09:03 Temperature Pulse Rate 117 H 118 H 122 H Respiratory Rate 21 H 15 Blood Pressure Pulse Oximetry Oxygen Delivery Oxygen Flow Rate 09/25/21 08:00 09/25/21 08:00 09/25/21 08:00 Temperature 36.4 C Pulse Rate 115 H 115 H 111 H Respiratory Rate 17 19 Blood Pressure 121/67 Pulse Oximetry 98 98 Oxygen Delivery Nasal Cannula Oxygen Flow Rate 2 09/25/21 10:00 09/25/21 12:00 09/25/21 12:00 Temperature Pulse Rate 111 H 105 H 105 H Respiratory Rate 11 L Blood Pressure Pulse Oximetry 99 Oxyge
--- NOTE | 2021-09-25 16:10 | P.PNNP_ITS ---
Progress Note: A&P Assessment and Plan (1) Acute kidney injury: Code(s): N17.9 - Acute kidney failure, unspecified Status: Acute Assessment and Plan: * resolved (2) Hypernatremia: Code(s): E87.0 - Hyperosmolality and hypernatremia Status: Acute Assessment and Plan: * persistent for the last several days * Probably incomplete central DI. She says that she has a lifetime history of being very thirsty and high urine output. * The patient needs imaging of her sella turcica. She is a bit too agitated for this right now. * Consider tomorrow. (3) Acute respiratory failure: Code(s): J96.00 - Acute respiratory failure, unspecified whether with hypoxia or hypercapnia Status: Acute Assessment and Plan: * Improved. Now patient is extubated. (4) Electrolyte abnormality: Code(s): E87.8 - Other disorders of electrolyte and fluid balance, not elsewhere classified Status: Acute Assessment and Plan: * Electrolytes okay now. * Sodium is normal. * Will continue to monitor. (5) Altered mental status: Code(s): R41.82 - Altered mental status, unspecified Status: Acute Assessment and Plan: * Seems to be improving. (6) Nausea & vomiting: Code(s): R11.2 - Nausea with vomiting, unspecified Status: Acute Assessment and Plan: * Resolved (7) Alcohol abuse: Code(s): F10.10 - Alcohol abuse, uncomplicated Status: Acute Assessment and Plan: * details/specifics are unknown at this time * on thiamine and folic acid Subjective Date/time seen: 09/25/21 16:10 Interval history: Elissa is now off the ventilator. She looks pretty good today. She seems a little calmer. Exam Narrative: General: female in NAD but intubated/sedated Heart: normal S1 and S2; no rub or gallop Lungs: breath sounds more clear. Abdomen: soft, nondistended, positive bowel sounds Extremities: no edema or cyanosis Skin: no rash Objective Data Vital Signs Vital Signs: Vital Signs - 24 hr 09/24/21 18:00 09/24/21 20:00 09/24/21 20:07 Temperature Pulse Rate 117 H 111 H 106 H Respiratory Rate 18 20 Blood Pressure Pulse Oximetry Oxygen Delivery Oxygen Flow Rate 09/24/21 20:00 09/24/21 20:00 09/24/21 20:00 Temperature 36.9 C Pulse Rate 120 H 120 H Respiratory Rate 20 Blood Pressure 117/74 Pulse Oximetry 95 95 Oxygen Delivery Nasal Cannula Oxygen Flow Rate 2 09/24/21 20:55 09/24/21 22:00 09/25/21 00:00 Temperature Pulse Rate 119 H 112 H 104 H Respiratory Rate Blood Pressure Pulse Oximetry Oxygen Delivery Oxygen Flow Rate 09/25/21 00:00 09/25/21 00:00 09/25/21 02:00 Temperature 37.0 C Pulse Rate 104 H 114 H Respiratory Rate 20 Blood Pressure 100/66 Pulse Oximetry 98 100 Oxygen Delivery Nasal Cannula Oxygen Flow Rate 2 09/25/21 02:00 09/25/21 02:12 09/25/21 04:00
[2021-09-25 17:21] LABS: Glucose Point of Care 134 mg/dl (65-105)
--- NOTE | 2021-09-25 17:41 | PC.NURSE ---
Patient transferred from ICU Bed 4 at 1735. PT oriented to room and equipment use. Belongings with reach
[2021-09-25 20:04] LABS: LH 28.8 mIU/mL (***)
[2021-09-25 20:47] LABS: Glucose Point of Care 116 mg/dl (65-105)
[2021-09-25] MEDS: rOPINIRole HCL 1 MG TABLET PO (21:11)
[2021-09-26] VITALS (18 sets, daily range): BP systolic 119–126; BP diastolic 59–65; PULSE 80–139; RESP 18–22; TEMP 36.1–37; O2SAT 94–100
[2021-09-26 00:04] LABS: Glucose Point of Care 117 mg/dl (65-105)
[2021-09-26] MEDS: IPRATROPIUM BR 0.02% INH SOLN 0.5 MG/2.5 ML VIAL INHALATION ×4 (02:45→20:45)
[2021-09-26] MEDS: ALBUTEROL SULFATE NEB 2.5 MG/3 ML INH 5 MG INHALATION ×4 (02:45→20:45)
[2021-09-26] MEDS: CENTRAL LINE FLUSH 10 ML IV PUSH ×3 (05:03→21:18)
[2021-09-26] MEDS: GABAPENTIN 300 MG CAPSULE PO ×3 (05:03→21:17)
[2021-09-26 05:26] LABS: Basophils Absolute Auto 0.1 K/mm3 (0.0-0.1); Basophils Percent Auto 1.2 % (0.2-1.2); Eosinophils Absolute Auto 0.3 K/mm3 (0-0.3); Eosinophils Percent Auto 2.7 % (0-4.4); Hematocrit 30.1 % (37.0-47.0); Hemoglobin 9.2 g/dL (12.0-15.0); Immature Granulocyte Absolute 0.03 K/mm3 (0.00-0.031); Immature Granulocyte Percent A 0.3 % (0-0.5); Lymphocytes Absolute Auto 2.58 K/mm3 (0.9-3.2); Lymphocytes Percent Auto 27.2 % (18.3-44.2); Mean Corpuscular HGB Conc 30.6 g/dl (32-36); Mean Corpuscular Hemoglobin 32.4 pg (26-34); Mean Platelet Volume 9.2 fl (7.4-10.4); Monocytes Absolute Auto 0.8 K/mm3 (0.1-0.6); Monocytes Percent Auto 8.1 % (2.6-8.5); Neutrophils Absolute Auto 5.7 K/mm3 (1.3-6.7); Neutrophils Percent Auto 60.5 % (45.5-73.1); Platelet Count Result 467 k/mm3 (150-375); Red Blood Count 2.84 M/mm3 (4.2-5.4); Red Cell Distribution Width 15.6 % (11.5-14.5); White Blood Count 9.5 K/mm3 (4.5-10.0)
[2021-09-26 05:38] LABS: Alanine Aminotransferase 38 U/L (6-35); Albumin Level 3.6 g/dL (3.5-5.1); Alkaline Phosphatase 130 U/L (38-126); Anion Gap 6 mmol/L (8-16); Aspartate Amino Transferase 31 U/L (14-36); Bilirubin,Total 0.5 mg/dL (0.2-1.3); Blood Urea Nitrogen 14 mg/dL (7-17); Calcium 8.8 mg/dL (8.4-10.2); Carbon Dioxide 29 mmol/L (22-30); Chloride 99 mmol/L (98-107); Estimated CRCL calculation 107 ml/min; Estimated Glomerular Filt Rate > 60; Glucose 115 mg/dL (65-110); Magnesium 2.1 mg/dL (1.6-2.3); Phosphorus 3.4 mg/dL (2.5-4.5); Potassium 4.1 mmol/L (3.4-5.0); Sodium 134 mmol/L (137-145)
[2021-09-26 05:48] LABS: Anisocytosis 1+ (NORMAL); Platelet Estimate Adequate (Adequate)
[2021-09-26 06:35] LABS: Glucose Point of Care 117 mg/dl (65-105)
--- NOTE | 2021-09-26 08:00 | PM.IMPN ---
Progress Note: A&P Assessment and Plan (1) Fever: Code(s): R50.9 - Fever, unspecified Status: Acute Assessment and Plan: Fevers have resolved Patient has been febrile since stopping the Zosyn 09/18/2021 -09/19 blood culture: No growth x2 -09/19 urine culture: No growth -09/19 sputum culture: Yeast -patient has perineal/vulvar rash which is erythematous, flaky skin, possible fungal. Patient on miconazole topical cream. 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 -continue vancomycin, cefepime and Levaquin (started on 09/20/2021) continue antibiotics -09/25/21 Continue levofloxacin and cefepime for pneumonia treatment -09/26/21 Pneumonia treatment should be completed today patient lung exam significantly improved (2) Acute respiratory failure: Code(s): J96.00 - Acute respiratory failure, unspecified whether with hypoxia or hypercapnia Status: Acute Assessment and Plan: 09/12 all through the day had increased oxygen requirement and became more hypoxic. -09/12: Intubated later in the evening, Chest x-ray at that time showed persistent diffuse bilateral airspace disease. Possible etiologies are congestive heart failure and pulmonary edema, ARDS, aspiration pneumonia -09/19: Chest x-ray : Left PICC line tip has been repositioned now in expected position near the superior cavoatrial junction.. Persistent scattered bilateral lung disease which could represent pulmonary edema or pneumonia. -extubated on 09/22 -will encourage incentive spirometry -continue bronchodilators -patient working with PT/OT -09/23: Failed her modified barium swallow, speech therapy to continue to follow -currently NPO, on tube feeds -had completed completed 7 days of Zosyn on 09/18/2021 spike fevers again so she has no one vanc, cefepime and Levaquin -Negative COVID PCR -Extubated but would benefit from pulmonary toilet. Will order PEP therapy. Also need PT/OT. -09/26/21 Resolved on room air with adequate oxygen saturation (3) Sepsis: Code(s): A41.9 - Sepsis, unspecified organism Status: Acute Assessment and Plan: Chest x-ray and UA were negative. CT abdomen also did not show any evidence of infection and no evidence of colitis. Although patient had elevated WBC count. 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 per Nephrology -urine osmolalities pre and post DDAVP reflective of diabetes insipidus -09/26/21 sodium low again likely due to TF being held (5) Electrolyte abnormality: Code(s): E87.8 - Other disorders of electrolyte and fluid balance, not elsewhere classified Status: Acute Assessment and Plan: Replace potassium Magnesium, Phosphorus and calcium have normalized after replacement (6) Acute kidney injury: Code(s): N17.9 - Acute kidney failure, unspecified Status: Acute Assessment and Plan: Resolved Patient pre
[2021-09-26] MEDS: PANTOPRAZOLE SODIUM IV 40 MG VIAL IV PUSH ×2 (08:39→21:17)
[2021-09-26] MEDS: THIAMINE HCL 200 MG/2 ML VIAL 100 MG IV PUSH (08:39)
[2021-09-26] MEDS: METOPROLOL TARTRATE 12.5 MG TABLET PO ×2 (08:39→21:17)
[2021-09-26] MEDS: FOLIC ACID 1 MG/0.2 ML INJ IV PUSH (08:40)
[2021-09-26] MEDS: MICONAZOLE NITRATE 2% CREAM 30 GM TUBE 1 APPLIC TOPICAL (08:41)
[2021-09-26 12:07] LABS: Glucose Point of Care 110 mg/dl (65-105)
--- NOTE | 2021-09-26 13:04 | PCSTNOTE ---
Aspiration present with thin liquid as well as pureed consistency. Patient unable to clear residue using throat clear or multiple swallows. Recommend continue NPO status at this time. Thank you for the referral of this patient.
[2021-09-26] MEDS: DESMOPRESSIN ACETATE 0.1 MG TABLET 0.05 MG PO (17:58)
[2021-09-26 18:27] LABS: Glucose Point of Care 127 mg/dl (65-105)
--- NOTE | 2021-09-26 18:48 | PC.NURSE ---
Spoke with patient about being tearful at times when I was in the room. Patient stated she felt defeated with all shes been through and shes worried about her return. Patient would not express specifically what those concerns were. I ask the patient if she had any thoughts of self harm. The patient stated not at all and that shes come too far to ever harm herself .
[2021-09-26] MEDS: rOPINIRole HCL 1 MG TABLET PO (21:17)
[2021-09-27] VITALS (15 sets, daily range): BP systolic 98–127; BP diastolic 59–78; PULSE 92–114; RESP 16–20; TEMP 36.2–37.1; O2SAT 96–99
[2021-09-27 00:50] LABS: Glucose Point of Care 116 mg/dl (65-105)
[2021-09-27] MEDS: ALPRAZolam (*CRX) 0.25 MG TABLET PO ×2 (04:39→15:32)
[2021-09-27 04:53] LABS: Glucose Point of Care 119 mg/dl (65-105)
[2021-09-27] MEDS: CENTRAL LINE FLUSH 10 ML IV PUSH ×3 (05:00→20:54)
[2021-09-27] MEDS: GABAPENTIN 300 MG CAPSULE PO ×3 (05:00→20:54)
[2021-09-27] MEDS: DESMOPRESSIN ACETATE 0.1 MG TABLET 0.05 MG PO (05:54)
[2021-09-27 06:16] LABS: Albumin Level 3.4 g/dL (3.5-5.1); Anion Gap 7 mmol/L (8-16); Blood Urea Nitrogen 12 mg/dL (7-17); Calcium 8.7 mg/dL (8.4-10.2); Carbon Dioxide 30 mmol/L (22-30); Chloride 96 mmol/L (98-107); Estimated CRCL calculation 134 ml/min; Estimated Glomerular Filt Rate > 60; Glucose 112 mg/dL (65-110); Potassium 3.3 mmol/L (3.4-5.0); Sodium 133 mmol/L (137-145)
[2021-09-27 06:22] LABS: Basophils Absolute Auto 0.1 K/mm3 (0.0-0.1); Basophils Percent Auto 0.9 % (0.2-1.2); Eosinophils Absolute Auto 0.5 K/mm3 (0-0.3); Eosinophils Percent Auto 4.1 % (0-4.4); Hematocrit 29.3 % (37.0-47.0); Immature Granulocyte Absolute 0.03 K/mm3 (0.00-0.031); Immature Granulocyte Percent A 0.3 % (0-0.5); Lymphocytes Absolute Auto 2.18 K/mm3 (0.9-3.2); Lymphocytes Percent Auto 19.6 % (18.3-44.2); Mean Corpuscular HGB Conc 30.7 g/dl (32-36); Mean Corpuscular Hemoglobin 32.3 pg (26-34); Mean Platelet Volume 9.4 fl (7.4-10.4); Monocytes Absolute Auto 0.8 K/mm3 (0.1-0.6); Neutrophils Absolute Auto 7.6 K/mm3 (1.3-6.7); Neutrophils Percent Auto 68.1 % (45.5-73.1); Platelet Count Result 569 k/mm3 (150-375); Red Blood Count 2.79 M/mm3 (4.2-5.4); Red Cell Distribution Width 15.4 % (11.5-14.5); White Blood Count 11.1 K/mm3 (4.5-10.0)
--- NOTE | 2021-09-27 07:50 | PM.IMPN ---
Progress Note: A&P Assessment and Plan (1) Fever: Code(s): R50.9 - Fever, unspecified Status: Acute Assessment and Plan: Fevers have resolved Patient has been febrile since stopping the Zosyn 09/18/2021 -09/19 blood culture: No growth x2 -09/19 urine culture: No growth -09/19 sputum culture: Yeast -patient has perineal/vulvar rash which is erythematous, flaky skin, possible fungal. Patient on miconazole topical cream. 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 -continue vancomycin, cefepime and Levaquin (started on 09/20/2021) continue antibiotics -09/25/21 Continue levofloxacin and cefepime for pneumonia treatment -09/26/21 Pneumonia treatment should be completed today patient lung exam significantly improved (2) Silent aspiration: Code(s): T17.900A - Unspecified foreign body in respiratory tract, part unspecified causing asphyxiation, initial encounter Status: Acute Assessment and Plan: Noted on modified barium swallow yesterday. Discussed with speech therapy and would recommend outpatient speech therapy to help improve this desizing pad operator. Would still benefit from a PEG. -Surgery consulted for PEG but Surgery consulted GI -Appreciate recommendations from GI (3) Acute respiratory failure: Code(s): J96.00 - Acute respiratory failure, unspecified whether with hypoxia or hypercapnia Status: Acute Assessment and Plan: 09/12 all through the day had increased oxygen requirement and became more hypoxic. -09/12: Intubated later in the evening, Chest x-ray at that time showed persistent diffuse bilateral airspace disease. Possible etiologies are congestive heart failure and pulmonary edema, ARDS, aspiration pneumonia -09/19: Chest x-ray : Left PICC line tip has been repositioned now in expected position near the superior cavoatrial junction.. Persistent scattered bilateral lung disease which could represent pulmonary edema or pneumonia. -extubated on 07/23 -will encourage incentive spirometry -continue bronchodilators -patient working with PT/OT -09/23: Failed her modified barium swallow, speech therapy to continue to follow -currently NPO, on tube feeds -had completed completed 7 days of Zosyn on 09/18/2021 spike fevers again so she has no one vanc, cefepime and Levaquin -Negative COVID PCR -Extubated but would benefit from pulmonary toilet. Will order PEP therapy. Also need PT/OT. -09/26/21 Resolved on room air with adequate oxygen saturation (4) Sepsis: Code(s): A41.9 - Sepsis, unspecified organism Status: Acute Assessment and Plan: Chest x-ray and UA were negative. CT abdomen also did not show any evidence of infection and no evidence of colitis. Although patient had elevated WBC count. 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 per Nephrology -urine osmolalities pre a
[2021-09-27] MEDS: ALBUTEROL SULFATE NEB 2.5 MG/3 ML INH 5 MG INHALATION ×3 (08:02→21:40)
[2021-09-27] MEDS: IPRATROPIUM BR 0.02% INH SOLN 0.5 MG/2.5 ML VIAL INHALATION ×3 (08:02→21:40)
[2021-09-27] MEDS: THIAMINE HCL 200 MG/2 ML VIAL 100 MG IV PUSH (09:48)
[2021-09-27] MEDS: FOLIC ACID 1 MG/0.2 ML INJ IV PUSH (09:48)
[2021-09-27] MEDS: PANTOPRAZOLE SODIUM IV 40 MG VIAL IV PUSH ×2 (09:48→20:54)
[2021-09-27] MEDS: METOPROLOL TARTRATE 12.5 MG TABLET PO ×2 (09:48→20:54)
--- NOTE | 2021-09-27 12:22 | WPDGIPROGNO ---
Progress Note: A&P Assessment and Plan (1) Dysphagia: Code(s): R13.10 - Dysphagia, unspecified Status: Acute Assessment and Plan: Patient unable to swallow safely. She has failed modified barium swallow. Appears to be related to oropharyngeal dysphagia. Is been at least 2 weeks and she was extubated making it difficult to blame all this on her intubation. Plan is to proceed with PEG tube for nutritional support. If PEG tube is placed I would wait at least 2 months after placement to consider removal. Given the hope that her swallowing mechanism will return over time. This is not a certainty. We will plan to proceed with PEG tube Friday morning. (2) Acute respiratory failure: Code(s): J96.00 - Acute respiratory failure, unspecified whether with hypoxia or hypercapnia Status: Acute Assessment and Plan: Patient recovering from acute respiratory failure. Extubated 1 week ago after being intubated for some time in the intensive care unit. Patient was felt to have aspiration pneumonia as the etiology which is another reason to consider PEG tube at this time. (3) Altered mental status: Code(s): R41.82 - Altered mental status, unspecified Status: Acute (4) Alcohol abuse: Code(s): F10.10 - Alcohol abuse, uncomplicated Status: Acute Assessment and Plan: Patient with long standing substance abuse. Alcohol abstinence strongly encouraged in the future. Subjective Date/time seen: 09/27/21 12:22 Patient now on the medical floor. Patient seen initially shortly after admission hospital with distention of the stomach. Workup at that time included NG tube decompression. Small-bowel series revealed no obstruction in this distention eventually resolved. Patient has been intubated for what was presumed to be aspiration pneumonia. Apparently was extubated within the last week now on the floor. She remains somewhat hoarse requires tube feedings. She has been unable to swallow with failed modified barium swallows PEG tube is requested. Today the patient states that she wishes to have the NG tube removed in agreeable to placement of PEG tube. She states that she had difficulty swallowing home prior to presentation to the hospital. Exact difficulty to somewhat difficult for her to describe. Patient does have a prior history of alcohol use and abuse. Review of Systems Review of Systems: Review of systems noncontributory. Exam Narrative: Physical exam reveals patient to have NG tube in place. Her speech is somewhat hoarse. HEENT exam reveals her to be edentulous. Her gag reflux appears diminished. Lungs reveal a few rhonchi. Heart without murmur. Abdomen bowel sounds present soft nontender. There are no scars in the upper abdomen. She has of periumbilical ring. Objective Data Vital Signs Vital Signs: Vital Signs - 24 hr 09/26/21 14:00 09/26/21 14:25 09/26/21 14:35 Temperature 97.3 F L Pulse Rate 113 H 108 H 105 H Respiratory Rate 20 18 18 Blood Pressure 123/63 Pulse Oximetry 96 09/26/21 16:00 09/26/21 19:55 09/26/21 21:00 Temperature 97.0 F L Pulse Rate 111 H 114 H 103 H Respiratory Rate 22 H 18 Blood Pressure 126/65 Pulse Oximetry 100 09/26/21 21:08 09/26/21 21:17 09/26/21 20:00 Temperature Pulse Rate 101 H 118 H 116 H Respiratory Rate 18 Blood Pressure Pulse Oximetry 09/27/21 00:00 09/27/21 04:00 09/27/21 06:00 Temperature 98.8 F Pulse Rate 109 H 105 H 102 H Respiratory Rate 18 Blood Pressure 125/61 Pulse Oximetry 96 09/27/21 08:01 09/27/21 08:15 09/27/21 09:48 Temperature Pulse Rate 105 H 103 H 114 H Respiratory Rate 18 20 Blood Pressure Pulse Oximetry Intake/Output Intake/Output: Intake & Output 09/24/21 09/25/21 09/26/21 09/27/21 23:59 23:59 23:59 23:59 Intake Total 1245 1760 300 50 Output Total 1475 1725 1050 1100 Balance -230 01 -683 -1051 Meds/Res
[2021-09-27 12:24] LABS: Glucose Point of Care 104 mg/dl (65-105)
--- NOTE | 2021-09-27 13:03 | PM.PNNEP ---
Progress Note: A&P Assessment and Plan (1) Acute kidney injury: Code(s): N17.9 - Acute kidney failure, unspecified Status: Acute Assessment and Plan: resolved (2) Hypernatremia: Code(s): E87.0 - Hyperosmolality and hypernatremia Status: Acute Assessment and Plan: persistent for the last several days u.o. seems to have dropped. latest sodium low stop ddavp The patient needs imaging of her sella turcica. She is a bit too agitated for this right now. I talked with radiology and they suggest MRI. PT refuses the MRI due to claustrophobia. will chedule as an open MRI as an outpt sodium now low. hold ddavp.. (3) Acute respiratory failure: Code(s): J96.00 - Acute respiratory failure, unspecified whether with hypoxia or hypercapnia Status: Acute Assessment and Plan: Improved. Now patient is extubated. (4) Electrolyte abnormality: Code(s): E87.8 - Other disorders of electrolyte and fluid balance, not elsewhere classified Status: Acute Assessment and Plan: Electrolytes okay now. Sodium is normal. Will continue to monitor. (5) Altered mental status: Code(s): R41.82 - Altered mental status, unspecified Status: Acute Assessment and Plan: Seems to be improving. (6) Nausea & vomiting: Code(s): R11.2 - Nausea with vomiting, unspecified Status: Acute Assessment and Plan: Resolved (7) Alcohol abuse: Code(s): F10.10 - Alcohol abuse, uncomplicated Status: Acute Assessment and Plan: details/specifics are unknown at this time on thiamine and folic acid Subjective Date/time seen: 09/27/21 13:03 Interval history: Elsisa is now out of ICU she feels okay she refused the mri. her sodium is nolonger too high. in fact it is too low. d/c ddavp. Exam Narrative: General: female in NAD but intubated/sedated Heart: normal S1 and S2; no rub or gallop Lungs: breath sounds more clear. Abdomen: soft, nondistended, positive bowel sounds Extremities: no edema or cyanosis Skin: no rash Objective Data Vital Signs Vital Signs: Vital Signs - 24 hr 09/26/21 14:00 09/26/21 14:25 09/26/21 14:35 Temperature 36.3 C L Pulse Rate 113 H 108 H 105 H Respiratory Rate 20 18 18 Blood Pressure 123/63 Pulse Oximetry 96 09/26/21 16:00 09/26/21 19:55 09/26/21 21:00 Temperature 36.1 C L Pulse Rate 111 H 114 H 103 H Respiratory Rate 22 H 18 Blood Pressure 126/65 Pulse Oximetry 100 09/26/21 21:08 09/26/21 21:17 09/26/21 20:00 Temperature Pulse Rate 101 H 118 H 116 H Respiratory Rate 18 Blood Pressure Pulse Oximetry 09/27/21 00:00 09/27/21 04:00 09/27/21 06:00 Temperature 37.1 C Pulse Rate 109 H 105 H 102 H Respiratory Rate 18 Blood Pressure 125/61 Pulse Oximetry 96 09/27/21 08:01 09/27/21 08:15 09/27/21 09:48 Temperature Pulse Rate 105 H 103 H 114 H Respiratory Rate 18 20 Blood Pressure Pulse Oximetry 09/27/21 12:00 Temperature Pulse Rate 96 Respiratory Rate Blood Pressure Pulse Oximetry Intake/Output Intake/Output: Intake & Output 09/24/21 09/25/21 09/26/21 09/27/21 23:59 23:59 23:59 23:59 Intake Total 1245 1760 300 50 Output Total 1475 1725 1050 1100 [facility] -[phone] Meds/Results Medications: Active Medications Generic Name Dose Route Start Last Admin Trade Name Freq PRN Reason Stop Dose Admin Acetaminophen 650 mg 09/18/21 14:19 09/21/21 12:23 Acetaminophen Elixir 325 Mg/10.15 Ml Udc PO 650 mg Q6H PRN Administration Mild Pain (1-3) or Fever Albuterol 2.5 mg 09/11/21 08:16 09/22/21 14:07 Albuterol Sulfate Neb 2.5 Mg/3 Ml Inh INHALATION 2.5 mg Q4HRT PRN Administration Shortness Of Breath Or Wheezing Albuterol 5 mg 09/12/21 20:00 09/27/21 08:02 Albuterol Sulfate Neb 2.5 Mg/3 Ml Inh INHALATION 5
[2021-09-27 15:17] LABS: Anion Gap 9 mmol/L (8-16); Blood Urea Nitrogen 10 mg/dL (7-17); Calcium 8.7 mg/dL (8.4-10.2); Carbon Dioxide 29 mmol/L (22-30); Chloride 95 mmol/L (98-107); Estimated CRCL calculation 122 ml/min; Estimated Glomerular Filt Rate > 60; Glucose 100 mg/dL (65-110); Potassium 3.1 mmol/L (3.4-5.0); Sodium 133 mmol/L (137-145)
[2021-09-27 15:19] LABS: INR 1.1; Partial Thromboplastin Time 25.4 SECONDS (22.3-36.8); Prothrombin Time 13.8 Seconds (11.1-14.7)
[2021-09-27 15:47] LABS: Basophils Absolute Auto 0.1 K/mm3 (0.0-0.1); Basophils Percent Auto 1.1 % (0.2-1.2); Eosinophils Absolute Auto 0.4 K/mm3 (0-0.3); Eosinophils Percent Auto 4.4 % (0-4.4); Hematocrit 30.9 % (37.0-47.0); Hemoglobin 9.4 g/dL (12.0-15.0); Immature Granulocyte Absolute 0.04 K/mm3 (0.00-0.031); Immature Granulocyte Percent A 0.4 % (0-0.5); Lymphocytes Absolute Auto 2.74 K/mm3 (0.9-3.2); Lymphocytes Percent Auto 28.1 % (18.3-44.2); Mean Corpuscular HGB Conc 30.4 g/dl (32-36); Mean Corpuscular Hemoglobin 31.9 pg (26-34); Mean Corpuscular Volume 104.7 fl (80-100); Mean Platelet Volume 9.5 fl (7.4-10.4); Monocytes Absolute Auto 0.7 K/mm3 (0.1-0.6); Monocytes Percent Auto 7.5 % (2.6-8.5); Neutrophils Absolute Auto 5.7 K/mm3 (1.3-6.7); Neutrophils Percent Auto 58.5 % (45.5-73.1); Platelet Count Result 590 k/mm3 (150-375); Red Blood Count 2.95 M/mm3 (4.2-5.4); Red Cell Distribution Width 15.6 % (11.5-14.5); White Blood Count 9.7 K/mm3 (4.5-10.0)
[2021-09-27 17:59] LABS: Glucose Point of Care 142 mg/dl (65-105)
[2021-09-27] MEDS: rOPINIRole HCL 1 MG TABLET PO (20:54)
[2021-09-28] VITALS (23 sets, daily range): BP systolic 98–126; BP diastolic 49–93; PULSE 81–120; RESP 18–24; TEMP 36.6–37.2; O2SAT 96–100
[2021-09-28 00:14] LABS: Glucose Point of Care 122 mg/dl (65-105)
[2021-09-28] MEDS: IPRATROPIUM BR 0.02% INH SOLN 0.5 MG/2.5 ML VIAL INHALATION ×4 (02:00→20:35)
[2021-09-28] MEDS: ALBUTEROL SULFATE NEB 2.5 MG/3 ML INH 5 MG INHALATION ×4 (02:00→20:36)
[2021-09-28] MEDS: ALPRAZolam (*CRX) 0.25 MG TABLET PO ×2 (02:30→15:55)
[2021-09-28] MEDS: CENTRAL LINE FLUSH 10 ML IV PUSH ×3 (04:55→21:50)
[2021-09-28 05:00] LABS: Glucose Point of Care 115 mg/dl (65-105)
[2021-09-28 05:23] LABS: Anion Gap 9 mmol/L (8-16); Blood Urea Nitrogen 10 mg/dL (7-17); Calcium 8.7 mg/dL (8.4-10.2); Carbon Dioxide 30 mmol/L (22-30); Chloride 96 mmol/L (98-107); Estimated CRCL calculation 92 ml/min; Estimated Glomerular Filt Rate > 60; Glucose 113 mg/dL (65-110); Sodium 135 mmol/L (137-145)
[2021-09-28] MEDS: diazePAM INJ (*CRX) 10 MG/2 ML SYRINGE 5 MG IV PUSH (07:52)
--- NOTE | 2021-09-28 07:56 | PCSTNOTE ---
Spoke with treating hospitalist yesterday who requested continued speech therapy treatment.
[2021-09-28 08:02] LABS: Glucose Point of Care 104 mg/dl (65-105)
--- NOTE | 2021-09-28 08:16 | PCPTNOTE ---
Attempted to see patient this AM, per RN: advised not to see patient this date due increase agitation and patient getting PEG tube placed later this today.
--- NOTE | 2021-09-28 08:34 | PM.IMPN ---
Progress Note: A&P Assessment and Plan (1) Fever: Code(s): R50.9 - Fever, unspecified Status: Acute Assessment and Plan: Fevers have resolved Patient has been febrile since stopping the Zosyn 09/18/2021 -09/19 blood culture: No growth x2 -09/19 urine culture: No growth -09/19 sputum culture: Yeast -patient has perineal/vulvar rash which is erythematous, flaky skin, possible fungal. Patient on miconazole topical cream. 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 -continue vancomycin, cefepime and Levaquin (started on 09/20/2021) continue antibiotics -09/25/21 Continue levofloxacin and cefepime for pneumonia treatment -09/26/21 Pneumonia treatment should be completed today patient lung exam significantly improved (2) Silent aspiration: Code(s): T17.900A - Unspecified foreign body in respiratory tract, part unspecified causing asphyxiation, initial encounter Status: Acute Assessment and Plan: Noted on modified barium swallow yesterday. 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 Would still benefit from a PEG. Planned for PEG today. -Appreciate recommendations from GI (3) Acute respiratory failure: Code(s): J96.00 - Acute respiratory failure, unspecified whether with hypoxia or hypercapnia Status: Acute Assessment and Plan: 09/12 all through the day had increased oxygen requirement and became more hypoxic. -09/12: Intubated later in the evening, Chest x-ray at that time showed persistent diffuse bilateral airspace disease. Possible etiologies are congestive heart failure and pulmonary edema, ARDS, aspiration pneumonia -09/19: Chest x-ray : Left PICC line tip has been repositioned now in expected position near the superior cavoatrial junction.. Persistent scattered bilateral lung disease which could represent pulmonary edema or pneumonia. -extubated on 09/22 -will encourage incentive spirometry -continue bronchodilators -patient working with PT/OT -09/23: Failed her modified barium swallow, speech therapy to continue to follow -currently NPO, on tube feeds -had completed completed 7 days of Zosyn on 09/18/2021 spike fevers again so she has no one vanc, cefepime and Levaquin -Negative COVID PCR -Extubated but would benefit from pulmonary toilet. Will order PEP therapy. Also need PT/OT. -09/26/21 Resolved on room air with adequate oxygen saturation (4) Sepsis: Code(s): A41.9 - Sepsis, unspecified organism Status: Acute Assessment and Plan: Chest x-ray and UA were negative. CT abdomen also did not show any evidence of infection and no evidence of colitis. Although patient had elevated WBC count. 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 per Nephrology -urine osmolalities pre and post DDAVP reflective
--- NOTE | 2021-09-28 10:55 | PCNFU ---
Nutrition Follow-Up Complete: Altered GI function as related to Nausea/Vomiting as evidenced by NPO. Goal: Meet estimated nutritional needs Pt current nutrition is Jevity 1.2 at 65 ml/hr over 22 hours. Last recorded weight is 42 kg, down from 46.8 kg on admit. Bowel Motility:+Bm reported 09/24 Labs Reviewed:Glu 113, Cr 0.4,Na 135, K 3.0 Meds Noted:Thiamine, Folic Acid, Protonix, Lopressor, Atrovent, Neurontin Skin: WNL Additional Notes: Patient tube feedings currently on hold for PEG placement today. Continuos tube feeding recommendations: Jevity 1.2 at 65 ml/hr providing 1716 kcals/79 gms protein/1154 ml water. Free water flush 30 ml q 4 hours. Bolus feedings: 350 ml Bolus 4 x daily. Providing 1680 kcals/78 gms protein/1130 ml water. Free water flush 50 ml with feedings. Agree with diet orders. Monitoring: Will monitor every Friday and Friday.
[2021-09-28 11:26] LABS: Glucose Point of Care 115 mg/dl (65-105)
[2021-09-28] MEDS: FOLIC ACID 1 MG/0.2 ML INJ IV PUSH (11:34)
[2021-09-28] MEDS: THIAMINE HCL 200 MG/2 ML VIAL 100 MG IV PUSH (11:34)
[2021-09-28] MEDS: PANTOPRAZOLE SODIUM IV 40 MG VIAL IV PUSH ×2 (11:37→21:50)
--- NOTE | 2021-09-28 11:39 | PCOTNOTE ---
Attempted to see patient this am, however patient was with nursing. RN advised to let patient rest prior to having PEG placement soon this date.
--- NOTE | 2021-09-28 11:48 | PM.PNNEP ---
Progress Note: A&P Assessment and Plan (1) Acute kidney injury: Code(s): N17.9 - Acute kidney failure, unspecified Status: Acute Assessment and Plan: resolved (2) Hypernatremia: Code(s): E87.0 - Hyperosmolality and hypernatremia Status: Acute Assessment and Plan: Hypernatremia improved with DDAVP. Now she has low sodium so it was discontinued. In spite of very low intake her serum sodium level is only very slowly correcting. The patient needs imaging of her sella turcica. She refused the MRI. She wants an open MRI to be done. This will have to wait until she has an outpatient. She lives in [place] and so she will go back to her primary care physician to do this or to refer to instrument maintenance supervisor. She understands that she will need follow-up for all of this. She seems very insightful and enthusiastic about getting the evaluation done. (3) Acute respiratory failure: Code(s): J96.00 - Acute respiratory failure, unspecified whether with hypoxia or hypercapnia Status: Acute Assessment and Plan: Improved. Now patient is extubated. (4) Electrolyte abnormality: Code(s): E87.8 - Other disorders of electrolyte and fluid balance, not elsewhere classified Status: Acute Assessment and Plan: Electrolytes okay now. Sodium is slightly low. This seems to be correcting on its own. (5) Altered mental status: Code(s): R41.82 - Altered mental status, unspecified Status: Acute Assessment and Plan: Seems to be improving. (6) Nausea & vomiting: Code(s): R11.2 - Nausea with vomiting, unspecified Status: Acute Assessment and Plan: Resolved (7) Alcohol abuse: Code(s): F10.10 - Alcohol abuse, uncomplicated Status: Acute Assessment and Plan: details/specifics are unknown at this time on thiamine and folic acid Subjective Date/time seen: 09/28/21 11:48 Interval history: Patient is resting comfortably in bed. She is going to get a G-tube today. Her intake is somewhat low now because she can not swallow. But here in output continues to be between 1 and 2L per day. Exam Narrative: General: female in NAD but intubated/sedated Heart: normal S1 and S2; no rub or gallop Lungs: breath sounds more clear. Abdomen: soft, nondistended, positive bowel sounds Extremities: no edema or cyanosis Skin: no rash or subQ nodules Objective Data Vital Signs Vital Signs: Vital Signs - 24 hr 09/27/21 12:00 09/27/21 14:16 09/27/21 14:28 Temperature Pulse Rate 96 92 100 Respiratory Rate 16 16 Blood Pressure Pulse Oximetry 09/27/21 14:00 09/27/21 16:00 09/27/21 20:54 Temperature 36.8 C Pulse Rate 95 96 108 H Respiratory Rate 18 Blood Pressure 98/59 L Pulse Oximetry 99 09/27/21 21:35 09/27/21 21:40 09/27/21 21:50 Temperature 36.2 C L Pulse Rate 98 101 H 97 Respiratory Rate 20 18 18 Blood Pressure 127/78 Pulse Oximetry 99 09/28/21 00:00 09/28/21 02:01 09/28/21 02:10 Temperature Pulse Rate 108 H 101 H 99 Respiratory Rate 18 18 Blood Pressure Pulse Oximetry 09/28/21 04:00 09/28/21 04:44 09/28/21 08:03 Temperature 36.7 C Pulse Rate 120 H 109 H 102 H Respiratory Rate 22 H 18 Blood Pressure 126/83 Pulse Oximetry 99 09/28/21 08:15 Temperature Pulse Rate 100 Respiratory Rate 18 Blood Pressure Pulse Oximetry Intake/Output Intake/Output: Intake & Output 09/25/21 09/26/21 09/27/21 09/28/21 23:59 23:59 23:59 23:59 Intake Total 1760 300 130 30 Output Total 1725 1050 1825 1300 Balance 91 -922 -9140 -1592 Meds/Results Medications: Active Medications Generic Name Dose Route Start Last Admin Trade Name Freq PRN Reason Stop Dose Admin Acetaminophen 650 mg 09/18/21 14:19 09/21/21 12:23 Acetaminophen Elixir 325 Mg/10.15 Ml Udc PO 650 mg Q6H PRN Administration
--- NOTE | 2021-09-28 12:46 | WPDANESEPPF ---
Anes - Initial Pre Proc Eval Procedure: Operation Date: 09/28/21 14:00 Proposed Procedures p Percutaneous Endoscopic Gastrostomy - Cristobal Darden MD Date/Time: 09/28/21 12:46 Surgeon: Meghan Valdovinos DO Pre Op Diagnosis: acute renal failure, metabolic acidosis Patient Data Age: 51 Gender: F Height: 1.7 m Weight: 42 kg Last Vital Signs Temp 36.7 C 09/28/21 04:44 Pulse 100 09/28/21 08:15 Resp 18 09/28/21 08:15 BP 126/83 09/28/21 04:44 Pulse Ox 99 09/28/21 04:44 O2 Del Method Nasal Cannula 09/25/21 16:00 O2 Flow Rate 2 09/25/21 16:00 FiO2 30 09/22/21 12:00 Allergies Allergy/AdvReac Type Severity Reaction Status Date / Time Penicillins Allergy Unknown doesnt Verified 09/28/21 13:07 remember reaction Home Medications Medication Instructions Recorded Confirmed Type albuterol sulfate 90 mcg/actuation 2 inh inhalation Q6H PRN Shortness 09/11/21 09/11/21 History aerosol inhaler Of Breath Or Wheezing gabapentin 300 mg capsule 300 mg PO TID 09/11/21 09/11/21 History pantoprazole 40 mg tablet,delayed 40 mg PO DAILY 09/11/21 09/11/21 History release propranolol 40 mg tablet 40 mg PO TID 09/11/21 09/11/21 History Laboratory Tests 09/27/21 09/27/21 09/27/21 14:52 14:52 14:52 WBC 9.7 K/mm3 K/mm3 (4.5-10.0) RBC 2.95 M/mm3 L M/mm3 (4.2-5.4) Hgb 9.4 g/dL L g/dL (12.0-15.0) Hct 30.9 % L % (37.0-47.0) MCV 104.7 fl H fl (80-100) MCH 31.9 pg pg (26-34) MCHC 30.4 g/dl L g/dl (32-36) RDW 15.6 % H % (11.5-14.5) Plt Count 590 k/mm3 H k/mm3 (150-375) MPV 9.5 fl fl (7.4-10.4) Immature Gran % (Auto) 0.4 % % (0-0.5) Neut % (Auto) 58.5 % % (45.5-73.1) Lymph % (Auto) 28.1 % % (18.3-44.2) Whitley % (Auto) 7.5 % % (2.6-8.5) Eos % (Auto) 4.4 % % (0-4.4) Baso % (Auto) 1.1 % % (0.2-1.2) Lymph # (Auto) 2.74 K/mm3 K/mm3 (0.9-3.2) Whitley # (Auto) 0.7 K/mm3 H K/mm3 (0.1-0.6) Eos # (Auto) 0.4 K/mm3 H K/mm3 (0-0.3) Baso # (Auto) 0.1 K/mm3 K/mm3 (0.0-0.1) Abs Immat Gran (auto) 0.04 K/mm3 H K/mm3 (0.00-0.031) Absolute Neuts (auto) 5.7 K/mm3 K/mm3 (1.3-6.7) Absolute Nucleated RBC 0.0 K/mm3 K/mm3 (0.0-0.012) Nucleated RBC % 0.0 % % (0.0-0.2) PT 13.8 Seconds Seconds (11.1-14.7) INR 1.1 APTT 25.4 SECONDS SECONDS (22.3-36.8) Sodium 133 mmol/L L mmol/L (137-145) Potassium 3.1 mmol/L L mmol/L (3.4-5.0) Chloride 95 mmol/L L mmol/L (98-107) Carbon Dioxide 29 mmol/L mmol/L (22-30) Anion Gap 9 mmol/L mmol/L (8-16) BUN 10 mg/dL mg/dL (7-17) Creatinine 0.30 mg/dL L mg/dL (0.7-1.0) Estim Creat Clear Calc 122 ml/min ml/min Estimated GFR > 60 (59 - ) Glucose 100 mg/dL mg/dL (65-110) POC Capillary Glucose Calcium 8.7 mg/dL mg/dL (8.4-10.2) 09/27/21 09/27/21 09/28/21 17:57 23:49 04:48 WBC RBC Hgb Hct MCV MCH MCHC RDW Plt Count MPV Immature Gran % (Auto) Neut % (Auto) Lymph % (Auto) Whitley % (Auto) Eos % (Auto) Baso % (Auto) Lymph # (Auto) Whitley # (Auto) Eos # (Auto) Baso # (Auto) Abs Immat Gran (auto) Absolute Neuts (auto) Absolute Nucleated RBC Nucleated RBC % PT INR APTT Sodium Potassium Chloride Carbon Dioxide Anion Gap BUN Creatinine
[2021-09-28] MEDS: LACTATED RINGERS 1,000 ML 150 ML IV CONT (13:13)
--- NOTE | 2021-09-28 14:48 | SUR.OPER ---
1% LIDOCAINE, [facility], EXP 07/24, LOT #[id number], INJECTED PER DR. HALE INTO PEG TUBE SITE.
--- NOTE | 2021-09-28 15:25 | SUR.PHASEII ---
Addendum entered by Kristy Cartwright RN 09/28/21 15:31: DOCTOR GEOFFREY ALSO AT BEDSIDE TO LOOSEN PEG TUBE DUE TO PATIENT COMPLAINTS OF PAIN. FLOOR RN TO ADMINISTER TYLENOL ELIXIR VIA PEG TUBE. Original Note: NOTIFIED OF PAIN. ORDERED TO GIVE TYLENOL ALREADY ORDERED FOR PAIN. PATIENT COMPLAIN OF PEG SITE PAIN. DOCTOR FEEDER STATES OKAY TO GIVE MEDICATIONS THROUGH PEG TONIGHT. UPDATED FLOOR NURSE OF ORDERS.
[2021-09-28] MEDS: ACETAMINOPHEN ELIXIR 325 MG/10.15 ML UDC 650 MG PO ×2 (15:55→22:04)
[2021-09-28] MEDS: GABAPENTIN 300 MG CAPSULE PO ×2 (15:55→21:50)
[2021-09-28 16:44] LABS: Glucose Point of Care 126 mg/dl (65-105)
[2021-09-28] MEDS: rOPINIRole HCL 1 MG TABLET PO (21:50)
[2021-09-28] MEDS: METOPROLOL TARTRATE 12.5 MG TABLET PO (21:50)
[2021-09-28] MEDS: MICONAZOLE NITRATE 2% CREAM 30 GM TUBE 1 APPLIC TOPICAL (21:51)
[2021-09-29] VITALS (17 sets, daily range): BP systolic 104–112; BP diastolic 49–58; PULSE 88–100; RESP 14–20; TEMP 35.7–36.1; O2SAT 98–99
[2021-09-29 01:24] LABS: Glucose Point of Care 107 mg/dl (65-105)
[2021-09-29] MEDS: ALBUTEROL SULFATE NEB 2.5 MG/3 ML INH 5 MG INHALATION ×4 (02:43→20:07)
[2021-09-29] MEDS: IPRATROPIUM BR 0.02% INH SOLN 0.5 MG/2.5 ML VIAL INHALATION ×4 (02:43→20:07)
[2021-09-29] MEDS: ALPRAZolam (*CRX) 0.25 MG TABLET PO ×2 (03:22→21:37)
[2021-09-29] MEDS: GABAPENTIN 300 MG CAPSULE PO ×3 (05:31→21:37)
[2021-09-29] MEDS: ACETAMINOPHEN ELIXIR 325 MG/10.15 ML UDC 650 MG PO ×3 (05:31→18:35)
[2021-09-29] MEDS: CENTRAL LINE FLUSH 10 ML IV PUSH ×3 (05:48→21:37)
[2021-09-29] MEDS: CENTRAL LINE FLUSH 20 ML IV PUSH (05:49)
[2021-09-29 05:52] LABS: Glucose Point of Care 98 mg/dl (65-105)
[2021-09-29 06:12] LABS: Anion Gap 8 mmol/L (8-16); Blood Urea Nitrogen 8 mg/dL (7-17); Calcium 8.5 mg/dL (8.4-10.2); Carbon Dioxide 28 mmol/L (22-30); Chloride 99 mmol/L (98-107); Estimated CRCL calculation 92 ml/min; Estimated Glomerular Filt Rate > 60; Glucose 95 mg/dL (65-110); Sodium 135 mmol/L (137-145)
--- NOTE | 2021-09-29 09:46 | PCPTNOTE ---
Patient presented sitting EOB upon therapy entering room. Patient refused therapy this session. Patient states she was told that she gets to go home today, and felt like she was give the runaround . Pt was unhappy when told it was not recommended that she get up by herself at this time, and when bed alarm was set. Patient stated I'm steady when I'm up . Patient also stated I'm not refusing, but the therapy is on hold because I'm going to do another therapy at home . RN notified of the above.
--- NOTE | 2021-09-29 10:18 | PM.IMPN ---
Progress Note: A&P Assessment and Plan (1) Fever: Code(s): R50.9 - Fever, unspecified Status: Acute Assessment and Plan: Fevers have resolved Patient has been febrile since stopping the Zosyn 09/18/2021 -09/19 blood culture: No growth x2 -09/19 urine culture: No growth -09/19 sputum culture: Yeast -patient has perineal/vulvar rash which is erythematous, flaky skin, possible fungal. Patient on miconazole topical cream. 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 -continue vancomycin, cefepime and Levaquin (started on 09/20/2021) continue antibiotics -09/25/21 Continue levofloxacin and cefepime for pneumonia treatment -09/26/21 Pneumonia treatment should be completed today patient lung exam significantly improved -09/28/21 This has resolve. Patient is off antibiotics. (2) Silent aspiration: Code(s): T17.900A - Unspecified foreign body in respiratory tract, part unspecified causing asphyxiation, initial encounter Status: Acute Assessment and Plan: Noted on modified barium swallow yesterday. Discussed with speech therapy and would recommend outpatient speech therapy to help improve this intermediate. PEG placed yesterday and patient currently tolerating TF at 30cc/hr. -If no instructions from GI, can increase TF by 10 cc/hr starting tomorrow morning until patient is at goal TF rate recommended by senior control systems engineer -Appreciate recommendations from GI (3) Acute respiratory failure: Code(s): J96.00 - Acute respiratory failure, unspecified whether with hypoxia or hypercapnia Status: Acute Assessment and Plan: 09/12 all through the day had increased oxygen requirement and became more hypoxic. -09/12: Intubated later in the evening, Chest x-ray at that time showed persistent diffuse bilateral airspace disease. Possible etiologies are congestive heart failure and pulmonary edema, ARDS, aspiration pneumonia -09/19: Chest x-ray : Left PICC line tip has been repositioned now in expected position near the superior cavoatrial junction.. Persistent scattered bilateral lung disease which could represent pulmonary edema or pneumonia. -extubated on 09/22 -will encourage incentive spirometry -continue bronchodilators -patient working with PT/OT -09/23: Failed her modified barium swallow, speech therapy to continue to follow -currently NPO, on tube feeds -had completed completed 7 days of Zosyn on 09/18/2021 spike fevers again so she has no one vanc, cefepime and Levaquin -Negative COVID PCR -Extubated but would benefit from pulmonary toilet. Will order PEP therapy. Also need PT/OT. -09/26/21 Resolved on room air with adequate oxygen saturation (4) Sepsis: Code(s): A41.9 - Sepsis, unspecified organism Status: Acute Assessment and Plan: Chest x-ray and UA were negative. CT abdomen also did not show any evidence of infection and no evidence of colitis. Although patient had elevated WBC count. -09/11/2021 urine culture negative -09/11 KUB showed airspace opacity in left lung which could be an aspiration pneumonia and she did had low-grade fever -status post Zosyn x7 days -C diff came back negative -fever better overnight, started on antibiotics as above -09/25/21 afebrile since 09/21 and now on cefepime and levofloxacin 09/26/21 cefepime and levofloxacin should be completed today -09/27/21 discontinued cefepime and levofloxacin (5) Hypernatremia: Code(s): E87.0 - Hyperosmolality and hypernatremia Status: Acute Assessment and Plan: Patient was hypernatremic, likely re
--- NOTE | 2021-09-29 10:43 | WPDANESPN ---
Anes - Prog Note Post-Op Date/Time: 09/29/21 10:43 Cardiovascular status: normal Respiratory status: normal Airway patency: baseline Mental status: baseline Post-Op hydration status: normal Vital Signs: Last Vital Signs Temp 36.1 C L 09/29/21 06:05 Pulse 90 09/29/21 08:51 Resp 18 09/29/21 08:51 BP 104/49 L 09/29/21 06:05 Pulse Ox 98 09/29/21 06:05 O2 Del Method Room Air 09/28/21 20:00 O2 Flow Rate 2 09/25/21 16:00 FiO2 30 09/22/21 12:00 Pain Score (VAS): 05/10 I/O: Intake & Output 09/28/21 09/29/21 09/29/21 23:59 07:59 15:59 Output Total 250 600 Balance -250 -600 Laboratory Tests 09/27/21 14:52 09/29/21 05:46 09/28/21 09/28/21 09/29/21 11:19 16:31 01:18 Sodium Potassium Chloride Carbon Dioxide Anion Gap BUN Creatinine Estim Creat Clear Calc Estimated GFR Glucose POC Capillary Glucose 115 H 126 H 107 H Calcium 09/29/21 09/29/21 05:43 05:46 Sodium 135 L Potassium 3.0 L Chloride 99 Carbon Dioxide 28 Anion Gap 8 BUN 8 Creatinine 0.40 L Estim Creat Clear Calc 92 Estimated GFR > 60 Glucose 95 POC Capillary Glucose 98 Calcium 8.5 Post-procedural complaints: none Patient Feedback: Patient satisfied with anesthetic care.
--- NOTE | 2021-09-29 10:53 | PM.PNNEP ---
Progress Note: A&P Assessment and Plan (1) Acute kidney injury: Code(s): N17.9 - Acute kidney failure, unspecified Status: Acute Assessment and Plan: resolved (2) Hypernatremia: Code(s): E87.0 - Hyperosmolality and hypernatremia Status: Acute Assessment and Plan: Hypernatremia improved with DDAVP . Now sodium level has been low. She has been off DDAVP and the sodium level is not rising very quickly so I doubt if she has longstanding diabetes insipidus even partial. Perhaps the sodium issues were a temporary phenomenon brought on by her illness at the beginning of the hospital stay and renal failure. She is going to be discharged today she says. She should follow-up with her primary care doctor. He should follow her sodium levels and if there is a concern than there is a sales enablement consultant in [place]. (3) Acute respiratory failure: Code(s): J96.00 - Acute respiratory failure, unspecified whether with hypoxia or hypercapnia Status: Acute Assessment and Plan: Improved. Now patient is extubated. (4) Electrolyte abnormality: Code(s): E87.8 - Other disorders of electrolyte and fluid balance, not elsewhere classified Status: Acute Assessment and Plan: Electrolytes okay now. Sodium is slightly low. This seems to be correcting on its own. (5) Altered mental status: Code(s): R41.82 - Altered mental status, unspecified Status: Acute Assessment and Plan: Seems to be improving. (6) Nausea & vomiting: Code(s): R11.2 - Nausea with vomiting, unspecified Status: Acute Assessment and Plan: Resolved (7) Alcohol abuse: Code(s): F10.10 - Alcohol abuse, uncomplicated Status: Acute Assessment and Plan: details/specifics are unknown at this time on thiamine and folic acid Subjective Date/time seen: 09/29/21 10:53 Interval history: Patient is resting comfortably in bed. She had a G-tube yesterday. in the room. He says that in the past her sodium level is very low when she had her gallbladder taken care of at a different hospital. Exam Narrative: General: female in NAD but intubated/sedated Heart: normal S1 and S2; no rub or gallop Lungs: breath sounds more clear. Abdomen: soft, nondistended, positive bowel sounds . G-tube in place. Extremities: no edema or cyanosis Skin: no rash or subQ nodules Objective Data Vital Signs Vital Signs: Vital Signs - 24 hr 09/28/21 13:10 09/28/21 12:04 09/28/21 14:47 Temperature 37.2 C Pulse Rate 96 92 101 H Respiratory Rate 18 22 H Blood Pressure 108/57 L 100/58 L Pulse Oximetry 97 100 Oxygen Delivery Room Air Room Air 09/28/21 14:57 09/28/21 15:07 09/28/21 15:49 Temperature 36.7 C Pulse Rate 95 98 103 H Respiratory Rate 22 H 18 24 H Blood Pressure 98/49 L 106/93 H 119/65 Pulse Oximetry 100 100 96 Oxygen Delivery Room Air Room Air 09/28/21 15:55 09/28/21 16:07 09/28/21 16:17 Temperature 36.6 C Pulse Rate 92 81 84 Respiratory Rate 18 20 18 Blood Pressure 114/63 Pulse Oximetry 97 Oxygen Delivery 09/28/21 16:47 09/28/21 20:38 09/28/21 20:51 Temperature 36.6 C Pulse Rate 96 93 92 Respiratory Rate 18 18 18 Blood Pressure 108/50 L Pulse Oximetry 97 Oxygen Delivery 09/28/21 21:17 09/28/21 21:50 09/28/21 20:00 Temperature 36.7 C Pulse Rate 102 H 109 H Respiratory Rate 21 H Blood Pressure 126/66 Pulse Oximetry 100 Oxygen Delivery Room Air 09/29/21 02:45 09/28/21 20:00 09/29/21 00:00 Temperature Pulse Rate 95 95 93 Respiratory Rate 18 Blood Pressure Pulse Oximetry Oxygen Delivery 09/29/21 04:00 09/29/21 06:05 09/29/21 08:45 Temperature 36.1 C L Pulse Rate 99 100 90 Respiratory Rate 20 18 Blood Pressure 104/49 L Pulse Oximetry 98 Oxygen Delivery 09/29/21 08:51 Temperature
[2021-09-29 11:55] LABS: Glucose Point of Care 102 mg/dl (65-105)
[2021-09-29] MEDS: PANTOPRAZOLE SODIUM IV 40 MG VIAL IV PUSH ×2 (12:08→21:37)
[2021-09-29] MEDS: THIAMINE HCL 200 MG/2 ML VIAL 100 MG IV PUSH (12:08)
[2021-09-29] MEDS: POTASSIUM CHLORIDE 20 MEQ PACKET (FOR LIQUID) 40 MEQ PO ×2 (12:08→18:35)
[2021-09-29] MEDS: METOPROLOL TARTRATE 12.5 MG TABLET PO ×2 (12:09→21:36)
[2021-09-29] MEDS: MICONAZOLE NITRATE 2% CREAM 30 GM TUBE 1 APPLIC TOPICAL ×2 (12:12→21:38)
--- NOTE | 2021-09-29 13:04 | WPDGIPROGNO ---
Progress Note: A&P Assessment and Plan (1) Dysphagia: Code(s): R13.10 - Dysphagia, unspecified Status: Acute Assessment and Plan: tolerating tube feeding patient is awake and comfortable will follow from afar, call if questions (2) Nausea & vomiting: Code(s): R11.2 - Nausea with vomiting, unspecified Status: Acute (3) Malnourished: Code(s): E46 - Unspecified protein-calorie malnutrition Status: Acute Assessment and Plan: continue with nutritional support (4) Alcohol abuse: Code(s): F10.10 - Alcohol abuse, uncomplicated Status: Acute Assessment and Plan: medical treatment Subjective Date/time seen: 09/29/21 13:04 Interval history: s/p peg placement yesterday by Dr Darden, tolerating tube feeding at 30 ml/h Review of Systems Review of Systems: All systems reviewed & are unremarkable except as noted in HPI and below Exam Const: Other: thin, comfortable HENMT: Mouth: Yes moist mucous membranes Eyes: General: appearance normal, both eyes and all related structures Neck: Neck: supple Resp: Auscultation: clear to auscultation bilaterally Cardio: Rate: regular rate GI: GI Palp: Yes Soft to palpation Other: g-tube ok Skin: General skin exam: normal color Neuro: Speech: normal speech Extrem: General: normal to inspection Psych: Mental Status: mental status grossly normal Objective Data Vital Signs Vital Signs: Vital Signs - 24 hr 09/28/21 13:10 09/28/21 14:47 09/28/21 14:57 Temperature 99 F Pulse Rate 96 101 H 95 Respiratory Rate 18 22 H 22 H Blood Pressure 108/57 L 100/58 L 98/49 L Pulse Oximetry 97 100 100 Oxygen Delivery Room Air Room Air Room Air 09/28/21 15:07 09/28/21 15:49 09/28/21 15:55 Temperature 98.1 F 97.9 F Pulse Rate 98 103 H 92 Respiratory Rate 18 24 H 18 Blood Pressure 106/93 H 119/65 114/63 Pulse Oximetry 100 96 97 Oxygen Delivery Room Air 09/28/21 16:07 09/28/21 16:17 09/28/21 16:47 Temperature 97.9 F Pulse Rate 81 84 96 Respiratory Rate 20 18 18 Blood Pressure 108/50 L Pulse Oximetry 97 Oxygen Delivery 09/28/21 20:38 09/28/21 20:51 09/28/21 21:17 Temperature 98.0 F Pulse Rate 93 92 102 H Respiratory Rate 18 18 21 H Blood Pressure 126/66 Pulse Oximetry 100 Oxygen Delivery 09/28/21 21:50 09/28/21 20:00 09/29/21 02:45 Temperature Pulse Rate 109 H 95 Respiratory Rate 18 Blood Pressure Pulse Oximetry Oxygen Delivery Room Air 09/28/21 20:00 09/29/21 00:00 09/29/21 04:00 Temperature Pulse Rate 95 93 99 Respiratory Rate Blood Pressure Pulse Oximetry Oxygen Delivery 09/29/21 06:05 09/29/21 08:45 09/29/21 08:51 Temperature 97.0 F L Pulse Rate 100 90 90 Respiratory Rate 20 18 18 Blood Pressure 104/49 L Pulse Oximetry 98 Oxygen Delivery 09/29/21 12:09 Temperature Pulse Rate 90 Respiratory Rate Blood Pressure Pulse Oximetry Oxygen Delivery Intake/Output Intake/Output: Intake & Output 09/26/21 09/27/21 09/28/21 09/29/21 23:59 23:59 23:59 23:59 Intake Total 300 130 130 Output Total 1050 1825 1550 600 Balance -663 -1695 -1420 -600 Meds/Results Medications: Active Medications Generic Name Dose Route Start Last Admin Trade Name Oseiq PRN Reason Stop Dose Admin Acetaminophen 650 mg 09/18/21 14:19 09/29/21 12:07 Acetaminophen Elixir 325 Mg/10.15 Ml Udc PO 650 mg Q6H PRN Administration Mild Pain (1-3) or Fever Albuterol 2.5 mg 09/11/21 08:16 09/22/21 14:07 Albuterol Sulfate Neb 2.5 Mg/3 Ml Inh INHALATION 2.5 mg Q4HRT PRN Administration Shortness Of Breath Or Wheezing Albuterol 5 mg 09/12/21 20:00 09/29/21 08:42 Albuterol Sulfate Neb 2.5 Mg/3 Ml Inh INHALATION 5 mg Q6HRT MICHAEL Administration Alprazolam 0.25 mg 09/22/21 12:51 09/29/21 03:22 Alprazolam (*Crx) 0.25 Mg Tablet PO 0.25 mg TID PRN Administration Anxiet
[2021-09-29 17:37] LABS: Glucose Point of Care 114 mg/dl (65-105)
[2021-09-29] MEDS: rOPINIRole HCL 1 MG TABLET PO (21:36)
[2021-09-30] VITALS (16 sets, daily range): BP systolic 100–106; BP diastolic 51–59; PULSE 88–116; RESP 14–18; TEMP 36.1–36.7; O2SAT 97–100
[2021-09-30 00:13] LABS: Glucose Point of Care 124 mg/dl (65-105)
[2021-09-30] MEDS: ACETAMINOPHEN ELIXIR 325 MG/10.15 ML UDC 650 MG PO ×2 (01:55→10:17)
[2021-09-30] MEDS: ALBUTEROL SULFATE NEB 2.5 MG/3 ML INH 5 MG INHALATION ×3 (02:33→14:25)
[2021-09-30] MEDS: IPRATROPIUM BR 0.02% INH SOLN 0.5 MG/2.5 ML VIAL INHALATION ×3 (02:33→14:25)
[2021-09-30] MEDS: CENTRAL LINE FLUSH 20 ML IV PUSH (05:48)
[2021-09-30] MEDS: CENTRAL LINE FLUSH 10 ML IV PUSH ×3 (05:48→21:57)
[2021-09-30] MEDS: GABAPENTIN 300 MG CAPSULE PO (05:48)
[2021-09-30 06:02] LABS: Glucose Point of Care 127 mg/dl (65-105)
[2021-09-30 06:49] LABS: Anion Gap 7 mmol/L (8-16); Blood Urea Nitrogen 10 mg/dL (7-17); Carbon Dioxide 30 mmol/L (22-30); Chloride 99 mmol/L (98-107); Estimated CRCL calculation 94 ml/min; Estimated Glomerular Filt Rate > 60; Glucose 116 mg/dL (65-110); Magnesium 1.9 mg/dL (1.6-2.3); Phosphorus 4.6 mg/dL (2.5-4.5); Potassium 3.8 mmol/L (3.4-5.0); Sodium 136 mmol/L (137-145)
[2021-09-30 06:49] LABS: Basophils Absolute Auto 0.1 K/mm3 (0.0-0.1); Basophils Percent Auto 0.9 % (0.2-1.2); Eosinophils Absolute Auto 0.4 K/mm3 (0-0.3); Eosinophils Percent Auto 4.6 % (0-4.4); Hematocrit 32.2 % (37.0-47.0); Immature Granulocyte Absolute 0.03 K/mm3 (0.00-0.031); Immature Granulocyte Percent A 0.4 % (0-0.5); Lymphocytes Absolute Auto 2.27 K/mm3 (0.9-3.2); Lymphocytes Percent Auto 26.6 % (18.3-44.2); Mean Corpuscular HGB Conc 31.1 g/dl (32-36); Mean Corpuscular Hemoglobin 32.7 pg (26-34); Mean Corpuscular Volume 105.2 fl (80-100); Mean Platelet Volume 9.5 fl (7.4-10.4); Monocytes Absolute Auto 0.7 K/mm3 (0.1-0.6); Monocytes Percent Auto 7.9 % (2.6-8.5); Neutrophils Absolute Auto 5.1 K/mm3 (1.3-6.7); Neutrophils Percent Auto 59.6 % (45.5-73.1); Platelet Count Result 493 k/mm3 (150-375); Red Blood Count 3.06 M/mm3 (4.2-5.4); White Blood Count 8.5 K/mm3 (4.5-10.0)
--- NOTE | 2021-09-30 09:28 | P.PNNP_ITS ---
Progress Note: A&P Assessment and Plan (1) Acute kidney injury: Code(s): N17.9 - Acute kidney failure, unspecified Status: Acute Assessment and Plan: * resolved (2) Hypernatremia: Code(s): E87.0 - Hyperosmolality and hypernatremia Status: Acute Assessment and Plan: * Hypernatremia improved with DDAVP . * sodium still barely low. * She will follow-up with her PCP and possibly nephrology in [place]. (3) Acute respiratory failure: Code(s): J96.00 - Acute respiratory failure, unspecified whether with hypoxia or hypercapnia Status: Acute Assessment and Plan: * Improved. Now patient is extubated. (4) Electrolyte abnormality: Code(s): E87.8 - Other disorders of electrolyte and fluid balance, not elsewhere classified Status: Acute Assessment and Plan: * Electrolytes okay now. * Sodium is slightly low. This seems to be correcting on its own. (5) Altered mental status: Code(s): R41.82 - Altered mental status, unspecified Status: Acute Assessment and Plan: * Seems to be improving. (6) Nausea & vomiting: Code(s): R11.2 - Nausea with vomiting, unspecified Status: Acute Assessment and Plan: * Resolved (7) Alcohol abuse: Code(s): F10.10 - Alcohol abuse, uncomplicated Status: Acute Assessment and Plan: * details/specifics are unknown at this time * on thiamine and folic acid Subjective Date/time seen: 09/30/21 09:28 Interval history: Patient is resting comfortably in bed. G-tube working fine. Eager for discharge. Okay from my standpoint to remove the Solorzano cath Exam Narrative: General: female in NAD but intubated/sedated Heart: normal S1 and S2; no rub or gallop Lungs: Clear to auscultation Abdomen: soft, nondistended, positive bowel sounds . G-tube in place. Extremities: no edema Skin: no rash Objective Data Vital Signs Vital Signs: Vital Signs - 24 hr 09/29/21 12:09 09/29/21 13:41 09/29/21 13:47 Temperature Pulse Rate 90 88 90 Respiratory Rate 18 18 Blood Pressure Pulse Oximetry Oxygen Delivery 09/29/21 16:06 09/29/21 12:05 09/29/21 16:05 Temperature 35.7 C L Pulse Rate 88 96 89 Respiratory Rate 14 Blood Pressure 111/58 L Pulse Oximetry 98 Oxygen Delivery 09/29/21 20:09 09/29/21 21:36 09/29/21 21:36 Temperature 36.1 C L Pulse Rate 97 97 99 Respiratory Rate 18 16 Blood Pressure 112/51 L Pulse Oximetry 99 Oxygen Delivery 09/29/21 20:00 09/30/21 02:35 09/30/21 02:52 Temperature Pulse Rate 88 91 Respiratory Rate 16 16 Blood Pressure Pulse Oximetry Oxygen Delivery Room Air 09/29/21 20:25 09/29/21 20:00 09/30/21 00:00 Temperature Pulse Rate 99 96 97 Respiratory Rate 18 Blood Pressure Pulse Oximetry Oxygen Delivery 09/30/21 04:00
--- NOTE | 2021-09-30 09:28 | PM.PNNEP ---
Progress Note: A&P Assessment and Plan (1) Acute kidney injury: Code(s): N17.9 - Acute kidney failure, unspecified Status: Acute Assessment and Plan: resolved (2) Hypernatremia: Code(s): E87.0 - Hyperosmolality and hypernatremia Status: Acute Assessment and Plan: Hypernatremia improved with DDAVP . sodium still barely low. She will follow-up with her PCP and possibly nephrology in [place]. (3) Acute respiratory failure: Code(s): J96.00 - Acute respiratory failure, unspecified whether with hypoxia or hypercapnia Status: Acute Assessment and Plan: Improved. Now patient is extubated. (4) Electrolyte abnormality: Code(s): E87.8 - Other disorders of electrolyte and fluid balance, not elsewhere classified Status: Acute Assessment and Plan: Electrolytes okay now. Sodium is slightly low. This seems to be correcting on its own. (5) Altered mental status: Code(s): R41.82 - Altered mental status, unspecified Status: Acute Assessment and Plan: Seems to be improving. (6) Nausea & vomiting: Code(s): R11.2 - Nausea with vomiting, unspecified Status: Acute Assessment and Plan: Resolved (7) Alcohol abuse: Code(s): F10.10 - Alcohol abuse, uncomplicated Status: Acute Assessment and Plan: details/specifics are unknown at this time on thiamine and folic acid Subjective Date/time seen: 09/30/21 09:28 Interval history: Patient is resting comfortably in bed. G-tube working fine. Eager for discharge. Okay from my standpoint to remove the Solorzano cath Exam Narrative: General: female in NAD but intubated/sedated Heart: normal S1 and S2; no rub or gallop Lungs: Clear to auscultation Abdomen: soft, nondistended, positive bowel sounds . G-tube in place. Extremities: no edema Skin: no rash Objective Data Vital Signs Vital Signs: Vital Signs - 24 hr 09/29/21 12:09 09/29/21 13:41 09/29/21 13:47 Temperature Pulse Rate 90 88 90 Respiratory Rate 18 18 Blood Pressure Pulse Oximetry Oxygen Delivery 09/29/21 16:06 09/29/21 12:05 09/29/21 16:05 Temperature 35.7 C L Pulse Rate 88 96 89 Respiratory Rate 14 Blood Pressure 111/58 L Pulse Oximetry 98 Oxygen Delivery 09/29/21 20:09 09/29/21 21:36 09/29/21 21:36 Temperature 36.1 C L Pulse Rate 97 97 99 Respiratory Rate 18 16 Blood Pressure 112/51 L Pulse Oximetry 99 Oxygen Delivery 09/29/21 20:00 09/30/21 02:35 09/30/21 02:52 Temperature Pulse Rate 88 91 Respiratory Rate 16 16 Blood Pressure Pulse Oximetry Oxygen Delivery Room Air 09/29/21 20:25 09/29/21 20:00 09/30/21 00:00 Temperature Pulse Rate 99 96 97 Respiratory Rate 18 Blood Pressure Pulse Oximetry Oxygen Delivery 09/30/21 04:00 09/30/21 05:49 09/30/21 09:21 Temperature 36.6 C Pulse Rate 100 102 H 90 Respiratory Rate 16 16 Blood Pressure 104/59 L Pulse Oximetry 97 Oxygen Delivery 09/30/21 09:27 Temperature Pulse Rate 91 Respiratory Rate 18 Blood Pressure Pulse Oximetry Oxygen Delivery Intake/Output Intake/Output: Intake & Output 09/27/21 09/28/21 09/29/21 09/30/21 23:59 23:59 23:59 23:59 Intake Total 130 130 Output Total 1257 2905 856 010 [facility]1695 -1420 -950 -300 Meds/Results Medications: Active Medications Generic Name Dose Route Start Last Admin Trade Name Freq PRN Reason Stop Dose Admin Acetaminophen 650 mg 09/18/21 14:19 09/30/21 01:55 Acetaminophen Elixir 325 Mg/10.15 Ml Udc PO 650 mg Q6H PRN Administration Mild Pain (1-3) or Fever Albuterol 2.5 mg 09/11/21 08:16 09/22/21 14:07 Albuterol Sulfate Neb 2.5 Mg/3 Ml Inh INHALATION 2.5 mg Q4HRT PRN Administration Shortness Of Breath Or Wheezing Albuterol 5 mg 09/12/21 20:00 09/30/21
[2021-09-30] MEDS: PANTOPRAZOLE SODIUM IV 40 MG VIAL IV PUSH (10:10)
[2021-09-30] MEDS: THIAMINE HCL 200 MG/2 ML VIAL 100 MG IV PUSH (10:10)
[2021-09-30] MEDS: METOPROLOL TARTRATE 12.5 MG TABLET PO (10:10)
[2021-09-30] MEDS: FOLIC ACID 1 MG/0.2 ML INJ IV PUSH (10:11)
[2021-09-30] MEDS: ENOXAPARIN 30 MG/0.3 ML SYRINGE SUB-Q (10:11)
[2021-09-30] MEDS: MICONAZOLE NITRATE 2% CREAM 30 GM TUBE 1 APPLIC TOPICAL ×2 (10:12→21:57)
[2021-09-30 11:56] LABS: Glucose Point of Care 100 mg/dl (65-105)
--- NOTE | 2021-09-30 15:49 | PM.IMPN ---
Progress Note: A&P Assessment and Plan (1) Sepsis: Code(s): A41.9 - Sepsis, unspecified organism Status: Acute Assessment and Plan: Chest x-ray and UA were negative on admission. CT abdomen also did not show any evidence of infection and no evidence of colitis. Although patient had elevated WBC count. -09/11/2021 urine culture negative -09/11 KUB showed airspace opacity in left lung which could be an aspiration pneumonia and she did had low-grade fever -status post Zosyn x7 days -C diff came back negative Sepsis related to aspiration PNA. (2) Fever: Code(s): R50.9 - Fever, unspecified Status: Acute Assessment and Plan: Patient has been febrile since stopping the Zosyn 09/18/2021. COVID negative 09/15 -09/19 blood culture: No growth -09/19 urine culture: No growth -09/19 sputum culture: Yeast -patient has perineal/vulvar rash which is erythematous, flaky skin, possible fungal. Patient on miconazole topical cream. 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 Vancomycin, cefepime and Levaquin (started on 09/20/2021) -Fever resolved on 09/22 -09/26/21 Pneumonia treatment completed and off abx Fever has resolve. Patient is off antibiotics. (3) Silent aspiration: Code(s): T17.900A - Unspecified foreign body in respiratory tract, part unspecified causing asphyxiation, initial encounter Status: Acute Assessment and Plan: Noted on modified barium swallow. Discussed with speech therapy and would recommend outpatient speech therapy to help improve this fdc. PEG placed 09/28 and patient currently tolerating bolus TF. Appreciate recommendations from GI. (4) Acute respiratory failure: Code(s): J96.00 - Acute respiratory failure, unspecified whether with hypoxia or hypercapnia Status: Acute Assessment and Plan: 7/13 all through the day had increased oxygen requirement and became more hypoxic. Intubated later in the evening, Chest x-ray at that time showed persistent diffuse bilateral airspace disease. Possible etiologies are congestive heart failure and pulmonary edema, ARDS, aspiration pneumonia -09/19: Chest x-ray: Left PICC line tip has been repositioned now in expected position near the superior cavoatrial junction.. Persistent scattered bilateral lung disease which could represent pulmonary edema or pneumonia. 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 per Nephrology -09/26/21 sodium low -09/28/21 DDAVP stopped. -09/30/21 Sodium stable at 136. Appreciate recommendations for Nephrology. Solorzano out (6) Electrolyte abnormality: Code(s): E87.8 - Other disorders of electrolyte and fluid balance, not elsewhere classified Status: Acute Assessment and Plan: Stable (7) Acute kidney injury: Code(s): N17.9 - Acute kidney failure, unspecified Status: Acute Assessment and Plan: Patient presented with creatinine of 7. Presented with nausea vomiting. -CT scan and renal ultrasound did not show any hydronephrosis -Normal CK on admission -appreciate Nephrology is following the patient -Creatinine has normalized. Resolved (8) Nausea & vomiting:
[2021-09-30 16:51] LABS: Glucose Point of Care 94 mg/dl (65-105)
[2021-09-30] MEDS: ALPRAZolam (*CRX) 0.25 MG TABLET FEED TUBE (17:21)
[2021-09-30] MEDS: ACETAMINOPHEN ELIXIR 325 MG/10.15 ML UDC 650 MG FEED TUBE ×2 (17:21→23:39)
[2021-09-30] MEDS: rOPINIRole HCL 1 MG TABLET FEED TUBE (21:52)
[2021-09-30] MEDS: METOPROLOL TARTRATE 12.5 MG TABLET FEED TUBE (21:52)
[2021-09-30] MEDS: GABAPENTIN 300 MG CAPSULE FEED TUBE (21:52)
[2021-10-01 01:42] LABS: Glucose Point of Care 112 mg/dl (65-105)
[2021-10-01 05:47] VITALS: BP 131/66; PULSE 114; RESP 18; TEMP 37; O2SAT 95
[2021-10-01 06:18] LABS: Glucose Point of Care 113 mg/dl (65-105)
[2021-10-01] MEDS: ACETAMINOPHEN ELIXIR 325 MG/10.15 ML UDC 650 MG FEED TUBE (06:33)
[2021-10-01] MEDS: GABAPENTIN 300 MG CAPSULE FEED TUBE ×2 (06:33→14:10)
[2021-10-01] MEDS: CENTRAL LINE FLUSH 10 ML IV PUSH ×2 (06:33→14:10)
[2021-10-01] MEDS: LANSOPRAZOLE ORAL SUSP 30 MG/10 ML ORAL.SUSP FEED TUBE (06:34)
[2021-10-01 07:46] LABS: Glucose Point of Care 97 mg/dl (65-105)
[2021-10-01 08:10] VITALS: PULSE 114
[2021-10-01] MEDS: METOPROLOL TARTRATE 12.5 MG TABLET FEED TUBE (08:10)
[2021-10-01] MEDS: ENOXAPARIN 30 MG/0.3 ML SYRINGE SUB-Q (08:10)
[2021-10-01] MEDS: MICONAZOLE NITRATE 2% CREAM 30 GM TUBE 1 APPLIC TOPICAL (08:11)
[2021-10-01 08:56] LABS: Anion Gap 9 mmol/L (8-16); Blood Urea Nitrogen 10 mg/dL (7-17); Calcium 7.4 mg/dL (8.4-10.2); Carbon Dioxide 24 mmol/L (22-30); Chloride 103 mmol/L (98-107); Estimated CRCL calculation 128 ml/min; Estimated Glomerular Filt Rate > 60; Glucose 78 mg/dL (65-110); Potassium 3.5 mmol/L (3.4-5.0); Sodium 136 mmol/L (137-145)
[2021-10-01] MEDS: FOLIC ACID 1 MG TABLET FEED TUBE (10:06)
[2021-10-01] MEDS: THIAMINE HCL 100 MG TABLET FEED TUBE (10:06)
--- NOTE | 2021-10-01 11:23 | PCOTNOTE ---
Attempted to see patient this am, however patient refused at this time. Pt up walking around room stating, I've been cleaning, and I'm about to do some plumbing. Have you seen under those sinks? It ain't right! Pt reported wanting to be discharged and was fixated on going home. Pt reported pain in abdomen, and RN was notified.
[2021-10-01 11:46] LABS: Glucose Point of Care 87 mg/dl (65-105)
--- NOTE | 2021-10-01 14:21 | PM.DS ---
DS: Admitting Diagnosis Discharge Date 10/01/21 Admitting Diagnosis BRENNA, encephalopathy DS: Discharge Diagnosis Discharge Diagnosis (1) Sepsis: Code(s): A41.9 - Sepsis, unspecified organism Status: Acute (2) Fever: Code(s): R50.9 - Fever, unspecified Status: Acute (3) Silent aspiration: Code(s): T17.900A - Unspecified foreign body in respiratory tract, part unspecified causing asphyxiation, initial encounter Status: Acute (4) Acute respiratory failure: Code(s): J96.00 - Acute respiratory failure, unspecified whether with hypoxia or hypercapnia Status: Acute (5) Hypernatremia: Code(s): E87.0 - Hyperosmolality and hypernatremia Status: Acute (6) Electrolyte abnormality: Code(s): E87.8 - Other disorders of electrolyte and fluid balance, not elsewhere classified Status: Acute (7) Acute kidney injury: Code(s): N17.9 - Acute kidney failure, unspecified Status: Acute (8) Nausea & vomiting: Code(s): R11.2 - Nausea with vomiting, unspecified Status: Acute (9) Metabolic acidosis: Code(s): E87.2 - Acidosis Status: Acute (10) Encephalopathy: Code(s): G93.40 - Encephalopathy, unspecified Status: Acute (11) Alcohol abuse: Code(s): F10.10 - Alcohol abuse, uncomplicated Status: Acute (12) Esophagitis: Code(s): K20.90 - Esophagitis, unspecified without bleeding Status: Acute (13) Hypoglycemia: Code(s): E16.2 - Hypoglycemia, unspecified Status: Acute (14) COPD (chronic obstructive pulmonary disease): Code(s): J44.9 - Chronic obstructive pulmonary disease, unspecified Status: Acute (15) Vulvar rash: Code(s): R21 - Rash and other nonspecific skin eruption Status: Acute (16) Anemia: Code(s): D64.9 - Anemia, unspecified Status: Acute (17) Aspiration pneumonia: Code(s): J69.0 - Pneumonitis due to inhalation of food and vomit Status: Acute DS: Summary Hospital Course Reason for hospitalization: 51yo female with hx of alcoholism, potential drug abuse and COPD who was transferred for BRENNA, encephalopathy and severe metabolic acidosis. Please see H&P for details Hospital Course: Patient was transferred from outside hospital after having found to have acute kidney injury, metabolic acidosis and altered mental status. There was concern patient had sign aspiration. She was started on antibiotics. She completed antibiotic course but then began to have fevers. All the cultures have returned negative except for sputum culture growing yeast. CT of the brain showed chronic encephalomalacia right frontal lobe and anterior body of the corpus callosum. With the fevers, she was started on broad-spectrum antibiotics and completed a course. Fevers resolved. It was felt that she had pneumonia. Patient also had hyponatremia treated with DDAVP. Initially felt to have central diabetes insipidus but this resolved. Because of the dysphagia she had a PEG tube placed. Tolerating bolus feedings. She had a long protracted course but overall did well. She has ablt to be discharged home on 10/01/2021. Status at Discharge Cognitive/behavioral status at discharge: Stable Time Spent with Patient Time attestation: Total time spent providing and/or coordinating discharge services: 35 minutes Time spent: Greater than 30 minutes Exam Narrative: AF 98.6 131/66 114 18 95% ra Gen - NARD Chest - lungs CTA bilaterally CV -RRR Abd - soft, mildly tender, +BS, GTube site clean and dry Ext - No pedal edema Psych - normal mood and affect Skin - cool and dry.?? DS: Data Data Completed and Pending Labs on day of discharge: Labs from last 24 hours 10/01/21 10/01/21 10/01/21 11:36 08:16 07:33 Sodium 136 L Potassium 3.5 Chloride 103 Carbon Dioxide 24 Anion Gap 9 BUN 10 Creatinine 0.30 L
--- NOTE | 2021-10-01 14:36 | P.PNNP_ITS ---
Progress Note: A&P Assessment and Plan (1) Acute kidney injury: Code(s): N17.9 - Acute kidney failure, unspecified Status: Acute Assessment and Plan: * resolved (2) Hypernatremia: Code(s): E87.0 - Hyperosmolality and hypernatremia Status: Acute Assessment and Plan: * Hypernatremia improved with DDAVP . * Now off DDAVP for a while. * sodium still 136. * She will follow-up with her PCP and possibly nephrology in [place]. (3) Acute respiratory failure: Code(s): J96.00 - Acute respiratory failure, unspecified whether with hypoxia or hypercapnia Status: Acute Assessment and Plan: * Improved. Now patient is extubated. (4) Electrolyte abnormality: Code(s): E87.8 - Other disorders of electrolyte and fluid balance, not elsewhere classified Status: Acute Assessment and Plan: * Electrolytes okay now. * Sodium is slightly low. This seems to be correcting on its own. (5) Altered mental status: Code(s): R41.82 - Altered mental status, unspecified Status: Acute Assessment and Plan: * Seems to be improving. (6) Nausea & vomiting: Code(s): R11.2 - Nausea with vomiting, unspecified Status: Acute Assessment and Plan: * Resolved (7) Alcohol abuse: Code(s): F10.10 - Alcohol abuse, uncomplicated Status: Acute Assessment and Plan: * details/specifics are unknown at this time * on thiamine and folic acid Subjective Date/time seen: 10/01/21 14:36 Interval history: Patient is resting comfortably in bed. Getting tube feedings per G-tube. No chest pain or shortness of breath. Eager for discharge Exam Narrative: General: female in NAD but intubated/sedated Heart: normal S1 and S2; no rub or gallop Lungs: Clear to auscultation Abdomen: soft, nondistended, positive bowel sounds . G-tube in place. Extremities: no edema Skin: no rash Objective Data Vital Signs Vital Signs: Vital Signs - 24 hr 09/30/21 16:14 09/30/21 16:04 09/30/21 21:52 Temperature 36.7 C Pulse Rate 99 116 H 102 H Respiratory Rate 14 Blood Pressure 106/58 L Pulse Oximetry 100 Oxygen Delivery 09/30/21 21:54 09/30/21 21:50 10/01/21 05:47 Temperature 36.1 C L 37.0 C Pulse Rate 89 114 H Respiratory Rate 18 18 Blood Pressure 100/51 L 131/66 Pulse Oximetry 97 95 Oxygen Delivery Room Air 10/01/21 08:10 10/01/21 08:00 Temperature Pulse Rate 114 H Respiratory Rate Blood Pressure Pulse Oximetry Oxygen Delivery Room Air Intake/Output Intake/Output: Intake & Output 09/28/21 09/29/21 09/30/21 10/01/21 23:59 23:59 23:59 23:59 Intake Total 130 400 Output Total 1550 695 650 Balance -0114 -950 -164 Meds/Results Medications: Active Medications Generic Name Dose Route Start Last Admin Trade Name Freq PRN Reason Stop Dose Admin Acetaminoph
--- NOTE | 2021-10-01 14:36 | PM.PNNEP ---
Progress Note: A&P Assessment and Plan (1) Acute kidney injury: Code(s): N17.9 - Acute kidney failure, unspecified Status: Acute Assessment and Plan: resolved (2) Hypernatremia: Code(s): E87.0 - Hyperosmolality and hypernatremia Status: Acute Assessment and Plan: Hypernatremia improved with DDAVP . Now off DDAVP for a while. sodium still 136. She will follow-up with her PCP and possibly nephrology in [place]. (3) Acute respiratory failure: Code(s): J96.00 - Acute respiratory failure, unspecified whether with hypoxia or hypercapnia Status: Acute Assessment and Plan: Improved. Now patient is extubated. (4) Electrolyte abnormality: Code(s): E87.8 - Other disorders of electrolyte and fluid balance, not elsewhere classified Status: Acute Assessment and Plan: Electrolytes okay now. Sodium is slightly low. This seems to be correcting on its own. (5) Altered mental status: Code(s): R41.82 - Altered mental status, unspecified Status: Acute Assessment and Plan: Seems to be improving. (6) Nausea & vomiting: Code(s): R11.2 - Nausea with vomiting, unspecified Status: Acute Assessment and Plan: Resolved (7) Alcohol abuse: Code(s): F10.10 - Alcohol abuse, uncomplicated Status: Acute Assessment and Plan: details/specifics are unknown at this time on thiamine and folic acid Subjective Date/time seen: 10/01/21 14:36 Interval history: Patient is resting comfortably in bed. Getting tube feedings per G-tube. No chest pain or shortness of breath. Eager for discharge Exam Narrative: General: female in NAD but intubated/sedated Heart: normal S1 and S2; no rub or gallop Lungs: Clear to auscultation Abdomen: soft, nondistended, positive bowel sounds . G-tube in place. Extremities: no edema Skin: no rash Objective Data Vital Signs Vital Signs: Vital Signs - 24 hr 09/30/21 16:14 09/30/21 16:04 09/30/21 21:52 Temperature 36.7 C Pulse Rate 99 116 H 102 H Respiratory Rate 14 Blood Pressure 106/58 L Pulse Oximetry 100 Oxygen Delivery 09/30/21 21:54 09/30/21 21:50 10/01/21 05:47 Temperature 36.1 C L 37.0 C Pulse Rate 89 114 H Respiratory Rate 18 18 Blood Pressure 100/51 L 131/66 Pulse Oximetry 97 95 Oxygen Delivery Room Air 10/01/21 08:10 10/01/21 08:00 Temperature Pulse Rate 114 H Respiratory Rate Blood Pressure Pulse Oximetry Oxygen Delivery Room Air Intake/Output Intake/Output: Intake & Output 09/28/21 09/29/21 09/30/21 10/01/21 23:59 23:59 23:59 23:59 Intake Total 130 400 Output Total 1550 950 650 Balance -6099 -950 250 Meds/Results Medications: Active Medications Generic Name Dose Route Start Last Admin Trade Name Freq PRN Reason Stop Dose Admin Acetaminophen 650 mg 09/30/21 16:16 10/01/21 06:33 Acetaminophen Elixir 325 Mg/10.15 Ml Udc FEED TUBE 650 mg Q6H PRN Administration Mild Pain (1-3) or Fever Albuterol 2.5 mg 09/11/21 08:16 09/22/21 14:07 Albuterol Sulfate Neb 2.5 Mg/3 Ml Inh INHALATION 2.5 mg Q4HRT PRN Administration Shortness Of Breath Or Wheezing Alprazolam 0.25 mg 09/30/21 16:16 09/30/21 17:21 Alprazolam (*Crx) 0.25 Mg Tablet FEED TUBE 0.25 mg TID PRN Administration Anxiety Alteplase, Recombinant 2 mg 09/29/21 18:38 Alteplase 2 Mg Vial (Cathflo) IV PUSH ONCE PRN Line Occlusion Bisacodyl 10 mg 09/16/21 07:38 09/16/21 10:54 Bisacodyl 10 Mg Suppository RECTAL 10 mg QAM PRN Administration Constipation Dextrose 12.5 gm 09/11/21 05:02 09/11/21 05:10 Dextrose 50% 25 Gm/50 Ml Syringe IV PUSH 12.5 gm PRN PRN Administration Hypoglycemia Protocol Enoxaparin Sodium 30 mg 09/12/21 09:00 10/01/21 08:10 Enoxaparin 30 Mg/0.3 Ml Sy
[2021-10-01 15:17] VITALS: BP 106/58; PULSE 97; RESP 16; TEMP 36.8; O2SAT 100
--- NOTE | 2021-10-01 17:29 | PC.NURSE ---
pt recieved teaching on PEG tube and tube feedings for home. instruction sheets faxed to [facility].
== END 2021-10-01 17:30 | disposition home health service (06) | DRG 870 ==
LOC: ANHICU 09-12 13:38 → ANH3MED 09-27 12:33 → ANHICU 10-02 10:13
PROVIDERS: Family Medicine; Internal Medicine; Internal Medicine Gastroenterology; Internal Medicine Nephrology; Admitting Provider Student in an Organized Health Care Education/Training Program; Visit Provider Internal Medicine
PROC: 0DH63UZ Insertion of Feeding Device into Stomach, Percutaneous Approach (ICD-10-PCS; CPT 43246; principal; 2021-09-28 14:00)
DX: A41.9 Sepsis, unspecified organism (principal); J96.01 Acute respiratory failure with hypoxia; J18.9 Pneumonia, unspecified organism; J69.0 Pneumonitis due to inhalation of food and vomit; N17.9 Acute kidney failure, unspecified; E87.2 Acidosis; G93.40 Encephalopathy, unspecified; K31.5 Obstruction of duodenum; E46 Unspecified protein-calorie malnutrition; Z68.1 Body mass index [BMI] 19.9 or less, adult; E87.0 Hyperosmolality and hypernatremia; J44.0 Chronic obstructive pulmonary disease with (acute) lower respiratory infection; T17.900A Unspecified foreign body in respiratory tract, part unspecified causing asphyxiation, initial encounter; R13.10 Dysphagia, unspecified; R93.89 Abnormal findings on diagnostic imaging of other specified body structures; D64.9 Anemia, unspecified; E88.09 Other disorders of plasma-protein metabolism, not elsewhere classified; E87.6 Hypokalemia; E87.8 Other disorders of electrolyte and fluid balance, not elsewhere classified; E16.2 Hypoglycemia, unspecified; F10.10 Alcohol abuse, uncomplicated; F40.240 Claustrophobia; F17.210 Nicotine dependence, cigarettes, uncomplicated; G93.89 Other specified disorders of brain; K20.90 Esophagitis, unspecified without bleeding; R21 Rash and other nonspecific skin eruption; Z20.822 Contact with and (suspected) exposure to COVID-19; Z66 Do not resuscitate; Z79.899 Other long term (current) drug therapy; Z88.0 Allergy status to penicillin; Z90.49 Acquired absence of other specified parts of digestive tract
CPT/HCPCS: 36415; 36430; 36569; 36600; 43246; 70450; 71045; 71275; 74018; 74177; 74240; 74248; 76775; 80048; 80053; 80069; 80202; 81001; 81003; 82024; 82140; 82274; 82375; 82533; 82550; 82570; 82607; 82728; 82746; 82805; 82948; 83001; 83002; 83010; 83050; 83540; 83550; 83605; 83615; 83690; 83735; 83880; 83930; 83935; 84100; 84295; 84300; 84443; 84478; 85014; 85018; 85025; 85027; 85046; 85610; 85730; 86255; 86850; 86900; 86901; 86920; 87040; 87070; 87081; 87086; 87205; 87493; 92526; 92610; 92611; 93306; 93970; 94002; 94003; 94640; 94667; 97110; 97162; 97166; 97530; 97535; A9270; C1751; C9113; C9803; J0131; J0610; J0690; J0692; J0834; J1100; J1450; J1650; J1815; J1940; J1956; J2060; J2250; J2270; J2543; J2597; J2704; J3010; J3360; J3370; J3411; J3475; J3480; J7030; J7040; J7050; J7060; J7070; J7120; P9016; P9045; P9047; Q9967; U0003; U0005